=== PATIENT | female | born 1985 | race Caucasian/White ===

== ENCOUNTER 2020-03-17 10:35 | Emergency (ER) | payer OTHER, SELFPAY ==
[2020-03-17 12:21] VITALS: BP 120/76; PULSE 95; RESP 20; TEMP 37.3; O2SAT 99; BMI 36.9
--- NOTE | 2020-03-17 12:49 | ED_ITS ---
HPI - URI/Sore Throat General Chief Complaint: Upper Respiratory Symptoms Stated Complaint: ear pain, throat pain Time Seen by Provider: 03/17/20 12:48 Source: patient Mode of arrival: ambulatory Limitations: no limitations History of Present Illness HPI Narrative: sore throat, bilateral ear pain, ABRAMS, cough, body aches, subjective fevers Onset (ago): day(s) (yesterday) Consistency: constant Severity: mild Associated symptoms: denies other symptoms Related Data Previous Rx's Medication Instructions Recorded acetaminophen [Tylenol] 650 mg PO Q6H PRN #30 tab 03/17/20 Allergies Allergy/AdvReac Type Severity Reaction Status Date / Time aspirin [Aspirin] Allergy Severe DIFFICULTY Unverified 02/28/20 17:26 BREATHING, tracheal swelling Penicillins Allergy Severe DIFFICULTY Unverified 02/28/20 17:26 BREATHING penicillin V Allergy Unknown tracheal Unverified 02/07/20 00:00 swelling Review of Systems Review of Systems: Yes all other systems are reviewed and are negative Constitutional: Constitutional: Reports body ache(s), Reports chills, Reports fever(s) (subjective ), Reports headache(s), Reports malaise and Denies weakness Eyes: Eyes: Reports no additional eye complaints and Denies change in vision ENT: Reports system reviewed and no additional complaints, except as documented, Reports otalgia, Reports headache(s) and Reports sore throat Cardiovascular: Cardiovascular: Denies chest pain, Denies leg edema and Denies dyspnea Respiratory: Respiratory: Reports cough and Denies dyspnea Gastrointestinal: Gastrointestinal: Denies abdominal pain, Denies diarrhea, Denies nausea and Denies vomiting Musculoskeletal: Musculoskeletal: Reports no additional musculoskeletal complaints, Reports myalgias, Denies arthralgias, Denies joint swelling, Denies numbness and Denies tingling Integumentary/Breasts: Skin/Breast: Reports system reviewed and no additional complaints, except as docu and Denies rash Neurologic: Reports system reviewed and no additional complaints, except as documented, Reports headache(s), Denies numbness, Denies Sensory deficit (Neuro), Denies tingling and Denies weakness [facility] Past Medical History Attestation statement: The following information was validated with the patient. Source: obtained from family and nursing notes reviewed Medical History Asthma Surgical History Hx of shoulder surgery Tubal ligation status Social History Social History Advance Directives: No Advance Directives Information Provided: Yes Physical Exam Vital Signs and I&O and Narrative: Vital Signs and I&O: Vital Signs Temp 99.1 F 03/17/20 12:21 Pulse 95 03/17/20 12:21 Resp 20 03/17/20 12:21 BP 120/76 03/17/20 12:21 Pulse Ox 99 03/17/20 12:21 Intake & Output 03/16/20 03/17/20 03/17/20 18:59 06:59 18:59 Weight 113.398 kg Body Mass Index 36.9 Neuro: Sensory Exam: No Sensory deficit (Neuro) MDM - URI/Sore Throat MDM Narrative Medical decision making narrative: Likely viral syndrome. Well appearing, stable vital signs. COVID testing sent. Reviewed worrisome signs.symptoms with the patient and when to return to ED. Comfortable with discharge home, Discharge Plan Discharge Clinical Impression: Viral infection Patient Disposition: Home, Self-Care Instructions: Viral Syndrome (ED) Additional Instructions: motrin or tylenol for pain or fever as needed increase fluids, rest we will call you in 1-2 days with results Prescriptions: New acetaminophen [Tylenol] 325 mg tablet 650 mg PO Q6H PRN (Reason: fever or pain) Qty: 30 RF: 0 Referrals: Janis Marcelino MD [Primary Care Provider] - 5 days Stand Alone Forms: Work/School Release
== END 2020-03-17 13:41 | disposition home or self-care (01) ==
PROVIDERS: Nurse Practitioner Family; Emergency Provider Internal Medicine; PCP Internal Medicine
DX: B34.9 Viral infection, unspecified (principal); H92.03 Otalgia, bilateral; R51.9 Headache, unspecified; R50.9 Fever, unspecified; Z20.828 Contact with and (suspected) exposure to other viral communicable diseases
CPT/HCPCS: 36415; 87635; 99283

== ENCOUNTER 2020-04-17 06:26 | Outpatient (REF) | payer OTHER, SELFPAY | END 2020-04-17 06:27 | disposition home or self-care (01) | LOC: HO.LAB 06:26 | PROVIDERS: Visit Provider Internal Medicine | DX: Z20.828 Contact with and (suspected) exposure to other viral communicable diseases (principal) | CPT/HCPCS: C9803; U0003 ==

== ENCOUNTER → 2020-04-23 08:50 | Outpatient (BNVA) | payer OTHER, SELFPAY | PROVIDERS: Visit Provider Obstetrics & Gynecology | DX: Z01.818 Encounter for other preprocedural examination (principal); N84.0 Polyp of corpus uteri; N92.1 Excessive and frequent menstruation with irregular cycle | CPT/HCPCS: 99212 ==

== ENCOUNTER 2020-04-25 07:36 | Day surgery (SDC) | payer OTHER, SELFPAY ==
[2020-03-21 11:01] VITALS: BMI 36.9
--- NOTE | 2020-03-26 08:40 | HO.ANESPROP2 ---
HPI - Anesthesia Eval Consult details Narrative: 34yo F for Novasure ablation, D&C [facility] Past Medical History Medical History Asthma Hx of allergic rhinitis Hx of bipolar disorder Surgical History Surgical History History of bilateral tubal ligation History of open reduction and internal fixation (ORIF) procedure History of tonsillectomy and adenoidectomy Hx of shoulder surgery Tubal ligation status Social History Social History Smoking Status: Never smoker Meds Allergies Allergy/AdvReac Type Severity Reaction Status Date / Time aspirin [Aspirin] Allergy Severe DIFFICULTY Unverified 03/21/20 10:58 BREATHING, tracheal swelling Penicillins Allergy Severe DIFFICULTY Unverified 03/21/20 10:58 BREATHING Home Medications Medication Instructions Recorded Confirmed Type albuterol sulfate 1 vial INHALATION Q6H PRN 03/21/20 03/21/20 History albuterol sulfate [ProAir HFA] 1 inh INHALATION QID PRN 03/21/20 03/21/20 History citalopram 1 tab PO QAM 03/21/20 03/21/20 History doxepin 2 cap PO BEDTIME 03/21/20 03/21/20 History lithium carbonate 1 cap PO BID 03/21/20 03/21/20 History Exam Exam Date and Time: March 26, 2020 0840 Height,Weight and Vital Signs: Height 5 ft 9 in Weight 113.398 kg Pertinent Lab Results Pertinent Lab Results: Laboratory Tests 01/16/20 11:30 WBC 8.6 Hgb 11.8 L Hct 36.4 L Plt Count 415 H Assessment and Plan Assessment Anesthesia Assessment: Chart Reviewed
[2020-04-18 20:09] VITALS: BMI 36.8
--- NOTE | 2020-04-23 14:41 | HO.ANESPROP2 ---
Documented by User: Ynes Schultz 04/23/20 14:42 HPI - Anesthesia Eval Consult details Narrative: 34yo F for D&C Diagnostic Hysteroscopy, Novasure ablation PMF[facility] Past Medical History Medical History Asthma Hx of allergic rhinitis Hx of bipolar disorder Surgical History Surgical History History of bilateral tubal ligation History of open reduction and internal fixation (ORIF) procedure History of tonsillectomy and adenoidectomy Hx of shoulder surgery Tubal ligation status Social History Social History Alcohol intake: never Smoking Status: Never smoker Use of substances other than those prescribed or required for medical reasons: No Substance Use Type: Marijuana Advance Directives: No Advance Directives Information Provided: No Advance Directives on File: No Sexual orientation: Straight/Heterosexual Gender identity: female Meds Allergies Allergy/AdvReac Type Severity Reaction Status Date / Time aspirin [Aspirin] Allergy Severe DIFFICULTY Verified 04/23/20 09:17 BREATHING, tracheal swelling Penicillins Allergy Severe DIFFICULTY Verified 04/23/20 09:17 BREATHING Home Medications Medication Instructions Recorded Confirmed Type albuterol sulfate 1 vial INHALATION Q6H PRN 03/21/20 04/23/20 History albuterol sulfate [ProAir HFA] 1 inh INHALATION QID PRN 03/21/20 04/23/20 History citalopram 1 tab PO QAM 03/21/20 04/23/20 History doxepin 2 cap PO BEDTIME 03/21/20 04/23/20 History lithium carbonate 1 cap PO BID 03/21/20 04/23/20 History Exam Exam Date and Time: April 23, 2020 1441 Height,Weight and Vital Signs: Height 5 ft 9 in Weight 113 kg Pertinent Lab Results Pertinent Lab Results: Laboratory Tests 01/16/20 11:30 WBC 8.6 Hgb 11.8 L Hct 36.4 L Plt Count 415 H Assessment and Plan Assessment Anesthesia Assessment: Chart Reviewed Documented by User: Anjali Grewal 04/25/20 08:20 PMFSH Past Medical History Medical History Asthma Hx of allergic rhinitis Hx of bipolar disorder Surgical History Surgical History History of bilateral tubal ligation History of open reduction and internal fixation (ORIF) procedure History of tonsillectomy and adenoidectomy Hx of shoulder surgery Tubal ligation status Social History Social History Alcohol intake: never Smoking Status: Never smoker Use of substances other than those prescribed or required for medical reasons: No Substance Use Type: Marijuana Advance Directives: No Advance Directives Information Provided: No Advance Directives on File: No Sexual orientation: Straight/Heterosexual Gender identity: female Meds Allergies Allergy/AdvReac Type Severity Reaction Status Date / Time aspirin [Aspirin] Allergy Severe DIFFICULTY Verified 04/23/20 09:17 BREATHING, tracheal swelling Penicillins Allergy Severe DIFFICULTY Verified 04/23/20 09:17 BREATHING Home Medications Medication Instructions Recorded Confirmed Type albuterol sulfate 1 vial INHALATION Q6H PRN 03/21/20 04/23/20 History albuterol sulfate [ProAir HFA] 1 inh INHALATION QID PRN 03/21/20 04/23/20 History citalopram 1 tab PO QAM 03/21/20 04/23/20 History doxepin 2 cap PO BEDTIME 03/21/20 04/23/20 History lithium carbonate 1 cap PO BID 03/21/20 04/23/20 History Exam Airway Mallampati Class: II TM Dist: >3cm Neck ROM: Full Loose/Missing/Broken Teeth: No Heart: RRR Lungs: CTA Assessment and Plan Assessment Anesthesia Assessment: Anesthesia Plan Discussed and Chart Reviewed Final Anesthetic Review NPO: Yes ASA Class: II Final Preanesthetic Review: Meds/Allgs Chart Reviewed, Consent Obtained/Reviewed and Anes Risks/Benef Reviewed Patient Risk: Intermediate Procedure Risk: Low Anesthetic Plan Anesthetic Plan: GA Disposition: Standard PACU
[2020-04-25] VITALS (9 sets, daily range): BP systolic 122–143; BP diastolic 46–93; PULSE 62–85; RESP 18–22; TEMP 36.5–36.8; O2SAT 98–100; BMI 37.6
[2020-04-25] MEDS: Lactated Ringers 1,000 ML 100 ML IVCONT (08:02)
--- NOTE | 2020-04-25 08:46 | MHC.SHP ---
Pre-Procedural Eval Section A The patient is an INPATIENT: No Changes since office visit: No Cold of Flu in the past 2 weeks, No New Medical Problems, No Changes in Medication and No Patient answered all questions The History & Physical has been completed within 30 days and I have reviewed it.: Yes Section B Chief Complaint: polyp,frequent menstruation Allergies: Allergies Allergy/AdvReac Type Severity Reaction Status Date / Time aspirin [Aspirin] Allergy Severe DIFFICULTY Verified 04/23/20 09:17 BREATHING, tracheal swelling Penicillins Allergy Severe DIFFICULTY Verified 04/23/20 09:17 BREATHING Plan Diagnosis/Plan: Unchanged Patient has been examined and remains a candidate for the planned procedure
--- NOTE | 2020-04-25 09:21 | PM.OP ---
Brief Operative Note Date of Service: 04/25/20 Pre-op diagnosis: Menometrorrhagia, endometrial Polyp Post-op diagnosis: same Procedure: Hysteroscopy D&C, Polypectomy, Novasure Endometrial ablation Surgeon: Richi Magana MD Anesthesia: MAC Estimated blood loss (mL): 0 Pathology: other (Endometrial Scrapping. Polyp) Condition: stable Disposition: PACU
--- NOTE | 2020-04-25 09:24 | P.OP_ITS ---
Operative Note Operative Note Date of Service: 04/25/20 Narrative: Preop Diagnosis: menometrorrhagia, endometrial polyp Operation: Diagnostic Hysteroscopy, Dilataion & Curettage and polypectomy, NovaSure endometrial ablation Post Op Diagnosis: the same QBL: Minimal Anesthesia: MAC Surgeon: Richi Magana MD Mortgage Collector: None Complication: None Pathology: Endometrial Scrapings, Endometrial polyp Procedure: The patient was put in the dorsal lithotomy position, scrubbed, and draped in the usual manner. A sterile speculum was inserted in the patient's vagina. The anterior lip of the cervix was grasped with a single tooth tenaculum. The cervix was dilated up to 6 mm, then the scope was inserted in the patient's uterus. Inspection revealed endometrial polyp. The Myosure Reach device was used; it was introduced through the operative channel and polypectomy done with no complications. At the end of the procedure, all instruments were taken out of the patient uterine and vaginal cavity, Endometrial scrapings was carried on with no complications. Then the NovaSure device was opened, the endometrial cavity was measured to be 6.5 cm, the NovaSure device was introduced inside the patient 's uterine cavity till resistance was met, next the the width of the uterine cavity was measured to be 4.5 cm. The perforation test was turned on and passed, and the NovaSure device was turned on and spontaneously stopped at 68 seconds. At this point the NovaSure device was taken out of the patient uterine cavity. The single tooth tenaculum was removed and homeostasis was assured using pressure,. The patient tolerated the procedure well and was transferred to the PACU in a stable condition.
[2020-04-25] MEDS: fentaNYL citrate/PF 100 MCG/2 ML VIAL 25 MCG IVPUSH ×4 (09:35→09:50)
--- NOTE | 2020-04-25 09:42 | HO.POSTANES ---
Post Anesthesia Evaluation Post Anesthesia Evaluation Vital Signs: Vital Signs Temp Pulse Resp BP Pulse Ox 04/25/20 09:35 22 H 04/25/20 09:30 98.3 F 68 20 143/89 H 98 04/25/20 07:46 97.7 F 81 20 122/80 99 Anesthesia: General Mental Status: Awake Pain Control: Satisfactory Nausea/Vomiting: Mild Hydration: Adequate Anesthesia-Related Issues: No Anes. Related Issues
[2020-04-25] MEDS: oxyCODONE HCl Immed Release 5 MG TABLET PO (09:43)
[2020-04-25] MEDS: Acetaminophen 325 MG TABLET 650 MG PO (09:44)
== END 2020-04-25 10:45 | disposition home or self-care (01) ==
PROVIDERS: PCP Internal Medicine; Visit Provider Obstetrics & Gynecology
PROC: 0UDB8ZX Extraction of Endometrium, Via Natural or Artificial Opening Endoscopic, Diagnostic (ICD-10-PCS; CPT 58558; principal; 2020-04-25 09:00)
DX: N92.1 Excessive and frequent menstruation with irregular cycle (principal); N84.0 Polyp of corpus uteri; F41.9 Anxiety disorder, unspecified; J45.909 Unspecified asthma, uncomplicated; Z98.51 Tubal ligation status
CPT/HCPCS: 58563; 88305; J1100; J2250; J2405; J3010

== ENCOUNTER 2020-05-07 07:21 | Outpatient (REF) | payer OTHER, SELFPAY | END 2020-05-07 07:22 | disposition home or self-care (01) | LOC: HO.LAB 07:21 | PROVIDERS: Visit Provider Internal Medicine | DX: Z20.828 Contact with and (suspected) exposure to other viral communicable diseases (principal) | CPT/HCPCS: C9803; U0003 ==

== ENCOUNTER → 2020-05-13 10:51 | Outpatient (BNVA) | payer OTHER, SELFPAY | PROVIDERS: Visit Provider Obstetrics & Gynecology | DX: Z76.89 Persons encountering health services in other specified circumstances (principal) ==

== ENCOUNTER 2020-06-12 06:57 | Outpatient (REF) | payer OTHER, SELFPAY | END 2020-06-12 06:58 | disposition home or self-care (01) | LOC: HO.LAB 06:57 | PROVIDERS: PCP Internal Medicine; Visit Provider Internal Medicine | DX: Z20.828 Contact with and (suspected) exposure to other viral communicable diseases (principal) | CPT/HCPCS: C9803; U0003 ==

== ENCOUNTER 2020-06-19 12:37 | Outpatient (REF) | payer OTHER, SELFPAY ==
--- NOTE | 2020-06-19 12:53 | XR_ITS ---
EXAMINATION: XR CALCANEUS, RIGHT CLINICAL INFORMATION: Right foot pain. COMPARISON: None TECHNIQUE: Lateral and axial views of the right calcaneus were obtained. FINDINGS: Minimal enthesopathy is noted at the insertional site of the Achilles tendon to the calcaneus. The soft tissues are normal. No fracture. Alignment is anatomic. Joint spaces are maintained. XR/XR calcaneus RT min 2V IMPRESSION: Minimal enthesopathy at the insertional site of the Achilles tendon to the calcaneus.
[2020-06-19 13:27] LABS: MANUAL DIFF FLAG NO
[2020-06-19 13:40] LABS: Basophils Absolute Auto 0.1 X10*3/uL (0.0-0.2); Basophils Percent Auto 0.5 % (0-2); Eosinophils Absolute Auto 0.4 X10*3/uL (0.0-0.4); Eosinophils Percent Auto 4.3 % (0-4); Hematocrit 36.7 % (37-47); Hemoglobin 11.9 g/dl (12.0-16.0); Imm Gran Abs Auto 0.05 X10*3/uL (0.00-0.03); Imm Gran Pct Auto 0.5 % (0.0-0.4); Lymphocytes Absolute Auto 2.9 X10*3/uL (1.2-4.9); Lymphocytes Percent Auto 30.1 % (20-40); Mean Corpuscular HGB Conc 32.4 g/dl (31.0-35.0); Mean Corpuscular Hemoglobin 22.9 pg (27.0-33.0); Mean Corpuscular Volume 70.6 fL (80-98); Mean Platelet Volume 11.3 fL (9.4-12.3); Monocytes Absolute Auto 0.8 X10*3/uL (0.1-1.2); Monocytes Percent Auto 8.5 % (2-11); Neutrophils Absolute Auto 5.5 X10*3/uL (2.0-8.3); Neutrophils Percent Auto 56.1 % (45-73); Platelet Count 391 X10*3/uL (160-400); Red Cell Distribution Width 18.2 % (11.0-16.0); White Blood Count 9.8 X10*3/uL (4.8-10.8)
== END 2020-06-19 12:38 | disposition home or self-care (01) ==
LOC: HO.LAB 12:37
PROVIDERS: Absent Provider Nurse Practitioner Family; PCP Internal Medicine; Visit Provider Obstetrics & Gynecology
DX: M79.671 Pain in right foot (principal); N93.9 Abnormal uterine and vaginal bleeding, unspecified
CPT/HCPCS: 36415; 73650; 85025; 99212

== ENCOUNTER 2020-07-03 06:32 | Outpatient (REF) | payer OTHER, SELFPAY | END 2020-07-03 06:33 | disposition home or self-care (01) | LOC: HO.LAB 06:32 | PROVIDERS: PCP Internal Medicine; Visit Provider Internal Medicine | DX: Z20.822 Contact with and (suspected) exposure to COVID-19 (principal) | CPT/HCPCS: 36415; C9803; U0003 ==

== ENCOUNTER 2020-11-26 14:22 | Outpatient (REF) | payer OTHER, SELFPAY ==
[2020-11-26 16:22] LABS: Hematocrit 35.9 % (37-47); Hemoglobin 11.8 g/dl (12.0-16.0); Mean Corpuscular HGB Conc 32.9 g/dl (31.0-35.0); Mean Corpuscular Hemoglobin 24.1 pg (27.0-33.0); Mean Corpuscular Volume 73.4 fL (80-98); Mean Platelet Volume 10.6 fL (9.4-12.3); Platelet Count 392 X10*3/uL (160-400); Red Blood Count 4.89 X10*6/uL (4.20-5.50); Red Cell Distribution Width 17.2 % (11.0-16.0); White Blood Count 8.6 X10*3/uL (4.8-10.8)
[2020-11-26 17:11] LABS: HCG Quantitative < 2 mIU/mL; TSH reflex Free T4 1.57 uIU/mL (0.32-4.0)
[2020-11-27 05:36] LABS: CT PCR NOT DETECTED (Not Detect.); NG PCR NOT DETECTED (Not Detect.)
[2020-11-29 03:11] LABS: HPV mRNA E6/E7 rflx Not Detected (Not Detected)
== END 2020-11-26 14:23 | disposition home or self-care (01) ==
LOC: HO.LAB 14:22
PROVIDERS: PCP Internal Medicine; Visit Provider Obstetrics & Gynecology
DX: Z01.411 Encounter for gynecological examination (general) (routine) with abnormal findings (principal); Z11.3 Encounter for screening for infections with a predominantly sexual mode of transmission; Z11.51 Encounter for screening for human papillomavirus (HPV); N92.1 Excessive and frequent menstruation with irregular cycle; N93.9 Abnormal uterine and vaginal bleeding, unspecified
CPT/HCPCS: 36415; 84443; 84702; 85027; 87491; 87591; 87624; 88142

== ENCOUNTER 2020-12-10 14:09 | Outpatient (REF) | payer OTHER, SELFPAY ==
--- NOTE | ~2020-12-10 | US_ITS ---
EXAMINATION: ULTRASOUND PELVIC, COMPLETE CLINICAL INFORMATION: Abnormal uterine and vaginal bleeding COMPARISON: Pelvic ultrasound 01/01/2020 TECHNIQUE: Transabdominal and transvaginal imaging was performed. Transvaginal imaging was performed for further evaluation of the endometrium and adnexa. FINDINGS: The uterus is of normal size and echogenicity measuring 9.4 x 4.5 x 5.6 cm. A regular homogeneous endometrium is identified measuring 0.6 cm. The previously seen endometrial polyp is not visualized on the current study. There are nabothian cysts within the cervix. Both ovaries are of normal size and echogenicity. The right ovary measures 2.3 x 1.7 x 1.7 cm for a volume of 3.5 mL. There is a 0.7 cm follicle within the right ovary. The left ovary measures 4.1 x 3.2 x 3.6 cm for a volume of 24.7 mL. There is a 2.4 x 2.6 x 2.9 cm dominant follicle in the left ovary There is no pelvic free fluid. US/US pelvic and transvaginal IMPRESSION: Previously seen possible endometrial polyp is not visualized on the current exam. Normal dominant follicle of the left ovary. Nabothian cysts within the cervix.
== END 2020-12-10 14:10 | disposition home or self-care (01) ==
LOC: HO.US 14:09
PROVIDERS: Visit Provider Obstetrics & Gynecology
DX: N93.9 Abnormal uterine and vaginal bleeding, unspecified (principal)
CPT/HCPCS: 76830; 76856

== ENCOUNTER 2021-02-02 10:45 | Emergency (ER) | payer OTHER, SELFPAY ==
--- NOTE | ~2021-02-02 | CT_ITS ---
EXAMINATION: CT ABDOMEN AND PELVIS WITHOUT CONTRAST CLINICAL INFORMATION: Right back pain. Question kidney stones COMPARISON: November 07, 2017 TECHNIQUE: Multidetector volumetric imaging was performed from the superior aspect of the liver through the pubic symphysis. Sagittal and coronal reformatted images were obtained on the technologist's workstation. This CT examination was performed using dose optimization techniques as appropriate, variously including the following: *Automated exposure control *Adjustment of mA and/or kV according to patient size (this includes techniques or standardized protocols for targeted exams where dose is matched to indication/reason for exam; i.e. extremities or head) *Use of iterative reconstruction technique DLP: 933 mGy-cm FINDINGS: LUNG BASES: There is a 3 mm subpleural density within the right middle lobe. No pleural or pericardial effusion. LIVER, GALLBLADDER, AND BILIARY TREE: There is diffuse fatty infiltration of the liver again seen. There is hepatomegaly with vertical length of 22 cm. There there are 2 stable regions of increased density within segment 4B of the liver consistent with focal fatty sparing. No suspicious mass identified. No intrahepatic bile duct dilatation is seen. The gallbladder is unremarkable with no evidence of radiopaque gallstones, gallbladder wall thickening, or obvious pericholecystic inflammatory changes. PANCREAS: Unremarkable. SPLEEN: There is mild splenomegaly with vertical span of 13 cm. No splenic lesion identified. ADRENAL GLANDS: Unremarkable. KIDNEYS AND URETERS: The kidneys are normal in size, shape, and attenuation. No hydronephrosis, hydroureter, or calculi seen. No perinephric stranding. BLADDER: Unremarkable. GASTROINTESTINAL TRACT: No dilated loops of large or small bowel. No free air or free fluid. No pericolonic inflammatory change. The appendix is visualized and appears unremarkable. There are some nonspecific regions of hazy density within the mesentery surrounding the nonenlarged lymph nodes. This was present on previous study of November 07, 2017. ABDOMINAL WALL: No significant hernia is appreciated. LYMPH NODES: There are numerous nonpathologically enlarged lymph nodes seen within the mesentery. An about the aortoiliac regions. VASCULAR: Unremarkable. PELVIC VISCERA: Unremarkable. OSSEOUS STRUCTURES: No suspicious destructive bony lesions identified. Degenerative disc disease is seen at the L4-L5 and L5-S1 levels. CT/CT abdomen pelvis wo con IMPRESSION: Diffuse fatty infiltration of the liver with hepatosplenomegaly. No evidence of obstructive uropathy. Numerous nonenlarged lymph nodes with hazy density surrounding them within the mesentery. This is a stable finding.
[2021-02-02 11:25] VITALS: BP 130/85; PULSE 84; RESP 16; TEMP 37; O2SAT 100; BMI 36.9
[2021-02-02 11:54] LABS: Glucose Urine UA NEG (NEG); Leukocyte Esterase Urine NEG (NEG); Nitrite Urine NEG (NEG); Specific Gravity - Urine 1.015 (1.005-1.025); Urine Blood NEG (NEG); Urine Ketones NEG (NEG); Urine Protein NEG (NEG-TRACE)
[2021-02-02 11:57] LABS: Appearance Urine CLEAR; Color Urine COLORLESS
[2021-02-02 12:03] LABS: Bacteria Urine TRACE /LPF; RBC Urine 0 /HPF (0); Squamous Epithelial Cell Urine 1+ /LPF; WBC Urine 0 /HPF (0-4)
[2021-02-02 12:33] LABS: UPreg QC Valid YES; Urine Pregnancy NEGATIVE (NEGATIVE)
[2021-02-02] MEDS: oxyCODONE HCl Immed Release 5 MG TABLET PO (13:26)
--- NOTE | 2021-02-02 13:45 | ED.BACK ---
HPI - Back Pain/Injury General Chief Complaint: Back Pain/Injury Stated Complaint: LOW BACK PAIN Time Seen by Provider: 02/02/21 11:57 Source: patient Mode of arrival: ambulatory Limitations: no limitations History of Present Illness HPI Narrative: 35-year-old female presenting to the ED with complaints of atraumatic right to mid/lower back pain for the past few days worse today. Denies any injuries. Denies any fevers, chills, nausea/vomiting, abdominal pain, dysuria, hematuria, abnormal vaginal discharge, diarrhea constipation or any other symptoms complaints or concerns at this time. MD elicited complaint: back pain Onset (ago): day(s) (For the past few days worse today) Timing: constant and progressively worsening Severity: moderate Similar Symptoms Previously: No Quality: aching Location: lumbar spine, right flank and right lower back Radiation: none Exacerbating factors: none Relieving factors: none Context: unknown Associated symptoms: denies other symptoms Work related injury: No Related Data Home Medications Medication Instructions Recorded Confirmed albuterol sulfate 1 vial INHALATION Q6H PRN 03/21/20 11/26/20 doxepin 150 mg capsule 2 cap PO BEDTIME 03/21/20 11/26/20 lithium carbonate 300 mg capsule 1 cap PO BID 03/21/20 11/26/20 Previous Rx's Medication Instructions Recorded acetaminophen 325 mg tablet 650 mg PO Q6H PRN #30 tab 03/17/20 (Tylenol) cyclobenzaprine 10 mg tablet 10 mg PO BEDTIME 30 Days #30 tab 05/01/20 ibuprofen 800 mg tablet 800 mg PO BID PRN 10 Days #20 tab 05/01/20 prednisone 10 mg tablet 10 mg PO DAILY 9 Days #18 tab 05/01/20 albuterol sulfate 90 mcg/actuation 2 puff PO Q8H PRN 30 Days #8.5 g 05/27/20 aerosol inhaler cyclobenzaprine 10 mg tablet 10 mg PO BEDTIME #30 tab 05/29/20 cyclobenzaprine 10 mg tablet 10 mg PO Q8H #10 tab 02/02/21 ibuprofen 800 mg tablet 800 mg PO Q8H PRN #14 tab 02/02/21 oxycodone-acetaminophen 5 mg-325 1 tab PO Q6H PRN #10 tab 02/02/21 mg tablet (Percocet) Allergies Allergy/AdvReac Type Severity Reaction Status Date / Time aspirin [Aspirin] Allergy Severe DIFFICULTY Verified 02/02/21 11:29 BREATHING, tracheal swelling Penicillins Allergy Severe DIFFICULTY Verified 02/02/21 11:29 BREATHING Review of Systems Review of Systems: Constitutional : No trauma, No Weight loss, No Fever, No Chills, ENT/Mouth : No Hearing loss, No Ear Pain, No Nasal Congestion, No Sinus Pain, No Hoarseness, No sore throat, No Rhinorrhea, No Swallowing Difficulty Cardiovascular : No Chest Pain, No SOB Respiratory : No Cough, No Dyspnea Gastrointestinal : No Nausea, No Vomiting, No Diarrhea, No abdominal Pain, No Hematochezia, No Melena Genitourinary : No Dysuria, No Urinary Frequency, No Hematuria, No Urinary or Bowel Incontinence/retention Musculoskeletal : + Back pain, No neck pain, No joint stiffness, No joint swelling Skin : No Skin Lesions, No rash or signs of infection Neuro : No Weakness, No radiation, No Numbness, No Paresthesias, No headache, no loss of bowel or bladder incontinence, no saddle anesthesia, Focal weakness, No radiation Denies history of IV drug usage. Yes all other systems are reviewed and are negative [facility] Past Medical History Attestation statement: The following information was validated with the patient. Medical History Anxiety Asthma Hx of allergic rhinitis Hx of bipolar disorder Pain of right heel Surgical History History of bilateral tubal ligation History of endometrial ablation History of open reduction and internal fixation (ORIF) procedure History of tonsillectomy and adenoidectomy Hx of shoulder surgery Tubal ligation status Social History Social History Alcohol intake: never Substance Use Type: Marijuana Advance Directives: Yes Advance Directives Information Provided: Yes Advance Directives on File: No Patient : No Sexual orientation: Straight/Heterosexual Gender identity: Female Physical Exam Vital Signs: Vital Signs: Last Vital Signs Temp 98.6 F 02/02/21 11:25 Pulse 84 02/02/21 11:25 Resp 16 02/02/21 11:25 BP 130/85 02/02/21 11:25 Pulse Ox 100 02/02/21 11:25 Body Mass Index 36.9 vital signs have been reviewed as normal and appeared to be correct. Blood pressure normal. Heart rate normal. Respiration rate normal. Temperature normal. Oxygen saturation normal. Appearance: Alert. Oriented X3. No acute distress. Head: Normal external exam. Normocephalic. Atraumatic. Eyes: PERRLA. EOMI. Conjunctiva and sclera normal. Eyelids normal. ENT: Pharynx normal. Uvula midline. Moist mucous membranes. Neck: Normal inspection. Neck supple. FROM. No adenopathy. Thyroid Normal. No meningeal signs. No neck mass noted. CVS: Normal heart rate and rhythm. Heart sound normal. No murmurs noted. Pulses normal throughout. Respiratory: No respiratory distress. Painless inspiration. Breath sounds normal. No wheezes/rales/rhonchi noted. Chest nontender. No accessory muscle usage noted or decreased air movement noted. Abdomen: Soft and nontender. Bowel sounds normal in all 4 quadrants. No distention noted. No organomegaly noted. No visible injury noted. Back: Positive Right CVA tenderness. No left CVAT noted. Full range of motion noted. No obvious deformities, or edema. Mild para-spinal muscular tenderness from lumbar region to coccyx. Full ROM in back and lower extremities. 5/5 strength hip extension/flexion, abduction, adduction. Mild Lumbar pain with hip flexion against resistance. Straight leg raise test negative on right; Straight leg raise test negative on left; Reflexes normal ankle and knee bilaterally; EHL motor strength normal bilaterally. No rashes/lesion/induration/fluctuance or signs infection noted. Skin: Skin warm and dry. Normal skin color. Normal skin turgor. No rashes/lesions/lacerations noted. Extremities: No lower extremity edema. Extremities exhibit normal range of motion. Extremities nontender. Neuro: Oriented X 3. No motor deficit. No sensory deficit. Reflexes normal. Patient has a normal steady gait. Course Course Course Narrative: Pt c likely muscular pain, but could be herniated disc. Neuro exam shows no deficits. Not c/w AAA/epidural abscess/dissection.No high risk Hx (Incont, fever, immunosupp, recent surgery/LP, coag, signif trauma, wt loss, puls mass, hx/o Ca, TB, or IVDU) to warrant MRI. Although patient having tenderness to the right to mid/lower back therefore will obtain a UA to evaluate for possible UTI and CT scan abdomen pelvis without IV contrast to evaluate for possible kidney stone if negative will DC home with symptomatic treatment. Not c/w spinal fx. Not cauda equina syndrome. Patient understands agrees with this plan. MDM - Back Pain/Injury Medical Records Attestation: I reviewed the patient's medical records. Lab Data Attestation: I reviewed the patient's lab results. Labs: Lab Results 02/02/21 02/02/21 Range/Units 11:41 11:41 Urine Color COLORLESS Urine Appearance CLEAR Urine pH 6.0 (5.0-8.0) Ur Specific [place] 1.015 (1.005-1.025) Urine Protein NEG (NEG-TRACE) MG/DL Urine Glucose (UA) NEG (NEG) MG/DL Urine Ketones NEG (NEG) MG/DL Urine Blood NEG (NEG) Urine Nitrite NEG (NEG) Ur Leukocyte Esterase NEG (NEG) Urine RBC 0 (0) /HPF Urine WBC 0 (0-4) /HPF Ur Squamous Epith Cells 1+ /LPF Urine Bacteria TRACE /LPF Urine Test NEGATIVE (NEGATIVE) Imaging Data CT scan abdomen pelvis without IV contrast: Attestation: I personally reviewed and interpreted this imaging study as follows: Radiologist's impression: FINDINGS: LUNG BASES: There is a 3 mm subpleural density within the right middle lobe. No pleural or pericardial effusion.? LIVER, GALLBLADDER, AND BILIARY TREE: There is diffuse fatty infiltration of the liver again seen. There is hepatomegaly with vertical length of 22 cm. There there are 2 stable regions of increased density within segment 4B of the liver consistent with focal fatty sparing. No suspicious mass identified. No intrahepatic bile duct dilatation is seen. ?The gallbladder is unremarkable with no evidence of radiopaque gallstones, gallbladder wall thickening, or obvious pericholecystic inflammatory changes.? PANCREAS: Unremarkable.? SPLEEN: There is mild splenomegaly with vertical span of 13 cm. No splenic lesion identified.? ADRENAL GLANDS: Unremarkable.? KIDNEYS AND URETERS: The kidneys are normal in size, shape, and attenuation. No hydronephrosis, hydroureter, or calculi seen. No perinephric stranding. ? BLADDER: Unremarkable.? GASTROINTESTINAL TRACT: No dilated loops of large or small bowel. No free air or free fluid. No pericolonic inflammatory change. The appendix is visualized and appears unremarkable. There are some nonspecific regions of hazy density within the mesentery surrounding the nonenlarged lymph nodes. This was present on previous study of November 07, 2017. ABDOMINAL WALL: No significant hernia is appreciated.? LYMPH NODES: There are numerous nonpathologically enlarged lymph nodes seen within the mesentery. An about the aortoiliac regions. VASCULAR: Unremarkable. PELVIC VISCERA: Unremarkable.? OSSEOUS STRUCTURES: No suspicious destructive bony lesions identified. Degenerative disc disease is seen at the L4-L5 and L5-S1 levels.? CT/CT abdomen pelvis wo con IMPRESSION: Diffuse fatty infiltration of the liver with hepatosplenomegaly. ? No evidence of obstructive uropathy. ? Numerous nonenlarged lymph nodes with hazy density surrounding them within the mesentery. This is a stable finding.? Discharge Plan Discharge Clinical Impression: Strain of lumbar region Patient Disposition: Home, Self-Care Instructions: Low Back Strain (ED) Prescriptions: New cyclobenzaprine 10 mg tablet 10 mg PO Q8H Qty: 10 RF: 0 ibuprofen 800 mg tablet 800 mg PO Q8H PRN (Reason: pain) Qty: 14 RF: 0 oxycodone-acetaminophen [Percocet] 5-325 mg tablet 1 tab PO Q6H PRN (Reason: pain) Qty: 10 RF: 0 No Action albuterol sulfate 90 mcg/actuation HFA aerosol inhaler 2 puff PO Q8H PRN (Reason: for wheezing) 30 Days Qty: 8.5 RF: 0 cyclobenzaprine 10 mg tablet 10 mg PO BEDTIME Qty: 30 RF: 2 acetaminophen [Tylenol] 325 mg tablet 650 mg PO Q6H PRN (Reason: fever or pain) Qty: 30 RF: 0 albuterol sulfate 2.5 mg /3 mL (0.083 %) solution for nebulization 1 vial inhalation Q6H PRN (Reason: respiratory symptoms) RF: 0 lithium carbonate 300 mg capsule 1 cap PO BID RF: 0 doxepin 150 mg capsule 2 cap PO BEDTIME RF: 0 cyclobenzaprine 10 mg tablet 10 mg PO BEDTIME 30 Days Qty: 30 RF: 0 ibuprofen 800 mg tablet 800 mg PO BID PRN (Reason: pain) 10 Days Qty: 20 RF: 0 prednisone 10 mg tablet 10 mg PO DAILY 9 Days Qty: 18 RF: 0 Referrals: Mcfarland Sixto,Kalli, MD [Primary Care Provider] - 2 days Stand Alone Forms: Work/School Release Print Language: Slovak
== END 2021-02-02 14:16 | disposition home or self-care (01) ==
PROVIDERS: Physician Assistant Medical; Emergency Provider Emergency Medicine; PCP Internal Medicine
DX: S39.012A Strain of muscle, fascia and tendon of lower back, initial encounter (principal); R10.9 Unspecified abdominal pain; F12.90 Cannabis use, unspecified, uncomplicated; X58.XXXA Exposure to other specified factors, initial encounter; Y93.9 Activity, unspecified; Y92.9 Unspecified place or not applicable; Y99.9 Unspecified external cause status; Z79.899 Other long term (current) drug therapy
CPT/HCPCS: 36415; 74176; 81001; 81025; 99284

== ENCOUNTER 2021-02-09 08:38 | Outpatient (REF) | payer OTHER, SELFPAY | END 2021-02-09 08:39 | disposition home or self-care (01) | LOC: HO.LAB 08:38 | PROVIDERS: PCP Internal Medicine; Visit Provider Obstetrics & Gynecology | DX: N93.9 Abnormal uterine and vaginal bleeding, unspecified (principal) | CPT/HCPCS: 58100; 88305 ==

== ENCOUNTER → 2021-02-23 11:52 | Outpatient (BNVA) | payer OTHER, SELFPAY | PROVIDERS: PCP Internal Medicine; Visit Provider Obstetrics & Gynecology ==

== ENCOUNTER 2021-07-01 11:47 | Outpatient (REF) | payer OTHER, SELFPAY ==
[2021-07-01 12:31] LABS: Binax Internal Control QC Valid; Binax Now Covid-19 Ag Negative (Negative)
== END 2021-07-01 11:48 | disposition home or self-care (01) ==
LOC: HO.HMGCLDS 11:47
PROVIDERS: Visit Provider Physician Assistant
DX: Z13.89 Encounter for screening for other disorder (principal)

== ENCOUNTER 2021-10-05 07:43 | Emergency (ER) | payer OTHER, SELFPAY ==
--- NOTE | ~2021-10-05 | CT_ITS ---
EXAMINATION: CT ABDOMEN AND PELVIS WITH CONTRAST CLINICAL INFORMATION: Right flank pain radiating to right lower quadrant. COMPARISON: CT abdomen pelvis 02/02/2021 TECHNIQUE: Multidetector volumetric images were obtained from the superior aspect of the liver through the pubic symphysis following administration 85 mL of Omnipaque 350 intravenous contrast. Sagittal and coronal reformatted images were obtained on the technologist's workstation. This CT examination was performed using dose optimization techniques as appropriate, variously including the following: *Automated exposure control *Adjustment of mA and/or kV according to patient size (this includes techniques or standardized protocols for targeted exams where dose is matched to indication/reason for exam; i.e. extremities or head) *Use of iterative reconstruction technique DLP: 1035 mGy-cm FINDINGS: Visualized lung bases are well aerated. Stable 3 mm pulmonary nodule of the right middle lobe. The liver is normal in size but demonstrates diffusely decreased attenuation suggesting hepatic steatosis. The gallbladder is normal in appearance. The pancreas, spleen and adrenal glands are unremarkable. Symmetrically enhancing kidneys. No hydronephrosis. Normal caliber loops of small and large bowel. Normal appendix. Similar mesenteric haziness centrally within the abdomen with several associated prominent lymph nodes. Normal caliber abdominal aorta. The bladder is normal in appearance. Unremarkable CT appearance of the uterus. No gross free pelvic fluid. No inguinal lymphadenopathy. No acute osseous abnormality. CT/CT abdomen pelvis w con IMPRESSION: -Hepatic steatosis. -Similar suspected mesenteric panniculitis. Fleischner guidelines were followed.
[2021-10-05 08:16] VITALS: BP 123/94; PULSE 102; RESP 18; TEMP 36.9; O2SAT 97; BMI 36.9
[2021-10-05] MEDS: Acetaminophen 325 MG TABLET 650 MG PO (08:23)
[2021-10-05] MEDS: Cyclobenzaprine HCl 5 MG TABLET PO (08:23)
[2021-10-05 08:28] LABS: MANUAL DIFF FLAG NO
[2021-10-05 08:30] LABS: Basophils Percent Auto 0.4 % (0-2); Eosinophils Absolute Auto 0.5 X10*3/uL (0.0-0.4); Eosinophils Percent Auto 6.4 % (0-4); Hematocrit 38.7 % (37.0-47.0); Hemoglobin 12.7 g/dl (12.0-16.0); Imm Gran Abs Auto 0.02 X10*3/uL (0.00-0.03); Imm Gran Pct Auto 0.3 % (0.0-0.4); Lymphocytes Absolute Auto 1.8 X10*3/uL (1.2-4.9); Lymphocytes Percent Auto 23.7 % (20-40); Mean Corpuscular HGB Conc 32.8 g/dl (31.0-35.0); Mean Corpuscular Hemoglobin 25.2 pg (27.0-33.0); Mean Corpuscular Volume 76.9 fL (80.0-98.0); Monocytes Absolute Auto 0.4 X10*3/uL (0.1-1.2); Neutrophils Absolute Auto 4.7 x10*3/uL (2.0-8.3); Neutrophils Percent Auto 63.2 % (45-73); Platelet Count 344 X10*3/uL (160-400); Red Blood Count 5.03 X10*6/uL (4.20-5.50); Red Cell Distribution Width 14.5 % (11.0-16.0); White Blood Count 7.4 X10*3/uL (4.8-10.8)
[2021-10-05 08:33] LABS: Appearance Urine CLEAR; Color Urine YELLOW; Glucose Urine UA NEG (NEG); Leukocyte Esterase Urine NEG (NEG); Nitrite Urine NEG (NEG); PH 5.5 (5.0-8.0); Specific Gravity - Urine 1.015 (1.005-1.025); UACC Culture Trigger NO; Urine Blood TRACE (NEG); Urine Ketones NEG (NEG); Urine Protein NEG (NEG-TRACE)
--- NOTE | 2021-10-05 08:47 | ED_ITS ---
HPI - General Adult General Chief complaint: Abdominal Pain Stated complaint: back and hip pain down into R leg Time Seen by Provider: 10/05/21 08:03 Source: patient Mode of arrival: ambulatory History of Present Illness HPI narrative: 36-year-old female with a past medical history of anxiety, asthma, chronic diarrhea, hemorrhoids, presenting to the ED complaining of intermittent right sided flank pain radiating to RLQ x4 days. Also reports some radiation down right leg with associated paresthesias. Denies known injury/trauma or fall. Denies fever, chills, nausea, vomiting, dysuria/hematuria Onset (ago): day(s) Related Data Previous Rx's Medication Instructions Recorded albuterol sulfate 2.5 mg (3 mL) INHALATION Q6H PRN 07/01/21 30 Days #75 ml albuterol sulfate 90 mcg/actuation 2 puff PO Q8H PRN 30 Days #8.5 g 07/24/21 aerosol inhaler alclometasone 0.05 % topical cream 1 appl TOPICAL BID PRN 30 Days #45 08/13/21 g fluticasone propionate 44 1 puff INHALATION BID 30 Days 08/13/21 mcg/actuation HFA aerosol inhaler #10.6 g (Flovent HFA) acetaminophen 500 mg tablet 500 mg PO Q6H PRN #20 tab 10/05/21 (Tylenol Extra Strength) cyclobenzaprine 5 mg tablet 5 mg PO Q8H PRN 5 Days #14 tab 10/05/21 lidocaine 5 % topical patch 1 patch TOPICAL DAILY PRN #30 ea 10/05/21 (Lidoderm) MDD remove after 12 hours tramadol 50 mg tablet 50 mg PO Q8H PRN #9 tab 10/05/21 Allergies Allergy/AdvReac Type Severity Reaction Status Date / Time aspirin [Aspirin] Allergy Severe DIFFICULTY Verified 08/13/21 10:09 BREATHING, tracheal swelling Penicillins Allergy Severe DIFFICULTY Verified 08/13/21 10:09 BREATHING Review of Systems Review of Systems: Constitutional: No Fever, No Chills, No Fatigue, No Malaise ENT/Mouth: No Ear Pain, No Nasal Congestion, No Hoarseness, No sore throat, No Rhinorrhea, No Swallowing Difficulty Eyes: No Eye Pain, No Swelling, No Redness, No Discharge Cardiovascular: No Chest Pain, No SOB, No Edema, No Palpitations Respiratory: No Cough, No Sputum, No Dyspnea Gastrointestinal: No Nausea, No Vomiting, No Diarrhea, No Constipation, + Abdominal pain Genitourinary: No Dysuria, No Urinary Frequency, No Hematuria, No Urinary Incontinence, No Urgency, + Flank Pain Musculoskeletal: + joint pain, No Myalgias, No Joint Swelling Skin: No Skin Lesions, No rash Neuro: No Weakness, No Numbness, No Paresthesias, No Headache Yes all other systems are reviewed and are negative Neurologic: Denies Sensory deficit (Neuro) [facility] Past Medical History Attestation statement: The following information was validated with the patient. Medical History Anxiety Asthma Chronic diarrhea Class 2 obesity with body mass index (BMI) of 39.0 to 39.9 in adult Hemorrhoids Hx of allergic rhinitis Hx of bipolar disorder Moderate asthma Pain of right heel Surgical History History of bilateral tubal ligation History of endometrial ablation History of open reduction and internal fixation (ORIF) procedure History of tonsillectomy and adenoidectomy Hx of shoulder surgery Tubal ligation status Family History Family History Mother Hypertension Father No problems noted. Social History Social History Housing: Apartment Alcohol intake: never Patient Tobacco Use Status: Never used Tobacco e-Cigarette/Vaping Use: Never Used Second Hand Smoke Exposure: No Use of substances other than those prescribed or required for medical reasons: No Substance Use Type: Marijuana Advance Directives: No Advance Directives Information Provided: Yes service: No Current occupational status: employed Current occupational exposures/hazards: No Sexual orientation: Straight/Heterosexual Gender identity: Female Physical Exam ED Vital Signs: Vital Signs - 24 hr 10/05/21 08:16 10/05/21 10:02 Temperature 98.5 F 98.5 F Pulse Rate 102 H 84 Respiratory Rate 18 16 Blood Pressure 123/94 H 136/81 Pulse Oximetry 97 100 BMI result Body Mass Index 36.9 Const General: cooperative, healthy appearing, no acute distress, alert, awake and Physically active Orientation/consciousness: patient oriented x3 Limitations: no limitations HENMT Head: Yes normal to inspection and Yes atraumatic Ears: hearing grossly normal bilaterally General nose exam: Normal external nose present Face and sinus: Yes normal facial exam Eyes General: appearance normal, both eyes and all related structures EOM: EOMs intact bilaterally Neck Neck: Yes normal visual inspection and Yes no meningeal signs Resp Effort & Inspection: normal respiratory effort and no respiratory distress Cardio Rate: regular rate Heart sounds: S1 normal heart sound present and S2 normal heart sound present Peripheral pulses: dorsalis pedis present GI Inspection: Yes normal to inspection Palpation (GI): Soft to palpation, Tenderness to palpation present (GI) in the RLQ; Negative for with no rebound tenderness, no guarding and not rigid General: Yes CVA tenderness on the right Back/Spine/Pelvis Other: No midline thoracic/lumbar spinous tenderness/step-off or deformity. + right- sided lumbar paraspinal tenderness to palpation and right lumbar MSK tenderness to palpation Back: CVA tenderness Skin Rashes: no rashes Wounds: no wounds Neuro Other: No saddle anesthesia. Strength intact throughout General: patient oriented x3, gait normal, tone normal, no meningeal signs and no focal motor deficits Gait exam (Neuro): Normal gait present Motor exam (neuro): 5/5 motor strength present throughout Sensory Exam: No Sensory deficit (Neuro) Extrem General: Yes normal to inspection Course Course Course Narrative: -1000--no leukocytosis. H&H stable. AST/ALT elevated. UA with trace blood/not infected CT abdomen pelvis w con IMPRESSION: -Hepatic steatosis. -Similar suspected mesenteric panniculitis. ? ? > results discussed with patient including worrisome signs and symptoms and strict return precautions and needed close follow-up with PCP. She verbalized understanding and feels safe for discharge home Medical Decision Making MDM Narrative Medical decision making narrative: 36-year-old female with a past medical history of anxiety, asthma, chronic diarrhea, hemorrhoids, presenting to the ED complaining of intermittent right sided flank pain radiating to RLQ x4 days. On exam mildly tachycardic, NAD, no midline spinous tenderness throughout, no red flag symptoms. + right-sided lumbar MSK pain reproducible on exam as well as right CVAT and right lower quadrant abdominal tenderness, no rebound or guarding. Concern for renal stone vs pyelo vs appendicitis vs MSK pain/strain. Lower concern for diverticulitis or cauda equina/cord compression Plan: Labs, UA, CT, IVF, pain management, re-evaluate. Medical Records Medical records reviewed: Yes I reviewed the patient's medical records. Lab Data Lab results reviewed: Yes I reviewed the patient's lab results. Result diagrams: 10/05/21 08:19 10/05/21 08:19 Labs: Lab Results 10/05/21 10/05/21 10/05/21 Range/Units 08:19 08:19 08:19 WBC 7.4 (4.8-10.8) X10*3/uL RBC 5.03 (4.20-5.50) X10*6/uL Hgb 12.7 (12.0-16.0) g/dl Hct 38.7 (37.0-47.0) % MCV 76.9 L (80.0-98.0) fL MCH 25.2 L (27.0-33.0) pg MCHC 32.8 (31.0-35.0) g/dl RDW 14.5 (11.0-16.0) % Plt Count 344 (160-400) X10*3/uL MPV 10.0 (9.4-12.3) fL Immature Gran % (Auto) 0.3 (0.0-0.4) % Neut % (Auto) 63.2 (45-73) % Lymph % (Auto) 23.7 (20-40) % [place] % (Auto) 6.0 (2-11) % Eos % (Auto) 6.4 H (0-4) % Baso % (Auto) 0.4 (0-2) % Lymph # (Auto) 1.8 (1.2-4.9) X10*3/uL [place] # (Auto) 0.4 (0.1-1.2) X10*3/uL Eos # (Auto) 0.5 H (0.0-0.4) X10*3/uL Baso # (Auto) 0.0 (0.0-0.2) X10*3/uL Abs Immat Gran (auto) 0.02 (0.00-0.03) X10*3/uL Absolute Neuts (auto) 4.7 (2.0-8.3) x10*3/uL Absolute Nucleated RBC 0.000 (0.0-0.012) X10*3/uL Nucleated RBC % (auto) 0.0 (0.0-0.2) /100WBC Sodium 137 (135-145) mmol/L Potassium 4.2 (3.3-5.1) mmol/L Chloride 105 (96-108) mmol/L Carbon Dioxide 25 (22-29) mmol/L Anion Gap 11 L (12-20) BUN 7 L (9-16) mg/dL Creatinine 0.81 (0.5-1.4) mg/dL Estim Creat Clear Calc 128.9 Estimated GFR > 60 Random Glucose 121 H (60-115) mg/dL Calcium 9.4 (8.4-10.2) mg/dL Total Bilirubin 0.4 (0.0-1.0) mg/dL Direct Bilirubin 0.2 (0.0-0.5) mg/dL AST 92 H (5-31) U/L ALT 109 H (0-31) U/L Alkaline Phosphatase 54 (39-117) U/L Total Protein 7.3 (6.5-8.0) g/dL Albumin 4.1 (3.5-5.0) g/dL Lipase 15 (8-78) U/L Urine Color YELLOW Urine Appearance CLEAR Urine pH 5.5 (5.0-8.0) Ur Specific [place] 1.015 (1.005-1.025) Urine Protein NEG (NEG-TRACE) MG/DL Urine Glucose (UA) NEG (NEG) MG/DL Urine Ketones NEG (NEG) MG/DL Urine Blood TRACE (NEG) Urine Nitrite NEG (NEG) Ur Leukocyte Esterase NEG (NEG) Urine RBC 0 (0) /HPF Urine WBC 0 (0-4) /HPF Ur Squamous Epith Cells 1+ /LPF Urine Bacteria NONE /LPF Discharge Plan Discharge Clinical Impression: Back pain, Panniculitis, Elevated LFTs Patient Disposition: Home, Self-Care Instructions: Back Pain (ED) Additional Instructions: Your blood work does show elevation in her liver enzymes as well as fatty liver under CT scan. Avoid fatty foods, alcohol, [place]. This should be followed by her primary care doctor. Your CT scan also shows nonspecific inflammation of your subcutaneous fat. Otherwise everything is reassuring. Rest. Stay hydrated. Your pain is likely musculoskeletal Flexeril is a muscle relaxer, take at night as it makes you drowsy, do not drive, drink alcohol, or operate machinery while taking it Naproxen as an anti-inflammatory / pain medication, take with food Lidoderm patches are numbing patches, apply to painful area In addition take Tylenol at home Tramadol as an opiate pain medication, take only when pain is severe for the next 3 days If symptoms persist or worsen, pain becomes unbearable, you developed urinary retention or incontinence, or weakness return to the ED Escobar an?lisis de charlene muestra elevaci?n en luis enzimas hep?clyde, as? shaniqua h?gado graso en la tomograf?a computarizada. Evite los alimentos grasos, el alcohol, Negar. [place] debe ser seguido por escobar m?dico de atenci?n primaria. Escobar tomograf?a computarizada tambi?n muestra anjelica inflamaci?n no espec?fica de escobar grasa subcut?olga. Por lo dem?s, todo es tranquilizador. [place]. Mantente hidratado. Es probable que escobar dolor sea musculoesquel?glen Flexeril es un relajante muscular, t?vanessa por la noche ya que te adormece, no conduzcas, bebas alcohol ni operes maquinaria mientras lo maria luisa. Naproxeno shaniqua medicamento antiinflamatorio/analg?sico, t?catalan con alimentos Los parches de Lidoderm son parches anest?sicos, se aplican en el ?thong dolorida Adem?s francesca Tylenol en casa Tramadol shaniqua analg?sico opi?ballistics expert, t?catalan solo cuando el dolor sea intenso vira los pr?ximos 3 d?as Si los s?ntomas persisten o empeoran, el dolor se vuelve insoportable, desarroll? retenci?n urinaria o incontinencia, o debilidad, regrese al servicio de urgencias. Prescriptions: New tramadol 50 mg tablet 50 mg PO Q8H PRN (Reason: pain, severe) Qty: 9 0RF acetaminophen [Tylenol Extra Strength] 500 mg tablet 500 mg PO Q6H PRN (Reason: pain or fever) Qty: 20 0RF lidocaine [Lidoderm] 5 % adhesive patch,medicated 1 patch topical DAILY MDD remove after 12 hours PRN (Reason: pain) Qty: 30 0RF Rx Instructions: leave on most painful area for up to 12 hrs cyclobenzaprine 5 mg tablet 5 mg PO Q8H PRN (Reason: pain (scale score 7-10)) 5 Days Qty: 14 0RF No Action albuterol sulfate 2.5 mg /3 mL (0.083 %) solution for nebulization 2.5 mg inhalation Q6H PRN (Reason: respiratory symptoms) 30 Days Qty: 75 1RF albuterol sulfate 90 mcg/actuation HFA aerosol inhaler 2 puff PO Q8H PRN (Reason: for wheezing) 30 Days Qty: 8.5 0RF alclometasone 0.05 % cream 1 appl topical BID PRN (Reason: itching) 30 Days Qty: 45 1RF Flovent HFA 44 mcg/actuation HFA aerosol inhaler 1 puff inhalation BID 30 Days Qty: 10.6 2RF Rx Instructions: administer with spacer Referrals: Janis Marcelino MD [Primary Care Provider] - 3 days Print Language: Congolese
[2021-10-05 08:52] LABS: Alanine Aminotransferase 109 U/L (0-31); Albumin Level 4.1 g/dL (3.5-5.0); Alkaline Phosphatase 54 U/L (39-117); Anion Gap 11 (12-20); Aspartate Amino Transferase 92 U/L (5-31); Bilirubin Direct 0.2 mg/dL (0.0-0.5); Bilirubin Total 0.4 mg/dL (0.0-1.0); Blood Urea Nitrogen 7 mg/dL (9-16); Calcium 9.4 mg/dL (8.4-10.2); Carbon Dioxide 25 mmol/L (22-29); Chloride 105 mmol/L (96-108); Creatinine Clr Calc Pharmacy 128.9; Estimated Glomerular Filt Rate > 60; Glucose Random 121 mg/dL (60-115); Lipase 15 U/L (8-78); Potassium 4.2 mmol/L (3.3-5.1); Sodium 137 mmol/L (135-145); Total Protein 7.3 g/dL (6.5-8.0)
[2021-10-05] MEDS: 0.9 % Sodium Chloride 1,000 ML 999 ML IV (09:19)
[2021-10-05 09:28] LABS: RBC Urine 0 /HPF (0); Squamous Epithelial Cell Urine 1+ /LPF; WBC Urine 0 /HPF (0-4)
[2021-10-05] MEDS: iohexoL 350 MG/ML 100 ML INFUS..BTL IV (09:49)
[2021-10-05 10:02] VITALS: BP 136/81; PULSE 84; RESP 16; TEMP 36.9; O2SAT 100
[2021-10-05] MEDS: traMADoL HCL 50 MG TABLET PO (10:53)
== END 2021-10-05 10:56 | disposition home or self-care (01) ==
PROVIDERS: Physician Assistant; Emergency Provider Emergency Medicine; PCP Internal Medicine
DX: M79.3 Panniculitis, unspecified (principal); M54.50 Low back pain, unspecified; R10.9 Unspecified abdominal pain; M79.604 Pain in right leg; R79.89 Other specified abnormal findings of blood chemistry; Z79.899 Other long term (current) drug therapy
CPT/HCPCS: 36415; 74177; 80048; 80076; 81001; 83690; 85025; 96360; 99284; Q9967

== ENCOUNTER 2021-10-08 08:34 | Emergency (ER) | payer OTHER, SELFPAY ==
--- NOTE | ~2021-10-08 | XR_ITS ---
EXAMINATION: XR CHEST CLINICAL INFORMATION: Right sided chest pain COMPARISON: Chest and RIBS 02/28/2013 TECHNIQUE: Frontal view of the chest was obtained. FINDINGS: No significant abnormality is noted involving the heart, lungs, mediastinum, bony thorax or soft tissues. XR/XR chest 1V IMPRESSION: Unremarkable examination.
[2021-10-08 09:06] VITALS: BP 151/100; PULSE 102; RESP 20; TEMP 36.6; O2SAT 98; BMI 37.2
[2021-10-08 09:40] LABS: MANUAL DIFF FLAG NO
[2021-10-08 09:44] LABS: Appearance Urine CLEAR; Color Urine YELLOW; Glucose Urine UA NEG (NEG); Leukocyte Esterase Urine NEG (NEG); Nitrite Urine NEG (NEG); Specific Gravity - Urine 1.015 (1.005-1.025); Urine Blood NEG (NEG); Urine Ketones NEG (NEG); Urine Protein NEG (NEG-TRACE)
[2021-10-08 09:45] LABS: UPreg QC Valid YES; Urine Pregnancy NEGATIVE (NEGATIVE)
[2021-10-08 09:45] LABS: Basophils Absolute Auto 0.1 X10*3/uL (0.0-0.2); Basophils Percent Auto 0.7 % (0-2); Eosinophils Absolute Auto 0.4 X10*3/uL (0.0-0.4); Eosinophils Percent Auto 4.6 % (0-4); Hematocrit 43.3 % (37.0-47.0); Hemoglobin 14.4 g/dl (12.0-16.0); Imm Gran Abs Auto 0.02 X10*3/uL (0.00-0.03); Imm Gran Pct Auto 0.2 % (0.0-0.4); Lymphocytes Absolute Auto 2.2 X10*3/uL (1.2-4.9); Lymphocytes Percent Auto 25.7 % (20-40); Mean Corpuscular HGB Conc 33.3 g/dl (31.0-35.0); Mean Corpuscular Hemoglobin 25.6 pg (27.0-33.0); Mean Corpuscular Volume 76.9 fL (80.0-98.0); Mean Platelet Volume 10.2 fL (9.4-12.3); Monocytes Absolute Auto 0.6 X10*3/uL (0.1-1.2); Monocytes Percent Auto 6.6 % (2-11); Neutrophils Absolute Auto 5.4 x10*3/uL (2.0-8.3); Neutrophils Percent Auto 62.2 % (45-73); Platelet Count 384 X10*3/uL (160-400); Red Blood Count 5.63 X10*6/uL (4.20-5.50); Red Cell Distribution Width 14.4 % (11.0-16.0); White Blood Count 8.7 X10*3/uL (4.8-10.8)
[2021-10-08 10:09] LABS: Alanine Aminotransferase 107 U/L (0-31); Albumin Level 4.5 g/dL (3.5-5.0); Alkaline Phosphatase 58 U/L (39-117); Anion Gap 11 (12-20); Aspartate Amino Transferase 73 U/L (5-31); Bilirubin Total 0.4 mg/dL (0.0-1.0); Blood Urea Nitrogen 10 mg/dL (9-16); Calcium 10.4 mg/dL (8.4-10.2); Carbon Dioxide 28 mmol/L (22-29); Chloride 102 mmol/L (96-108); Creatinine Clr Calc Pharmacy 123.3; Estimated Glomerular Filt Rate > 60; Glucose Random 96 mg/dL (60-115); Potassium 4.6 mmol/L (3.3-5.1); Sodium 136 mmol/L (135-145)
[2021-10-08 13:38] VITALS: BP 139/91; PULSE 112; RESP 18; TEMP 36.9; O2SAT 97
--- NOTE | 2021-10-08 13:42 | ED_ITS ---
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 Mode of arrival: ambulatory Limitations: no limitations History of Present Illness HPI narrative: seen 10/05 fatty liver no other acute findings on CT scan - LFTs today lower than on prior visit mild mesenteric panniculitis states pain hurts with movement but denies injury denies vaginal discharge or STI concerns MD elicited complaint: abdominal pain and flank pain Pertinent past history: other ( liver inflammation ) Onset (ago): day(s) (7) Pain Consistency: constant Location: R flank Severity: moderate Quality: stabbing Radiation: none Migration to: no migration Exacerbating factors: movement Relieving factors: nothing Context: history of similar episodes Associated symptoms: denies other symptoms Related Data Previous Rx's Medication Instructions Recorded albuterol sulfate 2.5 mg (3 mL) INHALATION Q6H PRN 07/01/21 30 Days #75 ml albuterol sulfate 90 mcg/actuation 2 puff PO Q8H PRN 30 Days #8.5 g 07/24/21 aerosol inhaler alclometasone 0.05 % topical cream 1 appl TOPICAL BID PRN 30 Days #45 08/13/21 g fluticasone propionate 44 1 puff INHALATION BID 30 Days 08/13/21 mcg/actuation HFA aerosol inhaler #10.6 g (Flovent HFA) acetaminophen 500 mg tablet 500 mg PO Q6H PRN #20 tab 10/05/21 (Tylenol Extra Strength) cyclobenzaprine 5 mg tablet 5 mg PO Q8H PRN 5 Days #14 tab 10/05/21 lidocaine 5 % topical patch 1 patch TOPICAL DAILY PRN #30 ea 10/05/21 (Lidoderm) MDD remove after 12 hours tramadol 50 mg tablet 50 mg PO Q8H PRN #9 tab 10/05/21 hydrocodone 5 mg-acetaminophen 325 1 tab PO Q6H PRN #10 tab 10/08/21 mg tablet Allergies Allergy/AdvReac Type Severity Reaction Status Date / Time aspirin [Aspirin] Allergy Severe DIFFICULTY Verified 08/13/21 10:09 BREATHING, tracheal swelling Penicillins Allergy Severe DIFFICULTY Verified 08/13/21 10:09 BREATHING Review of Systems Review of Systems Constitutional : No Weight loss, No Fever, No Chills ENT/Mouth : No sore throat, No Rhinorrhea Eyes: No Swelling, No Redness Cardiovascular : No Chest Pain, No SOB, NoEdema Respiratory : No Cough, No Sputum, No Wheezing Gastrointestinal : no Nausea, no Vomiting, no Diarrhea, positive abdominal Pain, No Hematochezia, No Melena Genitourinary : No Dysuria, No Urinary Frequency, No Hematuria, No Urgency Musculoskeletal : No joint pain, No Myalgias, No Joint Swelling, pos back pain Skin : No Skin Lesions, No rash Neuro : No Weakness, No Numbness, No Dizziness, No Headache Psych : No Anxiety/Panic, No Depression Heme/Lymph: No Bruising, No Lymphadenopathy Endocrine : No Polyuria, No Polydipsia All other systems reviewed and are negative. [facility] Past Medical History Attestation statement: The following information was validated with the patient. Medical History Anxiety Asthma Chronic diarrhea Class 2 obesity with body mass index (BMI) of 39.0 to 39.9 in adult Hemorrhoids Hx of allergic rhinitis Hx of bipolar disorder Moderate asthma Pain of right heel Surgical History History of bilateral tubal ligation History of endometrial ablation History of open reduction and internal fixation (ORIF) procedure History of tonsillectomy and adenoidectomy Hx of shoulder surgery Tubal ligation status Family History Family History Mother Hypertension Father No problems noted. Social History Social History Housing: Apartment Alcohol intake: never Patient Tobacco Use Status: Never used Tobacco e-Cigarette/Vaping Use: Never Used Second Hand Smoke Exposure: No Use of substances other than those prescribed or required for medical reasons: No Substance Use Type: Marijuana Advance Directives: No Advance Directives Information Provided: No Patient : No service: No Current occupational status: employed Current occupational exposures/hazards: No Sexual orientation: Straight/Heterosexual Gender identity: Female Physical Exam ED Vital Signs: Vital Signs - 24 hr 10/08/21 09:06 10/08/21 13:38 Temperature 97.9 F 98.4 F Pulse Rate 102 H 112 H Respiratory Rate 20 18 Blood Pressure 151/100 H 139/91 H Pulse Oximetry 98 97 BMI result Body Mass Index 37.2 Appearance: Alert. Oriented X3. No acute distress. Eyes: Pupils equal, round and reactive to light. ENT: Pharynx normal. Neck: Normal inspection. Neck supple. CVS: Normal heart rate and rhythm. Pulses normal. Respiratory: No respiratory distress. Breath sounds normal. Abdomen: Soft and mild RUQ ttp mild R flank pain Back: ttp along lumbar soft tissues no midline ttp Skin: Skin warm and dry. Normal skin color. Normal skin turgor. Extremities: No lower extremity edema. No calf ttp Neuro: Oriented X 3. No motor deficit. No sensory deficit. Course Course Course Narrative: negative ddimer patient feels better stable for DC MDM - Abdominal Pain MDM Narrative Medical decision making narrative: 36 yo female with fatty liver and obesity comes in with R flank and back pain she notes that she did not injure herself, CT scan underwhelming chronic findings, liver enzymes improving, denies STI concern that would suggest [place]. She is obese and it is R sided will obtain CXR for possible pneumonia vs PE - PO pain medications. Lab Data Result diagrams: 10/08/21 09:33 10/08/21 09:33 Labs: Lab Results 10/08/21 10/08/21 10/08/21 Range/Units 09:32 09:33 09:33 WBC 8.7 (4.8-10.8) X10*3/uL RBC 5.63 H (4.20-5.50) X10*6/uL Hgb 14.4 (12.0-16.0) g/dl Hct 43.3 (37.0-47.0) % MCV 76.9 L (80.0-98.0) fL MCH 25.6 L (27.0-33.0) pg MCHC 33.3 (31.0-35.0) g/dl RDW 14.4 (11.0-16.0) % Plt Count 384 (160-400) X10*3/uL MPV 10.2 (9.4-12.3) fL Immature Gran % (Auto) 0.2 (0.0-0.4) % Neut % (Auto) 62.2 (45-73) % Lymph % (Auto) 25.7 (20-40) % [place] % (Auto) 6.6 (2-11) % Eos % (Auto) 4.6 H (0-4) % Baso % (Auto) 0.7 (0-2) % Lymph # (Auto) 2.2 (1.2-4.9) X10*3/uL [place] # (Auto) 0.6 (0.1-1.2) X10*3/uL Eos # (Auto) 0.4 (0.0-0.4) X10*3/uL Baso # (Auto) 0.1 (0.0-0.2) X10*3/uL Abs Immat Gran (auto) 0.02 (0.00-0.03) X10*3/uL Absolute Neuts (auto) 5.4 (2.0-8.3) x10*3/uL Absolute Nucleated RBC 0.000 (0.0-0.012) X10*3/uL Nucleated RBC % (auto) 0.0 (0.0-0.2) /100WBC D-Dimer High Sensitivty NG/ML Sodium 136 (135-145) mmol/L Potassium 4.6 (3.3-5.1) mmol/L Chloride 102 (96-108) mmol/L Carbon Dioxide 28 (22-29) mmol/L Anion Gap 11 L (12-20) BUN 10 (9-16) mg/dL Creatinine 0.85 (0.5-1.4) mg/dL Estim Creat Clear Calc 123.3 Estimated GFR > 60 Random Glucose 96 (60-115) mg/dL Calcium 10.4 H D (8.4-10.2) mg/dL Total Bilirubin 0.4 (0.0-1.0) mg/dL AST 73 H (5-31) U/L ALT 107 H (0-31) U/L Alkaline Phosphatase 58 (39-117) U/L Total Protein 8.0 (6.5-8.0) g/dL Albumin 4.5 (3.5-5.0) g/dL Urine Color Urine Appearance Urine pH (5.0-8.0) Ur Specific [place] (1.005-1.025) Urine Protein (NEG-TRACE) MG/DL Urine Glucose (UA) (NEG) MG/DL Urine Ketones (NEG) MG/DL Urine Blood (NEG) Urine Nitrite (NEG) Ur Leukocyte Esterase (NEG) Urine Test NEGATIVE (NEGATIVE) 10/08/21 10/08/21 Range/Units 09:33 14:45 WBC (4.8-10.8) X10*3/uL RBC (4.20-5.50) X10*6/uL Hgb (12.0-16.0) g/dl Hct (37.0-47.0) % MCV (80.0-98.0) fL MCH (27.0-33.0) pg MCHC (31.0-35.0) g/dl RDW (11.0-16.0) % Plt Count (160-400) X10*3/uL MPV (9.4-12.3) fL Immature Gran % (Auto) (0.0-0.4) % Neut % (Auto) (45-73) % Lymph % (Auto) (20-40) % [place] % (Auto) (2-11) % Eos % (Auto) (0-4) % Baso % (Auto) (0-2) % Lymph # (Auto) (1.2-4.9) X10*3/uL [place] # (Auto) (0.1-1.2) X10*3/uL Eos # (Auto) (0.0-0.4) X10*3/uL Baso # (Auto) (0.0-0.2) X10*3/uL Abs Immat Gran (auto) (0.00-0.03) X10*3/uL Absolute Neuts (auto) (2.0-8.3) x10*3/uL Absolute Nucleated RBC (0.0-0.012) X10*3/uL Nucleated RBC % (auto) (0.0-0.2) /100WBC D-Dimer High Sensitivty < 150 NG/ML Sodium (135-145) mmol/L Potassium (3.3-5.1) mmol/L Chloride (96-108) mmol/L Carbon Dioxide (22-29) mmol/L Anion Gap (12-20) BUN (9-16) mg/dL Creatinine (0.5-1.4) mg/dL Estim Creat Clear Calc Estimated GFR Random Glucose (60-115) mg/dL Calcium (8.4-10.2) mg/dL Total Bilirubin (0.0-1.0) mg/dL AST (5-31) U/L ALT (0-31) U/L Alkaline Phosphatase (39-117) U/L Total Protein (6.5-8.0) g/dL Albumin (3.5-5.0) g/dL Urine Color YELLOW Urine Appearance CLEAR Urine pH 6.0 (5.0-8.0) Ur Specific [place] 1.015 (1.005-1.025) Urine Protein NEG (NEG-TRACE) MG/DL Urine Glucose (UA) NEG (NEG) MG/DL Urine Ketones NEG (NEG) MG/DL Urine Blood NEG (NEG) Urine Nitrite NEG (NEG) Ur Leukocyte Esterase NEG (NEG) Urine Test (NEGATIVE) Discharge Plan Discharge Clinical Impression: Fatty liver, Rt flank pain Patient Disposition: Home, Self-Care Instructions: Non-Alcoholic Fatty Liver Disease (ED), Flank Pain (ED) Additional Instructions: return to ED for any worsening symptoms or concerns your liver enzymes are improved, chest xray is normal Prescriptions: New hydrocodone-acetaminophen 5-325 mg tablet 1 tab PO Q6H PRN (Reason: pain) Qty: 10 0RF No Action albuterol sulfate 2.5 mg /3 mL (0.083 %) solution for nebulization 2.5 mg inhalation Q6H PRN (Reason: respiratory symptoms) 30 Days Qty: 75 1RF albuterol sulfate 90 mcg/actuation HFA aerosol inhaler 2 puff PO Q8H PRN (Reason: for wheezing) 30 Days Qty: 8.5 0RF tramadol 50 mg tablet 50 mg PO Q8H PRN (Reason: pain, severe) Qty: 9 0RF acetaminophen [Tylenol Extra Strength] 500 mg tablet 500 mg PO Q6H PRN (Reason: pain or fever) Qty: 20 0RF lidocaine [Lidoderm] 5 % adhesive patch,medicated 1 patch topical DAILY MDD remove after 12 hours PRN (Reason: pain) Qty: 30 0RF Rx Instructions: leave on most painful area for up to 12 hrs cyclobenzaprine 5 mg tablet 5 mg PO Q8H PRN (Reason: pain (scale score 7-10)) 5 Days Qty: 14 0RF alclometasone 0.05 % cream 1 appl topical BID PRN (Reason: itching) 30 Days Qty: 45 1RF Flovent HFA 44 mcg/actuation HFA aerosol inhaler 1 puff inhalation BID 30 Days Qty: 10.6 2RF Rx Instructions: administer with spacer Referrals: Janis Marcelino MD [Primary Care Provider] - 5 days (if not better) Print Language: Singaporean
[2021-10-08] MEDS: oxyCODONE HCl Immed Release 5 MG TABLET 10 MG PO (14:03)
[2021-10-08] MEDS: Ondansetron ODT 4 MG TAB.RAPDIS TRANSLINGU (14:04)
--- NOTE | 2021-10-08 14:08 | PC.NURSE ---
pt a&ox3, vss, c/o 03/22 right-sided abd pain, medicated per provider order. sinus tach on monitor. no new orders at this time.
[2021-10-08 15:15] LABS: D Dimer High Sensitivity < 150 NG/ML
== END 2021-10-08 15:50 | disposition home or self-care (01) ==
PROVIDERS: Physician Assistant Medical; Emergency Provider Emergency Medicine; PCP Internal Medicine
DX: R10.9 Unspecified abdominal pain (principal); K76.0 Fatty (change of) liver, not elsewhere classified; J45.909 Unspecified asthma, uncomplicated
CPT/HCPCS: 36415; 71045; 80053; 81003; 81025; 85025; 85379; 99283; 99284

== ENCOUNTER 2022-01-11 10:34 | Outpatient (REF) | payer OTHER, SELFPAY ==
--- NOTE | ~2022-01-11 | XR_ITS ---
EXAMINATION: XR KNEE, RIGHT CLINICAL INFORMATION: Pain. COMPARISON: None TECHNIQUE: AP and lateral views of the right knee. FINDINGS: Bones and soft tissues are normal. No fracture or dislocation is seen. There is a small joint effusion. Alignment is anatomic. Joint spaces are well maintained. There are small enthesophytes arising from the upper pole and lower pole of the patella at the insertion sites of the quadriceps and patellar tendons. No abnormal soft tissue calcification. XR/XR knee RT 2V IMPRESSION: 1. No right knee fracture, dislocation or usual degenerative change is seen. 2. There is a small right knee joint effusion.
--- NOTE | ~2022-01-11 | XR_ITS ---
EXAMINATION: XR HUMERUS, RIGHT XR ELBOW, RIGHT CLINICAL INFORMATION: Pain. COMPARISON: Prior radiographs, most recently 03/17/2015. TECHNIQUE: AP and lateral views of the right humerus. AP, lateral, and oblique views of the right elbow. FINDINGS: There is a healed distal humeral shaft fracture with bony remodeling. Orthopedic plates are again seen applied to the distal humerus. There is chronic plate loosening again seen adjacent to the lateral epicondyle of the distal right humerus. No acute fracture, dislocation or joint effusion is seen. The glenohumeral joint is intact. There is no foreign body. XR/XR elbow RT 2V IMPRESSION: A healed distal right humeral shaft fracture is noted. There is chronic fixator plate loosening adjacent to the lateral epicondyle of the distal right humerus.
--- NOTE | ~2022-01-11 | XR_ITS ---
EXAMINATION: XR HUMERUS, RIGHT XR ELBOW, RIGHT CLINICAL INFORMATION: Pain. COMPARISON: Prior radiographs, most recently 03/17/2015. TECHNIQUE: AP and lateral views of the right humerus. AP, lateral, and oblique views of the right elbow. FINDINGS: There is a healed distal humeral shaft fracture with bony remodeling. Orthopedic plates are again seen applied to the distal humerus. There is chronic plate loosening again seen adjacent to the lateral epicondyle of the distal right humerus. No acute fracture, dislocation or joint effusion is seen. The glenohumeral joint is intact. There is no foreign body. XR/XR humerus RT IMPRESSION: A healed distal right humeral shaft fracture is noted. There is chronic fixator plate loosening adjacent to the lateral epicondyle of the distal right humerus.
--- NOTE | ~2022-01-11 | XR_ITS ---
EXAMINATION: XR HAND/WRIST, RIGHT CLINICAL INFORMATION: Pain. COMPARISON: None TECHNIQUE: PA, lateral, and oblique views of the right hand and wrist. FINDINGS: The bones and soft tissues are normal. No fracture. Alignment is anatomic. There is a mild ulnar minus variance. Joint spaces are maintained. No erosions or soft tissue calcifications. XR/XR hand wrist RT IMPRESSION: Normal radiographs of the hand and wrist.
[2022-01-11 12:18] LABS: Alanine Aminotransferase 69 U/L (0-31); Albumin Level 4.2 g/dL (3.5-5.0); Alkaline Phosphatase 58 U/L (39-117); Anion Gap 13 (12-20); Aspartate Amino Transferase 51 U/L (5-31); Bilirubin Total 0.3 mg/dL (0.0-1.0); Blood Urea Nitrogen 9 mg/dL (9-16); Calcium 9.1 mg/dL (8.4-10.2); Carbon Dioxide 22 mmol/L (22-29); Chloride 106 mmol/L (96-108); Cholesterol 178 mg/dL; Estimated Glomerular Filt Rate > 60; Glucose Fasting 93 mg/dL (60-99); HDL Cholesterol 46 mg/dL; LDL Cholesterol Calculated 114 mg/dl; Potassium 4.2 mmol/L (3.3-5.1); Sodium 137 mmol/L (135-145); Total Protein 7.3 g/dL (6.5-8.0); Triglycerides 93 mg/dL
[2022-01-11 12:38] LABS: Thyroid Stimulating Hormone 1.45 uIU/mL (0.32-4.0)
[2022-01-11 12:42] LABS: HBS Num1 9.85 mIU/mL (0-7.99); HBc Num1 0.07 S/CO (0.00-0.79); HBsAGNum1 0.18 S/CO (0.00-0.99); Hepatitis B Core Antibody Nonreactive (Nonreactive); Hepatitis B Surface Antigen Negative (Negative); ~HepC Num1 0.14 S/CO (0.00-0.79); ~Hepatitis C Antibody Nonreactive (Nonreactive)
[2022-01-11 13:29] LABS: HBS Num2 8.52 mIU/mL (0-7.99); HBS Num3 8.75 mIU/mL (0-7.99); ~Hepatitis B Surface Antibody GRAYZONE (Nonreactive)
[2022-01-13 08:00] LABS: Hepatitis A Antibody IgM 0.49 Index (0-0.79); ~Hepatitis A Antibody IgM Nonreactive (Nonreactive)
== END 2022-01-11 10:35 | disposition home or self-care (01) ==
LOC: HO.LAB 10:34
PROVIDERS: Nurse Practitioner Family; PCP Internal Medicine; Visit Provider Internal Medicine
DX: Z00.00 Encounter for general adult medical examination without abnormal findings (principal); Z13.9 Encounter for screening, unspecified; E66.9 Obesity, unspecified; Z68.39 Body mass index [BMI] 39.0-39.9, adult; M25.521 Pain in right elbow; M79.601 Pain in right arm; M25.561 Pain in right knee; M25.531 Pain in right wrist
CPT/HCPCS: 36415; 73060; 73070; 73110; 73130; 73560; 80053; 80061; 84443; 86704; 86706; 86709; 86803; 87340

== ENCOUNTER → 2022-05-05 14:26 | Outpatient (BNVA) | payer OTHER, SELFPAY | PROVIDERS: PCP Internal Medicine; Visit Provider Internal Medicine | DX: R74.8 Abnormal levels of other serum enzymes (principal); R71.8 Other abnormality of red blood cells; K52.9 Noninfective gastroenteritis and colitis, unspecified; E66.01 Morbid (severe) obesity due to excess calories; Z68.39 Body mass index [BMI] 39.0-39.9, adult | CPT/HCPCS: 99202 ==

== ENCOUNTER 2022-05-22 15:24 | Emergency (ER) | payer OTHER, SELFPAY ==
--- NOTE | ~2022-05-22 | XR_ITS ---
EXAMINATION: XR CHEST CLINICAL INFORMATION: Shortness of breath COMPARISON: Chest xray on 10/08/2021 TECHNIQUE: Frontal view of the chest was obtained. FINDINGS: No significant abnormality is noted involving the heart, lungs, mediastinum, bony thorax or soft tissues. XR/XR chest 1V IMPRESSION: Unremarkable examination.
--- NOTE | 2022-05-22 15:30 | ED.GENADULT ---
HPI - General Adult General Chief complaint: General Medical <HOLLY Ba - Last Filed: 05/22/22 15:32> Stated complaint: asthma,fever,sob <HOLLY Ba - Last Filed: 05/22/22 15:32> Time Seen by Provider: 05/22/22 17:09 <HOLLY Ba - Last Filed: 05/22/22 15:32> Source: patient <HOLLY De La Garza - Last Filed: 05/22/22 17:22> Mode of arrival: ambulatory <HOLLY De La Garza Last Filed: 05/22/22 17:22> Limitations: no limitations <HOLLY De La Garza Last Filed: 05/22/22 17:22> History of Present Illness HPI narrative: 36-year-old female with a history of obesity, bipolar disorder, anxiety, moderate asthma who presents to the ER for evaluation of fever and body aches that started last night. She states she has been struggling with stuffy nose, sinus pressure, intermittent cough and being sick since before . She has not had a fever until last night. She states she had a fever 105. She has been coughing, which has been keeping her up at night. She is not bringing up any phlegm. She has been using her albuterol inhaler and ran out. She denies any difficulty breathing or respiratory distress. No known sick contacts. <HOLLY De La Garza - Last Filed: 05/22/22 17:22> MD complaint: Cough, fever, body aches <HOLLY De La Garza - Last Filed: 05/22/22 17:22> Onset (ago): day(s) <HOLLY De La Garza - Last Filed: 05/22/22 17:22> Location: chest <OHLLY De La Garza Last Filed: 05/22/22 17:22> Radiation: non-radiation <HOLLY De La Garza Last Filed: 05/22/22 17:22> Severity: moderate <HOLLY De La Garza Last Filed: 05/22/22 17:22> Severity scale (1-10): 7 <HOLLY De La aGrza Last Filed: 05/22/22 17:22> Quality: aching <HOLLY De La Garza - Last Filed: 05/22/22 17:22> Pain Consistency: constant <HOLLY De La Garza - Last Filed: 05/22/22 17:22> Relieving factors: none <HOLLY De La Garza - Last Filed: 05/22/22 17:22> Exacerbating factors: none <HOLLY De La Garza - Last Filed: 05/22/22 17:22> Associated symptoms: cough, fever/chills, headaches, loss of appetite, malaise, shortness of breath and weakness <HOLLY De La Garza - Last Filed: 05/22/22 17:22> Treatments prior to arrival: none <HOLLY De La Garza - Last Filed: 05/22/22 17:22> Related Data Home medications: Home Medications Medication Instructions Recorded Confirmed citalopram 10 mg tablet 10 mg PO QAM 10/14/21 04/21/22 doxepin 150 mg capsule 300 mg PO BEDTIME 10/14/21 04/21/22 lithium carbonate 300 mg capsule 300 mg PO BID 10/14/21 04/21/22 Previous Rx's Medication Instructions Recorded albuterol sulfate 2.5 mg/3 mL 2.5 mg (3 mL) inhalation Q6H PRN 07/01/21 (0.083 %) solution for nebulization respiratory symptoms 30 days #75 mL cyclobenzaprine 5 mg tablet 5 mg PO Q8H PRN pain (scale score 10/05/21 7-10) 5 days #14 tabs lidocaine 5 % topical patch 1 patch topical DAILY PRN pain #30 10/05/21 (Lidoderm) ea albuterol sulfate 90 mcg/actuation 2 puff PO Q8H PRN for wheezing 30 10/14/21 aerosol inhaler days #8.5 grams benzonatate 100 mg capsule 100 mg PO TID PRN cough 7 days #21 03/08/22 caps arezcuqoez-jebwazuszarje-aesxajvv 1 tab PO Q6H PRN pain 30 days #20 04/05/22 50 mg-325 mg-40 mg tablet tabs albuterol sulfate 90 mcg/actuation 1 inh inhalation QID PRN shortness 05/22/22 aerosol inhaler of breath or wheezing #6.7 grams azithromycin 250 mg tablet See Rx Instructions PO .COMPLEX #6 05/22/22 (Zithromax Z-Enzo) tabs hydrocodone-homatropine 5 mg-1.5 5 ml PO Q4-6H PRN cough #60 mL 05/22/22 mg/5 mL (5 mL) oral syrup (Hycodan) prednisone 20 mg tablet 40 mg PO DAILY #10 tabs 05/22/22 <HOLLY Ba - Last Filed: 05/22/22 15:32> Allergies/adverse reactions: Allergies Allergy/AdvReac Type Severity Reaction Status Date / Time aspirin [Aspirin] Allergy Severe DIFFICULTY Verified 05/05/22 14:32 BREATHING, tracheal swelling Penicillins Allergy Severe DIFFICULTY Verified 05/05/22 14:32 BREATHING <HOLLY Ba - Last Filed: 05/22/22 15:32> Review of Systems Review of Systems: Constitutional: + Fever, + Chills ENT/Mouth: No sore throat, No Rhinorrhea, No Swallowing Difficulty, +Nasal congestion Eyes: No Eye Pain, No Swelling, No Redness Cardiovascular: No Chest Pain, + SOB, No Orthopnea, No Edema Respiratory: + Cough, No Sputum, No Wheezing, No dyspnea Gastrointestinal: No Nausea, No Vomiting, No Diarrhea, No abdominal Pain Genitourinary: No Dysuria, No Urinary Frequency, No Hematuria Musculoskeletal: + joint pain, + Myalgias Skin: No Skin Lesions, No rash Neuro: + Weakness, No Numbness, No Dizziness, +Headache Heme/Lymph: No Bruising, No Lymphadenopathy <HOLLY De La Garza - Last Filed: 05/22/22 17:22> [facility] Past Medical History Medical History: Medical History Anxiety Asthma Chronic diarrhea Class 2 obesity with body mass index (BMI) of 39.0 to 39.9 in adult Hemorrhoids Hx of allergic rhinitis Hx of bipolar disorder Moderate asthma Pain of right heel <HOLLY Ba Last Filed: 05/22/22 15:32> Surgical History: Surgical History History of bilateral tubal ligation History of endometrial ablation History of open reduction and internal fixation (ORIF) procedure History of tonsillectomy and adenoidectomy Hx of shoulder surgery Tubal ligation status <HOLLY Ba - Last Filed: 05/22/22 15:32> Family History Family History: Family History Mother Hypertension Father No problems noted. <HOLLY Ba - Last Filed: 05/22/22 15:32> Social History Social History: Social History Housing: Apartment Alcohol intake: never Patient Tobacco Use Status: Never used Tobacco e-Cigarette/Vaping Use: Never Used Second Hand Smoke Exposure: No Substance Use Type: Marijuana Advance Directives: No Advance Directives Information Provided: Yes service: No Current occupational status: employed Current occupational exposures/hazards: No Sexual orientation: Straight/Heterosexual Gender identity: Female Cognitive needs: No Hearing needs: No Vision needs: Yes <HOLLY Ba Last Filed: 05/22/22 15:32> Physical Exam ED Vital Signs: Vital Signs - 24 hr 05/22/22 15:31 Temperature 98.4 F Pulse Rate 110 H Respiratory Rate 18 Blood Pressure 132/90 H Pulse Oximetry 97 Oxygen Delivery Method Room Air BMI result Body Mass Index 36.9 <HOLLY Ba - Last Filed: 05/22/22 15:32> Vital Signs - 24 hr 05/22/22 15:31 Temperature 98.4 F Pulse Rate 110 H Respiratory Rate 18 Blood Pressure 132/90 H Pulse Oximetry 97 Oxygen Delivery Method Room Air BMI result Body Mass Index 36.9 <HOLLY De La Garza - Last Filed: 05/22/22 17:22> Appearance: Alert. Oriented X3. Appears like she does not feel well. Eyes: Pupils equal, round and reactive to light. ENT: Pharynx normal. Tonsils appear normal without exudate or swelling, uvula midline. Neck: Normal inspection. Neck supple. No lymphadenopathy. CVS: Tachycardic, heart rate low 100s, Pulses normal. Respiratory: No respiratory distress. Breath sounds diminished at the bilateral bases without wheezes, rhonchi or rales. Abdomen: Obese, Soft and nontender. +BS x4 Skin: Skin warm and dry. Normal skin color. Normal skin turgor. No rashes. Extremities: No lower extremity edema. Neuro: Oriented X 3. Grossly normal, nonfocal <HOLLY De La Garza - Last Filed: 05/22/22 17:22> Course Course Course Narrative: RME 36-year-old female history of bipolar, morbid obesity, asthma presenting to the emergency department with shortness of breath fevers, body aches and pains x2 weeks progressively worsening over the past few days. Vaccinated against COVID in the flu. Denies sick contacts. Reports her temperature last night was 105 degrees for to go home COVID test history with this negative. Denies chest pain, lower extremity swelling. No history of DVT or PE. Physical examination benign. Vital signs stable. Patient appears comfortable, no acute distress. Speaking in full sentences. Plan flu/COVID/RSV will obtain chest x-ray. <HOLLY Ba Last Filed: 05/22/22 15:32> Reevaluation(s) Reevaluation #1: Chest x-ray is clear. She is speaking in complete sentences with clear lungs on examination today. She is awaiting viral PCR swab. She would like to go home and be called with the results. Will discharge with treatment for bronchitis, will give a Z-Enzo given her history of asthma. Will prescribe prednisone and antitussive as well. Will call with results. Symptomatic management discussed. Comfortably DC home <HOLLY De La Garza - Last Filed: 05/22/22 17:22> Discharge Plan Discharge Clinical Impression: Bronchitis <HOLLY Ba Last Filed: 05/22/22 15:32> Patient Disposition: Home, Self-Care <HOLLY Ba Last Filed: 05/22/22 15:32> Instructions: Acute Bronchitis (ED) <HOLLY Ba Last Filed: 05/22/22 15:32> Additional Instructions: Your chest x-ray was normal, no evidence of pneumonia. Your viral swab is pending. We will call you with the results. Take the prescribed medications as directed. Do not drive after taking the cough syrup, it has a narcotic in and can make you drowsy. Recommend rest and staying hydrated. Make sure you are drinking plenty of water. Take [id number]-inhatsd cold and flu medications as needed for your symptoms. Take Tylenol and Motrin as needed for fevers and body aches. Follow-up with your doctor. If you develop new or worsening symptoms call 911 or come back to the ER for further evaluation. <HOLLY Ba - Last Filed: 05/22/22 15:32> Prescriptions: New azithromycin [Zithromax Z-Enzo] 250 mg tablet See Rx Instructions .ROUTE .COMPLEX Qty: 6 0RF Rx Instructions: take 500 mg today (day 1), then 250 mg for 4 days (days 2-5) prednisone 20 mg tablet 40 mg PO DAILY Qty: 10 0RF albuterol sulfate 90 mcg/actuation HFA aerosol inhaler 1 inh inhalation QID PRN (Reason: shortness of breath or wheezing) Qty: 6.7 0RF hydrocodone-homatropine [Hycodan] 5-1.5 mg/5 mL (5 mL) syrup 5 ml PO Q4-6H PRN (Reason: cough) Qty: 60 0RF Rx Instructions: Partial Fill upon patient request. No Action albuterol sulfate 2.5 mg /3 mL (0.083 %) solution for nebulization 2.5 mg inhalation Q6H PRN (Reason: respiratory symptoms) 30 Days Qty: 75 1RF benzonatate 100 mg capsule 100 mg PO TID PRN (Reason: cough) 7 Days Qty: 21 0RF ympvqsprbt-jaohcyapywkey-snqg 50-325-40 mg tablet 1 tab PO Q6H PRN (Reason: pain) 30 Days Qty: 20 0RF lidocaine [Lidoderm] 5 % adhesive patch,medicated 1 patch topical DAILY MDD remove after 12 hours PRN (Reason: pain) Qty: 30 0RF Rx Instructions: leave on most painful area for up to 12 hrs cyclobenzaprine 5 mg tablet 5 mg PO Q8H PRN (Reason: pain (scale score 7-10)) 5 Days Qty: 14 0RF doxepin 150 mg capsule 300 mg PO BEDTIME lithium carbonate 300 mg capsule 300 mg PO BID citalopram 10 mg tablet 10 mg PO QAM albuterol sulfate 90 mcg/actuation HFA aerosol inhaler 2 puff PO Q8H PRN (Reason: for wheezing) 30 Days Qty: 8.5 0RF <HOLLY Ba - Last Filed: 05/22/22 15:32>
[2022-05-22 15:31] VITALS: BP 132/90; PULSE 110; RESP 18; TEMP 36.9; O2SAT 97; BMI 36.9
[2022-05-22 17:49] LABS: Influenza A PCR POSITIVE (Negative); Influenza B PCR NEGATIVE (Negative); Resp Syncy Virus RNA Qual PCR NEGATIVE (Negative); SARS COV2 PCR INHOUSE NEGATIVE (Negative)
== END 2022-05-22 17:24 | disposition home or self-care (01) ==
PROVIDERS: Physician Assistant; Emergency Provider Emergency Medicine Emergency Medical Services; PCP Internal Medicine
DX: J10.1 Influenza due to other identified influenza virus with other respiratory manifestations (principal); Z20.822 Contact with and (suspected) exposure to COVID-19
CPT/HCPCS: 0241U; 71045; 99282; 99283

== ENCOUNTER 2022-05-25 08:04 | Outpatient (REF) | payer OTHER, SELFPAY ==
[2022-05-25 08:29] LABS: MANUAL DIFF FLAG NO
[2022-05-25 08:57] LABS: Basophils Percent Auto 0.3 % (0-2); Eosinophils Absolute Auto 0.1 X10*3/uL (0.0-0.4); Eosinophils Percent Auto 1.2 % (0-4); Hematocrit 37.6 % (37.0-47.0); Hemoglobin 12.7 g/dl (12.0-16.0); Imm Gran Abs Auto 0.04 X10*3/uL (0.00-0.03); Imm Gran Pct Auto 0.4 % (0.0-0.4); Lymphocytes Absolute Auto 4.2 X10*3/uL (1.2-4.9); Lymphocytes Percent Auto 40.9 % (20-40); Mean Corpuscular HGB Conc 33.8 g/dl (31.0-35.0); Mean Corpuscular Hemoglobin 25.4 pg (27.0-33.0); Mean Corpuscular Volume 75.2 fL (80.0-98.0); Mean Platelet Volume 10.3 fL (9.4-12.3); Monocytes Absolute Auto 0.5 X10*3/uL (0.1-1.2); Monocytes Percent Auto 4.7 % (2-11); Neutrophils Absolute Auto 5.4 x10*3/uL (2.0-8.3); Neutrophils Percent Auto 52.5 % (45-73); Platelet Count 373 X10*3/uL (160-400); Red Cell Distribution Width 14.5 % (11.0-16.0); White Blood Count 10.3 X10*3/uL (4.8-10.8)
[2022-05-25 09:00] LABS: INTERNATIONAL NORM RATIO 1.1 (0.9-1.1); Prothrombin Time 12.1 SEC (10.0-13.1)
[2022-05-25 09:46] LABS: HBS Num1 16.33 mIU/mL (0-7.99); HBsAGNum1 0.29 S/CO (0.00-0.99); Hepatitis B Core Antibody Nonreactive (Nonreactive); Hepatitis B Surface Antigen Negative (Negative); ~Hepatitis B Surface Antibody REACTIVE (Nonreactive)
[2022-05-25 09:47] LABS: Alanine Aminotransferase 41 U/L (0-31); Albumin Level 4.1 g/dL (3.5-5.0); Alkaline Phosphatase 57 U/L (39-117); Aspartate Amino Transferase 27 U/L (5-31); Bilirubin Direct < 0.2 mg/dL (0.0-0.5); Bilirubin Total 0.3 mg/dL (0.0-1.0); C Reactive Protein 0.88 mg/dL (< or = 0.50); Iron 58 mcg/dL (30-160); Percent Iron Saturation 20 % (15-50); Thyroid Stimulating Hormone 2.24 uIU/mL (0.32-4.0); Total Iron Binding Capacity 286 mcg/dL (228-428); Unsaturated Iron Binding 228 ug/dL
[2022-05-25 09:48] LABS: Ferritin 80 ng/mL (10-122); Vitamin D 25-OH Total 14.4 ng/mL (>30)
[2022-05-25 10:00] LABS: Folate 3.6 ng/mL (> or = 4.0); Vitamin B12 269 pg/mL (200-900)
[2022-05-25 10:02] LABS: Sickle Cell Scr POSITIVE (NEGATIVE)
[2022-05-26 07:49] LABS: Hepatitis A Antibody IgG REACTIVE (Nonreactive); ~Hepatitis A Antibody IgG 3.05 S/CO (0.00-0.99)
[2022-05-27 14:32] LABS: Alpha 1 Anti-trypsin 152 mg/dL (83-199); Ceruloplasmin 27 mg/dL (18-53)
[2022-05-28 12:49] LABS: Anti Nuclear Antibody Screen NEGATIVE (NEGATIVE)
[2022-05-29 18:58] LABS: Hematocrit 37.4 % (35.0-45.0); Hemoglobin 12.3 g/dL (11.7-15.5); MCH 24.9 pg (27.0-33.0); MCV 75.7 fL (80.0-100.0); RBC 4.94 Million/uL (3.80-5.10); RDW 14.4 % (11.0-15.0)
[2022-05-29 18:58] LABS: Hematocrit 38.1 % (35.0-45.0); Hemoglobin 12.4 g/dL (11.7-15.5); MCH 24.8 pg (27.0-33.0); RBC 5.01 Million/uL (3.80-5.10); RDW 14.4 % (11.0-15.0)
[2022-05-31 16:38] LABS: Immunoglobulin A 287 mg/dL (47-310); Immunoglobulin G 1394 mg/dL (600-1640); Liver Kidney Microsomal Ab <=20.0 U (<=20.0); Smooth Muscle Antibody <20 U (<20); Transglutaminase IgA <1.0 U/mL
== END 2022-05-25 08:05 | disposition home or self-care (01) ==
LOC: HO.LAB 08:04
PROVIDERS: PCP Internal Medicine; Visit Provider Internal Medicine
DX: E66.01 Morbid (severe) obesity due to excess calories (principal); R74.01 Elevation of levels of liver transaminase levels; R74.8 Abnormal levels of other serum enzymes; R19.7 Diarrhea, unspecified; R71.8 Other abnormality of red blood cells
CPT/HCPCS: 36415; 80076; 82103; 82306; 82390; 82607; 82728; 82746; 82784; 83020; 83540; 84443; 85014; 85018; 85025; 85041; 85610; 85660; 86015; 86038; 86039; 86140; 86364; 86376; 86704; 86706; 86708; 87340

== ENCOUNTER 2022-05-27 12:15 | Outpatient (REF) | payer OTHER, SELFPAY | END 2022-05-27 12:16 | disposition home or self-care (01) | LOC: HO.HOSX 12:15 | PROVIDERS: Visit Provider Physician Assistant | DX: Z13.89 Encounter for screening for other disorder (principal) ==

== ENCOUNTER 2023-04-14 08:39 | Outpatient (REF) | payer OTHER, SELFPAY ==
--- NOTE | ~2023-04-14 | XR_ITS ---
EXAMINATION: XR HUMERUS, RIGHT CLINICAL INFORMATION: Status post hardware placement COMPARISON: 01/11/2022 and 03/17/2015 TECHNIQUE: AP and lateral views of the right humerus. FINDINGS: Patient is status post hardware placement incompletely healed of comminuted fracture of distal humeral shaft there is well positioned hardware and bony remodeling with close to anatomical location osseous fragments. No evidence of new fractures. Soft tissues unremarkable. XR/XR humerus RT IMPRESSION: Healed fracture of the distal right humeral shaft with well positioned fragments and stable position of hardware
== END 2023-04-14 08:40 | disposition home or self-care (01) ==
LOC: HO.HOSX 08:39
PROVIDERS: Visit Provider Orthopaedic Surgery
DX: M79.601 Pain in right arm (principal); Z98.890 Other specified postprocedural states; Z87.81 Personal history of (healed) traumatic fracture
CPT/HCPCS: 73060; 99202

== ENCOUNTER 2023-04-14 09:05 | Outpatient (AMB) | payer OTHER, SELFPAY ==
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
== END 2023-04-14 09:38 | disposition home or self-care (01) ==
PROVIDERS: PCP Nurse Practitioner Family; Visit Provider Orthopaedic Surgery
DX: M79.601 Pain in right arm (principal); Z87.81 Personal history of (healed) traumatic fracture
CPT/HCPCS: 99203

== ENCOUNTER 2023-08-22 06:21 | Emergency (ER) | payer OTHER, SELFPAY ==
--- NOTE | ~2023-08-22 | XR_ITS ---
EXAMINATION: XR CHEST CLINICAL INFORMATION: Shortness of breath. COMPARISON: 05/22/2022 TECHNIQUE: 2 views of the chest were obtained. FINDINGS: The lungs are well expanded. No focal consolidation. No pleural effusion. Cardiac silhouette is unchanged. XR/XR chest 2V IMPRESSION: No acute abnormality.
[2023-08-22 06:22] VITALS: BP 123/93; PULSE 81; RESP 18; TEMP 36.5; O2SAT 95; BMI 39.1
[2023-08-22 07:08] LABS: Influenza A PCR NEGATIVE (Negative); Influenza B PCR NEGATIVE (Negative); Resp Syncy Virus RNA Qual PCR NEGATIVE (Negative); SARS COV2 PCR INHOUSE NEGATIVE (Negative)
--- NOTE | 2023-08-22 07:47 | ED_ITS ---
HPI - URI/Sore Throat General Chief Complaint: Upper Respiratory Symptoms Stated Complaint: flu like Time Seen by Provider: 08/22/23 07:32 Source: patient, family and RN notes reviewed Mode of arrival: ambulatory Limitations: no limitations History of Present Illness HPI Narrative: This is a 37-year-old female, with a history of asthma, presenting to the emergency department complaints of shortness of breath, fevers, chills, bilateral ear pain, sore throat, headache, sinus congestion x 3 days. She denies any cough, chest pain, abdominal pain, nausea vomiting. She does endorse diarrhea. She reports maxtemp 103 temporally. She reports that she has been using her home albuterol inhaler, and has been taking tylenol which has provided her with some relief. No sick contacts. Denies any other complaints or concerns at this time. MD elicited complaint: fever and sore throat Consistency: constant Description of mucous: clear Able to tolerate fluids by mouth: Yes Exacerbating factors: nothing Relieving factors: NSAID Associated symptoms: myalgias, headache, sore throat and shortness of breath Treatments prior to arrival: none Related Data Home Medications Medication Instructions Recorded Confirmed citalopram 10 mg tablet 10 mg PO QAM 10/14/21 10/01/22 doxepin 150 mg capsule 300 mg PO BEDTIME 10/14/21 10/01/22 lithium carbonate 300 mg capsule 300 mg PO BID 10/14/21 10/01/22 Previous Rx's Medication Instructions Recorded cyclobenzaprine 5 mg tablet 5 mg PO Q8H PRN pain (scale score 10/05/21 7-10) 5 days #14 tabs lidocaine 5 % topical patch 1 patch topical DAILY PRN pain #30 10/05/21 (Lidoderm) ea albuterol sulfate 90 mcg/actuation 2 puff PO Q8H PRN for wheezing 30 10/14/21 aerosol inhaler days #8.5 grams albuterol sulfate 90 mcg/actuation 1 inh inhalation QID PRN shortness 05/22/22 aerosol inhaler of breath or wheezing #6.7 grams hydrocodone-homatropine 5 mg-1.5 5 ml PO Q4-6H PRN cough #60 mL 05/22/22 mg/5 mL (5 mL) oral syrup (Hycodan) albuterol sulfate 2.5 mg/3 mL 2.5 mg (3 mL) inhalation Q6H PRN 10/01/22 (0.083 %) solution for nebulization respiratory symptoms 30 days #75 mL azelastine 0.05 % eye drops 1 drp ophthalmic (eye) BID PRN 10/01/22 allergic symptoms #6 mL miscellaneous medical supply 1 ea miscellaneous DAILY #1 ea 10/01/22 [id number]-zwlkgdpdfeipq-uatesqdb 1 tab PO Q6H PRN pain 30 days #20 05/31/23 50 mg-325 mg-40 mg tablet tabs promethazine 25 mg tablet 25 mg PO BID PRN nausea and 08/20/23 vomiting 5 days #10 tabs acetaminophen 650 mg 650 mg PO Q8H PRN pain #30 tabs 08/22/23 tablet,extended release (Tylenol 8 Hour) azithromycin 250 mg tablet See Rx Instructions PO .COMPLEX #6 08/22/23 tabs Allergies Allergy/AdvReac Type Severity Reaction Status Date / Time aspirin [Aspirin] Allergy Severe DIFFICULTY Verified 08/22/23 06:25 BREATHING, tracheal swelling Penicillins Allergy Severe DIFFICULTY Verified 08/22/23 06:25 BREATHING Review of Systems Review of Systems: Yes all other systems are reviewed and are negative Constitutional: Constitutional: Reports as per [facility] Past Medical History Attestation statement: The following information was validated with the patient. Medical History Chronic diarrhea Hemorrhoids Class 2 obesity with body mass index (BMI) of 39.0 to 39.9 in adult Moderate asthma Anxiety Pain of right heel Hx of allergic rhinitis Hx of bipolar disorder Asthma Surgical History History of endometrial ablation History of open reduction and internal fixation (ORIF) procedure History of bilateral tubal ligation History of tonsillectomy and adenoidectomy Hx of shoulder surgery Tubal ligation status Family History Family History Mother Hypertension Father No problems noted. Social History Social History Housing: Apartment Alcohol intake: never Patient Tobacco Use Status: Never used Tobacco Smoked in Last 30 Days: No e-Cigarette/Vaping Use: Never Used Second Hand Smoke Exposure: No Use of substances other than those prescribed or required for medical reasons: No Substance Use Type: Marijuana Advance Directives: No Advance Directives Information Provided: Yes Patient : No service: No Current occupational status: employed Current occupational exposures/hazards: No Sexual orientation: Straight/Heterosexual Gender identity: Female Cognitive needs: No Hearing needs: No Vision needs: Yes Physical Exam Vital Signs: Vital Signs: Last Vital Signs Temp 97.8 F 08/22/23 09:20 Pulse 68 08/22/23 09:20 Resp 18 08/22/23 09:20 BP 112/85 08/22/23 09:20 Pulse Ox 99 08/22/23 09:20 O2 Del Method Room Air 08/22/23 09:20 BMI result Body Mass Index 39.1 Const: General: cooperative, comfortable and no acute distress Orientation/consciousness: patient oriented x3 Limitations: no limitations HEENT: Other: BL TMs are dull and erythematous, nonbulging. Oral pharynx is mildly erythematous, no tonsillar hypertrophy or exudates. tolerating oral secretions well without difficulty. Head: Yes normal to inspection, Yes normocephalic and Yes atraumatic Ea rs: hearing grossly normal bilaterally and TM's normal bilaterally General nose exam: Normal external nose present Face and sinus: Yes normal facial exam and Yes sinuses nontender Mouth: Normal oral and palatal mucosa present, oropharynx normal and moist mucous membranes Throat: Yes posterior oropharynx normal, Yes tonsils normal and Yes uvula midline Eyes: General: appearance normal, both eyes and all related structures Eyelids: Yes eyelids normal Conjunctivae: conjunctivae normal Sclerae: sclerae normal Pupils: Equal, round and reactive pupils present EOM: EOMs intact bilaterally Neck: Neck: Yes normal visual inspection, Yes full ROM and Yes no lymphadenopathy Lymphatic: no lymphadenopathy noted Chest: Chest palpation & inspection: normal inspection of the chest Resp: Other: Diminished lung sounds in BL lung odwney. No wheezes, rhonchi auscultated. Effort & Inspection: normal respiratory effort and able to speak in complete sentences Cardio: Rate: regular rate Rhythm: regular rhythm Heart sounds: S1 normal heart sound present and S2 normal heart sound present GI: Other: Abdomen is soft, nontender, nondistended. Inspection: Yes normal to inspection Skin: General skin exam: no rashes or lesions noted Trauma: no lacerations or abrasions Wounds: no wounds Neuro: General: patient oriented x3 and moves all extremities Cranial nerves: Yes Equal, round and reactive pupils present Extrem: General: Yes normal to inspection Right upper extremity: normal to inspection Left upper extremity: normal to inspection Right lower extremity: normal to inspection Left lower extremity: normal to inspection Course Reevaluation(s) Reevaluation #1: Patient feeling better after receiving Tylenol and updraft. Lungs better air movement, no wheezes, rales, or rhonchi. Given TMs are erythematous, and pt has been febrile to 103-104F, will treat as BL OM. Advised to take full course of ABX. Advised to alternate between ibuprofen and tylenol. Encouraged stay well hydrated and get plenty of rest. Given return precautions. Patient stable for discharge. Time: 09:25 Medications Administered Discontinued Medications Generic Name Dose Route Start Last Admin Trade Name Freq PRN Reason Stop Dose Admin Acetaminophen 975 mg 08/22/23 07:44 08/22/23 08:17 Acetaminophen 325 Mg Tablet PO 08/22/23 07:45 975 mg ONCE ONE Administration Albuterol/Ipratropium 3 ml 08/22/23 08:55 08/22/23 08:59 Albuterol/Iprat 2.5/0.5mg 3 Ml Ampul.Neb INHALE 08/22/23 08:56 3 ml ONCE ONE Administration Medical Decision Making Medical Decision Making [facility] Narrative: 37-year-old female, with a history of asthma, presenting to the emergency department complaints of shortness of breath, fevers, chills, bilateral ear pain, sore throat, headache, sinus congestion x 3 days. On arrival, vital signs within normal limits. Lungs are diminished throughout all lung downey, especially in the lower lung downey. Patient is speaking in full sentences. She is nontoxic appearing. She is afebrile. BL TMs are erythematous, sinuses nontender. Plan: viral swabs, chest x-ray, Tylenol, ED bronch protocol Differential Diagnosis Differential Diagnoses: The differential diagnosis associated with the presentation includes URI, sinusitis, influenza, bronchitis, pneumonia, OM/OE Lab Data [facility] Lab Attestation statement: I reviewed the patient's lab results. Negativ flu, RSV, COVID, Strep Labs: Lab Results 03/11/24 03/11/24 Range/Units 06:26 07:50 Influenza Type A (PCR) NEGATIVE (Negative) Influenza Type B (PCR) NEGATIVE (Negative) RSV RNA Qual (PCR) NEGATIVE (Negative) SARS-CoV-2 RNA (RT-PCR) NEGATIVE (Negative) S. pyogenes GrpA LILIBETH Negative (Negative) Radiology Impression Discussion of test interpretation with radiology: I have reviewed the radiologist's reading. Radiologist Impression: EXAMINATION: XR CHEST CLINICAL INFORMATION: Shortness of breath. COMPARISON: 05/22/2022 TECHNIQUE: 2 views of the chest were obtained. FINDINGS: The lungs are well expanded. No focal consolidation. No pleural effusion. Cardiac silhouette is unchanged. XR/XR chest 2V IMPRESSION: No acute abnormality. Dictated By: Gina Martino MD Discharge Plan Discharge Clinical Impression: Otitis media, Acute viral syndrome Patient Disposition: Home, Self-Care Instructions: Ear Infection (ED), Viral Syndrome (ED) Additional Instructions: Your symptoms are likely viral, however your ears do appear to be infected. You tested negative for covid, flu, RSV and strep throat. Please take prescribed antibiotics as directed. Drink plenty of fluids and get plenty of rest. Alternate between ibuprofen and tylenol as directed as needed for symptoms. If any new or worsening symptoms occur, including but not limited to chest pain, shortness of breath, dizziness, blurred vision, abdominal pain, nausea, vomiting or diarrhea, please return for re-evaluation. Prescriptions: New azithromycin 250 mg tablet See Rx Instructions PO .COMPLEX Qty: 6 0RF Rx Instructions: For 250 mg dose pack: take 500 mg today (day 1), then 250 mg for 4 days (days 2-5) acetaminophen [Tylenol 8 Hour] 650 mg tablet extended release 650 mg PO Q8H PRN (Reason: pain) Qty: 30 0RF No Action wxxtzaehvj-xwsqjyiyzbucm-dhpn 50-325-40 mg tablet 1 tab PO Q6H PRN (Reason: pain) 30 Days Qty: 20 0RF promethazine 25 mg tablet 25 mg PO BID PRN (Reason: nausea and vomiting) 5 Days Qty: 10 0RF lidocaine [Lidoderm] 5 % adhesive patch,medicated 1 patch topical DAILY MDD remove after 12 hours PRN (Reason: pain) Qty: 30 0RF Rx Instructions: leave on most painful area for up to 12 hrs cyclobenzaprine 5 mg tablet 5 mg PO Q8H PRN (Reason: pain (scale score 7-10)) 5 Days Qty: 14 0RF albuterol sulfate 90 mcg/actuation HFA aerosol inhaler 1 inh inhalation QID PRN (Reason: shortness of breath or wheezing) Qty: 6.7 0RF hydrocodone-homatropine [Hycodan] 5-1.5 mg/5 mL (5 mL) syrup 5 ml PO Q4-6H PRN (Reason: cough) Qty: 60 0RF Rx Instructions: Partial Fill upon patient request. doxepin 150 mg capsule 300 mg PO BEDTIME lithium carbonate 300 mg capsule 300 mg PO BID citalopram 10 mg tablet 10 mg PO QAM albuterol sulfate 90 mcg/actuation HFA aerosol inhaler 2 puff PO Q8H PRN (Reason: for wheezing) 30 Days Qty: 8.5 0RF azelastine 0.05 % drops 1 drp ophthalmic (eye) BID PRN (Reason: allergic symptoms) Qty: 6 0RF miscellaneous medical supply Misc 1 ea miscellaneous DAILY Qty: 1 0RF Rx Instructions: face mask for nebulizer machine albuterol sulfate 2.5 mg /3 mL (0.083 %) solution for nebulization 2.5 mg inhalation Q6H PRN (Reason: respiratory symptoms) 30 Days Qty: 75 1RF Stand Alone Forms: Work/School Release Interventions: ED Discharge Assessment Last Done: 08/22/23 09:57 Discharge Date/Time: 08/22/23 09:57
[2023-08-22 08:06] LABS: IDNOW Serial# 08D9AD1C; Strep A Nucleic Acid Negative (Negative)
[2023-08-22] MEDS: Acetaminophen 325 MG TABLET 975 MG PO (08:17)
[2023-08-22] MEDS: Albuterol/Iprat 2.5/0.5MG 3 ML AMPUL.NEB INHALE (08:59)
[2023-08-22 09:00] VITALS: PULSE 60; RESP 16; O2SAT 99
[2023-08-22 09:20] VITALS: BP 112/85; PULSE 68; RESP 18; TEMP 36.6; O2SAT 99
== END 2023-08-22 09:57 | disposition home or self-care (01) ==
PROVIDERS: Physician Assistant Medical; Emergency Provider Emergency Medicine; PCP Internal Medicine
DX: B34.9 Viral infection, unspecified (principal); H66.93 Otitis media, unspecified, bilateral; Z11.52 Encounter for screening for COVID-19; Z20.828 Contact with and (suspected) exposure to other viral communicable diseases
CPT/HCPCS: 0241U; 71046; 87651; 94640; 99284; 99285

== ENCOUNTER 2023-11-10 11:54 | Outpatient (AMB) | payer OTHER, SELFPAY ==
--- NOTE | 2023-11-10 12:17 | MHC.OFFVIS ---
Vital Signs 11/10/23 12:17 Height 5 ft 9 in Handedness Right Intake Visit Reasons: OV - ORIF RT Humerus. DOS O11/29/2014 Intake Note: Milagros is a 37 year old right hand dominant female who presents today for a follow up of her right medial forearm pain. Hx of Right Humerus ORIF 11/29/2014. Patient reports that she is not having any pain, however she has some discomfort when she is lifting something. She was given a work note restricting her to no lifting over 25lbs. Allergies aspirin [Aspirin] Allergy (Severe, Verified 08/22/23 06:25) DIFFICULTY BREATHING, tracheal swelling Penicillins Allergy (Severe, Verified 08/22/23 06:25) DIFFICULTY BREATHING HPI HPI OV - ORIF RT Humerus. DOS O11/29/2014: Details: Doing well with respect to humerus but has ulnar sided hand numbness at night and periodically throughout the day. [facility]LY [facility] Medical History Chronic diarrhea Hemorrhoids Class 2 obesity with body mass index (BMI) of 39.0 to 39.9 in adult Moderate asthma Anxiety Pain of right heel Hx of allergic rhinitis Hx of bipolar disorder Asthma Surgical History History of endometrial ablation History of open reduction and internal fixation (ORIF) procedure History of bilateral tubal ligation History of tonsillectomy and adenoidectomy Hx of shoulder surgery Tubal ligation status Family History Mother Hypertension Father No problems noted. Social History Housing: Apartment Alcohol intake: never Patient Tobacco Use Status: Never used Tobacco e-Cigarette/Vaping Use: Never Used Second Hand Smoke Exposure: No Substance Use Type: Marijuana service: No Current occupational status: employed Current occupational exposures/hazards: No Sexual orientation: Straight/Heterosexual Gender identity: Female Cognitive needs: No Hearing needs: No Vision needs: Yes Female Reproductive History Menstrual Age of Menarche: 10 Physical Exam Extrem Other: negative Tinel's at hte cubital tunnel no torres nwith bony palpation right distal humerus Assessment & Plan Assessment & Plan (1) History of open reduction and internal fixation (ORIF) procedure: Comment: 2014 - Right humeral FX Repair w/ Plates & Screws Code(s): Z98.890 - Other specified postprocedural states Category: Surgical Plan: Doing well. No intervention warranted (2) Numbness of right hand: Code(s): R20.0 - Anesthesia of skin Category: Medical Plan: EMG/NCV ordered Orders: Orders NE electromyogram (EMG) Today R20.0 - Anesthesia of skin NE nerve conduction velocity Today R20.0 - Anesthesia of skin Coding Level of Care Code Est Pt Level 3 (66578) Diagnoses History of open reduction and internal fixation (ORIF) procedure Z98.890 Numbness of right hand R20.0
== END 2023-11-10 12:43 | disposition home or self-care (01) ==
PROVIDERS: PCP Nurse Practitioner Family; Visit Provider Orthopaedic Surgery
DX: R20.0 Anesthesia of skin (principal); M79.631 Pain in right forearm
CPT/HCPCS: 99213

== ENCOUNTER → 2023-11-10 11:54 | Outpatient (BNVA) | payer OTHER, SELFPAY | PROVIDERS: PCP Nurse Practitioner Family; Visit Provider Orthopaedic Surgery | DX: R20.0 Anesthesia of skin (principal); Z98.890 Other specified postprocedural states | CPT/HCPCS: 99212 ==

== ENCOUNTER 2023-11-15 05:44 | Emergency (ER) | payer OTHER, SELFPAY ==
--- NOTE | ~2023-11-15 | US_ITS ---
EXAMINATION: US VENOUS ULTRASOUND WITH DOPPLER LOWER EXTREMITY, RIGHT CLINICAL INFORMATION: Pain swelling right calf posteriorly COMPARISON: None available. TECHNIQUE: Ultrasound of the deep veins is performed from the hip to the calf with compression sonography and color and pulse Doppler assessment. Spectral analysis with color-flow imaging is performed. FINDINGS: There is normal venous compression and respiratory variation and augmented flow. The visualized common femoral vein, superficial femoral vein, profunda femoral vein, popliteal vein, and the trifurcation region shows no evidence of deep venous thrombosis. Contralateral common femoral vein is patent. There is no significant popliteal fossa cyst. Lobulated lymph node noted in the right groin measuring 2.4 x 1.3 cm. If the patient's symptoms persist, followup ultrasound in 5 days 7 days might be of value to exclude proximal propagation from a non-visualized calf vein. US/US venous duplex LE RT IMPRESSION: 1. No DVT demonstrated in the right lower extremity. 2. Lobulated lymph node noted in the right groin measuring 2.4 x 1.3 cm.
[2023-11-15 05:54] VITALS: BP 131/94; PULSE 92; RESP 16; TEMP 36.6; O2SAT 97; BMI 39.2
--- NOTE | 2023-11-15 07:57 | ED.EXTPRO ---
HPI - Extremity Problem General Chief complaint: Extremity Problem Stated complaint: leg pain Time Seen by Provider: 11/15/23 07:26 Source: patient and old records reviewed Mode of arrival: ambulatory Limitations: no limitations History of Present Illness ED Provider: RICK HARVEY Narrative: 38 yo female with PMH of arthralgias, bipolar disorder, prior R knee effusion without degenerative changes seen in joint on xray in past, anxiety, asthma here with c/o R knee pain and calf pain for the past few days. Denies trauma, fevers, redness, no IVDA reported. She notes she has had this before. No prior hx of VTE. R leg is more swollen compared to left MD Complaint: extremity pain and extremity swelling Onset (ago): day(s) (few) Pain Consistency: constant Location: right and lower extremity Quality: aching Radiation: distal Relieving factors: immobilization Exacerbating factors: walking and palpation Associated symptoms: denies other symptoms Related Data Home Medications ?Medication ?Instructions ?Recorded ?Confirmed citalopram 10 mg tablet 10 mg PO QAM 10/14/21 10/01/22 doxepin 150 mg capsule 300 mg PO BEDTIME 10/14/21 10/01/22 lithium carbonate 300 mg capsule 300 mg PO BID 10/14/21 10/01/22 Previous Rx's ?Medication ?Instructions ?Recorded cyclobenzaprine 5 mg tablet 5 mg PO Q8H PRN pain (scale score 10/05/21 7-10) 5 days #14 tabs lidocaine 5 % topical patch 1 patch topical DAILY PRN pain #30 10/05/21 (Lidoderm) ea hydrocodone-homatropine 5 mg-1.5 5 ml PO Q4-6H PRN cough #60 mL 05/22/22 mg/5 mL (5 mL) oral syrup (Hycodan) albuterol sulfate 2.5 mg/3 mL 2.5 mg (3 mL) inhalation Q6H PRN 10/01/22 (0.083 %) solution for nebulization respiratory symptoms 30 days #75 mL azelastine 0.05 % eye drops 1 drp ophthalmic (eye) BID PRN 10/01/22 allergic symptoms #6 mL miscellaneous medical supply 1 ea miscellaneous DAILY #1 ea 10/01/22 ldsidodgle-aymcispwagmyf-dpzdogpz 1 tab PO Q6H PRN pain 30 days #20 05/31/23 50 mg-325 mg-40 mg tablet tabs promethazine 25 mg tablet 25 mg PO BID PRN nausea and 08/20/23 vomiting 5 days #10 tabs acetaminophen 650 mg 650 mg PO Q8H PRN pain #30 tabs 08/22/23 tablet,extended release (Tylenol 8 Hour) azithromycin 250 mg tablet See Rx Instructions PO .COMPLEX #6 08/22/23 tabs albuterol sulfate 90 mcg/actuation 1 inh inhalation QID PRN shortness 08/27/23 aerosol inhaler of breath or wheezing #6.7 grams albuterol sulfate 90 mcg/actuation 2 puff PO Q8H PRN for wheezing 30 10/28/23 aerosol inhaler days #8.5 grams Allergies Allergy/AdvReac Type Severity Reaction Status Date / Time aspirin [Aspirin] Allergy Severe DIFFICULTY Verified 11/15/23 05:56 BREATHING, tracheal swelling Penicillins Allergy Severe DIFFICULTY Verified 11/15/23 05:56 BREATHING Review of Systems Review of Systems: Constitutional : No Fever, No Chills ENT/Mouth : No Ear Pain, No Hoarseness, No sore throat Eyes: No Eye Pain, No Swelling, No Redness, No Foreign Body Cardiovascular : No Chest Pain, No SOB Respiratory : No Cough, No Dyspnea Gastrointestinal : No Nausea, No Vomiting, No Diarrhea, No abdominal Pain Genitourinary : No Dysuria, No Hematuria Musculoskeletal : positive joint pain, No Myalgias, No Joint Swelling Skin : No Skin lacerations, No rash Neuro : No Weakness, No Numbness, No Loss of Consciousness, No Dizziness, No Headache All other systems reviewed and are negative [facility] Past Medical History Attestation statement: The following information was validated with the patient. Source: old records reviewed Medical History Chronic diarrhea Hemorrhoids Class 2 obesity with body mass index (BMI) of 39.0 to 39.9 in adult Moderate asthma Anxiety Pain of right heel Hx of allergic rhinitis Hx of bipolar disorder Asthma Surgical History History of endometrial ablation History of open reduction and internal fixation (ORIF) procedure History of bilateral tubal ligation History of tonsillectomy and adenoidectomy Hx of shoulder surgery Tubal ligation status Family History Family History Mother Hypertension Father No problems noted. Social History Social History Housing: Apartment Alcohol intake: never Patient Tobacco Use Status: Never used Tobacco e-Cigarette/Vaping Use: Never Used Second Hand Smoke Exposure: No Substance Use Type: Marijuana Advance Directives: No Advance Directives Information Provided: Yes Do you have a plan to hurt others: No Plan service: No Current occupational status: employed Current occupational exposures/hazards: No Sexual orientation: Straight/Heterosexual Gender identity: Female Cognitive needs: No Hearing needs: No Vision needs: Yes Physical Exam Vital Signs: Vital Signs: Last Vital Signs Temp 97.8 F 11/15/23 05:54 Pulse 92 11/15/23 05:54 Resp 16 11/15/23 05:54 BP 131/94 H 11/15/23 05:54 Pulse Ox 97 11/15/23 05:54 O2 Del Method Room Air 11/15/23 05:54 BMI result Body Mass Index 39.2 Appearance: Alert. Oriented X3. No acute distress. Eyes: Pupils equal, round and reactive to light. ENT: Pharynx normal. Neck: Normal inspection. Neck supple. CVS: Normal heart rate and rhythm. Pulses normal. Respiratory: No respiratory distress. Breath sounds normal. Abdomen: Soft and nontender. Skin: Skin warm and dry. Normal skin color. Normal skin turgor. Extremities: R knee no warmth, no redness, small joint effusion noted but also has mild calf ttp distal NV intact, R leg does appear mildly bigger than left no signs of infection compartments are soft and compressible Neuro: Oriented X 3. No motor deficit. No sensory deficit. Medical Decision Making Medical Decision Making MDM Narrative: 38 yo female with PMH of arthralgias, bipolar disorder, prior R knee effusion without degenerative changes seen in joint on xray in past, anxiety, asthma here with c/o R knee pain atraumatic and calf pain no trauma so fracture unlikely and effusion is not septic no fevers, redness, warmth and she can bend the knee. I did order ESR and lyme test. I am ordering US to rule out DVT and bakers cyst given the swelling distal to the knee. She is NV intact Differential Diagnosis Differential Diagnoses: The differential diagnosis associated with the presentation includes effusion, arthralgia Lab Data MDM Lab Attestation statement: I reviewed the patient's lab results. Labs: Lab Results 11/15/23 Range/Units 08:38 ESR 9 (0-20) MM/HR Independent Interpretation I performed an independent interpretation of an: Ultrasound (no DVT) Radiology Impression Discussion of test interpretation with radiology: I have reviewed the radiologist's reading. External Record Review External record reviewed: Office record Prescription Management I considered prescription management with: Other Discharge Plan Discharge Clinical Impression: Leg swelling Patient Disposition: Home, Self-Care Instructions: Swollen Knee Joint (ED) Additional Instructions: no blood clot, inflammatory markers are negative pending lyme test you have a large lymph node in that groin please repeat US with your doctor in 2 weeks to make sure lymph node is going down return for worsening pain, swelling, redness, fevers or any other complaints Prescriptions: No Action ygmjvgodjh-evqnslgmbcdpd-myfu 50-325-40 mg tablet 1 tab PO Q6H PRN (Reason: pain) 30 Days Qty: 20 0RF promethazine 25 mg tablet 25 mg PO BID PRN (Reason: nausea and vomiting) 5 Days Qty: 10 0RF albuterol sulfate 90 mcg/actuation HFA aerosol inhaler 1 inh inhalation QID PRN (Reason: shortness of breath or wheezing) Qty: 6.7 0RF albuterol sulfate 90 mcg/actuation HFA aerosol inhaler 2 puff PO Q8H PRN (Reason: for wheezing) 30 Days Qty: 8.5 0RF lidocaine [Lidoderm] 5 % adhesive patch,medicated 1 patch topical DAILY MDD remove after 12 hours PRN (Reason: pain) Qty: 30 0RF Rx Instructions: leave on most painful area for up to 12 hrs cyclobenzaprine 5 mg tablet 5 mg PO Q8H PRN (Reason: pain (scale score 7-10)) 5 Days Qty: 14 0RF hydrocodone-homatropine [Hycodan] 5-1.5 mg/5 mL (5 mL) syrup 5 ml PO Q4-6H PRN (Reason: cough) Qty: 60 0RF Rx Instructions: Partial Fill upon patient request. azithromycin 250 mg tablet See Rx Instructions PO .COMPLEX Qty: 6 0RF Rx Instructions: For 250 mg dose pack: take 500 mg today (day 1), then 250 mg for 4 days (days 2-5) acetaminophen [Tylenol 8 Hour] 650 mg tablet extended release 650 mg PO Q8H PRN (Reason: pain) Qty: 30 0RF doxepin 150 mg capsule 300 mg PO BEDTIME lithium carbonate 300 mg capsule 300 mg PO BID citalopram 10 mg tablet 10 mg PO QAM azelastine 0.05 % drops 1 drp ophthalmic (eye) BID PRN (Reason: allergic symptoms) Qty: 6 0RF miscellaneous medical supply Misc 1 ea miscellaneous DAILY Qty: 1 0RF Rx Instructions: face mask for nebulizer machine albuterol sulfate 2.5 mg /3 mL (0.083 %) solution for nebulization 2.5 mg inhalation Q6H PRN (Reason: respiratory symptoms) 30 Days Qty: 75 1RF Referrals: Janis Marcelino MD [Primary Care Provider] - 2 weeks Stand Alone Forms: Work/School Release Print Language: Ukrainian
[2023-11-15 09:25] LABS: Erythrocyte Sedimentation Rate 9 MM/HR (0-20)
[2023-11-15 10:23] VITALS: BP 122/78; PULSE 66; RESP 18; TEMP 36.3; O2SAT 98
[2023-11-16 21:22] LABS: Lyme Abs Screen <0.90 index
--- OUTSIDE RECORDS SUMMARY | 2023-11-18 09:43 | XMS_ITS | Continuity of Care Document ---
Author Organization [facility] Address [address], [address] [place] [address]- Care Team Providers Care Administrative Officer Name Role Phone Richi Magana MD Primary Care Physician [phone] [id number] Date(s): 04/23/22 - 07/10/22 [facility] [address] [place] [address]- Attending Physician: Bryce Cuenca MD Referring Physician: Richi Magana MD Allergies, Adverse Reactions, Alerts Substance Reaction Severity Status aspirin Active penicillins Active Medications diclofenac sodium 75 mg oral delayed release tablet 1 tablet = 75 mg, By Mouth, 2 times a day, 0 Refills, Maintenance, 07/09/15 9:34:22 Start Date: 07/09/15 Status: Ordered ibuprofen 200 mg oral tablet 4 tablet = 800 mg, By Mouth, Every 6 hours, 0 Refills, Maintenance, 07/09/15 9:35:00 Start Date: 07/09/15 Status: Ordered ibuprofen 800 mg oral tablet 1 tablet = 800 mg, By Mouth, 3 times a day, # 15 tablet, 0 Refills, Maintenance, Tablet Start Date: 11/19/11 Stop Date: 11/24/11 Status: Ordered Patient Care team information Care Team Personnel Name: Richi Magana MD Position: Reference Physician Member Role: PCP Address: Address: [address] [place] [address] [place] [address]- Care Team Related Persons Name: SARA LYNCH Address: home [address] [place] [address]
--- OUTSIDE RECORDS SUMMARY | 2023-11-18 09:43 | XMS_ITS | Continuity of Care Document ---
Author Organization [facility] Address [address], [address] [place] [address]- Care Team Providers Care Business Practices Supervisor Name Role Phone Richi Magana MD Primary Care Physician [id number] Date(s): 04/23/22 - 07/10/22 [facility] [address] [place] [address]- Attending Physician: Bryce Cuenca MD Referring Physician: [...] Reference Physician Member Role: PCP Address: Address: [address] [place] [address] [place] [address]- Care Team Related Persons Name: SARA LYNCH Address: home [address] [place] [address]
--- OUTSIDE RECORDS SUMMARY | 2023-11-18 09:43 | XMS_ITS | Continuity of Care Document ---
Author Organization [facility] Address [address], [address] [place] [address]- Care Team Providers Care Energy Sales Broker Name Role Phone Richi Magana MD Primary Care Physician [facility] [id number] Date(s): 06/10/22 - 07/10/22 [facility] [address] [place], [place] [address] Attending Physician: Bell Grace Admitting Physician: Bell Grace Referring Physician: Bell Grace Allergies, Adverse Reactions, Alerts Substance Reaction Severity [...] Reference Physician Member Role: PCP Address: Address: [address] [place] [address] [place] [address]- Care Team Related Persons Name: SARA LYNCH Address: home [address] [place] [address]
--- OUTSIDE RECORDS SUMMARY | 2023-11-18 09:43 | XMS_ITS | Continuity of Care Document ---
Author Organization [facility] Address [address], [address] [place] [address]- Care Team Providers Care Product Management Internship Name Role Phone [place] BARAJAS, Richi Monge Primary Care Physician [phone] Encounter [facility] Date(s): 04/26/22 - 05/26/22 [facility] [address], [address] [place] [address]- Allergies, Adverse Reactions, Alerts Substance Reaction Severity [...] Reference Physician Member Role: PCP Address: Address: [address] [place] [address] [place] [address]- Care Team Related Persons Name: LYNCHSARA Address: home [address] [place] [address]
== END 2023-11-15 10:24 | disposition home or self-care (01) ==
PROVIDERS: Emergency Provider Emergency Medicine; PCP Internal Medicine
DX: M79.89 Other specified soft tissue disorders (principal)
CPT/HCPCS: 36415; 85652; 86617; 86618; 93971; 99282; 99284

== ENCOUNTER 2023-11-30 12:44 | Outpatient (AMB) | payer OTHER, SELFPAY ==
[2023-11-30 12:46] VITALS: BP 113/77; PULSE 104; BMI 38.8
--- NOTE | 2023-11-30 12:46 | A.OFFVIS_ITS ---
Vital Signs 11/30/23 12:46 Height 5 ft 9 in Weight 263 lb BMI 38.8 BP 113/77 Blood Pressure Location Lt brachial Position Sitting Pulse 104 H Intake Visit Reasons: Lobulated lymph node right groin Intake Note: This patient presents for an assessment for lobulated lymph nodes right groin. Patient c/o; reports has a rash on the lower right side of back, reports pain behind right knee which she descibes it feels like its tearing , reports some swelling right leg. Hatchery Attendant Required: No Information Interpreted: non-clinical & clinical Accompanied by: Other Relationship Allergies aspirin [Aspirin] Allergy (Severe, Verified 11/30/23 12:59) DIFFICULTY BREATHING, tracheal swelling Penicillins Allergy (Severe, Verified 11/30/23 12:59) DIFFICULTY BREATHING Medication List - Last Reconciled 11/30/23 by Paul Stapleton MD acetaminophen ER (Tylenol 8 Hour) 650 mg PO Q8H PRN albuterol sulfate 2.5 mg (3 mL) inhalation Q6H PRN 30 days albuterol sulfate 90 mcg/actuation 2 puffs PO Q8H PRN 30 days albuterol sulfate 90 mcg/actuation 1 inh inhalation QID PRN azelastine 0.05% 1 drp ophthalmic (eye) BID PRN azithromycin For 250 mg dose pack: take 500 mg today (day 1), then 250 mg for 4 days (days 2-5) nysinlozhq-gqmqqebmxqekf-srxb 50-325-40 mg 1 tab PO Q6H PRN 30 days citalopram 10 mg PO QAM cyclobenzaprine 5 mg PO Q8H PRN 5 days doxepin 300 mg PO BEDTIME hydrocodone-homatropine 5-1.5 mg/5 mL (5 mL) (Hycodan) 5 mL PO Q4-6H PRN lidocaine 5% (Lidoderm) 1 patch topical DAILY PRN MDD remove after 12 hours lithium carbonate 300 mg PO BID miscellaneous medical supply 1 ea miscellaneous DAILY promethazine 25 mg PO BID PRN 5 days HPI HPI Lobulated lymph node right groin: Details: [age] year old female referred for an enlarged right groin lymph node. She apparently went to the ER last 11/15/2023 because of right calf pain. She had an ultrasound of the leg to rule out DVT. There was no DVT seen but she was noted to have an incidental finding of enlarged lymph nodes in the right groin. She was therefore referred to me She describes this chronic pain on the area of the calf and the right knee for several weeks now. She also says that her lower back on the right side also has some pain and she often times has to walk with a limp because of this She denies any changes of the skin she denies any obvious swelling of the right leg. [facility] Medical History (Updated 11/30/23 @ 13:18 by Paul Stapleton MD) Lymphadenopathy, inguinal Chronic diarrhea Hemorrhoids Class 2 obesity with body mass index (BMI) of 39.0 to 39.9 in adult Moderate asthma Anxiety Pain of right heel Hx of allergic rhinitis Hx of bipolar disorder Asthma Surgical History History of endometrial ablation History of open reduction and internal fixation (ORIF) procedure History of bilateral tubal ligation History of tonsillectomy and adenoidectomy Hx of shoulder surgery Tubal ligation status Family History Mother Hypertension Father No problems noted. Social History Housing: Apartment Alcohol intake: never Patient Tobacco Use Status: Never used Tobacco e-Cigarette/Vaping Use: Never Used Second Hand Smoke Exposure: No Substance Use Type: Marijuana service: No Current occupational status: employed Current occupational exposures/hazards: No Sexual orientation: Straight/Heterosexual Gender identity: Female Cognitive needs: No Hearing needs: No Vision needs: Yes Female Reproductive History Menstrual Age of Menarche: 10 Review of Systems Const Denies chills and Denies fever(s) Card Denies chest pain, Reports dyspnea and Reports dyspnea on exertion Resp Details: Has asthma Denies cough, Reports dyspnea and Reports dyspnea on exertion GI Denies hematochezia and Denies change in bowel habits Denies hematuria Musc Reports back pain, Reports arthralgias (Right knee pain) and Denies limited range of motion Neuro Denies focal weakness and Denies convulsions Psych Denies depression and Denies mood swings Physical Exam Vital Signs: Last Vital Signs Pulse 104 H 11/30/23 12:46 BP 113/77 11/30/23 12:46 BMI result Body Mass Index 38.8 Const General: comfortable and no acute distress Orientation/consciousness: patient oriented x3 Neck Neck: Yes no lymphadenopathy Resp Auscultation: clear to auscultation bilaterally Cardio Rhythm: regular rhythm GI Palpation (GI): Soft to palpation, nontender and no guarding Neuro General: patient oriented x3 Assessment & Plan Assessment & Plan (1) Lymphadenopathy, inguinal: Code(s): R59.0 - Localized enlarged lymph nodes Category: Medical Plan: She had an ultrasound to rule out a DVT in the ER 2 weeks ago and there was inci dental finding of large right groin lymph node, lobulated, measuring 2.4 x 1.3. She denies any palpable right groin lymph node. I am unable to palpate for this right groin lymph node. This is most likely to be reactive. However, because of the size, I would recommend repeating the ultrasound in about 2-3 months. I explained this plan to her. She understands and seems to be comfortable with this plan. Her daughter was with her during the visit. I will therefore see her in the office in about 2-3 months. We can decide then whether we should send her for an ultrasound-guided biopsy. Coding Level of Care Code New Pt Level 3 (55972) Diagnoses Lymphadenopathy, inguinal R59.0
== END 2023-11-30 13:19 | disposition home or self-care (01) ==
PROVIDERS: PCP Internal Medicine; Referring Provider Internal Medicine; Visit Provider Surgery
DX: R59.0 Localized enlarged lymph nodes (principal)
CPT/HCPCS: 99203

== ENCOUNTER 2023-11-30 13:29 | Outpatient (REF) | payer OTHER, SELFPAY ==
--- NOTE | 2023-11-30 13:33 | EMG_ITS ---
Chief complaint: Right arm pain, numbness on 3rd to 5th digits. History of ORIF humerus 11/29/2014. Reason for referral: Evaluate for entrapment neuropathy Referred by: Dr. Trinh Procedure done: Right upper extremity NCS/EMG Precautions and/or limitations: None The limb temperature was monitored continuously and remained between 32-36 degrees C during the performance of the NCS. Nerve Conduction Studies Anti Sensory Summary Table ?Stim Site NR Onset (ms) Norm Onset (ms) Peak (ms) Norm Peak (ms) O-P Amp (?V) Norm O-P Amp Site1 Site2 Delta-0 (ms) Dist (cm) Nish (m/s) Norm Nish (m/s) Right Median Anti Sensory (2nd Digit) Wrist ? 3.1 3.8 <3.6 30.6 >10 Wrist 2nd Digit 3.1 14.0 45 Right Radial Anti Sensory (Thumb) Forearm ? 1.4 2.1 <3.1 26.5 Forearm Thumb 1.4 0.0 Right Ulnar Anti Sensory (5th Digit) Wrist ? 2.1 2.7 <3.7 14.6 >15.0 Wrist 5th Digit 2.1 14.0 67 Motor Summary Table ?Stim Site NR Onset (ms) Norm Onset (ms) O-P Amp (mV) Norm O-P Amp iAmp (mV) Amp (1st) (%) Site1 Site2 Delta-0 (ms) Dist (cm) Nish (m/s) Norm Nish (m/s) Right Median Motor (Abd Poll Brev) Wrist ? 4.0 <3.9 8.6 >4.5 10.3 100.0 Elbow Wrist 4.0 21.0 53 >45 Elbow ? 8.0 11.1 13.1 129.1 Right Ulnar Motor (Abd Dig Minimi) Wrist ? 2.3 <3.0 10.0 >5 12.1 100.0 B Elbow Wrist 3.5 22.0 63 >45 B Elbow ? 5.8 9.0 11.1 90.0 A Elbow B Elbow 1.2 10.0 83 >45 A Elbow ? 7.0 8.8 10.8 88.0 EMG ?Side Muscle Nerve Root Ins Act Fibs Psw Amp Dur Poly Recrt Int Pat Comment Right 1stDorInt Ulnar C8-T1 Nml Nml Nml Nml Nml 0 Nml Complete Right FlexCarRad Median C6-7 Nml Nml Nml Nml Nml 0 Nml Complete Right Biceps Musculocut C5-6 Nml Nml Nml Nml Nml 0 Nml Complete Right Triceps Radial C6-7-8 Nml Nml Nml Nml Nml 0 Nml Complete Right Deltoid Axillary C5-6 Nml Nml Nml Nml Nml 0 Nml Complete Paraspinal EMG ?Side Muscle Nerve Root Ins Act Fibs Psw Comment Right Cervical Upper Rami Nml Nml Nml Right Cervical Mid Rami Nml Nml Nml Right Cervical Lower Rami Nml Nml Nml FINDINGS: Right median motor nerve showed prolonged distal latency, normal amplitude and normal conduction velocity. Right median sensory nerve showed prolonged peak latency. All other nerves tested were within normal. Concentric needle EMG was performed in selected muscles of the right upper extremit and cervical paraspinals. Study did not reveal signs of electric abnormalities as shown in the table above. IMPRESSION: 1. This is an abnormal study. 2. There is electrodiagnostic evidence for right moderate-severe median neuropathy at the wrist, consistent with carpal tunnel syndrome. 3. There is no electrodiagnostic evidence for ulnar neuropathy, brachial plexopathy, or cervical radiculopathy. Thank you for your kind referral. Dorothy Mclaughlin MD, MIRIAM Board Certified, [place] Board of Physical Medicine and Rehabilitation (ABPMR) Board Certified, [place] Board of Electrodiagnostic Medicine (ABEM) [facility] [id number] [facility]
== END 2023-11-30 13:30 | disposition home or self-care (01) ==
LOC: HO.NEURO 13:29
PROVIDERS: PCP Internal Medicine; Visit Provider Orthopaedic Surgery
DX: R20.0 Anesthesia of skin (principal); R59.0 Localized enlarged lymph nodes
CPT/HCPCS: 95886; 95909; 99202

== ENCOUNTER → 2023-11-30 13:33 | Outpatient (BNV) | payer OTHER, SELFPAY | PROVIDERS: PCP Internal Medicine; Visit Provider Physical Medicine & Rehabilitation | DX: G56.01 Carpal tunnel syndrome, right upper limb (principal) | CPT/HCPCS: 95886; 95909 ==

== ENCOUNTER 2023-12-12 09:24 | Outpatient (AMB) | payer OTHER, SELFPAY ==
--- NOTE | 2023-12-12 09:18 | MHC.OFFVIS ---
Intake Visit Reasons: OV, R CTS, discuss surg EMG done Intake Note: Milagros is a 38 year old Nauruan speaking, right hand dominant female who presents today for a follow up of her right hand CTS. EMG done. IMPRESSION: 1. This is an abnormal study. 2. There is electrodiagnostic evidence for right moderate-severe median neuropathy at the wrist, consistent with carpal tunnel syndrome. 3. There is no electrodiagnostic evidence for ulnar neuropathy, brachial plexopathy, or cervical radiculopathy. Allergies aspirin [Aspirin] Allergy (Severe, Verified 12/12/23 09:48) DIFFICULTY BREATHING, tracheal swelling Penicillins Allergy (Severe, Verified 12/12/23 09:48) DIFFICULTY BREATHING HPI HPI OV, R CTS, discuss surg EMG done: Details: Patient is a 38-year-old right-hand dominant female who presents to the office today for evaluation of numbness and tingling in the right hand. Patient previously had EMG done on 11/30/23, which revealed moderate to severe carpal tunnel syndrome on the right side. The patient reports that her numbness and tingling is intermittent, but daily. Patient also reports that some tingling is in the thumb, index finger, and middle finger, with no small finger involvement. She also reports pain at night that regularly prevents her from sleeping or wakes her from sleep. Patient would like discuss surgical treatment for this condition, as she has had surgery previously done on the left side with good results. Patient currently works in a [employer] for [employer]. [facility] Medical History Lymphadenopathy, inguinal Chronic diarrhea Hemorrhoids Class 2 obesity with body mass index (BMI) of 39.0 to 39.9 in adult Moderate asthma Anxiety Pain of right heel Hx of allergic rhinitis Hx of bipolar disorder Asthma Surgical History History of endometrial ablation History of open reduction and internal fixation (ORIF) procedure History of bilateral tubal ligation History of tonsillectomy and adenoidectomy Hx of shoulder surgery Tubal ligation status Family History Mother Hypertension Father No problems noted. Social History Housing: Apartment Alcohol intake: never Patient Tobacco Use Status: Never used Tobacco e-Cigarette/Vaping Use: Never Used Second Hand Smoke Exposure: No Substance Use Type: Marijuana service: No Current occupational status: employed Current occupational exposures/hazards: No Sexual orientation: Straight/Heterosexual Gender identity: Female Cognitive needs: No Hearing needs: No Vision needs: Yes Female Reproductive History Menstrual Age of Menarche: 10 Review of Systems Const All systems reviewed & are unremarkable except as noted in HPI and below Physical Exam Const Other: Patient is alert, oriented, cooperative, and in no acute distress HEENT Head: Yes normocephalic and Yes atraumatic Resp Effort & Inspection: normal respiratory effort and able to speak in complete sentences Cardio Jugular venous distension: no JVD Neuro General: gait normal Cognition (Neuro): normal cognition Extrem Other: Neuro: Decreased sensation in the median nerve distribution of the right hand. Normal sensation to all other digits in the right hand today. Normal sensation in the tips of all digits of the left hand today. No thenar or intrinsic wasting. Good APB muscle firing and good finger cross. Vascular: Capillary refill brisk. ROM: Patient can make a fist and extend all their digits. Skin: No lacerations or abrasions noted. Well-healed surgical scars from previous carpal tunnel release and 1st dorsal compartment release on the left. General: No ecchymosis. No erythema or evidence of infection. Positive Tinel's test at the wrist on the right. Psych Appearance: grossly normal Mental Status: mental status grossly normal Results Reviewed Results Reviewed: IMPRESSION: 1. This is an abnormal study. 2. There is electrodiagnostic evidence for right moderate-severe median neuropathy at the wrist, consistent with carpal tunnel syndrome. 3. There is no electrodiagnostic evidence for ulnar neuropathy, brachial plexopathy, or cervical radiculopathy. Assessment & Plan Assessment & Plan (1) Carpal tunnel syndrome, right: Code(s): G56.01 - Carpal tunnel syndrome, right upper limb Category: Medical Plan 1. Carpal tunnel syndrome, right Symptoms intermittent, but daily, worse at night Patient also reports pain that regularly wakes her from sleep EMG reveals moderate to severe carpal tunnel on the right At this time, surgical intervention is indicated in this patient I educated the patient about the condition. I discussed both operative and nonoperative treatment options. The patient would like to proceed with surgery. The risks and benefits of operative treatment were discussed with the patient and the patient wishes to proceed with surgery. These risks include, but are not limited to, risk of damage to blood vessels, nerves, tendons, infection, recurrence, incomplete relief of preoperative symptoms, persistent pain, possible need for further surgery, and the risks associated with regional blocks and/or anesthesia. Plan is to take the patient to the operating room at some point in the next few weeks for the following procedures: 1. Carpal tunnel release, right All of the preoperative paperwork including the consent was discussed today. All of the patient's questions were answered in the clinic today. The patient understands that they will be in contact with our director surgical to discuss scheduling their procedure. 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 Patient is informed that she will need to be out of work for at least 2 weeks, and then depending on her recovery at her 2 week postop we may be able to explore returned to work in a light duty capacity, but without light duty she will likely be out of work for 4 weeks. Patient denies diabetes, blood thinners, asthma, heart issues, lung issues, kidney issues. Coding Level of Care Code New Pt Level 4 (17025) Diagnoses Carpal tunnel syndrome, right G56.01
== END 2023-12-12 12:18 | disposition home or self-care (01) ==
PROVIDERS: PCP Internal Medicine
DX: G56.01 Carpal tunnel syndrome, right upper limb (principal)
CPT/HCPCS: 99204

== ENCOUNTER → 2023-12-12 09:24 | Outpatient (BNVA) | payer OTHER, SELFPAY | PROVIDERS: PCP Internal Medicine | DX: G56.01 Carpal tunnel syndrome, right upper limb (principal) | CPT/HCPCS: 99202 ==

== ENCOUNTER 2024-02-01 16:30 | Outpatient (AMB) | payer OTHER, SELFPAY ==
--- NOTE | 2024-02-01 16:32 | A.OFFPC_ITS ---
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 Accompanied by: Daughter Allergies aspirin [Aspirin] Allergy (Severe, Verified 02/01/24 16:44) DIFFICULTY BREATHING, tracheal swelling Penicillins Allergy (Severe, Verified 02/01/24 16:44) DIFFICULTY BREATHING Medication List - Last Reconciled 02/01/24 by Janis Henson MD albuterol sulfate 2.5 mg (3 mL) inhalation Q6H PRN 30 days albuterol sulfate 90 mcg/actuation 2 puffs PO Q8H PRN 30 days azelastine 0.05% 1 drp ophthalmic (eye) BID PRN ekrikmdgwq-czncpcoqwneje-equi 50-325-40 mg 1 tab PO Q6H PRN 30 days citalopram 10 mg PO QAM doxepin 300 mg PO BEDTIME lidocaine 5% (Lidoderm) 1 patch topical DAILY PRN MDD remove after 12 hours lithium carbonate 300 mg PO BID miscellaneous medical supply 1 ea miscellaneous DAILY promethazine 25 mg PO BID PRN 5 days zolpidem 10 mg PO BEDTIME PRN Tobacco use date assessed: 02/01/24 Dental Screening Dental Screen Date: 02/01/24 Did you have a dental visit in the last 12 months?: No Did you have a dental problem in the last 6 months where you did not have access to dental care?: No Was dental information given to patient?: Patient has dentist HPI HPI Comments History of Present Illness Details This is 38-year-old female with bipolar disorder that comes for her physical exam accompanied by daughter which is the rn radiation oncology. Bipolar disorder is follow by Psychiatry. Last Pap smear was 2020 and was normal. Complains of muscle pain and would like nor flex to be sent to the pharmacy. [facility] Medical History (Updated 02/01/24 @ 17:04 by Janis Henson MD) Morbid obesity due to excess calories Lymphadenopathy, inguinal Chronic diarrhea Hemorrhoids Class 2 obesity with body mass index (BMI) of 39.0 to 39.9 in adult Moderate asthma Anxiety Pain of right heel Hx of allergic rhinitis Hx of bipolar disorder Asthma Surgical History History of endometrial ablation History of open reduction and internal fixation (ORIF) procedure History of bilateral tubal ligation History of tonsillectomy and adenoidectomy Hx of shoulder surgery Tubal ligation status Family History Mother Hypertension Father No problems noted. Social History Housing: Apartment Alcohol intake: never Patient Tobacco Use Status: Never used Tobacco e-Cigarette/Vaping Use: Never Used Second Hand Smoke Exposure: No Substance Use Type: Marijuana service: No Current occupational status: unemployed Sexual orientation: Straight/Heterosexual Gender identity: Female Cognitive needs: No Hearing needs: No Vision needs: Yes Female Reproductive History Menstrual Age of Menarche: 10 Questionnaire PHQ-9 Over the last 2 weeks, how often have you been bothered by any of the following problems? 1. Little interest or pleasure in doing things: more than half the days 2. Feeling down, depressed, or hopeless: several days 3. Trouble falling or staying asleep, or sleeping too much: several days 4. Feeling tired or having little energy: nearly every day 5. Poor appetite or overeating: several days 6. Feeling bad about yourself - or that you are a failure or have let yourself or your family down: not at all 7. Trouble concentrating on things, such as reading the newspaper or watching television: several days 8. Moving or speaking so slowly that other people could have noticed. Or the opposite - being so fidgety or restless that you have been moving around a lot more than usual: nearly every day 9. Thoughts that you would be better off or of hurting yourself in some way: several days Total score: 13 Depression Screening Interpretation: Positive Depression Screening Follow-up: Existing condition, In treatment, Community Mental Health Worker F/U and Follow- up Visit Requested Depression Screening Done: Yes 30435 - PHQ-9 Billing: Yes Source: Developed by Drs. Davy Ardon, Sulma Fletcher, Nestor Shane and colleagues, with an educational john from [employer]. Thrive Questionnaire Date Thrive assessed: 02/01/24 I am a: Patient What is your living situation today?: I have a steady place to live Within the past 12 months, did the food you bought not last and you didn't have the money to get more?: Never true Within the past 12 months, did you worry whether your food would run out before you got money to buy more?: Never true Do you have trouble paying for medicines?: No Do you have trouble getting transportation to medical appointments?: No Do you have trouble paying your heating and electricity bill?: No Do you have trouble taking care of your child, family member or friend?: No Do you have trouble with day-to-day activities such as bathing, preparing meals, shopping, managing finances, etc.?: No Are you currently unemployed and looking for a job?: No Are you interested in more education?: No Please select the resources that you would like help with: None Currently or been in a relationship where the following occur: No concerns reported THRIVE Score: 0 AUDIT C Alcohol Use Questionnaire (AUDIT-C) 1. How often do you have a drink containing alcohol?: Never Total Score: 0 Score Reviewed/Action Taken: No AJ-7 AMB Questionnaire AJ-7 Date AJ - 7 assessed: 02/01/24 Feeling nervous, anxious, or on edge: 3 = Nearly every day Not being able to stop or control worryin = Not at all Worrying too much about different things: 1 = Several days Trouble relaxin = Several days Being so restless that it is hard to sit still: 3 = Nearly every day Becoming easily annoyed or irritable: 3 = Nearly every day Feeling afraid as if something awful might happen: 0 = Not at all Total AJ-7 score (0-4 normal; 5-9 mild; 10-14 moderate; 15-21 severe): 11 Source: Developed by Drs. Davy Ardon, Sulma Fletcher, Nestor Shane and colleagues, with an educational john from [employer]. AJ-7 Assessment Billing AJ-7 Assessment Tool: AJ-7 Assessment 73773 Review of Systems Const All systems reviewed & are unremarkable except as noted in HPI and below Card Denies chest pain at rest, Denies chest pain with activity, Denies edema, Denies irregular heart rhythm, Denies claudication, Denies dyspnea, Denies dyspnea on exertion, Denies orthopnea, Denies paroxysmal nocturnal dyspnea and Denies slow heart rate Resp Denies cough, Denies dyspnea and Denies dyspnea on exertion Physical exam (Primary Care) Vital Signs: Last Vital Signs BP 122/80 02/01/24 16:35 BMI result Body Mass Index 39.7 Tobacco/Smoking Status: Tobacco use Status Tobacco use date assessed 02/01/24 02/01/24 16:41 Patient Tobacco Use Status Never used Tobacco 02/01/24 16:33 e-Cigarette/Vaping Use Never Used 02/01/24 16:33 PHQ-9: PHQ-9 Score PHQ-9: Total score 13 02/01/24 16:52 Depression Screening Interpretation: Positive Depression Screening Follow-up: Existing condition, In treatment, Community Mental Health Worker F/U and Follow- up Visit Requested Thrive Assessment: Date of Thrive Assessment Date Thrive assessed 02/01/24 02/01/24 16:41 Currently or been in a relationship where the following occur: No concerns reported Const Orientation/consciousness: patient oriented x3 HENMT Head: Yes normal to inspection, Yes normocephalic and Yes atraumatic Ears: external ears normal Eyes General: appearance normal, both eyes and all related structures Eyelids: Yes eyelids normal Conjunctivae: conjunctivae normal Neck Neck: Yes normal visual inspection and Yes supple Resp Effort & Inspection: normal respiratory effort Auscultation: clear to auscultation bilaterally Cardio Jugular venous distension: no JVD Rate: regular rate Rhythm: regular rhythm Heart sounds: S1 normal heart sound present and S2 normal heart sound present GI Inspection: Yes normal to inspection Palpation (GI): Soft to palpation and nontender Auscultation: normal bowel sounds Skin General skin exam: no rashes or lesions noted Neuro General: patient oriented x3 and no focal motor deficits Extrem General: Yes full ROM Psych Appearance: grossly normal Assessment and Plan Assessment & Plan (1) Physical exam: Code(s): Z00.00 - Encounter for general adult medical examination without abnormal findings Plan: Repeat in a year. (2) Bipolar disorder: Code(s): F31.9 - Bipolar disorder, unspecified Plan: Continue lithium. Follow-up with psychiatry. (3) Myalgia: Code(s): M79.10 - Myalgia, unspecified site Plan: Start or phenylephrine as needed. Orders: Orders Comprehensive [place]. Panel Fast Today Z00.00 - Encounter for general adult medical examination without abnormal findings Thyroid Stimulating Hormone Today E66.01 - Morbid (severe) obesity due to excess calories Complete Blood Count Auto Diff Today E66.01 - Morbid (severe) obesity due to excess calories Sickle Cell Scr Today D57.1 - Sickle-cell disease without crisis Lipid Panel Today Z00.00 - Encounter for general adult medical examination without abnormal findings Medications: New orphenadrine citrate ER 100 mg PO BID 5 days PRN 10 tabs 0RF muscle pain Coding Level of Care Code Est Pt Level 3 (45918) Est Pt Prev Care 18-39y(19616) Diagnoses Physical exam Z00.00 Bipolar disorder F31.9 Myalgia M79.10 Additional Codes AJ-7 Assessment Billing - AJ-7 Assessment Tool: AJ-7 Assessment 88189 ([id number]) Time Spent (min) 31
[2024-02-01 16:35] VITALS: BP 122/80; BMI 39.7
== END 2024-02-01 16:56 | disposition home or self-care (01) ==
PROVIDERS: PCP Internal Medicine; Visit Provider Internal Medicine
DX: Z00.00 Encounter for general adult medical examination without abnormal findings (principal); F31.9 Bipolar disorder, unspecified; M79.10 Myalgia, unspecified site
CPT/HCPCS: 99213; 99395

== ENCOUNTER 2024-02-06 09:54 | Outpatient (REF) | payer OTHER, SELFPAY ==
[2024-02-06 10:05] LABS: MANUAL DIFF FLAG NO
[2024-02-06 10:55] LABS: Basophils Absolute Auto 0.1 X10*3/uL (0.0-0.2); Basophils Percent Auto 0.7 % (0-2); Eosinophils Absolute Auto 0.3 X10*3/uL (0.0-0.4); Eosinophils Percent Auto 4.5 % (0-4); Hematocrit 37.5 % (37.0-47.0); Hemoglobin 12.7 g/dl (12.0-16.0); Imm Gran Abs Auto 0.03 X10*3/uL (0.00-0.03); Imm Gran Pct Auto 0.4 % (0.0-0.4); Lymphocytes Absolute Auto 1.9 X10*3/uL (1.2-4.9); Lymphocytes Percent Auto 24.8 % (20-40); Mean Corpuscular HGB Conc 33.9 g/dl (31.0-35.0); Mean Corpuscular Hemoglobin 26.8 pg (27.0-33.0); Mean Corpuscular Volume 79.1 fL (80.0-98.0); Mean Platelet Volume 10.6 fL (9.4-12.3); Monocytes Absolute Auto 0.5 X10*3/uL (0.1-1.2); Monocytes Percent Auto 6.7 % (2-11); Neutrophils Absolute Auto 4.7 x10*3/uL (2.0-8.3); Neutrophils Percent Auto 62.9 % (45-73); Platelet Count 347 X10*3/uL (160-400); Red Blood Count 4.74 X10*6/uL (4.20-5.50); Red Cell Distribution Width 14.2 % (11.0-16.0); White Blood Count 7.5 X10*3/uL (4.8-10.8)
[2024-02-06 11:41] LABS: Sickle Cell Scr POSITIVE (NEGATIVE)
[2024-02-06 11:49] LABS: Thyroid Stimulating Hormone 1.85 uIU/mL (0.32-4.0)
[2024-02-06 11:53] LABS: Anion Gap 11 (12-20)
[2024-02-06 11:57] LABS: Alanine Aminotransferase 30 U/L (0-31); Albumin Level 3.9 g/dL (3.5-5.0); Alkaline Phosphatase 57 U/L (39-117); Aspartate Amino Transferase 26 U/L (5-31); Bilirubin Total 0.2 mg/dL (0.0-1.0); Blood Urea Nitrogen 11 mg/dL (9-16); Calcium 9.3 mg/dL (8.4-10.2); Carbon Dioxide 25 mmol/L (22-29); Chloride 107 mmol/L (96-108); Cholesterol 194 mg/dL (<200); Estimated Glomerular Filt Rate > 60; Glucose Fasting 96 mg/dL (60-99); HDL Cholesterol 51 mg/dL (>40); LDL Cholesterol Calculated 124 mg/dL (<100); Potassium 4.4 mmol/L (3.3-5.1); Sodium 139 mmol/L (135-145); Total Protein 7.1 g/dL (6.5-8.0); Triglycerides 99 mg/dL (<150)
[2024-02-08 15:13] LABS: Hematocrit 38.8 % (35.0-45.0); Hemoglobin 12.6 g/dL (11.7-15.5); MCH 26.8 pg (27.0-33.0); MCV 82.4 fL (80.0-100.0); RBC 4.71 Million/uL (3.80-5.10); RDW 13.8 % (11.0-15.0)
== END 2024-02-06 09:55 | disposition home or self-care (01) ==
LOC: HO.LAB 09:54
PROVIDERS: PCP Internal Medicine; Visit Provider Internal Medicine
DX: Z00.00 Encounter for general adult medical examination without abnormal findings (principal); E66.01 Morbid (severe) obesity due to excess calories; D57.1 Sickle-cell disease without crisis
CPT/HCPCS: 36415; 80053; 80061; 83020; 84443; 85014; 85018; 85025; 85041; 85660

== ENCOUNTER 2024-02-15 08:46 | Outpatient (AMB) | payer OTHER, SELFPAY ==
[2024-02-15 08:46] VITALS: BMI 39.7
--- NOTE | 2024-02-15 08:46 | MHC.OFFVIS ---
Vital Signs 02/15/24 08:46 Height 5 ft 9 in Weight 269 lb BMI 39.7 Intake Visit Reasons: s/p Lobulated lymph node right groin Intake Note: This patient presents for Lobulated lymph node right groin follow-up assessment. Pt c/o; reports no complaints at this time. 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 Services: 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 Cleaner Inspector Offered & Declined Accompanied by: Other Relationship Allergies aspirin [Aspirin] Allergy (Severe, Verified 02/15/24 08:53) DIFFICULTY BREATHING, tracheal swelling Penicillins Allergy (Severe, Verified 02/15/24 08:53) DIFFICULTY BREATHING Medication List - Last Reconciled 02/15/24 by Paul Stapleton MD albuterol sulfate 2.5 mg (3 mL) inhalation Q6H PRN 30 days albuterol sulfate 90 mcg/actuation 2 puffs PO Q8H PRN 30 days azelastine 0.05% 1 drp ophthalmic (eye) BID PRN vuymirbqyg-kamwduwagfvmy-kokv 50-325-40 mg 1 tab PO Q6H PRN 30 days citalopram 10 mg PO QAM doxepin 300 mg PO BEDTIME lidocaine 5% (Lidoderm) 1 patch topical DAILY PRN MDD remove after 12 hours lithium carbonate 300 mg PO BID miscellaneous medical supply 1 ea miscellaneous DAILY orphenadrine citrate ER 100 mg PO BID PRN 5 days promethazine 25 mg PO BID PRN 5 days zolpidem 10 mg PO BEDTIME PRN HPI HPI s/p Lobulated lymph node right groin: Details: 38 year female for a follow-up for enlarged right groin lymph node. She currently denies significant complaints. She does not feel any mass on the right groin She says she says she feels well overall. She denies any fever, chills or night sweats. She does state that she has this chronic right knee pain especially with ambulation. [facility] Medical History Morbid obesity due to excess calories Lymphadenopathy, inguinal Chronic diarrhea Hemorrhoids Class 2 obesity with body mass index (BMI) of 39.0 to 39.9 in adult Moderate asthma Anxiety Pain of right heel Hx of allergic rhinitis Hx of bipolar disorder Asthma Surgical History History of endometrial ablation History of open reduction and internal fixation (ORIF) procedure History of bilateral tubal ligation History of tonsillectomy and adenoidectomy Hx of shoulder surgery Tubal ligation status Family History Mother Hypertension Father No problems noted. Social History Housing: Apartment Alcohol intake: never Patient Tobacco Use Status: Never used Tobacco e-Cigarette/Vaping Use: Never Used Second Hand Smoke Exposure: No Substance Use Type: Marijuana service: No Current occupational status: unemployed Sexual orientation: Straight/Heterosexual Gender identity: Female Cognitive needs: No Hearing needs: No Vision needs: Yes Female Reproductive History Menstrual Age of Menarche: 10 Review of Systems Const Denies chills and Denies fever(s) Card Denies chest pain, Denies dyspnea and Denies dyspnea on exertion Resp Denies cough, Denies dyspnea and Denies dyspnea on exertion GI Denies hematochezia and Denies change in bowel habits Denies hematuria Musc Denies back pain, Reports arthralgias and Denies limited range of motion Neuro Denies focal weakness and Denies convulsions Psych Denies depression and Denies mood swings Physical Exam Vital Signs: BMI result Body Mass Index 39.7 Const General: comfortable and no acute distress Orientation/consciousness: patient oriented x3 Neck Neck: Yes no lymphadenopathy Resp Auscultation: clear to auscultation bilaterally Cardio Rhythm: regular rhythm GI Other: No palpable lymphadenopathy on the groin on both sides Palpation (GI): Soft to palpation, nontender and no guarding Neuro General: patient oriented x3 Assessment & Plan Assessment & Plan (1) Lymphadenopathy, inguinal: Code(s): R59.0 - Localized enlarged lymph nodes Category: Medical Plan: Current physical exam does not reveal any obvious palpable lymph node on the right groin I am going to order for a follow-up ultrasound therefore. I will call her about the findings. She understands the plan well. She is comfortable with this. I also mentioned to her that she may benefit from an Orthopedic consult in view of her chronic right knee pain. Orders: Orders US extremity nonvascular Today R59.0 - Localized enlarged lymph nodes Coding Level of Care Code Est Pt Level 3 (73116) Diagnoses Lymphadenopathy, inguinal R59.0
== END 2024-02-15 09:17 | disposition home or self-care (01) ==
PROVIDERS: PCP Internal Medicine; Visit Provider Surgery
DX: R59.0 Localized enlarged lymph nodes (principal)
CPT/HCPCS: 99213

== ENCOUNTER → 2024-02-15 08:46 | Outpatient (BNVA) | payer OTHER, SELFPAY | PROVIDERS: PCP Internal Medicine; Visit Provider Surgery | DX: R59.0 Localized enlarged lymph nodes (principal) | CPT/HCPCS: 99212 ==

== ENCOUNTER 2024-02-20 09:43 | Day surgery (SDC) | payer OTHER, SELFPAY ==
[2024-02-20 11:06] VITALS: BMI 40.2
--- NOTE | 2024-02-20 11:37 | MHC.SHP ---
Pre-Procedural Eval Section A - 24 Hr Update-Section A only Date of Service: 02/20/24 The patient is an INPATIENT: No Changes since office visit: No Cold of Flu in the past 2 weeks, No New Medical Problems, No Changes in Medication and No Patient answered all questions The patient has been examined within 24 hours of the surgical procedure. The History & Physical has been completed within 30 days and I have reviewed it.: Yes Section B - Complete if H&P > 30 days Chief Complaint: Carpal tunnel syndrome, right upper limb Allergies: Allergies Allergy/AdvReac Type Severity Reaction Status Date / Time aspirin [Aspirin] Allergy Severe DIFFICULTY Verified 02/15/24 08:53 BREATHING, tracheal swelling Penicillins Allergy Severe DIFFICULTY Verified 02/15/24 08:53 BREATHING Plan Diagnosis/Plan: Unchanged I have reviewed the history and physical and performed a pertinent physical examination on my patient. No changes have occurred unless specified. Time Spent With Patient Time: Total time managing care of this patient today ____ minutes.
--- NOTE | 2024-02-20 11:38 | P.OP_ITS ---
Operative Note Operative Note Date of Service: 02/20/24 Narrative: Preop diagnosis: 1. Right Carpal tunnel syndrome Postop diagnosis: same Procedure: 1. Right Carpal tunnel release Surgeon: Dori Caro MD Manager Relocation: None Anesthesia: local block using 1% lidocaine with epinephrine Findings: Thickened transverse carpal ligament, particularly in the palm. EBL: Less than 5 mL Specimens: None Complications: None Disposition: Brought to recovery room in stable condition Plan: Follow-up for 10-14 days for wound check and suture removal Indications: The patient is 38 years old, with right carpal tunnel syndrome that has been unresponsive to nonoperative management. The risks and benefits of operative treatment including but not limited to risk of damage to blood vessels, nerves, tendons, infection, persistent pain, persistent symptoms, or possible need for additional surgery were discussed with the patient and the patient wishes to proceed with surgery. Procedure: Once consent was obtained a local block was performed using a combination of 1% lidocaine with epinephrine. The patient was then brought back to the operating suite and placed on the operative table in supine position. The right upper extremity was prepped and draped in a standard surgical fashion. Once assured that we had a good block, a 2.0 cm longitudinal incision was made centered over the carpal tunnel. The incision was made through the skin to the subcutaneous tissues using a #15 blade. Dissection was made down to the level of the transverse carpal ligament with care being taken to protect the palmar cutaneous nerve. Once the transverse carpal ligament was clearly visualized, a longitudinal incision was made in the transverse carpal ligament 1st using a #15 blade, then using tenotomy scissors under direct visualization. Care was taken to look for and protect the motor branch of the median nerve when seen in this area. A small amount of 1% lidocaine was added when she started to feel some discomfort in the deeper part of her palm. Once she was comfortable again we finished our carpal tunnel release. Once satisfied with our carpal tunnel release the wound was copiously irrigated with normal saline and hemostasis was obtained with a brief period of local pressure. The skin edges were reapproximated with some 5.0 nylon suture material and a sterile dressing was applied. The patient appears to have tolerated the procedure well and with no complications. All digits were well vascularized at the conclusion of the case.
[2024-02-20 13:32] VITALS: BP 141/81; PULSE 71; RESP 18; O2SAT 100
== END 2024-02-20 13:30 | disposition home or self-care (01) ==
PROVIDERS: PCP Internal Medicine; Visit Provider Orthopaedic Surgery
PROC: (CPT 64721; principal; 2024-02-20 11:20)
DX: G56.01 Carpal tunnel syndrome, right upper limb (principal); R20.0 Anesthesia of skin; R20.2 Paresthesia of skin; R59.1 Generalized enlarged lymph nodes; J45.909 Unspecified asthma, uncomplicated; F41.9 Anxiety disorder, unspecified; E66.8 Other obesity; Z68.39 Body mass index [BMI] 39.0-39.9, adult; Z88.0 Allergy status to penicillin; Z88.6 Allergy status to analgesic agent; Z98.890 Other specified postprocedural states
CPT/HCPCS: 64721; J0171

== ENCOUNTER → 2024-02-20 09:43 | Outpatient (BNV) | payer OTHER, SELFPAY | PROVIDERS: PCP Internal Medicine; Visit Provider Orthopaedic Surgery | DX: G56.01 Carpal tunnel syndrome, right upper limb (principal) | CPT/HCPCS: 64721 ==

== ENCOUNTER 2024-03-05 13:30 | Outpatient (AMB) | payer OTHER, SELFPAY ==
--- NOTE | 2024-03-05 14:38 | A.OFFVIS_ITS ---
Vital Signs 03/05/24 14:42 Height 5 ft 9 in Weight 272 lb BMI 40.2 Handedness Right Intake Visit Reasons: PO RT CTR 02/20/24 AR Intake Note: Milagros is a 38 year old right hand dominant female who presents today with her daughter post operatively s/p Right Carpal Tunnel Release DOS: 02/20/2024 w/ Dr Caro. Patient reports she still is having numbness and tingling that comes and goes in her 1st and 2nd digits of the right hand. Patient reports pain around her incision area. She is having pain w/ ROM in her right wrist. Sutures removed and steri strips applied. Allergies aspirin [Aspirin] Allergy (Severe, Verified 03/05/24 14:40) DIFFICULTY BREATHING, tracheal swelling Penicillins Allergy (Severe, Verified 03/05/24 14:40) DIFFICULTY BREATHING HPI HPI PO RT CTR 02/20/24 AR: Details: Patient is a 38-year-old female who presents for postoperative evaluation status post right carpal tunnel release, DOS 02/20/[address] Caro. Today, the patient reports that she is feeling well, and then her symptoms have significantly improved since DOS, but states that she does still experience some intermittent numbness and tingling in the thumb and index finger of the right hand, although this is far less common than it was prior to surgery. The patient reports no concerns with the incision site. No erythema, edema, or drainage. Patient reports no other acute complaints or concerns at this time. [facility] Medical History Morbid obesity due to excess calories Lymphadenopathy, inguinal Chronic diarrhea Hemorrhoids Class 2 obesity with body mass index (BMI) of 39.0 to 39.9 in adult Moderate asthma Anxiety Pain of right heel Hx of allergic rhinitis Hx of bipolar disorder Asthma Surgical History (Updated 03/05/24 @ 14:41 by GIBRAN Archibald) History of carpal tunnel release History of endometrial ablation History of open reduction and internal fixation (ORIF) procedure History of bilateral tubal ligation History of tonsillectomy and adenoidectomy Hx of shoulder surgery Tubal ligation status Family History Mother Hypertension Father No problems noted. Social History Housing: Apartment Alcohol intake: never Patient Tobacco Use Status: Never used Tobacco e-Cigarette/Vaping Use: Never Used Second Hand Smoke Exposure: No Substance Use Type: Marijuana service: No Current occupational status: unemployed Sexual orientation: Straight/Heterosexual Gender identity: Female Cognitive needs: No Hearing needs: No Vision needs: Yes Female Reproductive History Menstrual Age of Menarche: 10 Physical Exam Vital Signs: BMI result Body Mass Index 40.2 Const Other: Patient is alert, oriented, cooperative, and in no acute distress HEENT Head: Yes normocephalic and Yes atraumatic Resp Effort & Inspection: normal respiratory effort and able to speak in complete sentences Cardio Jugular venous distension: no JVD Neuro General: gait normal Cognition (Neuro): normal cognition Extrem Other: Neuro: Patient reports normal sensation to the tips of all digits of the right hand at this time No thenar or intrinsic wasting. Good APB muscle firing and good finger cross. Vascular: Capillary refill brisk. ROM: Patient can make a fist and extend all their digits. Skin: Well-approximated incision site noted on the volar aspect of the right wrist No evidence of infection noted Sutures removed, Steri-Strips in place General: No ecchymosis. No erythema or evidence of infection. Psych Appearance: grossly normal Mental Status: mental status grossly normal Assessment & Plan Assessment & Plan (1) Carpal tunnel syndrome, right: Code(s): G56.01 - Carpal tunnel syndrome, right upper limb Category: Medical Plan 1. Right carpal tunnel syndrome status post carpal tunnel release DOS 02/20/2024 Patient appears to be recovering well postoperatively Patient is educated about the typical recovery course At this time, patient is informed that she will not require occupational therapy, as the range of motion of her right hand and wrist is adequate Patient is also advised that she will not require any acute follow-up with us Patient is amenable to this plan Patient will follow-up as needed with any acute concerns Coding Level of Care Code Global (42885) Diagnoses Carpal tunnel syndrome, right G56.01
[2024-03-05 14:42] VITALS: BMI 40.2
== END 2024-03-05 14:56 | disposition home or self-care (01) ==
PROVIDERS: PCP Internal Medicine
DX: G56.01 Carpal tunnel syndrome, right upper limb (principal)
CPT/HCPCS: 99024

== ENCOUNTER → 2024-03-05 13:30 | Outpatient (BNVA) | payer OTHER, SELFPAY | PROVIDERS: PCP Internal Medicine | DX: Z48.02 Encounter for removal of sutures (principal); Z86.69 Personal history of other diseases of the nervous system and sense organs; Z98.890 Other specified postprocedural states | CPT/HCPCS: 99212 ==

== ENCOUNTER 2024-06-06 22:12 | Emergency (ER) | payer OTHER, SELFPAY ==
--- NOTE | ~2024-06-06 | XR_ITS ---
EXAMINATION: XR CHEST CLINICAL INFORMATION: sob COMPARISON: August 22, 2023. TECHNIQUE: Frontal view of the chest was obtained. FINDINGS: The cardiomediastinal silhouette is stable. There is no focal lung consolidation or pleural effusions. The bony structures and the soft tissues are unremarkable. XR/XR chest 1V IMPRESSION: No acute cardiopulmonary process. Electronically signed by: Trevor Dumont MD 06/07/2024 12:00 AM [facility]
[2024-06-06 22:14] VITALS: BP 138/93; PULSE 83; RESP 16; TEMP 36.4; O2SAT 98; BMI 39.3
[2024-06-06 22:45] LABS: IDNOW Serial# 6674DD1D; Strep A Nucleic Acid Negative (Negative)
[2024-06-06 23:10] LABS: Influenza A PCR NEGATIVE (Negative); Influenza B PCR NEGATIVE (Negative); Resp Syncy Virus RNA Qual PCR NEGATIVE (Negative); SARS COV2 PCR INHOUSE NEGATIVE (Negative)
--- NOTE | 2024-06-06 23:20 | ED_ITS ---
HPI - URI/Sore Throat General Chief Complaint: Upper Respiratory Symptoms Stated Complaint: Chest Congestion Time Seen by Provider: 06/06/24 22:47 Source: patient Mode of arrival: ambulatory Limitations: no limitations History of Present Illness ED Provider: DR. Narvaez HPI Narrative: 38-year-old female came in for evaluation of upper respiratory symptoms for 3-4 days, no recent travel, no no exposure to other sick contacts, no fever, chills, patient has been coughing with white sputum phlegm, with difficulty breathing and wheezing patient is asthmatic try bronchodilator at home with no relief of her symptoms. No history of smoking. Related Data Home Medications ?Medication ?Instructions ?Recorded ?Confirmed citalopram 10 mg tablet 10 mg PO QAM 10/14/21 02/15/24 doxepin 150 mg capsule 300 mg PO BEDTIME 10/14/21 02/15/24 lithium carbonate 300 mg capsule 300 mg PO BID 10/14/21 02/15/24 zolpidem 10 mg tablet 10 mg PO BEDTIME PRN 02/01/24 02/15/24 Previous Rx's ?Medication ?Instructions ?Recorded lidocaine 5 % topical patch 1 patch topical DAILY PRN pain #30 10/05/21 (Lidoderm) ea albuterol sulfate 2.5 mg/3 mL 2.5 mg (3 mL) inhalation Q6H PRN 10/01/22 (0.083 %) solution for nebulization respiratory symptoms 30 days #75 mL azelastine 0.05 % eye drops 1 drp ophthalmic (eye) BID PRN 10/01/22 allergic symptoms #6 mL miscellaneous medical supply 1 ea miscellaneous DAILY #1 ea 10/01/22 qwdjzsctkx-vbmqwdlwmpgav-slealzra 1 tab PO Q6H PRN pain 30 days #20 05/31/23 50 mg-325 mg-40 mg tablet tabs promethazine 25 mg tablet 25 mg PO BID PRN nausea and 08/20/23 vomiting 5 days #10 tabs albuterol sulfate 90 mcg/actuation 2 puff PO Q8H PRN for wheezing 30 12/26/23 aerosol inhaler days #8.5 grams orphenadrine citrate 100 mg 100 mg PO BID PRN muscle pain 5 02/01/24 tablet,extended release days #10 tabs albuterol sulfate 90 mcg/actuation 2 inh inhalation Q4-6H PRN 06/06/24 breath activated powder inhaler shortness of breath or wheezing #1 ea azithromycin 250 mg tablet See Rx Instructions PO .COMPLEX #6 06/06/24 (Zithromax Z-Enzo) tabs prednisone 20 mg tablet 20 mg PO BID #10 tabs 06/06/24 Allergies Allergy/AdvReac Type Severity Reaction Status Date / Time aspirin [Aspirin] Allergy Severe DIFFICULTY Verified 06/06/24 22:16 BREATHING, tracheal swelling Penicillins Allergy Severe DIFFICULTY Verified 06/06/24 22:16 BREATHING Review of Systems Review of Systems: All other systems are reviewed and are negative Constitutional: Reports as per HPI and Reports no additional constitutional complaints Eyes: Reports as per HPI and Reports no additional eye complaints Reports system reviewed and no additional complaints, except as documented Cardiovascular: Reports as per HPI and Reports no additional cardiovascular complaints Respiratory: Reports as per HPI and Reports no additional respiratory complaints Gastrointestinal: Reports as per HPI and Reports no additional gastrointestinal complaints Genitourinary: Reports no additional female genitourinary complaints Musculoskeletal: Reports no additional musculoskeletal complaints Skin/Breast: Reports system reviewed and no additional complaints, except as docu Psychiatric: Reports no additional psychiatric complaints Endocrine: Reports no additional endocrine complaints Hematologic/Lymphatic: Reports no additional hematologic/lymphatic complaints Allergic/Immunologic: Reports no additional allergic/immunologic complaints Reports system reviewed and no additional complaints, except as documented and Reports Abnormal speech present [facility] Past Medical History Medical History Morbid obesity due to excess calories Lymphadenopathy, inguinal Chronic diarrhea Hemorrhoids Class 2 obesity with body mass index (BMI) of 39.0 to 39.9 in adult Moderate asthma Anxiety Pain of right heel Hx of allergic rhinitis Hx of bipolar disorder Asthma Surgical History History of carpal tunnel release History of endometrial ablation History of open reduction and internal fixation (ORIF) procedure History of bilateral tubal ligation History of tonsillectomy and adenoidectomy Hx of shoulder surgery Tubal ligation status Family History Family History Mother Hypertension Father No problems noted. Social History Social History Housing: Apartment Alcohol intake: never Patient Tobacco Use Status: Never used Tobacco e-Cigarette/Vaping Use: Never Used Second Hand Smoke Exposure: No Substance Use Type: Marijuana service: No Current occupational status: unemployed Sexual orientation: Straight/Heterosexual Gender identity: Female Cognitive needs: No Hearing needs: No Vision needs: Yes Physical Exam Vital Signs: Vital Signs: Last Vital Signs Temp 97.6 F 06/06/24 22:14 Pulse 83 06/06/24 22:14 Resp 16 06/06/24 22:14 BP 138/93 H 06/06/24 22:14 Pulse Ox 98 06/06/24 22:14 O2 Del Method Room Air 06/06/24 22:14 BMI result Body Mass Index 39.3 Vital signs have been reviewed and appear to be correct. Blood pressure elevated. Heart rate normal. Respiratory rate normal. Temperature normal. Oxygen saturation normal. Appearance: Alert. Oriented X3. No acute distress. Head: Normal external exam. Normocephalic. Atraumatic. No Herbert signs noted. No raccoon eyes noted Eyes: PERRLA. EOMI. Conjunctiva and sclera normal. Eyelids normal. ENT: TM's Normal. Pharynx normal. Uvula midline. Moist mucous membranes. No trismus noted. No drooling noted. No muffled voice noted. Neck: Normal inspection. Neck supple. FROM. No adenopathy. Thyroid Normal. No meningeal signs. No neck mass noted. CVS: Normal heart rate and rhythm. Heart sound normal. No murmurs noted. Pulses normal throughout. Respiratory: No respiratory distress. Painless inspiration. Breath sounds normal. Diffuse expiratory wheezing with prolonged expiration and decreased air entry bilaterally. No accessory muscle usage noted or decreased air movement noted. Abdomen: Soft and nontender. Bowel sounds normal in all 4 quadrants. No distention noted. No organomegaly noted. No visible injury noted. Back: No CVA tenderness. Full range of motion noted. Skin: Skin warm and dry. Normal skin color. Normal skin turgor. No rashes/lesions/lacerations noted. Extremities: No lower extremity edema. Extremities exhibit normal range of motion. Extremities nontender. Neuro: Oriented X 3. Cranial nerve exam: II-XII are grossly intact No motor deficit. No sensory deficit. Reflexes normal. Course Reevaluation(s) Reevaluation #1: Acute bronchitis. Start the patient on bronchodilator, steroids, a course of Z-Enzo. Time: 01:00 Medical Decision Making Differential Diagnosis Differential Diagnoses: The differential diagnosis associated with the presentation includes (Pneumonia, pneumothorax, pleural effusion, viral pneumonia, upper respiratory infection, bronchitis, strep pharyngitis.) Admission/Observation Consideration of admission/observation: Escalation of care including admission/observation considered Lab Data MDM Lab Attestation statement: I reviewed the patient's lab results. Labs: Lab Results 06/06/24 Range/Units 22:28 Influenza Type A (PCR) NEGATIVE (Negative) Influenza Type B (PCR) NEGATIVE (Negative) RSV RNA Qual (PCR) NEGATIVE (Negative) SARS-CoV-2 RNA (RT-PCR) NEGATIVE (Negative) S. pyogenes GrpA LILIBETH Negative (Negative) Independent Interpretation I performed an independent interpretation of an: Plain X-Ray (Chest: No acute intrathoracic pathology.) Radiology Impression Discussion of test interpretation with radiology: I have reviewed the radiologist's reading. Discharge Plan Discharge Clinical Impression: Bronchopneumonia Patient Disposition: Home, Self-Care Instructions: Acute Bronchitis (ED) Prescriptions: New albuterol sulfate 90 mcg/actuation aerosol powdr breath activated 2 inh inhalation Q4-6H PRN (Reason: shortness of breath or wheezing) Qty: 1 0RF prednisone 20 mg tablet 20 mg PO BID Qty: 10 0RF azithromycin [Zithromax Z-Enzo] 250 mg tablet See Rx Instructions .ROUTE .COMPLEX Qty: 6 0RF Rx Instructions: For 250 mg dose pack: take 500 mg today (day 1), then 250 mg for 4 days (days 2-5) No Action npoddzsilb-opluvzvchuucb-eiwc 50-325-40 mg tablet 1 tab PO Q6H PRN (Reason: pain) 30 Days Qty: 20 0RF promethazine 25 mg tablet 25 mg PO BID PRN (Reason: nausea and vomiting) 5 Days Qty: 10 0RF albuterol sulfate 90 mcg/actuation HFA aerosol inhaler 2 puff PO Q8H PRN (Reason: for wheezing) 30 Days Qty: 8.5 0RF lidocaine [Lidoderm] 5 % adhesive patch,medicated 1 patch topical DAILY MDD remove after 12 hours PRN (Reason: pain) Qty: 30 0RF Rx Instructions: leave on most painful area for up to 12 hrs doxepin 150 mg capsule 300 mg PO BEDTIME lithium carbonate 300 mg capsule 300 mg PO BID citalopram 10 mg tablet 10 mg PO QAM azelastine 0.05 % drops 1 drp ophthalmic (eye) BID PRN (Reason: allergic symptoms) Qty: 6 0RF miscellaneous medical supply Misc 1 ea miscellaneous DAILY Qty: 1 0RF Rx Instructions: face mask for nebulizer machine albuterol sulfate 2.5 mg /3 mL (0.083 %) solution for nebulization 2.5 mg inhalation Q6H PRN (Reason: respiratory symptoms) 30 Days Qty: 75 1RF zolpidem 10 mg tablet 10 mg PO BEDTIME PRN orphenadrine citrate 100 mg tablet extended release 100 mg PO BID PRN (Reason: muscle pain) 5 Days Qty: 10 0RF Referrals: Janis Marcelino MD [Primary Care Provider] - Print Language: Syriac
[2024-06-06] MEDS: predniSONE 20 MG TABLET 60 MG PO (23:30)
[2024-06-06 23:38] VITALS: PULSE 85; RESP 18; O2SAT 96
[2024-06-06] MEDS: Albuterol Sulfate (0.083%) 2.5 MG/3 ML VIAL.NEB INHALE (23:39)
[2024-06-07] VITALS: BP 127/96; PULSE 97; RESP 18; TEMP 36.8; O2SAT 94
[2024-06-07 00:43] VITALS: BP 127/96; PULSE 97; RESP 18; TEMP 36.8; O2SAT 94
== END 2024-06-07 00:44 | disposition home or self-care (01) ==
PROVIDERS: Emergency Provider Emergency Medicine; PCP Internal Medicine
DX: J18.0 Bronchopneumonia, unspecified organism (principal); R09.89 Other specified symptoms and signs involving the circulatory and respiratory systems; Z03.818 Encounter for observation for suspected exposure to other biological agents ruled out; Z79.899 Other long term (current) drug therapy
CPT/HCPCS: 0241U; 71045; 87651; 94640; 99284; 99285

== ENCOUNTER 2024-08-23 13:50 | Outpatient (AMB) | payer OTHER, SELFPAY ==
--- NOTE | 2024-08-23 13:55 | A.OFFPC_ITS ---
Vital Signs 08/23/24 13:59 Height 5 ft 9 in Weight 283 lb BMI 41.8 BP 126/80 Blood Pressure Location Lt brachial Position Sitting Intake Visit Reasons: Med review Carbon Rod Inserter Required: No Accompanied by: Daughter Allergies aspirin [Aspirin] Allergy (Severe, Verified 08/23/24 14:14) DIFFICULTY BREATHING, tracheal swelling Penicillins Allergy (Severe, Verified 08/23/24 14:14) DIFFICULTY BREATHING Medication List - Last Reconciled 08/23/24 by Janis Henson MD albuterol sulfate 2.5 mg (3 mL) inhalation Q6H PRN 30 days albuterol sulfate 90 mcg/actuation 2 puffs PO Q8H PRN 30 days azelastine 0.05% 1 drp ophthalmic (eye) BID PRN nzkxacwbpq-avxntmdtfaude-pqjy 50-325-40 mg 1 tab PO Q6H PRN 30 days citalopram 10 mg PO QAM doxepin 300 mg PO BEDTIME lithium carbonate 300 mg PO BID miscellaneous medical supply 1 ea miscellaneous DAILY orphenadrine citrate ER 100 mg PO BID PRN 5 days zolpidem 10 mg PO BEDTIME PRN Tobacco use date assessed: 08/23/24 Dental Screening Dental Screen Date: 08/23/24 Did you have a dental visit in the last 12 months?: No Did you have a dental problem in the last 6 months where you did not have access to dental care?: No Was dental information given to patient?: Patient has dentist HPI HPI Comments History of Present Illness Details The patient is a 38-year-old female presenting with joint pain and swelling. Her joint pain has been a long-standing issue, affecting all joints, alongside persistent fatigue and body aches. She specifically notes the swelling of her right knee, which has been previously evaluated with no identifiable cause. Despite the lack of a definitive diagnosis, the knee continues to swell on occasion. Her overall condition showcases a lack of response to current treatments, which predominantly target her mental health conditions. The patient's current medication regimen includes inhalers and medications for depression, anxiety, and bipolar disorder. She has allergies to aspirin and penicillin, which may complicate treatment options. The patient has experienced a 20-pound weight gain ultimately linked to anxiety behaviors such as eating grass, reportedly due to severe anxiety episodes at home. She is morbidly obese and was advised to do diet and exercise. She also has sickle cell anemia that will be monitor. Transaminitis are follow by Gastroenterology. [facility] Medical History (Updated 08/23/24 @ 14:27 by Janis Henson MD) Morbid obesity due to excess calories Lymphadenopathy, inguinal Chronic diarrhea Hemorrhoids Class 2 obesity with body mass index (BMI) of 39.0 to 39.9 in adult Moderate asthma Anxiety Pain of right heel Hx of allergic rhinitis Hx of bipolar disorder Asthma Surgical History History of carpal tunnel release History of endometrial ablation History of open reduction and internal fixation (ORIF) procedure History of bilateral tubal ligation History of tonsillectomy and adenoidectomy Hx of shoulder surgery Tubal ligation status Family History Mother Hypertension Father No problems noted. Social History Housing: Apartment Alcohol intake: never Patient Tobacco Use Status: Never used Tobacco e-Cigarette/Vaping Use: Never Used Second Hand Smoke Exposure: No Substance Use Type: Marijuana service: No Current occupational status: unemployed Sexual orientation: Straight/Heterosexual Gender identity: Female Cognitive needs: No Hearing needs: No Vision needs: Yes Female Reproductive History Menstrual Age of Menarche: 10 Questionnaire PHQ-9 Over the last 2 weeks, how often have you been bothered by any of the following problems? 1. Little interest or pleasure in doing things: several days 2. Feeling down, depressed, or hopeless: several days 3. Trouble falling or staying asleep, or sleeping too much: several days 4. Feeling tired or having little energy: several days 5. Poor appetite or overeating: several days 6. Feeling bad about yourself - or that you are a failure or have let yourself or your family down: several days 7. Trouble concentrating on things, such as reading the newspaper or watching television: not at all 8. Moving or speaking so slowly that other people could have noticed. Or the opposite - being so fidgety or restless that you have been moving around a lot more than usual: several days 9. Thoughts that you would be better off or of hurting yourself in some way: not at all Total score: 7 Depression Screening Interpretation: Positive Depression Screening Follow-up: Existing condition, In treatment, Community Mental Health Worker F/U and Follow- up Visit Requested Depression Screening Done: Yes 76001 - PHQ-9 Billing: Yes Source: Developed by Drs. Davy Ardon, Sulma Fletcher, Nestor Shane and colleagues, with an educational john from [employer]. Thrive Questionnaire Date Thrive assessed: 08/23/24 I am a: Patient What is your living situation today?: I have a steady place to live Within the past 12 months, did the food you bought not last and you didn't have the money to get more?: Never true Within the past 12 months, did you worry whether your food would run out before you got money to buy more?: Never true Do you have trouble paying for medicines?: No Do you have trouble getting transportation to medical appointments?: No Do you have trouble paying your heating and electricity bill?: No Do you have trouble taking care of your child, family member or friend?: No Do you have trouble with day-to-day activities such as bathing, preparing meals, shopping, managing finances, etc.?: No Are you currently unemployed and looking for a job?: No Are you interested in more education?: No Please select the resources that you would like help with: None Currently or been in a relationship where the following occur: No concerns reported THRIVE Score: 0 AUDIT C Alcohol Use Questionnaire (AUDIT-C) 1. How often do you have a drink containing alcohol?: Never Total Score: 0 Score Reviewed/Action Taken: No AJ-7 AMB Questionnaire AJ-7 Date AJ - 7 assessed: 08/23/24 Feeling nervous, anxious, or on edge: 1 = Several days Not being able to stop or control worryin = Not at all Worrying too much about different things: 1 = Several days Trouble relaxin = Not at all Being so restless that it is hard to sit still: 0 = Not at all Becoming easily annoyed or irritable: 1 = Several days Feeling afraid as if something awful might happen: 0 = Not at all Total AJ-7 score (0-4 normal; 5-9 mild; 10-14 moderate; 15-21 severe): 3 Source: Developed by Drs. Davy Ardon, Sulma Fletcher, Nestor Shane and colleagues, with an educational john from [employer]. AJ-7 Assessment Billing AJ-7 Assessment Tool: AJ-7 Assessment 36766 Review of Systems Const All systems reviewed & are unremarkable except as noted in HPI and below Card Denies chest pain at rest, Denies chest pain with activity, Denies edema, Denies irregular heart rhythm, Denies claudication, Denies dyspnea, Denies dyspnea on exertion, Denies orthopnea, Denies paroxysmal nocturnal dyspnea and Denies slow heart rate Resp Denies cough, Denies dyspnea and Denies dyspnea on exertion GI Denies abdominal pain, Denies change in bowel habits, Denies excessive flatus, Denies nausea and Denies vomiting Musc Reports arthralgias Neuro Denies behavioral changes and Denies lack of coordination Psych Denies behavioral changes Endo Denies cold intolerance Physical exam (Primary Care) Vital Signs: Last Vital Signs BP 126/80 08/23/24 13:59 BMI result Body Mass Index 41.8 BMI Assessment/Plan discussion: High BMI High, discussed plan: lifestyle, weight reduction, dietary and physical activity Tobacco/Smoking Status: Tobacco use Status Tobacco use date assessed 08/23/24 08/23/24 14:04 Patient Tobacco Use Status Never used Tobacco 08/23/24 13:57 e-Cigarette/Vaping Use Never Used 08/23/24 13:57 PHQ-9: PHQ-9 Score PHQ-9: Total score 7 08/23/24 14:04 Depression Screening Interpretation: Positive Depression Screening Follow-up: Existing condition, In treatment, Community Mental Health Worker F/U and Follow- up Visit Requested Thrive Assessment: Date of Thrive Assessment Date Thrive assessed 08/23/24 08/23/24 13:57 Currently or been in a relationship where the following occur: No concerns reported Resp Effort & Inspection: normal respiratory effort Auscultation: clear to auscultation bilaterally Cardio Jugular venous distension: no JVD Rate: regular rate Rhythm: regular rhythm Heart sounds: S1 normal heart sound present and S2 normal heart sound present Extrem General: Yes full ROM Coding Level of Care Code Est Pt Level 4 (13785) Complex EM visit Add On G2211 Diagnoses Polyarthralgia M25.50 Morbid obesity due to excess calories E66.01 Bipolar disorder F31.9 Sickle cell anemia D57.1 Transaminitis R74.01 Additional Codes PHQ-9 - 86988 - PHQ-9 Billing: Yes ([id number]) AJ-7 Assessment Billing - AJ-7 Assessment Tool: AJ-7 Assessment 67024 ([id number]) Time Spent (min) 21 Assessment & Plan Assessment & Plan (1) Polyarthralgia: Code(s): M25.50 - Pain in unspecified joint Category: Medical (2) Morbid obesity due to excess calories: Code(s): E66.01 - Morbid (severe) obesity due to excess calories Category: Medical (3) Bipolar disorder: Code(s): F31.9 - Bipolar disorder, unspecified Category: Medical (4) Sickle cell anemia: Code(s): D57.1 - Sickle-cell disease without crisis Category: Medical (5) Transaminitis: Code(s): R74.01 - Elevation of levels of liver transaminase levels Category: Medical Plan The patient will undergo laboratory testing and a referral to a assisted living housekeeper to evaluate for possible rheumatic conditions causing her joint pain and swelling. Management of her psychiatric conditions with medications such as lithium, citalopram, and doxepin will continue. Weight management strategies have been advised alongside caution in medication use due to the potential for headache exacerbation. Medication coverage issues will be addressed by prescribing lesser quantities if necessary. Patient was informed and verbally consented to the use of an ambient scribe for clinic note documentation during this visit. In discussion with the patient, we highlighted the need for a rheumatology evaluation to seek further understanding of her joint pains. I explained potential management approaches for her weight gain and anxiety-related habits, such as reducing high-calorie and caffeinated intake. We reviewed the side effects of current medications and emphasized careful use to avoid exacerbating headaches. The patient acknowledged the weight gain concerns and her anxiety- driven behaviors. The need for thorough laboratory work and rheumatologic assessment was emphasized, with upcoming referrals in place. I provided guidance on medication adherence and possible alterations should her insurance coverage continue to pose issues. Orders: Orders Rheumatoid Factor Today M25.50 - Pain in unspecified joint Erythrocyte Sedimentation Rate Today M25.50 - Pain in unspecified joint C Reactive Protein Today M25.50 - Pain in unspecified joint Thyroid Stimulating Hormone Today M25.50 - Pain in unspecified joint Complete Blood Count Auto Diff Today D57.1 - Sickle-cell disease without crisis, D64.9 - Anemia, unspecified IRON PROFILE Today D57.1 - Sickle-cell disease without crisis, D64.9 - Anemia, unspecified Sickle Cell Scr Today D57.1 - Sickle-cell disease without crisis Comprehensive [place]. Panel Fast Today M25.50 - Pain in unspecified joint Cyclic Citrullinated Peptide Today M25.50 - Pain in unspecified joint Referrals Rheumatology Referral M25.50 - Pain in unspecified joint Medications: Refilled kdtchzutcv-lrusfxbfhmuhz-klrl 50-325-40 mg 1 tab PO Q6H 30 days PRN 20 tabs 0RF pain Patient Instructions: - Continue current medications as prescribed. - Reduce intake of caffeinated soft drinks and seek a balanced diet to manage weight gain. - Monitor symptoms of joint swelling and report any exacerbations. - Follow up with referred specialists as instructed for further evaluation. - Use inhaler and psychiatric medications as prescribed and report back if new prescriptions are unattainable due to coverage. - Adhere to laboratory testing orders for ongoing health monitoring.
[2024-08-23 13:59] VITALS: BP 126/80; BMI 41.8
--- OUTSIDE RECORDS SUMMARY | 2024-08-23 17:32 | XMS_ITS | Encounter Summary ---
Author Organization [employer] Address [address] [place] [address] Care Team Providers Care Pick Pulling Machine Tender Name Role Phone Sania Watt MD Primary Care Provide r Reason for Visit * Reason Onset Date Comments New Patient Appt 11/10/2022 Encounter Details Date Type Department Care Team ([facility] st Contact Info) Description 11/10/2022 Telephone [facility] [address], [place] [phone] Sania Watt MD [address] [place] [address] New Patient Appt Social History Tobacco Use Types Packs/Day Years Used Date Smoking Tobacco: Never Assessed Comments Unknown Sex and Gender Information Value Date Recorded Sex Assigned at Female 04/12/2022 10:19 AM EDT Legal Sex Female 10:19 AM EDT Gender Identity Not on file Sexual Orientation Not on file documented as of this encounter Miscellaneous Notes * Telephone Encounter - Tae Coon - 11/10/2022 2:38 PM EDT New Patients Par Tae Rios called to schedule New patient appt, pt did not answer left voicemail to give a call at [phone]. documented in this encounter Plan of Treatment Not on file documented as of this encounter Visit Diagnoses Not on filedocumented in this encounter Care Teams Pick Pulling Machine Tender Relationship Specialty Start Date End Date Sania Watt MD [address] [place] [address] PCP - General Family Medicine 02/22/18 06/30/23 documented as of this encounter
--- OUTSIDE RECORDS SUMMARY | 2024-08-23 17:32 | XMS_ITS | Clinical Summary ---
Author Organization [employer] Address [address] [place] [address] 7 [place] [address] Care Team Providers Care Transport Analyst Name Role Phone Unavailable Primary Care Provider Unavailabl e Social History Tobacco Use Types Packs/Day Years Used Date Smoking Tobacco: Never Assessed Comments Unknown Sex and Gender Information Value Date Recorded Sex Assigned at Female 04/12/2022 10:19 AM EDT Legal Sex Female 10:19 AM EDT Gender Identity Not on file Sexual Orientation Not on file Plan of Treatment Health Maintenance Due Date Last Done Comments Depression Screening 1985 Alcohol/Substance Use Screening 1997 Tobacco Screening 1997 Family Planning (PISQ) 2000 Pap Smear 2006 Hepatitis B Vaccines (2 of 3 - 19+ 3-dose series) 11/22/2008 10/25/2008, 10/09/2008 DTaP/Tdap/Td Vaccines (1 - Tdap) 06/23/2012 06/22/2012, 06/13/2007 Cervical Cancer Screening 03/22/2022 HPV/Cotest 03/22/2022 03/22/2017 COVID-19 Vaccine (3 - 2023-2 5 season) 2024 12/25/2020, 11/20/2020 Influenza Vaccine (#1) 2024 5, 04/19/2014, 04/13/2011 Zoster Vaccines (1 of 2) 09/02/2035 RSV Patients and Patients Aged 60 years or older (1 - 1-dose 75+ series) 2060 Hepatitis A Vaccines Aged Out 10/09/2008 No long er eligible based on patient's age to complete this topic Pneumococcal Vaccine: Pediatrics (0 to 5 Years) and At-Risk Patients (6 to 49) Years) Aged Out 10/21/2014 No longer eligible b ased on patient's age to complete this topic HIB Vaccines Aged Out No longer eligi ble based on patient's age to complete this topic HPV Vaccines Aged Out No longer eligi ble based on patient's age to complete this topic IPV Vaccines Aged Out No longer eligi ble based on patient's age to complete this topic Meningococcal Vaccine Aged Out No krystle jannette eligible based on patient's age to complete this topic RSV under 20 months Aged Out No longe r eligible based on patient's age to complete this topic Rotavirus Vaccines Aged Out No longer eligible based on patient's age to complete this topic Procedures Procedure Name Priority Date/Time Associated Diagnosis Comments ANGY HISTORICAL HPV MRNA E6/E7 Routine 03/22/2017 3:29 PM EDT from Last 3 Months or Most Recently Relevant to Health Maintenance Results * HPV mRNA E6/E7 (03/22/2017 3:29 PM EDT) HPV mRNA E6/E7 Not Detected NOT DETECTED [facility] Comment: This test was performed using the APTIMA(R) HPV Assay ([employer] This assay detects E6/E7 viral messenger RNA (mRNA) from 14 high-risk HPV types (16,18,31,33,35,39,45,51, 52,56,58,59,66,68). For additional information please refer to: http://education.[employer].Narrato/faq/EAW102a0 (This link is being provided for informational/ educational purposes only.) Test Performed by Ray Meraz, [facility], [address] [place] [address] Billy Robertson M.D., Ph.D., Director of Laboratories , [facility] [id number] Please note: ??Effective 02/23/2016, HPV testing will be performed using [employer]'s APTIMA test which targets mRNA. Detecting mRNA instead of DNA, as in older methods, offers significant improvements in specificity. 03/22/2017 3:29 PM EDT us Historical Provider HISTORICAL/NON ORDERABLE LABS Final Result [facility] [address] from Last 3 Months or Most Recently Relevant to Health Maintenance
== END 2024-08-23 14:21 | disposition home or self-care (01) ==
LOC: HO.HMCH 13:51
PROVIDERS: PCP Internal Medicine; Visit Provider Internal Medicine
DX: D57.1 Sickle-cell disease without crisis (principal); E66.01 Morbid (severe) obesity due to excess calories; Z68.41 Body mass index [BMI] 40.0-44.9, adult; F31.9 Bipolar disorder, unspecified; M25.50 Pain in unspecified joint; R74.01 Elevation of levels of liver transaminase levels

== ENCOUNTER → 2024-08-23 13:50 | Outpatient (BNVA) | payer OTHER, SELFPAY | PROVIDERS: PCP Internal Medicine; Visit Provider Internal Medicine | DX: M25.50 Pain in unspecified joint (principal); E66.01 Morbid (severe) obesity due to excess calories; F31.9 Bipolar disorder, unspecified; D75.1 Secondary polycythemia; R74.01 Elevation of levels of liver transaminase levels | CPT/HCPCS: 96127; 99212 ==

== ENCOUNTER 2024-08-24 08:13 | Outpatient (REF) | payer OTHER, SELFPAY ==
--- OUTSIDE RECORDS SUMMARY | 2024-08-24 08:21 | XMS_ITS | Encounter Summary ---
Author Organization [employer] Address [address] [facility] 7 [place] [address] Care Team Providers Care Railway Equipment Operator Name Role Phone Sania Watt MD Primary Care Provide r Reason for Visit * Reason Onset Date Comments New Patient Appt 11/10/2022 Encounter Details Date Type Department Care Team ([facility] st Contact Info) Description 11/10/2022 Telephone [facility] [address] [place], [place] [id number] Sania Watt MD [address] [place] [address] New Patient Appt Social History Tobacco Use [...] left voicemail to give a call at [phone]. documented in this encounter Plan of Treatment Not on file documented as of this encounter Visit Diagnoses Not on filedocumented in this encounter Care Teams Railway Equipment Operator Relationship Specialty Start Date End Date Sania Watt MD [address] [place] [address] PCP - General Family Medicine 02/22/18 06/30/23 documented as of this encounter
--- OUTSIDE RECORDS SUMMARY | 2024-08-24 08:22 | XMS_ITS | Clinical Summary ---
Author Organization [employer] Address [address] [place] [address] 7 [place] [address] Care Team Providers Care Doughnut Glazier Name Role Phone Unavailable Primary Care Provider [...] was performed using the APTIMA(R) HPV Assay ([employer] This assay detects E6/E7 viral messenger RNA (mRNA) from 14 high-risk HPV types (16,18,31,33,35,39,45,51, 52,56,58,59,66,68). For additional information please refer to: http://education.XIHA.Tutorspree/faq/CXY890i8 (This link is being provided for informational/ educational purposes only.) Test Performed by Ray Meraz, [facility], [address] [place] [address] Billy Robertson M.D., Ph.D., Director of Laboratories , [facility] [id number] Please note: ??Effective 02/23/2016, HPV testing will be performed using [employer]'s APTIMA test which targets mRNA. Detecting mRNA instead of DNA, as in older methods, offers significant improvements in specificity. 03/22/2017 3:29 PM EDT us Historical Provider HISTORICAL/NON ORDERABLE LABS Final Result [facility] [address] from Last 3 Months or Most Recently Relevant to Health Maintenance
[2024-08-24 08:34] LABS: MANUAL DIFF FLAG NO
[2024-08-24 09:11] LABS: Basophils Absolute Auto 0.1 X10*3/uL (0.0-0.2); Basophils Percent Auto 0.5 % (0-2); Eosinophils Absolute Auto 0.4 X10*3/uL (0.0-0.4); Eosinophils Percent Auto 4.1 % (0-4); Hematocrit 36.6 % (37.0-47.0); Hemoglobin 12.7 g/dl (12.0-16.0); Imm Gran Abs Auto 0.05 X10*3/uL (0.00-0.03); Imm Gran Pct Auto 0.5 % (0.0-0.4); Lymphocytes Absolute Auto 2.3 X10*3/uL (1.2-4.9); Lymphocytes Percent Auto 24.1 % (20-40); Mean Corpuscular HGB Conc 34.7 g/dl (31.0-35.0); Mean Corpuscular Hemoglobin 26.8 pg (27.0-33.0); Mean Corpuscular Volume 77.4 fL (80.0-98.0); Mean Platelet Volume 10.4 fL (9.4-12.3); Monocytes Absolute Auto 0.6 X10*3/uL (0.1-1.2); Monocytes Percent Auto 6.7 % (2-11); Neutrophils Percent Auto 64.1 % (45-73); Platelet Count 316 X10*3/uL (160-400); Red Blood Count 4.73 X10*6/uL (4.20-5.50); White Blood Count 9.4 X10*3/uL (4.8-10.8)
[2024-08-24 09:57] LABS: Sickle Cell Scr POSITIVE (NEGATIVE)
[2024-08-24 09:59] LABS: Erythrocyte Sedimentation Rate 7 MM/HR (0-20)
[2024-08-24 10:05] LABS: Rheumatoid Factor < 13.0 IU/mL (<15.0)
[2024-08-24 10:33] LABS: Alanine Aminotransferase 40 U/L (0-31); Albumin Level 3.8 g/dL (3.5-5.0); Alkaline Phosphatase 52 U/L (39-117); Anion Gap 10 (12-20); Aspartate Amino Transferase 28 U/L (5-31); Bilirubin Total 0.2 mg/dL (0.0-1.0); Blood Urea Nitrogen 9 mg/dL (9-16); C Reactive Protein 0.62 mg/dL (< or = 0.50); Calcium 8.8 mg/dL (8.4-10.2); Carbon Dioxide 25 mmol/L (22-29); Chloride 108 mmol/L (96-108); Estimated Glomerular Filt Rate > 60; Glucose Fasting 98 mg/dL (60-99); Iron 52 mcg/dL (30-160); Percent Iron Saturation 19 % (15-50); Sodium 139 mmol/L (135-145); Thyroid Stimulating Hormone 2.59 uIU/mL (0.32-4.0); Total Iron Binding Capacity 280 mcg/dL (228-428); Unsaturated Iron Binding 228 ug/dL
[2024-08-27 15:14] LABS: Hematocrit 39.7 % (35.0-45.0); Hemoglobin 12.8 g/dL (11.7-15.5); MCH 26.7 pg (27.0-33.0); MCV 82.9 fL (80.0-100.0); RBC 4.79 Million/uL (3.80-5.10)
[2024-08-28 14:28] LABS: Cyclic Citrullinated Peptide <16 UNITS
== END 2024-08-24 08:14 | disposition home or self-care (01) ==
LOC: HO.LAB 08:13
PROVIDERS: PCP Internal Medicine; Visit Provider Internal Medicine
DX: M25.50 Pain in unspecified joint (principal); D64.9 Anemia, unspecified; D57.1 Sickle-cell disease without crisis
CPT/HCPCS: 36415; 80053; 83020; 83540; 84443; 85014; 85018; 85025; 85041; 85652; 85660; 86140; 86200; 86431

== ENCOUNTER 2024-08-25 16:49 | Emergency (ER) | payer OTHER, SELFPAY ==
--- NOTE | ~2024-08-25 | CT_ITS ---
CLINICAL HISTORY: epigastric pain CT abdomen and pelvis with contrast Comparison: CT/SR - CT ABDOMEN PELVIS W CON - 10/05/21 09:41 EDT Findings: No consolidation or effusion. Diffuse low-density of the liver consistent with hepatic steatosis. The kidneys, spleen, adrenals and pancreas are normal. No bowel obstruction, pneumoperitoneum, or pneumatosis. 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 Pelvic contents unremarkable. Normal appendix. The bones are intact. IMPRESSION: 1. Hepatic steatosis. 2. 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 This document has been electronically signed by: Heron Hayes MD on 08/25/2024 23:26:07
--- NOTE | ~2024-08-25 | US_ITS ---
CLINICAL HISTORY: calf pain Venous duplex ultrasound right lower extremity Comparison: US/SR - US VENOUS DUPLEX LE RT - 11/15/23 09:11 EDT Findings: The visualized deep veins are fully compressible with normal Doppler color flow and spectral tracings. No popliteal cyst. IMPRESSION: 1. Negative for right lower extremity deep vein thrombosis. This document has been electronically signed by: Heron Hayes MD on 08/25/2024 21:43:06
--- NOTE | ~2024-08-25 | XR_ITS ---
CLINICAL HISTORY: cough 2 view chest x-ray Comparison: CR/SR - XR CHEST 1V - 06/06/24 23:17 EST Findings: Bronchial wall thickening, which can be seen with asthma, reactive airways process or viral illness. There is a small irregular airspace opacity in the right lower lobe. No pleural effusion or pneumothorax. Normal size heart. No acute fracture. IMPRESSION: 1. Central bronchial wall thickening. 2. Small infiltrate in the right lower lobe. This document has been electronically signed by: Gail Dorsey DO on 08/25/2024 18:23:47
[2024-08-25 17:01] VITALS: BP 115/74; PULSE 90; RESP 18; O2SAT 97; BMI 41.5
--- NOTE | 2024-08-25 17:02 | ED_ITS ---
HPI - General Adult General Chief complaint: General Medical Stated complaint: Body aches, fever, vomiting Time Seen by Provider: 08/25/24 17:24 Source: patient and RN notes reviewed Mode of arrival: ambulatory Limitations: no limitations History of Present Illness ED Provider: Mojgan Isaac PA-C HPI narrative: This is a 38-year-old female, with a history of asthma, who presents emergency department with complaints of body aches, nausea, BL lower extremity swelling, right upper quadrant pain for the last 2 days. Patient endorses subjective fevers and chills. She denies any chest pain or shortness of breath. She reports that earlier today she developed abdominal pain, nausea, vomiting and diarrhea. She has been taking Tylenol for her symptoms, last dose was early this morning. No sick contacts. She states that she traveled to [place] 2 months ago. No other travels since. no recent hospitalizations, surgeries, of hx of blood clots. No bloody or black stool. No hemoptysis. No other complaints or concerns at this time. MD complaint: Body aches, abdominal pain, fevers Onset (ago): day(s) Radiation: non-radiation Relieving factors: none Exacerbating factors: none Associated symptoms: denies other symptoms Treatments prior to arrival: none Related Data Home Medications ?Medication ?Instructions ?Recorded ?Confirmed citalopram 10 mg tablet 10 mg PO QAM 10/14/21 08/23/24 doxepin 150 mg capsule 300 mg PO BEDTIME 10/14/21 08/23/24 lithium carbonate 300 mg capsule 300 mg PO BID 10/14/21 08/23/24 zolpidem 10 mg tablet 10 mg PO BEDTIME PRN 02/01/24 08/23/24 Previous Rx's ?Medication ?Instructions ?Recorded azelastine 0.05 % eye drops 1 drp ophthalmic (eye) BID PRN 10/01/22 allergic symptoms #6 mL miscellaneous medical supply 1 ea miscellaneous DAILY #1 ea 10/01/22 orphenadrine citrate 100 mg 100 mg PO BID PRN muscle pain 5 02/01/24 tablet,extended release days #10 tabs albuterol sulfate 2.5 mg/3 mL 2.5 mg (3 mL) inhalation Q6H PRN 08/16/24 (0.083 %) solution for nebulization respiratory symptoms 30 days #75 mL albuterol sulfate 90 mcg/actuation 2 puff PO Q8H PRN for wheezing 30 08/16/24 aerosol inhaler days #8.5 grams glhwmjpmce-ewxckxaapgegx-eewacefs 1 tab PO Q6H PRN pain 30 days #20 08/23/24 50 mg-325 mg-40 mg tablet tabs Allergies Allergy/AdvReac Type Severity Reaction Status Date / Time aspirin [Aspirin] Allergy Severe DIFFICULTY Verified 08/25/24 17:03 BREATHING, tracheal swelling Penicillins Allergy Severe DIFFICULTY Verified 08/25/24 17:03 BREATHING Review of Systems 2 Review of Systems: Yes all other systems are reviewed and are negative Constitutional: Constitutional: Reports as per [facility] Past Medical History Medical History (Updated 08/26/24 @ 00:08 by Herbert Avila MD) Morbid obesity due to excess calories Lymphadenopathy, inguinal Chronic diarrhea Hemorrhoids Class 2 obesity with body mass index (BMI) of 39.0 to 39.9 in adult Moderate asthma Anxiety Pain of right heel Hx of allergic rhinitis Hx of bipolar disorder Asthma Surgical History History of carpal tunnel release History of endometrial ablation History of open reduction and internal fixation (ORIF) procedure History of bilateral tubal ligation History of tonsillectomy and adenoidectomy Hx of shoulder surgery Tubal ligation status Family History Family History Mother Hypertension Father No problems noted. Social History Social History Housing: Apartment Alcohol intake: never Patient Tobacco Use Status: Never used Tobacco Smoked in Last 30 Days: No e-Cigarette/Vaping Use: Never Used Second Hand Smoke Exposure: No Use of substances other than those prescribed or required for medical reasons: No Substance Use Type: Marijuana Advance Directives: No Advance Directives Information Provided: Yes Patient : No service: No Current occupational status: unemployed Sexual orientation: Straight/Heterosexual Gender identity: Female Cognitive needs: No Hearing needs: No Vision needs: Yes Physical Exam ED Vital Signs: Vital Signs - 24 hr 08/25/24 17:01 08/25/24 19:10 08/25/24 19:28 Temperature 97.6 F Pulse Rate 90 74 84 Respiratory Rate 18 17 18 Blood Pressure 115/74 149/78 H Pulse Oximetry 97 98 Oxygen Delivery Method Room Air Room Air 08/25/24 20:27 08/25/24 22:13 Temperature 97.9 F 98 F Pulse Rate 86 84 Respiratory Rate 20 20 Blood Pressure 141/92 H 140/76 H Pulse Oximetry 98 98 Oxygen Delivery Method Room Air Room Air BMI result Body Mass Index 41.5 Const General: cooperative, comfortable and no acute distress Orientation/consciousness: patient oriented x3 Limitations: no limitations HENMT Head: Yes normal to inspection, Yes normocephalic and Yes atraumatic Ears: hearing grossly normal bilaterally General nose exam: Normal external nose present Face and sinus: Yes normal facial exam Mouth: Normal oral and palatal mucosa present, oropharynx normal and moist mucous membranes Throat: Yes posterior oropharynx normal Eyes General: appearance normal, both eyes and all related structures Eyelids: Yes eyelids normal Conjunctivae: conjunctivae normal Sclerae: sclerae normal Pupils: Equal, round and reactive pupils present EOM: EOMs intact bilaterally Neck Neck: Yes normal visual inspection, Yes full ROM and Yes no lymphadenopathy Lymphatic: no lymphadenopathy noted Chest Chest palpation & inspection: normal inspection of the chest Resp Other: Diminished throughout, no wheezes, rales, or rhonchi. Effort & Inspection: normal respiratory effort and able to speak in complete sentences Cardio Rate: regular rate Rhythm: regular rhythm Heart sounds: S1 normal heart sound present and S2 normal heart sound present GI Other: Mild tenderness palpation in the epigastrium and right upper quadrant, also having diffuse abdominal tenderness throughout. No specific point tenderness. Skin General skin exam: no rashes or lesions noted Trauma: no lacerations or abrasions Wounds: no wounds Neuro General: patient oriented x3 and moves all extremities Cranial nerves: Yes Equal, round and reactive pupils present Extrem Other: right calf, mild tenderness palpation no overlying skin changes or warmth. No pitting edema noted bilaterally. General: Yes normal to inspection Right upper extremity: normal to inspection Left upper extremity: normal to inspection Right lower extremity: normal to inspection Left lower extremity: normal to inspection Course Course Course Narrative: RME performed by Joi Rizzo PA-C. Patient is a 38 year old assigned female at presenting to the emergency department with body aches, feeling generally unwell, and lower leg / feet swelling. Detailed physical exam and review of systems are deferred to the loan broker. EKG, labs, imaging, and swabs ordered. Patient placed back in the waiting room pending room availability and results. 0000--I obtain sign-out from my colleague Mojgan. Labs and imaging reviewed. Labs reassuring. Venous duplex ultrasound negative for DVT. CT abdomen pelvis w IV con IMPRESSION: 1. Hepatic steatosis. 2. 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 Central bronchial wall thickening. 2. Small infiltrate in the right lower lobe. > patient received IV Levaquin in the ED due to allergies Results discussed with patient including worrisome signs and symptoms and strict return precautions, and when to return to the emergency department. They verbalized understanding and feel safe for discharge at this time. Medications Administered Discontinued Medications Generic Name Dose Route Start Last Admin Trade Name Freq PRN Reason Stop Dose Admin Albuterol/Ipratropium 3 ml 08/25/24 19:26 08/25/24 19:28 Albuterol/Iprat 2.5/0.5mg 3 Ml Ampul.Neb INHALE 08/25/24 19:27 3 ml ONCE ONE Administration Acetaminophen 1,000 mg in 100 mls @ 400 mls/hr 08/25/24 18:58 08/25/24 19:36 Ofirmev IV 08/25/24 19:12 Infused ONCE ONE Infusion Levofloxacin 750 mg in 150 mls @ 100 mls/hr 08/25/24 19:24 08/25/24 21:20 Levaquin IV 08/25/24 20:53 Infused ONCE ONE Infusion Iohexol 100 ml 08/25/24 22:06 08/25/24 22:07 Iohexol 350 Mg/Ml 100 Ml Infus..Btl IV 08/25/24 22:07 100 ml ONCE ONE Administration Morphine Sulfate 2 mg 08/25/24 23:00 08/25/24 23:14 Morphine Sulfate 2 Mg/Ml Cartridge IVPUSH 08/25/24 23:01 2 mg ONCE ONE Administration Protocol Ondansetron HCl 4 mg 08/25/24 18:58 08/25/24 19:21 Ondansetron Hcl 4 Mg/2 Ml Vial IVPUSH 08/25/24 18:59 4 mg ONCE ONE Administration Medical Decision Making Medical Decision Making MDM Narrative: This is a 38-year-old female who presents emergency department for evaluation of body aches, subjective fevers and chills, lower extremity swelling. She reports no cough. On arrival, vital signs within normal limits. She is speaking in full sentences under no acute distress. Abdomen is soft however with tenderness palpation in the epigastrium and right upper quadrant. No rebound or guarding. She does have diffuse abdominal tenderness throughout. No specific point tenderness. Labs were obtained prior to my assessment, she has no leukocytosis, stable H&H, chemistry with no significant electrolyte derangement. No evidence of EMORY. I did add on a lipase as well as a hCG quant. Urine does not appear to be infected. Viral swabs are negative. X-ray was obtained revealing small infiltrate in the right lower lobe. EKG normal sinus rhythm at a ventricular rate of 82 beats per minute, no ST elevation or depression. I added on lipase, beta quant, as well as ultrasound of the right lower extremity due to mild calf tenderness. No peripheral edema appreciated. No pitting edema noted. I also ordered a CT abdomen and pelvis to rule out any abdominal pathology. Lung sounds are diminished therefore ED bronch protocol was ordered as well. Also medicated with IV Tylenol, IV Zofran, and IV fluids. Sign-out given to my colleague, Alycia Granados PA-C pending overall workup, and reassessment. Differential Diagnosis Differential Diagnoses: The differential diagnosis associated with the presentation includes Pneumonia, URI, gastritis, gastroenteritis, electrolyte derangement, flu, COVID, RSV, PE less likely patient PERC negative. Lab Data [facility] Lab Attestation statement: I reviewed the patient's lab results. see [facility] 08/25/24 17:20 08/25/24 17:20 Labs: Lab Results 08/25/24 Range/Units 17:20 WBC 9.6 (4.8-10.8) X10*3/uL RBC 4.57 (4.20-5.50) X10*6/uL Hgb 12.1 (12.0-16.0) g/dl Hct 34.9 L (37.0-47.0) % MCV 76.4 L (80.0-98.0) fL MCH 26.5 L (27.0-33.0) pg MCHC 34.7 (31.0-35.0) g/dl RDW 14.3 (11.0-16.0) % Plt Count 291 (160-400) X10*3/uL MPV 10.1 (9.4-12.3) fL Immature Gran % (Auto) 0.3 (0.0-0.4) % Neut % (Auto) 66.8 (45-73) % Lymph % (Auto) 21.8 (20-40) % [place] % (Auto) 6.8 (2-11) % Eos % (Auto) 3.9 (0-4) % Baso % (Auto) 0.4 (0-2) % Lymph # (Auto) 2.1 (1.2-4.9) X10*3/uL [place] # (Auto) 0.7 (0.1-1.2) X10*3/uL Eos # (Auto) 0.4 (0.0-0.4) X10*3/uL Baso # (Auto) 0.0 (0.0-0.2) X10*3/uL Abs Immat Gran (auto) 0.03 (0.00-0.03) X10*3/uL Absolute Neuts (auto) 6.4 (2.0-8.3) x10*3/uL Absolute Nucleated RBC 0.000 (0.0-0.012) X10*3/uL Nucleated RBC % (auto) 0.0 (0.0-0.2) /100WBC Sodium 139 (135-145) mmol/L Potassium 3.7 (3.3-5.1) mmol/L Chloride 108 (96-108) mmol/L Carbon Dioxide 23 (22-29) mmol/L Anion Gap 12 (12-20) BUN 10 (9-16) mg/dL Creatinine 0.78 (0.5-1.4) mg/dL Estim Creat Clear Calc 139.9 Estimated GFR > 60 Random Glucose 86 (60-115) mg/dL Calcium 8.5 (8.4-10.2) mg/dL Magnesium 1.8 (1.6-2.6) mg/dL Total Bilirubin 0.4 (0.0-1.0) mg/dL AST 30 (5-31) U/L ALT 40 H (0-31) U/L Alkaline Phosphatase 51 (39-117) U/L Troponin I High Sens < 2.7 (<3.5-17.0) ng/L B-Natriuretic Peptide 24 (<100) pg/mL Total Protein 7.1 (6.5-8.0) g/dL Albumin 3.9 (3.5-5.0) g/dL Lipase 26 (8-78) U/L TSH 2.05 (0.32-4.0) uIU/mL Beta HCG, Quant < 2 mIU/mL Urine Color Yellow Urine Appearance Clear Urine pH 5.5 (5.0-9.0) Ur Specific [place] 1.015 (1.005-1.025) Urine Protein Negative (Neg-Trace) mg/dL Urine Glucose (UA) Negative (Negative) mg/dL Urine Ketones Negative (Negative) mg/dL Urine Blood Negative (Negative) Urine Nitrite Negative (Negative) Ur Leukocyte Esterase Negative (Negative) Influenza Type A (PCR) NEGATIVE (Negative) Influenza Type B (PCR) NEGATIVE (Negative) RSV RNA Qual (PCR) NEGATIVE (Negative) SARS-CoV-2 RNA (RT-PCR) NEGATIVE (Negative) Independent Interpretation I performed an independent interpretation of an: EKG Interpretation: EKG normal sinus rhythm at a ventricular rate of 82 beats per minute, CA interval 148. no ST elevation or depression. QT QTC 362/422 Radiology Impression Discussion of test interpretation with radiology: I have reviewed the radiologist's reading. Radiologist Impression: CLINICAL HISTORY: cough 2 view chest x-ray Comparison: CR/SR - XR CHEST 1V - 06/06/24 23:17 EST Findings: Bronchial wall thickening, which can be seen with asthma, reactive airways process or viral illness. There is a small irregular airspace opacity in the right lower lobe. No pleural effusion or pneumothorax. Normal size heart. No acute fracture. IMPRESSION: 1. Central bronchial wall thickening. 2. Small infiltrate in the right lower lobe. This document has been electronically signed by: Gail Dorsey DO on 08/25/2024 18:23:47 Dictated By: Gail Dorsey MD Attestation Attending Attestation: I was personally present and available for consultation in the ED. I have reviewed everything on the chart that is available and agree with the documentation provided by the [facility] including discussion about the assessment, treatment plan and discussion. Based on medical record the care appears appropriate. Herbert Avila MD [facility] Emergency Medicine Discharge Plan Discharge Clinical Impression: Abdominal pain Prescriptions: No Action albuterol sulfate 2.5 mg /3 mL (0.083 %) solution for nebulization 2.5 mg inhalation Q6H PRN (Reason: respiratory symptoms) 30 Days Qty: 75 1RF albuterol sulfate 90 mcg/actuation HFA aerosol inhaler 2 puff PO Q8H PRN (Reason: for wheezing) 30 Days Qty: 8.5 0RF doxepin 150 mg capsule 300 mg PO BEDTIME lithium carbonate 300 mg capsule 300 mg PO BID citalopram 10 mg tablet 10 mg PO QAM azelastine 0.05 % drops 1 drp ophthalmic (eye) BID PRN (Reason: allergic symptoms) Qty: 6 0RF miscellaneous medical supply Misc 1 ea miscellaneous DAILY Qty: 1 0RF Rx Instructions: face mask for nebulizer machine zolpidem 10 mg tablet 10 mg PO BEDTIME PRN orphenadrine citrate 100 mg tablet extended release 100 mg PO BID PRN (Reason: muscle pain) 5 Days Qty: 10 0RF cxfzjsbpnv-qnbajdomonsxk-ffhq 50-325-40 mg tablet 1 tab PO Q6H PRN (Reason: pain) 30 Days Qty: 20 0RF Print Language: Welsh
--- NOTE | 2024-08-25 17:02 | ECG_ITS ---
Test Reason : weakness, swelling Blood Pressure : */* mmHG Vent. Rate : 82 BPM Atrial Rate : 82 BPM P-R Int : 148 ms QRS Dur : 84 ms QT Int : 362 ms P-R-T Axes : 52 11 18 degrees QTcB Int : 422 ms Normal sinus rhythm Minimal voltage criteria for LVH, may be normal variant ( R in aVL ) Borderline ECG When compared with ECG of 23-Oct-2010 00:06, No significant changes seen Referred By: Joi Rizzo Electronically Signed By: FAITH HERNANDEZ
[2024-08-25 17:27] LABS: MANUAL DIFF FLAG NO
--- NOTE | 2024-08-25 17:31 | PC.NURSE ---
Pt comes to ED today for complaints of n/v/d, abd pain, and body aches x2 days. Pt reports unable to eat due to n/v A&Ox3, VSS, afebrile, SSO Skin is warm and dry Breaths and speech are unlabored. Blood work and nasal swab pending.
[2024-08-25 17:33] LABS: Appearance Urine Clear; Basophils Percent Auto 0.4 % (0-2); Color Urine Yellow; Eosinophils Absolute Auto 0.4 X10*3/uL (0.0-0.4); Eosinophils Percent Auto 3.9 % (0-4); Glucose Urine UA Negative (Negative); Hematocrit 34.9 % (37.0-47.0); Hemoglobin 12.1 g/dl (12.0-16.0); Imm Gran Abs Auto 0.03 X10*3/uL (0.00-0.03); Imm Gran Pct Auto 0.3 % (0.0-0.4); Leukocyte Esterase Urine Negative (Negative); Lymphocytes Absolute Auto 2.1 X10*3/uL (1.2-4.9); Lymphocytes Percent Auto 21.8 % (20-40); Mean Corpuscular HGB Conc 34.7 g/dl (31.0-35.0); Mean Corpuscular Hemoglobin 26.5 pg (27.0-33.0); Mean Corpuscular Volume 76.4 fL (80.0-98.0); Mean Platelet Volume 10.1 fL (9.4-12.3); Monocytes Absolute Auto 0.7 X10*3/uL (0.1-1.2); Monocytes Percent Auto 6.8 % (2-11); Neutrophils Absolute Auto 6.4 x10*3/uL (2.0-8.3); Neutrophils Percent Auto 66.8 % (45-73); Nitrite Urine Negative (Negative); PH 5.5 (5.0-9.0); Platelet Count 291 X10*3/uL (160-400); Red Blood Count 4.57 X10*6/uL (4.20-5.50); Red Cell Distribution Width 14.3 % (11.0-16.0); Specific Gravity - Urine 1.015 (1.005-1.025); Urine Blood Negative (Negative); Urine Ketones Negative (Negative); Urine Protein Negative (Neg-Trace); White Blood Count 9.6 X10*3/uL (4.8-10.8)
[2024-08-25 17:47] LABS: Alanine Aminotransferase 40 U/L (0-31); Albumin Level 3.9 g/dL (3.5-5.0); Alkaline Phosphatase 51 U/L (39-117); Anion Gap 12 (12-20); Aspartate Amino Transferase 30 U/L (5-31); Bilirubin Total 0.4 mg/dL (0.0-1.0); Blood Urea Nitrogen 10 mg/dL (9-16); Calcium 8.5 mg/dL (8.4-10.2); Carbon Dioxide 23 mmol/L (22-29); Chloride 108 mmol/L (96-108); Creatinine Clr Calc Pharmacy 139.9; Estimated Glomerular Filt Rate > 60; Glucose Random 86 mg/dL (60-115); Magnesium 1.8 mg/dL (1.6-2.6); Potassium 3.7 mmol/L (3.3-5.1); Sodium 139 mmol/L (135-145); Total Protein 7.1 g/dL (6.5-8.0)
[2024-08-25 17:53] LABS: B Type Natriuretic Peptide 24 pg/mL (<100)
[2024-08-25 17:54] LABS: Troponin-I High Sensitivity < 2.7 ng/L (<3.5-17.0)
[2024-08-25 18:14] LABS: Influenza A PCR NEGATIVE (Negative); Influenza B PCR NEGATIVE (Negative); Resp Syncy Virus RNA Qual PCR NEGATIVE (Negative); SARS COV2 PCR INHOUSE NEGATIVE (Negative)
[2024-08-25 18:28] LABS: TSH reflex Free T4 2.05 uIU/mL (0.32-4.0)
[2024-08-25 19:10] VITALS: BP 149/78; PULSE 74; RESP 17; TEMP 36.4; O2SAT 98
[2024-08-25] MEDS: ondansetron HCL 4 MG/2 ML VIAL IVPUSH (19:21)
[2024-08-25] MEDS: Acetaminophen 1,000 MG/100 ML PIGGYBACK 400 MG IV (19:21)
[2024-08-25 19:23] LABS: Lipase 26 U/L (8-78)
[2024-08-25 19:26] LABS: HCG Quantitative < 2 mIU/mL
--- NOTE | 2024-08-25 19:27 | PC.NURSE ---
this rn assumed care of pt, pt a&ox4, respirations even and unlabored. 20G placed in left ac, pt medicated per aug, vss. rt at bedside completing breathing treatment.
[2024-08-25 19:28] VITALS: PULSE 84; RESP 18; O2SAT 94
[2024-08-25] MEDS: Albuterol/Iprat 2.5/0.5MG 3 ML AMPUL.NEB INHALE (19:28)
[2024-08-25] MEDS: levoFLOXacin/D5W 750 MG/150 ML PIGGYBACK 100 MG IV (19:52)
[2024-08-25 20:27] VITALS: BP 141/92; PULSE 86; RESP 20; TEMP 36.6; O2SAT 98
[2024-08-25] MEDS: iohexoL 350 MG/ML 100 ML INFUS..BTL IV (22:07)
[2024-08-25 22:13] VITALS: BP 140/76; PULSE 84; RESP 20; TEMP 36.6; O2SAT 98
[2024-08-25] MEDS: Morphine Sulfate 2 MG/ML CARTRIDGE IVPUSH (23:14)
[2024-08-26 00:29] VITALS: BP 129/89; PULSE 78; RESP 19; TEMP 36.6; O2SAT 99
[2024-08-26 00:30] VITALS: BP 129/89; PULSE 78; RESP 19; TEMP 36.6; O2SAT 99
== END 2024-08-26 00:30 | disposition home or self-care (01) ==
PROVIDERS: Physician Assistant Medical; Emergency Provider Emergency Medicine; PCP Internal Medicine
DX: R10.13 Epigastric pain (principal); M79.661 Pain in right lower leg; Z03.818 Encounter for observation for suspected exposure to other biological agents ruled out; J45.909 Unspecified asthma, uncomplicated; E66.9 Obesity, unspecified; Z68.41 Body mass index [BMI] 40.0-44.9, adult; Z79.899 Other long term (current) drug therapy
CPT/HCPCS: 0241U; 71046; 74177; 80053; 81003; 83690; 83735; 83880; 84443; 84484; 84702; 85025; 87040; 93005; 93971; 94640; 96365; 96366; 96375; 99285; J0131; J1956; J2270; J2405; Q9967

== ENCOUNTER → 2024-08-25 17:02 | Outpatient (BNV) | payer OTHER, SELFPAY | PROVIDERS: Emergency Provider Emergency Medicine; PCP Internal Medicine; Visit Provider Internal Medicine | DX: M79.89 Other specified soft tissue disorders (principal); R53.1 Weakness | CPT/HCPCS: 93010 ==

== ENCOUNTER → 2024-08-25 17:04 | Outpatient (BNV) | payer OTHER, SELFPAY | PROVIDERS: Emergency Provider Emergency Medicine; PCP Internal Medicine; Visit Provider Radiology Diagnostic Radiology | DX: K76.0 Fatty (change of) liver, not elsewhere classified (principal) | CPT/HCPCS: 71046; 74177; 93971 ==

== ENCOUNTER 2024-08-31 12:26 | Outpatient (AMB) | payer OTHER, SELFPAY ==
[2024-08-31 12:54] VITALS: BP 118/80; PULSE 92; TEMP 36.2; O2SAT 95; BMI 40.6
--- NOTE | 2024-08-31 12:54 | A.OFFPC_ITS ---
Vital Signs 08/31/24 12:54 Height 5 ft 9 in Weight 275 lb 4 oz BMI 40.6 BP 118/80 Blood Pressure Location Lt brachial Position Sitting Pulse 92 Pulse Source Pulse Oximeter Temp 97.1 F Temp Source Temporal Artery Scan Pulse Oximetry (%) 95 Oxygen Delivery Method Room Air Intake [place] [facility] [place] liver, fatigue and sob Wildlife Veterinarian Required: No Wildlife Veterinarian Name: Ping Martinez PA-C Information Interpreted: non-clinical & clinical Accompanied by: Daughter Allergies aspirin [Aspirin] Allergy (Severe, Verified 08/31/24 13:55) DIFFICULTY BREATHING, tracheal swelling Penicillins Allergy (Severe, Verified 08/31/24 13:55) DIFFICULTY BREATHING Medication List - Last Reconciled 08/31/24 by Ping Martinez PA-C albuterol sulfate 2.5 mg (3 mL) inhalation Q6H PRN 30 days albuterol sulfate 90 mcg/actuation 2 puffs PO Q8H PRN 30 days azelastine 0.05% 1 drp ophthalmic (eye) BID PRN wfsiejujql-elxtqmfwcohqc-exed 50-325-40 mg 1 tab PO Q6H PRN 30 days citalopram 10 mg PO QAM doxepin 300 mg PO BEDTIME levofloxacin 750 mg PO DAILY lithium carbonate 300 mg PO BID miscellaneous medical supply 1 ea miscellaneous DAILY orphenadrine citrate ER 100 mg PO BID PRN 5 days zolpidem 10 mg PO BEDTIME PRN Tobacco use date assessed: 08/23/24 Dental Screening Dental Screen Date: 08/23/24 [facility] Medical History (Updated 08/31/24 @ 14:00 by Ping Martinez PA-C) Fatigue History of bacterial pneumonia Morbid obesity due to excess calories Lymphadenopathy, inguinal Chronic diarrhea Hemorrhoids Class 2 obesity with body mass index (BMI) of 39.0 to 39.9 in adult Moderate asthma Anxiety Pain of right heel Hx of allergic rhinitis Hx of bipolar disorder Asthma Surgical History History of carpal tunnel release History of endometrial ablation History of open reduction and internal fixation (ORIF) procedure History of bilateral tubal ligation History of tonsillectomy and adenoidectomy Hx of shoulder surgery Tubal ligation status Family History Mother Hypertension Father No problems noted. Social History Housing: Apartment Alcohol intake: never Patient Tobacco Use Status: Never used Tobacco e-Cigarette/Vaping Use: Never Used Second Hand Smoke Exposure: No Substance Use Type: Marijuana service: No Current occupational status: unemployed Sexual orientation: Straight/Heterosexual Gender identity: Female Cognitive needs: No Hearing needs: No Vision needs: Yes Female Reproductive History Menstrual Age of Menarche: 10 Questionnaire Thrive Questionnaire Date Thrive assessed: 08/23/24 AJ-7 AMB Questionnaire AJ-7 Date AJ - 7 assessed: 08/23/24 Source: Developed by Drs. Davy Ardon, Sulma Fletcher, Nestor Shane and colleagues, with an educational john from [employer]. Physical exam (Primary Care) Vital Signs: Last Vital Signs Temp 97.1 F 08/31/24 12:54 Pulse 92 08/31/24 12:54 BP 118/80 08/31/24 12:54 Pulse Ox 95 08/31/24 12:54 Oxygen Delivery Method Room Air 08/31/24 12:54 Care Plan Goal for BP management: <130/80 at goal BMI result Body Mass Index 40.6 BMI Assessment/Plan discussion: High BMI High, discussed plan: lifestyle, weight reduction, dietary, physical activity and alcohol moderation Tobacco/Smoking Status: Tobacco use Status Tobacco use date assessed 08/23/24 08/31/24 12:56 Patient Tobacco Use Status Never used Tobacco 08/31/24 12:56 e-Cigarette/Vaping Use Never Used 08/31/24 12:56 Thrive Assessment: Date of Thrive Assessment Date Thrive assessed 08/23/24 08/31/24 12:56 Coding Level of Care Code Est Pt Level 4 (01670) Complex EM visit Add On G2211 Diagnoses History of bacterial pneumonia Z87.01 Fatigue R53.83 Fatty liver K76.0 Assessment & Plan Assessment & Plan (1) History of bacterial pneumonia: Code(s): Z87.01 - Personal history of pneumonia (recurrent) Category: Medical Plan: Completion of a course of Levofloxacin for five days addressed the pneumonia. A follow-up chest radiograph will be conducted to confirm resolution and evaluate for any ongoing issues. (2) Fatigue: Code(s): R53.83 - Other fatigue Category: Medical Plan: Ongoing fatigue post-treatment indicates the need for additional assessments. Checking magnesium and thyroid levels will determine if these contribute to symptoms. Management plans will adjust based on these results. (3) Fatty liver: Code(s): K76.0 - Fatty (change of) liver, not elsewhere classified Category: Medical Plan: We will monitor liver function tests and discuss follow-up evaluations in light of existing hepatic steatosis. Further lifestyle modifications may be considered at subsequent visits. Plan Plan Patient was informed and verbally consented to the use of an ambient scribe for clinic note documentation during this visit. 1. Bacterial Pneumonia Completion of a course of Levofloxacin for five days addressed the pneumonia. A follow-up chest radiograph will be conducted to confirm resolution and evaluate for any ongoing issues. 2. Hepatic Steatosis We will monitor liver function tests and discuss follow-up evaluations in light of existing hepatic steatosis. Further lifestyle modifications may be considered at subsequent visits. 3. Fatigue Ongoing fatigue post-treatment indicates the need for additional assessments. Checking magnesium and thyroid levels will determine if these contribute to symptoms. Management plans will adjust based on these results. 4. Shortness Of Breath Continued shortness of breath will lead to further testing and potentially monitor oxygenation levels. Discussion Notes I discussed with the patient the persistence of fatigue and shortness of breath post-bacterial pneumonia treatment, and the potential implications of hepatic steatosis as observed on CT scan of abd/pelvis. The management plan included conducting a follow-up chest x-ray to evaluate the resolution status of pneumonia and checking various blood parameters including magnesium levels to assess fatigue-related concerns. I offered anticipatory guidance for monitoring symptoms at home, and to seek care if worsening respiratory symptoms or significant changes occur. We reviewed options and decided on no immediate changes to medication, as treatment has included proper antibiotic use. We also communicated clearly the importance of lifestyle modifications, with future plans to target hepatic health. Follow-up appointments were planned accordingly, though specifics were not discussed during today?s visit. Orders: Orders Complete Blood Count Auto Diff Today Z00.00 - Encounter for general adult m edical examination without abnormal findings Liver Panel Today Z00.00 - Encounter for general adult medical examination without abnormal findings B Type Natriuretic Peptide Today R60.0 - Localized edema C Reactive Protein Today Z00.00 - Encounter for general adult medical examination without abnormal findings Vitamin B12 and Folate Today Z00. - Encounter for general adult medical examination without abnormal findings Vitamin A Today . - Encounter for general adult medical examination without abnormal findings Comprehensive Met. Panel Today . - Encounter for general adult medical examination without abnormal findings Magnesium Today . - Encounter for general adult medical examination without abnormal findings Erythrocyte Sedimentation Rate Today . - Encounter for general adult medical examination without abnormal findings Vitamin B1 Today . - Encounter for general adult medical examination without abnormal findings Zinc Today . - Encounter for general adult medical examination without abnormal findings Parathyroid Hormone Intact Today . - Encounter for general adult medical examination without abnormal findings Phosphorus Today . - Encounter for general adult medical examination without abnormal findings XR chest 2V Today Z87.01 - Personal history of pneumonia (recurrent) Patient Instructions: Patient Instructions - Continue monitoring symptoms of fatigue and seek medical attention if respiratory distress increases or new symptoms appear. - Follow up with recommended blood work and chest x-ray as advised. - Maintain hydration, especially post-diarrhea, to manage possible electrolyte imbalances. - Monitor energy levels and engage in light activity as tolerated, avoiding exhaustion. - Return to clinic for further evaluation if symptoms persist or worsen. Scribe Plan - Not visible on output: History of Present Illness The patient is a 38-year-old female presenting with fatigue and dyspnea post- diagnosis of bacterial pneumonia. She was initially treated with levofloxacin for five days, during which she reported mild improvement in her pulmonary symptoms. Despite the resolution of her cough, she continues to experience significant fatigue and shortness of breath. The fatigue is compounded by abdominal discomfort on one side and intermittent diarrhea. Diagnostic imaging previously revealed hepatic steatosis, raising concerns about potential implications on her energy levels. Laboratory results have been noted as normal during recent evaluations, with no findings pointing to acute abnormalities. There is a noted improvement in terms of the absence of cough and chest pain, yet the fatigue and respiratory limitations surely suggest ongoing systemic involvement. Social History - The patient did not attend work on Tuesday, Tuesday, and Tuesday following her hospital visit. - No additional social determinants of health were directly discussed in the conversation. Review of Systems - Constitutional: Reports fatigue and lack of energy - Respiratory: Reports shortness of breath - Gastrointestinal: Reports localized abdominal pain and diarrhea Physical Exam Appearance: Alert. Oriented X3. No acute distress. Head: Normal external exam. Normocephalic. Atraumatic. Eyes: Pupils are equal, round, and reactive to light. Extraocular movements intact. Conjunctiva and sclera normal. Eyelids normal. Ears: External auditory canal normal. Tympanic membranes normal. Throat: Pharynx normal. Uvula midline. Moist mucous membranes. Neck: Normal inspection. Neck supple. Full range of motion. No adenopathy. Thyroid Normal. No meningeal signs. No neck mass noted. Cardiovascular: Normal heart rate and rhythm. Heart sound normal. No murmurs noted. Pulses normal throughout. Respiratory: No respiratory distress. Painless inspiration. Breath sounds normal. No wheezes/rales/rhonchi noted. Chest nontender. No accessory muscle usage noted or decreased air movement noted. Abdomen: Soft and nontender. Bowel sounds normal in all 4 quadrants. No distention noted. No organomegaly noted. No visible injury noted. Reports pain on the side of the abdomen. Back: No costovertebral angle tenderness. Full range of motion noted. Skin: Skin warm and dry. Normal skin color. Normal skin turgor. No rashes/lesions/lacerations noted. Extremities: No lower extremity edema. No calf tenderness noted. Extremities exhibit normal range of motion. Extremities nontender. Neuro: Oriented X 3. No motor deficit. No sensory deficit. Reflexes normal. Results - Imaging: Abdominal tomography indicating presence of hepatic steatosis - Lab Work: Recent labs have returned with normal findings
--- OUTSIDE RECORDS SUMMARY | 2024-08-31 14:54 | XMS_ITS | Clinical Summary ---
Author Organization [employer] Address [address] [place] [address] [address] [place] [address] Care Team Providers Care Parachute Marker Name Role Phone Unavailable Primary Care Provider [...] HPV mRNA E6/E7 Not Detected NOT DETECTED [facility] Comment: This test was performed using the APTIMA(R) HPV Assay ([employer] This assay detects E6/E7 viral messenger RNA (mRNA) from 14 high-risk HPV types (16,18,31,33,35,39,45,51, 52,56,58,59,66,68). For additional information please refer to: http://education.[employer].Twined/faq/CDP192x1 (This link is being provided for informational/ educational purposes only.) Test Performed by Ray Meraz, [facility], [address] [place] [address] Billy Robertson M.D., Ph.D., Director of Laboratories , [facility] [id number] Please note: ??Effective 02/23/2016, HPV testing will be performed using [employer]'s APTIMA test which targets mRNA. Detecting mRNA instead of DNA, as in older methods, offers significant improvements in specificity. 03/22/2017 3:29 PM EDT us Historical Provider HISTORICAL/NON ORDERABLE LABS Final Result [facility] [address] from Last 3 Months or Most Recently Relevant to Health Maintenance
--- OUTSIDE RECORDS SUMMARY | 2024-08-31 14:54 | XMS_ITS | Encounter Summary ---
Author Organization [employer] Address [address] [facility] [address] [place] [address] Care Team Providers Care Teacher Early Childhood Development Name Role Phone Sania Watt MD Primary Care Provide r Reason for Visit * Reason Onset Date Comments New Patient Appt 11/10/2022 Encounter Details Date Type Department Care Team ([facility] st Contact Info) Description 11/10/2022 Telephone [facility] [address] [place], [place] [phone] Sania Watt MD [address] [place] [address] New Patient Appt Social History Tobacco Use [...] left voicemail to give a call at [phone]. documented in this encounter Plan of Treatment Not on file documented as of this encounter Visit Diagnoses Not on filedocumented in this encounter Care Teams Teacher Early Childhood Development Relationship Specialty Start Date End Date Sania Watt MD [address] [place] [address] PCP - General Family Medicine 02/22/18 06/30/23 documented as of this encounter
== END 2024-08-31 13:33 | disposition home or self-care (01) ==
LOC: HO.HMCH 12:26
PROVIDERS: PCP Internal Medicine; Visit Provider Physician Assistant Medical
DX: Z87.01 Personal history of pneumonia (recurrent) (principal); R53.83 Other fatigue; K76.0 Fatty (change of) liver, not elsewhere classified

== ENCOUNTER → 2024-08-31 12:26 | Outpatient (BNVA) | payer OTHER, SELFPAY | PROVIDERS: PCP Internal Medicine; Visit Provider Physician Assistant Medical | DX: R53.83 Other fatigue (principal); K76.0 Fatty (change of) liver, not elsewhere classified; Z87.01 Personal history of pneumonia (recurrent) | CPT/HCPCS: 99212 ==

== ENCOUNTER 2024-09-04 07:28 | Outpatient (REF) | payer OTHER, SELFPAY ==
--- NOTE | ~2024-09-04 | XR_ITS ---
EXAMINATION: XR CHEST CLINICAL INFORMATION: Z87.01 - Personal history of pneumonia (recurrent) COMPARISON: 08/25/2024, 06/06/2024, 08/22/2023. TECHNIQUE: 2 views of the chest were obtained. FINDINGS: The cardiac, hilar, and mediastinal contours are normal. Low lung volumes with mild bronchovascular crowding in the perihilar regions. Similar appearance to 08/25/2024. Lungs otherwise appear clear. There is no pneumothorax or pleural effusion. There is no focal osseous or soft tissue abnormality. XR/XR chest 2V IMPRESSION: 1. Low lung volumes with mild bronchovascular crowding. Within these confines, no definite active disease. Electronically signed by: Mg Glass MD 09/04/2024 08:29 AM EDT
[2024-09-04 07:45] LABS: MANUAL DIFF FLAG NO
[2024-09-04 08:13] LABS: Basophils Percent Auto 0.4 % (0-2); Eosinophils Absolute Auto 0.5 X10*3/uL (0.0-0.4); Eosinophils Percent Auto 4.8 % (0-4); Hematocrit 36.1 % (37.0-47.0); Hemoglobin 12.6 g/dl (12.0-16.0); Imm Gran Abs Auto 0.05 X10*3/uL (0.00-0.03); Imm Gran Pct Auto 0.5 % (0.0-0.4); Lymphocytes Absolute Auto 2.4 X10*3/uL (1.2-4.9); Lymphocytes Percent Auto 24.8 % (20-40); Mean Corpuscular HGB Conc 34.9 g/dl (31.0-35.0); Mean Corpuscular Hemoglobin 26.9 pg (27.0-33.0); Mean Corpuscular Volume 77.1 fL (80.0-98.0); Mean Platelet Volume 10.5 fL (9.4-12.3); Monocytes Absolute Auto 0.7 X10*3/uL (0.1-1.2); Neutrophils Absolute Auto 6.1 x10*3/uL (2.0-8.3); Neutrophils Percent Auto 62.5 % (45-73); Platelet Count 309 X10*3/uL (160-400); Red Blood Count 4.68 X10*6/uL (4.20-5.50); Red Cell Distribution Width 14.3 % (11.0-16.0); White Blood Count 9.7 X10*3/uL (4.8-10.8)
[2024-09-04 08:50] LABS: Erythrocyte Sedimentation Rate 7 MM/HR (0-20)
[2024-09-04 08:54] LABS: B Type Natriuretic Peptide 20 pg/mL (<100); Parathyroid Hormone Intact 66.6 pg/mL (8.7-77.1)
[2024-09-04 08:55] LABS: Alanine Aminotransferase 32 U/L (0-31); Albumin Level 3.8 g/dL (3.5-5.0); Alkaline Phosphatase 53 U/L (39-117); Anion Gap 8 (12-20); Aspartate Amino Transferase 25 U/L (5-31); Bilirubin Direct 0.1 mg/dL (0.0-0.5); Bilirubin Total 0.3 mg/dL (0.0-1.0); Blood Urea Nitrogen 13 mg/dL (9-16); C Reactive Protein 0.46 mg/dL (< or = 0.50); Calcium 8.8 mg/dL (8.4-10.2); Carbon Dioxide 23 mmol/L (22-29); Chloride 112 mmol/L (96-108); Estimated Glomerular Filt Rate > 60; Glucose Random 98 mg/dL (60-115); Magnesium 1.9 mg/dL (1.6-2.6); Phosphorus 2.8 mg/dL (2.7-4.5); Potassium 3.8 mmol/L (3.3-5.1); Sodium 139 mmol/L (135-145); Total Protein 6.8 g/dL (6.5-8.0)
[2024-09-04 09:25] LABS: Folate 10.2 ng/mL (> or = 4.0); Vitamin B12 395 pg/mL (200-900)
[2024-09-07 12:59] LABS: Vitamin A 47 mcg/dL (38-98)
[2024-09-07 21:42] LABS: Zinc 63 mcg/dL (60-130)
[2024-09-11 14:48] LABS: Vitamin B1 <6 nmol/L (8-30)
== END 2024-09-04 07:29 | disposition home or self-care (01) ==
LOC: HO.XRAY 07:28
PROVIDERS: PCP Internal Medicine; Visit Provider Physician Assistant Medical
DX: Z00.00 Encounter for general adult medical examination without abnormal findings (principal); R60.0 Localized edema; Z87.01 Personal history of pneumonia (recurrent)
CPT/HCPCS: 36415; 71046; 80053; 82248; 82607; 82746; 83735; 83880; 83970; 84100; 84425; 84590; 84630; 85025; 85652; 86140

== ENCOUNTER → 2024-09-04 07:44 | Outpatient (BNV) | payer OTHER, SELFPAY | PROVIDERS: PCP Internal Medicine; Visit Provider Radiology Diagnostic Radiology | DX: R91.8 Other nonspecific abnormal finding of lung field (principal) | CPT/HCPCS: 71046 ==

== ENCOUNTER 2024-09-19 20:40 | Emergency (ER) | payer OTHER, SELFPAY ==
[2024-09-19 20:44] VITALS: BP 127/84; PULSE 92; RESP 18; TEMP 36.6; O2SAT 97; BMI 42.1
--- NOTE | 2024-09-19 20:48 | ED_ITS ---
HPI - General Adult General Chief complaint: Abdominal Pain Stated complaint: abd/back pain Time Seen by Provider: 09/19/24 21:14 Source: patient Mode of arrival: ambulatory Limitations: no limitations History of Present Illness ED Provider: parminder graf np HPI narrative: Patient is a 39-year-old female who presents emergency department for evaluation. Her initial triage states that she is experiencing left flank pain and abdominal pain. On further evaluation it seems that since yesterday she has been experiencing bilateral lower back pain just above the pelvis/hips and feels that the right is worse than the left. She states that she has experienced similar pain to this in the past for many years. She has previously trialed physical therapy, muscle relaxants, oxycodone, all of which she typically will take for about 3 days and then she is able to tolerate her symptoms. She has followed with her primary care doctor many times for this. She states that she has not previously seen a back specialist. By her account this pain is no different than what she has experienced previously. She states that yesterday she had a single episode of diarrhea described as a softer than normal stool, not liquidy. At that time she felt slightly nauseous as well but this has resolved. She is tolerating oral intake without vomiting. There is no change to her pain with oral intake, passing a bowel movement. Denies fevers, chills, chest pain, vomiting, hematemesis, diarrhea, constipation, hematochezia, melena, dysuria, urinary frequency, urinary urgency, urinary hesitancy, hematuria. Denies bladder bowel dysfunction, saddle paresthesias, radiation of pain to the lower extremities, numbness or tingling to the lower extremities. denies pelvic pain or abnormal vaginal discharge Related Data Home Medications ?Medication ?Instructions ?Recorded ?Confirmed citalopram 10 mg tablet 10 mg PO QAM 10/14/21 09/20/24 doxepin 150 mg capsule 300 mg PO BEDTIME 10/14/21 09/20/24 lithium carbonate 300 mg capsule 300 mg PO BID 10/14/21 09/20/24 zolpidem 10 mg tablet 10 mg PO BEDTIME PRN 02/01/24 09/20/24 Previous Rx's ?Medication ?Instructions ?Recorded azelastine 0.05 % eye drops 1 drp ophthalmic (eye) BID PRN 10/01/22 allergic symptoms #6 mL miscellaneous medical supply 1 ea miscellaneous DAILY #1 ea 10/01/22 orphenadrine citrate 100 mg 100 mg PO BID PRN muscle pain 5 02/01/24 tablet,extended release days #10 tabs albuterol sulfate 2.5 mg/3 mL 2.5 mg (3 mL) inhalation Q6H PRN 08/16/24 (0.083 %) solution for nebulization respiratory symptoms 30 days #75 mL albuterol sulfate 90 mcg/actuation 2 puff PO Q8H PRN for wheezing 30 08/16/24 aerosol inhaler days #8.5 grams zyweheyyks-xaljhzbhurzgv-napqflwh 1 tab PO Q6H PRN pain 30 days #20 08/23/24 50 mg-325 mg-40 mg tablet tabs tirzepatide (weight loss) 2.5 2.5 mg (0.5 mL) subcut QWEEK #2 mL 09/20/24 mg/0.5 mL subcutaneous pen injector (Zepbound) Allergies Allergy/AdvReac Type Severity Reaction Status Date / Time aspirin [Aspirin] Allergy Severe DIFFICULTY Verified 09/20/24 10:10 BREATHING, tracheal swelling Penicillins Allergy Severe DIFFICULTY Verified 09/20/24 10:10 BREATHING Review of Systems 2 Review of Systems: Yes all other systems are reviewed and are negative PMFSH Past Medical History Attestation statement: The following information was validated with the patient. Source: old records reviewed Medical History Prediabetes BMI 40.0-44.9, adult Hyperlipidemia Sclerosing mesenteritis Fatigue History of bacterial pneumonia Morbid obesity due to excess calories Lymphadenopathy, inguinal Chronic diarrhea Hemorrhoids Class 2 obesity with body mass index (BMI) of 39.0 to 39.9 in adult Moderate asthma Anxiety Pain of right heel Hx of allergic rhinitis Hx of bipolar disorder Asthma Surgical History History of carpal tunnel release History of endometrial ablation History of open reduction and internal fixation (ORIF) procedure History of bilateral tubal ligation History of tonsillectomy and adenoidectomy Hx of shoulder surgery Tubal ligation status Family History Family History Mother Hypertension Father No problems noted. Social History Social History Housing: Apartment Alcohol intake: never Patient Tobacco Use Status: Never used Tobacco e-Cigarette/Vaping Use: Never Used Second Hand Smoke Exposure: No Substance Use Type: Marijuana service: No Current occupational status: unemployed Sexual orientation: Straight/Heterosexual Gender identity: Female Cognitive needs: No Hearing needs: No Vision needs: Yes Physical Exam ED Vital Signs: Vital Signs - 24 hr 09/19/24 20:44 09/20/24 00:03 Temperature 97.9 F 97.7 F Pulse Rate 92 83 Respiratory Rate 18 18 Blood Pressure 127/84 134/99 H Pulse Oximetry 97 98 Oxygen Delivery Method Room Air Room Air BMI result Body Mass Index 42.1 Appearance: Alert.?Oriented to person, place and time. No acute distress.?Normal affect.?? Neck: Normal inspection.? Neck supple.?? CVS: Heart sounds normal. Normal heart rate and rhythm.? Pulses normal.?? Respiratory: No respiratory distress.? Lung sounds clear to auscultation bilaterally?? Abdomen: Soft and non-tender. No rebound tenderness at McBurney's point. Negative psoas sign. Negative Rovsing sign. Negative Gonzalez sign. No CVAT. Normoactive bowel sounds. No pulsatile mass.?? Back: Diffuse pain upon palpation of the bilateral lumbar paraspinal muscles. No midline lumbar spine tenderness, step-offs, deformities. No erythema or warmth. No rashes or lesions. Straight leg test is positive bilaterally Skin: Skin warm and dry.? Normal skin color.? Extremities: No lower extremity edema.? Neuro: Moves all extremities spontaneously. Sensation intact bilaterally. Ambulates with normal steady gait. Course Course Course Narrative: RME, this is a rapid medical exam performed by Mani Kumar please refer to primary provider for complete H&P- 39-year-old female presents for evaluation of left flank pain that radiates around to her left-sided abdomen. Denies any urinary symptoms. Plan for labs and urinalysis. Will defer any potential advanced imaging to primary ER provider Medications Administered Discontinued Medications Generic Name Dose Route Start Last Admin Trade Name Freq PRN Reason Stop Dose Admin Cyclobenzaprine HCl 10 mg 09/19/24 23:55 09/20/24 00:15 Cyclobenzaprine Hcl 10 Mg Tablet PO 09/19/24 23:56 10 mg ONCE ONE Administration Medical Decision Making Medical Decision Making [facility] Narrative: Patient is a 39-year-old female past medical history of obesity, asthma, or disorder, anxiety who presents emergency department for evaluation of acute on chronic lower back pain as per HPI. In the past has been affected from muscle relaxant as well as opioid analgesics short term. She has an appointment tomorrow with her primary care doctor. In the past she has never been seen by a spinal specialist, but plans to speak with her primary care doctor about this tomorrow given she has had ongoing symptoms for many years despite physical therapy. Her abdominal examination is benign she has no signs of systemic toxicity afebrile without tachycardia no hypotension. Examination is not consistent with acute abdomen at this time, no peritoneal signs tenderness upon my palpation or rebound tenderness, or guarding. She has no associated chest pain shortness of breath or URI symptoms, and pain is rather lower in her back than in the flank as originally stated. There is no associated CVA tenderness, no associated symptoms. Urinalysis is without evidence of infection or microscopic hematuria, does not favor pyelonephritis, renal colic, hydronephrosis. No acute abnormalities 2 LFTs or lipase and given benign abdominal examination I have a lower suspicion this is secondary to acute hepatobiliary etiology. HCG is negative unlikely ectopic . Denies concern for sexually transmitted infections, no endorsed pelvic pain, unlikely PID, lower suspicion clinically for TOA/torsion. Examination not consistent with cauda equina that would warrant emergent MRI imaging, no focal neurological deficits. Will try a muscle relaxant; cyclobenzaprine at this time for analgesia. She is ambulatory with a steady gait. Anticipate discharge home and outpatient follow-up with primary care doctor with strict return precautions. Anticipating [facility] system downtime this evening, remainder of documentation/notes to be in paper record Differential Diagnosis Differential Diagnoses: The differential diagnosis associated with the presentation includes (See narrative above) Admission/Observation Consideration of admission/observation: Escalation of care including admission/observation considered (See narrative above ) Lab Data [facility] Lab Attestation statement: I reviewed the patient's lab results. No leukocytosis significant anemia or thrombocytopenia. No electrolyte derangement. No EMORY. 09/19/24 21:12 09/19/24 21:12 Labs: Lab Results 09/19/24 Range/Units 21:12 WBC 10.3 (4.8-10.8) X10*3/uL RBC 4.52 (4.20-5.50) X10*6/uL Hgb 12.1 (12.0-16.0) g/dl Hct 34.6 L (37.0-47.0) % MCV 76.5 L (80.0-98.0) fL MCH 26.8 L (27.0-33.0) pg MCHC 35.0 (31.0-35.0) g/dl RDW 14.1 (11.0-16.0) % Plt Count 311 (160-400) X10*3/uL MPV 10.2 (9.4-12.3) fL Immature Gran % (Auto) 0.3 (0.0-0.4) % Neut % (Auto) 55.4 (45-73) % Lymph % (Auto) 32.5 (20-40) % Zavala % (Auto) 7.2 (2-11) % Eos % (Auto) 4.0 (0-4) % Baso % (Auto) 0.6 (0-2) % Lymph # (Auto) 3.3 (1.2-4.9) X10*3/uL Zavala # (Auto) 0.7 (0.1-1.2) X10*3/uL Eos # (Auto) 0.4 (0.0-0.4) X10*3/uL Baso # (Auto) 0.1 (0.0-0.2) X10*3/uL Abs Immat Gran (auto) 0.03 (0.00-0.03) X10*3/uL Absolute Neuts (auto) 5.7 (2.0-8.3) x10*3/uL Absolute Nucleated RBC 0.000 (0.0-0.012) X10*3/uL Nucleated RBC % (auto) 0.0 (0.0-0.2) /100WBC Sodium 137 (135-145) mmol/L Potassium 3.9 (3.3-5.1) mmol/L Chloride 109 H (96-108) mmol/L Carbon Dioxide 24 (22-29) mmol/L Anion Gap 8 L (12-20) BUN 13 (9-16) mg/dL Creatinine 0.81 (0.5-1.4) mg/dL Estim Creat Clear Calc 134.6 Estimated GFR > 60 Random Glucose 101 (60-115) mg/dL Calcium 9.2 (8.4-10.2) mg/dL Total Bilirubin 0.2 (0.0-1.0) mg/dL AST 26 (5-31) U/L ALT 34 H (0-31) U/L Alkaline Phosphatase 56 (39-117) U/L Total Protein 6.9 (6.5-8.0) g/dL Albumin 4.0 (3.5-5.0) g/dL Lipase 19 (8-78) U/L Beta HCG, Quant < 2 mIU/mL Urine Color Yellow Urine Appearance Clear Urine pH 6.0 (5.0-9.0) Ur Specific Jemison 1.010 (1.005-1.025) Urine Protein Negative (Neg-Trace) mg/dL Urine Glucose (UA) Negative (Negative) mg/dL Urine Ketones Negative (Negative) mg/dL Urine Blood Negative (Negative) Urine Nitrite Negative (Negative) Ur Leukocyte Esterase Negative (Negative) Urine RBC 0-2 (0-2) /HPF Urine WBC 0-5 (0-5) /HPF Ur Squamous Epith Cells 0-2 (0-2) /HPF Urine Bacteria None Seen (None Seen) Hyaline Casts 0-2 (0-2) /LPF Independent Historian Clinical information obtained from an independent historian. History obtained from or confirmed by: Parent External Record Review External record reviewed: Outpatient record Chronic Conditions Patient?s care impacted by: Other (See narrative above) Discharge Plan Discharge Clinical Impression: Lumbago Patient Disposition: Home, Self-Care Prescriptions: No Action albuterol sulfate 2.5 mg /3 mL (0.083 %) solution for nebulization 2.5 mg inhalation Q6H PRN (Reason: respiratory symptoms) 30 Days Qty: 75 1RF albuterol sulfate 90 mcg/actuation HFA aerosol inhaler 2 puff PO Q8H PRN (Reason: for wheezing) 30 Days Qty: 8.5 0RF doxepin 150 mg capsule 300 mg PO BEDTIME lithium carbonate 300 mg capsule 300 mg PO BID citalopram 10 mg tablet 10 mg PO QAM azelastine 0.05 % drops 1 drp ophthalmic (eye) BID PRN (Reason: allergic symptoms) Qty: 6 0RF miscellaneous medical supply Misc 1 ea miscellaneous DAILY Qty: 1 0RF Rx Instructions: face mask for nebulizer machine zolpidem 10 mg tablet 10 mg PO BEDTIME PRN orphenadrine citrate 100 mg tablet extended release 100 mg PO BID PRN (Reason: muscle pain) 5 Days Qty: 10 0RF Zepbound 2.5 mg/0.5 mL pen injector 2.5 mg subcut QWEEK Qty: 2 0RF Rx Instructions: for 4 weeks kbpabdahvi-qcatttrzqnruu-bmbx 50-325-40 mg tablet 1 tab PO Q6H PRN (Reason: pain) 30 Days Qty: 20 0RF Discharge Date/Time: 09/20/24 03:44 Print Language: French
--- OUTSIDE RECORDS SUMMARY | 2024-09-19 21:16 | XMS_ITS | Encounter Summary ---
Author Organization [employer] Address [address] [facility] [address] [place] [address] Care Team Providers Care Financial Institution Vice President Name Role Phone Sania Watt MD Primary Care Provide r Reason for Visit * Reason Onset Date Comments New Patient Appt 11/10/2022 Encounter Details Date Type Department Care Team ([facility] st Contact Info) Description 11/10/2022 Telephone [facility] [address] [place], [place] [phone] Sania Watt MD [address] [place] [address] New Patient Appt Social History Tobacco Use [...] left voicemail to give a call at [phone]. documented in this encounter Plan of Treatment Not on file documented as of this encounter Visit Diagnoses Not on filedocumented in this encounter Care Teams Financial Institution Vice President Relationship Specialty Start Date End Date Sania Watt MD [address] [place] [address] PCP - General Family Medicine 02/22/18 06/30/23 documented as of this encounter
--- OUTSIDE RECORDS SUMMARY | 2024-09-19 21:16 | XMS_ITS | Clinical Summary ---
Author Organization [employer] Address [address] [place] [address] 7 [place] [address] Care Team Providers Care Canal Boat Operator Name Role Phone Unavailable Primary Care Provider [...] HPV mRNA E6/E7 Not Detected NOT DETECTED [facility] Comment: This test was performed using the APTIMA(R) HPV Assay ([employer] This assay detects E6/E7 viral messenger RNA (mRNA) from 14 high-risk HPV types (16,18,31,33,35,39,45,51, 52,56,58,59,66,68). For additional information please refer to: http://education.[employer].AMEC/faq/UFL325n1 (This link is being provided for informational/ educational purposes only.) Test Performed by Ray Meraz, [employer] [facility], [address] [place] [address] Billy Robertson M.D., Ph.D., Director of Laboratories , [facility] [id number] Please note: ??Effective 02/23/2016, HPV testing will be performed using [employer]'s APTIMA test which targets mRNA. Detecting mRNA instead of DNA, as in older methods, offers significant improvements in specificity. 03/22/2017 3:29 PM EDT us Historical Provider HISTORICAL/NON ORDERABLE LABS Final Result [facility] [address] from Last 3 Months or Most Recently Relevant to Health Maintenance
[2024-09-19 21:19] LABS: Basophils Absolute Auto 0.1 X10*3/uL (0.0-0.2); Basophils Percent Auto 0.6 % (0-2); Eosinophils Absolute Auto 0.4 X10*3/uL (0.0-0.4); Hematocrit 34.6 % (37.0-47.0); Hemoglobin 12.1 g/dl (12.0-16.0); Imm Gran Abs Auto 0.03 X10*3/uL (0.00-0.03); Imm Gran Pct Auto 0.3 % (0.0-0.4); Lymphocytes Absolute Auto 3.3 X10*3/uL (1.2-4.9); Lymphocytes Percent Auto 32.5 % (20-40); MANUAL DIFF FLAG NO; Mean Corpuscular Hemoglobin 26.8 pg (27.0-33.0); Mean Corpuscular Volume 76.5 fL (80.0-98.0); Mean Platelet Volume 10.2 fL (9.4-12.3); Monocytes Absolute Auto 0.7 X10*3/uL (0.1-1.2); Monocytes Percent Auto 7.2 % (2-11); Neutrophils Absolute Auto 5.7 x10*3/uL (2.0-8.3); Neutrophils Percent Auto 55.4 % (45-73); Platelet Count 311 X10*3/uL (160-400); Red Blood Count 4.52 X10*6/uL (4.20-5.50); Red Cell Distribution Width 14.1 % (11.0-16.0); White Blood Count 10.3 X10*3/uL (4.8-10.8)
[2024-09-19 21:20] LABS: Appearance Urine Clear; Color Urine Yellow; Glucose Urine UA Negative (Negative); Leukocyte Esterase Urine Negative (Negative); Nitrite Urine Negative (Negative); Urine Blood Negative (Negative); Urine Ketones Negative (Negative); Urine Protein Negative (Neg-Trace)
[2024-09-19 21:25] LABS: Bacteria Urine None Seen (None Seen); Hyaline Casts Urine 0-2 /LPF (0-2); RBC Urine 0-2 /HPF (0-2); Squamous Epithelial Cell Urine 0-2 /HPF (0-2); WBC Urine 0-5 /HPF (0-5)
[2024-09-19 21:39] LABS: Alanine Aminotransferase 34 U/L (0-31); Alkaline Phosphatase 56 U/L (39-117); Anion Gap 8 (12-20); Aspartate Amino Transferase 26 U/L (5-31); Bilirubin Total 0.2 mg/dL (0.0-1.0); Blood Urea Nitrogen 13 mg/dL (9-16); Calcium 9.2 mg/dL (8.4-10.2); Carbon Dioxide 24 mmol/L (22-29); Chloride 109 mmol/L (96-108); Creatinine Clr Calc Pharmacy 134.6; Estimated Glomerular Filt Rate > 60; Glucose Random 101 mg/dL (60-115); Lipase 19 U/L (8-78); Potassium 3.9 mmol/L (3.3-5.1); Sodium 137 mmol/L (135-145); Total Protein 6.9 g/dL (6.5-8.0)
[2024-09-19 21:41] LABS: HCG Quantitative < 2 mIU/mL
[2024-09-20 00:03] VITALS: BP 134/99; PULSE 83; RESP 18; TEMP 36.5; O2SAT 98
[2024-09-20] MEDS: Cyclobenzaprine HCl 10 MG TABLET PO (00:15)
== END 2024-09-20 03:44 | disposition home or self-care (01) ==
PROVIDERS: Physician Assistant; Emergency Provider Emergency Medicine; PCP Internal Medicine
DX: R10.2 Pelvic and perineal pain (principal); M54.50 Low back pain, unspecified; Z79.899 Other long term (current) drug therapy
CPT/HCPCS: 36415; 80053; 81001; 83690; 84702; 85025; 99283; 99285

== ENCOUNTER 2024-09-20 08:25 | Outpatient (AMB) | payer OTHER, SELFPAY ==
--- OUTSIDE RECORDS SUMMARY | 2024-09-20 08:36 | XMS_ITS | Encounter Summary ---
Author Organization [employer] Address [address] [facility] [address] [place] [address] Care Team Providers Care Pig Machine Operator Name Role Phone Sania Watt MD Primary Care Provide r Reason for Visit * Reason Onset Date Comments New Patient Appt 11/10/2022 Encounter Details Date Type Department Care Team ([facility] st Contact Info) Description 11/10/2022 Telephone [facility] [address] [place], [place] [phone] Sania Watt MD [address] [place] [address] New Patient Appt Social History Tobacco Use [...] left voicemail to give a call at [phone]. documented in this encounter Plan of Treatment Not on file documented as of this encounter Visit Diagnoses Not on filedocumented in this encounter Care Teams Pig Machine Operator Relationship Specialty Start Date End Date Sania Watt MD [address] [place] [address] PCP - General Family Medicine 02/22/18 06/30/23 documented as of this encounter
--- OUTSIDE RECORDS SUMMARY | 2024-09-20 08:36 | XMS_ITS | Clinical Summary ---
Author Organization [employer] Address [address] [place] [address] [address] [place] [address] Care Team Providers Care Event Decorator And Designer Name Role Phone Unavailable Primary Care Provider [...] HPV mRNA E6/E7 Not Detected NOT DETECTED [facility] Comment: This test was performed using the APTIMA(R) HPV Assay ([employer] This assay detects E6/E7 viral messenger RNA (mRNA) from 14 high-risk HPV types (16,18,31,33,35,39,45,51, 52,56,58,59,66,68). For additional information please refer to: http://education.[employer]/faq/NSB274p7 (This link is being provided for informational/ educational purposes only.) Test Performed by Ray Meraz, [employer] [facility], [address] [place] [address] Billy Robertson M.D., Ph.D., Director of Laboratories , [facility] [id number] Please note: ??Effective 02/23/2016, HPV testing will be performed using [employer]'s APTIMA test which targets mRNA. Detecting mRNA instead of DNA, as in older methods, offers significant improvements in specificity. 03/22/2017 3:29 PM EDT us Historical Provider HISTORICAL/NON ORDERABLE LABS Final Result [facility] [address] from Last 3 Months or Most Recently Relevant to Health Maintenance
[2024-09-20 09:04] VITALS: BP 120/86; PULSE 83; O2SAT 97; BMI 40.9
--- NOTE | 2024-09-20 09:04 | A.OFFPC_ITS ---
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 Accompanied by: Daughter Allergies aspirin [Aspirin] Allergy (Severe, Verified 09/20/24 10:10) DIFFICULTY BREATHING, tracheal swelling Penicillins Allergy (Severe, Verified 09/20/24 10:10) DIFFICULTY BREATHING Medication List - Last Reconciled 09/20/24 by Ping Martinez PA-C albuterol sulfate 2.5 mg (3 mL) inhalation Q6H PRN 30 days albuterol sulfate 90 mcg/actuation 2 puffs PO Q8H PRN 30 days azelastine 0.05% 1 drp ophthalmic (eye) BID PRN ehrhawfxip-ktepazaoehvvd-dtfc 50-325-40 mg 1 tab PO Q6H PRN 30 days citalopram 10 mg PO QAM doxepin 300 mg PO BEDTIME lithium carbonate 300 mg PO BID miscellaneous medical supply 1 ea miscellaneous DAILY orphenadrine citrate ER 100 mg PO BID PRN 5 days tirzepatide (weight loss) (Zepbound) 2.5 mg (0.5 mL) subcut QWEEK zolpidem 10 mg PO BEDTIME PRN Tobacco use date assessed: 08/23/24 Dental Screening Dental Screen Date: 09/20/24 Did you have a dental visit in the last 12 months?: No Did you have a dental problem in the last 6 months where you did not have access to dental care?: No Was dental information given to patient?: Patient has dentist HPI follow up HPI Details History of Present Illness The patient is a 39-year-old female presenting with right abd pain believes it might be related to her fatty liver. She was recently treated for bacterial pneumonia. Reports she is feeling much better after treating herself with the antibiotics she is no longer feeling fatigue or short of breath. She never had a cough when she had the pneumonia. She is concerned today due to she continues to have right-sided abdominal pain believes it might be related to her fatty L after she had a CT scan in August of this year at the emergency department at [facility] which revealed Hepatic steatosis and Stable mesenteric fat stranding favoring sclerosing mesenteritis. Patient reports concerns for diabetes reports symptoms of excessive thirst and nocturia. She would like to be tested for diabetes at this time. Patient reports that her primary care provider Dr. Rita Newman had recommended either bariatric surgery or being on weight loss injections. Therefore we will attempt weight loss injections as patient is not interested in bariatric surgery. Dr. Breaux recommended Zepbound. Sent at this time for pre diabetes, obesity, hyperlipidemia. Social History - Nutrition-related concerns discussing options for weight management. - Interest in injectable therapies for w eight management. [facility] Medical History Prediabetes BMI 40.0-44.9, adult Hyperlipidemia Sclerosing mesenteritis Fatigue History of bacterial pneumonia Morbid obesity due to excess calories Lymphadenopathy, inguinal Chronic diarrhea Hemorrhoids Class 2 obesity with body mass index (BMI) of 39.0 to 39.9 in adult Moderate asthma Anxiety Pain of right heel Hx of allergic rhinitis Hx of bipolar disorder Asthma Surgical History History of carpal tunnel release History of endometrial ablation History of open reduction and internal fixation (ORIF) procedure History of bilateral tubal ligation History of tonsillectomy and adenoidectomy Hx of shoulder surgery Tubal ligation status Family History Mother Hypertension Father No problems noted. Social History Housing: Apartment Alcohol intake: never Patient Tobacco Use Status: Never used Tobacco e-Cigarette/Vaping Use: Never Used Second Hand Smoke Exposure: No Substance Use Type: Marijuana service: No Current occupational status: unemployed Sexual orientation: Straight/Heterosexual Gender identity: Female Cognitive needs: No Hearing needs: No Vision needs: Yes Female Reproductive History Menstrual Age of Menarche: 10 Questionnaire Thrive Questionnaire Date Thrive assessed: 08/23/24 AJ-7 AMB Questionnaire AJ-7 Date AJ - 7 assessed: 08/23/24 Source: Developed by Drs. Davy Ardon, Sulma Fletcher, Nestor Shane and colleagues, with an educational john from [email or web address]. Physical exam (Primary Care) Vital Signs: Last Vital Signs Pulse 83 09/20/24 09:04 BP 120/86 09/20/24 09:04 Pulse Ox 97 09/20/24 09:04 Oxygen Delivery Method Room Air 09/20/24 09:04 Care Plan Goal for BP management: <130/80 at Goal BMI result Body Mass Index 40.9 BMI Assessment/Plan discussion: High BMI High, discussed plan: lifestyle, weight reduction, dietary, physical activity and alcohol moderation Tobacco/Smoking Status: Tobacco use Status Tobacco use date assessed 08/23/24 09/20/24 09:11 Patient Tobacco Use Status Never used Tobacco 09/20/24 09:11 e-Cigarette/Vaping Use Never Used 09/20/24 09:11 Thrive Assessment: Date of Thrive Assessment Date Thrive assessed 08/23/24 09/20/24 09:11 Const Other: Physical Exam Appearance: Alert. Oriented X3. No acute distress. Head: Normal external exam. Normocephalic. Atraumatic. Eyes: Pupils are equal, round, and reactive to light. Extraocular movements intact. Conjunctiva and sclera normal. Eyelids normal. Throat: Pharynx normal. Uvula midline. Moist mucous membranes. Neck: Normal inspection. Neck supple. Full range of motion. Cardiovascular: Normal heart rate and rhythm. Respiratory: No respiratory distress. Painless inspiration. Abdomen: Soft and nontender. Bowel sounds normal in all 4 quadrants. No distention noted. No organomegaly noted. No visible injury noted. Patient reports pain in the liver area and has a history of fatty liver and scar tissue in the intestines. Back:Full range of motion noted. Skin: Skin warm and dry. Extremities: Extremities exhibit normal range of motion. Neuro: Oriented X 3. Results AMB Hemoglobin A1c AMB Hemoglobin A1c 5.7 % Last Edit by GIBRAN Estrada on 09/20/24 09:39 Results Reviewed Results Reviewed: Laboratory Last Values Hgb A1c (Clinic) 5.7 % (4.0-6.0) 09/20/24 09:39 Coding Level of Care Code Est Pt Level 3 (98313) Complex EM visit Add On G2211 Diagnoses Abdominal pain R10.9 Sclerosing mesenteritis K65.4 Elevated liver enzymes R74.8 Transaminitis R74.01 Fatty liver K76.0 Hyperlipidemia E78.5 BMI 40.0-44.9, adult Z68.41 Prediabetes R73.03 Assessment & Plan Assessment & Plan (1) Abdominal pain: Code(s): R10.9 - Unspecified abdominal pain Category: Medical Plan: Patient reports right-sided abdominal pain. Patient has CT scan of abdomen pelvis August 2024 which revealed Hepatic steatosis. 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 Which may be causing her pain. Will refer to GI. Condition is chronic and stable will continue to monitor. (2) Sclerosing mesenteritis: Code(s): K65.4 - Sclerosing mesenteritis Category: Medical Plan: Condition is chronic and stable will continue to monitor and refer to GI for further evaluation management. (3) Elevated liver enzymes: Code(s): R74.8 - Abnormal levels of other serum enzymes Category: Medical Plan: Condition is chronic and stable will continue to monitor and refer to GI for further evaluation management. (4) Transaminitis: Code(s): R74.01 - Elevation of levels of liver transaminase levels Category: Medical Plan: Condition is chronic and stable will continue to monitor and refer to GI for further evaluation management. (5) Fatty liver: Code(s): K76.0 - Fatty (change of) liver, not elsewhere classified Category: Medical Plan: Condition is chronic and stable will continue to monitor and refer to GI for further evaluation management. (6) Hyperlipidemia: Code(s): E78.5 - Hyperlipidemia, unspecified Category: Medical Plan: LDL level goal less than 100. Patient to improve her diet and exercise regimen and follow-up with primary care provider for recheck lipid panel in 3-6 months. If continues to be elevated patient should be started on a statin. Condition is chronic and stable continue to monitor. (7) BMI 40.0-44.9, adult: Code(s): Z68.41 - Body mass index [BMI] 40.0-44.9, adult Category: Medical Plan: Patient to improve her diet and exercise regimen. Also discussed this case with Dr. Rita Breaux who recommended zepbound as patient is declining bariatric surgery at this time a referral. Condition is chronic and stable will continue to monitor. (8) Prediabetes: Code(s): R73.03 - Prediabetes Category: Medical Plan: Patient to improve her diet and exercise regimen. Also discussed this case with Dr. Rita Breaux who recommended zepbound as patient is declining bariatric surgery at this time a referral. Condition is chronic and stable will continue to monitor. Plan Plan Patient was informed and verbally consented to the use of an ambient scribe for clinic note documentation during this visit. 1. Prediabetes The discussion focused on dietary management, particularly reducing sugar intake, to manage prediabetes. The potential need for insulin therapy if diabetes develops was noted. Follow-up in one month is recommended if new medications are started. Insurance-related issues with medication approval should be promptly addressed. 2. Hepatomegaly Continued monitoring and potential dental scheduling coordinator referral for symptomatic management. 3. Frequent Thirst And Urination Potential Diabetes Symptoms A1C testing warranted for diabetes evaluation. 4. Bacterial Pneumonia Continued observational follow-up post-successful antibiotic therapy. 5. Fatty Liver Management includes lifestyle modifications and monitoring liver function. 6. Pain In Liver Area Further assessment required; symptomatic management ongoing. Discussion Notes During the visit, I discussed with the patient the diagnosis of prediabetes and the importance of dietary management, emphasizing sugar reduction to prevent the progression to diabetes. We reviewed the necessity of insulin injections in case of the development of diabetes and encouraged monitoring through regular follow-ups. The patient was advised to schedule a one-month follow-up if a new medication for prediabetes/weight loss Zepcound is initiated. Additionally, the patient was instructed on the importance of contacting her insurance provider if any issues arise regarding medication approval. Orders: Orders AMB Hemoglobin A1c Today Z13.9 - Encounter for screening, unspecified H pylori Ag Stool Today R10.9 - Unspecified abdominal pain Referrals Gastroenterology Referral K65.4 - Sclerosing mesenteritis, K76.0 - Fatty (change of) liver, not elsewhere classified, R74.01 - Elevation of levels of liver transaminase levels, R74.8 - Abnormal levels of other serum enzymes Medications: New tirzepatide (weight loss) (Zepbound) for 4 weeks 2.5 mg (0.5 mL) subcut QWEEK 2 mL 0RF E78.5 - Hyperlipidemia, unspecified, R73.03 - Prediabetes, Z68.41 - Body mass index [BMI] 40.0-44.9, adult Patient Instructions: Patient Instructions - Reduce sugar intake as part of dietary management to control prediabetes. - If starting new medication of Zepbound, schedule a follow-up in one month. - Contact the insurance company for any medication approval issues if Zepbound is not approved. - Monitor blood sugar levels regularly and seek care if levels become elevated.
== END 2024-09-20 09:43 | disposition home or self-care (01) ==
LOC: HO.HMCH 08:26
PROVIDERS: PCP Internal Medicine; Visit Provider Physician Assistant Medical
DX: Z13.9 Encounter for screening, unspecified (principal)

== ENCOUNTER → 2024-09-20 08:25 | Outpatient (BNVA) | payer OTHER, SELFPAY | PROVIDERS: PCP Internal Medicine; Visit Provider Physician Assistant Medical | DX: R10.9 Unspecified abdominal pain (principal); K65.4 Sclerosing mesenteritis; R74.8 Abnormal levels of other serum enzymes; R74.01 Elevation of levels of liver transaminase levels; K76.0 Fatty (change of) liver, not elsewhere classified; E78.5 Hyperlipidemia, unspecified; R73.03 Prediabetes | CPT/HCPCS: 83036; 99212 ==

== ENCOUNTER 2024-10-25 10:56 | Outpatient (AMB) | payer OTHER, SELFPAY ==
--- NOTE | 2024-10-25 11:07 | A.OFFPC_ITS ---
Vital Signs 10/25/24 11:08 Height 5 ft 9 in Weight 277 lb 8 oz BMI 41.0 BP 130/70 Blood Pressure Location Lt brachial Position Sitting Pulse 91 Pulse Source Pulse Oximeter Temp 97.1 F Temp Source Temporal Artery Scan Pulse Oximetry (%) 97 Oxygen Delivery Method Room Air Intake Visit Reasons: 1mth f/u Intake Note: Patient is here to follow up on HLD . Senior Quality Engineer Required: Yes Senior Quality Engineer Language: Kuwaiti Information Interpreted: non-clinical & clinical Home Economics Expert: Present Accompanied by: Daughter Allergies aspirin [Aspirin] Allergy (Severe, Verified 10/25/24 11:19) DIFFICULTY BREATHING, tracheal swelling Penicillins Allergy (Severe, Verified 10/25/24 11:19) DIFFICULTY BREATHING Medication List - Last Reconciled 10/25/24 by Ping Martinez PA-C albuterol sulfate 2.5 mg (3 mL) inhalation Q6H PRN 30 days albuterol sulfate 90 mcg/actuation 2 puffs PO Q8H PRN 30 days azelastine 0.05% 1 drp ophthalmic (eye) BID PRN vrpesaakma-nlihjeiihpoqs-dqlm 50-325-40 mg 1 tab PO Q6H PRN 30 days citalopram 10 mg PO QAM doxepin 300 mg PO BEDTIME lithium carbonate 300 mg PO BID miscellaneous medical supply 1 ea miscellaneous DAILY orphenadrine citrate ER 100 mg PO BID PRN 5 days tirzepatide (weight loss) (Zepbound) 2.5 mg (0.5 mL) subcut QWEEK zolpidem 10 mg PO BEDTIME PRN Tobacco use date assessed: 10/25/24 Dental Screening Dental Screen Date: 09/20/24 HPI 1mth f/u HPI Details The patient is a 39-year-old female presenting with concerns regarding fibromyalgia, weight management, and treatment for prediabetes. She has a history of fibromyalgia, and recent consultations highlight a need for a structured treatment plan. Patient was evaluated by arthritic provider and they sent over the no and they believe the patient has fibromyalgia and recommended PCP to treat her fibromyalgia pain. I discussed this with Dr. Janis Breaux and she recommended Celebrex although patient is severely allergic to any NSAIDs. Therefore we went with amitriptyline for fibromyalgia pain. She is diagnosed with prediabetes, and has morbid obesity we attempted to send Zebpound to the patient's pharmacy although patient is well since did not approve it therefore will attempt with metformin 500 mg daily. Patient will take the metformin 500 mg daily for weight loss and prediabetes. The patient is diagnosed with bipolar and currently being followed by psychiatrist currently on lithium, citalopram, zolpidem. She denies any SI or HI or any auditory or visual hallucinations or thoughts of self-injury. Feels like her bipolar/anxiety depression is controlled. Additionally, the patient experiences symptoms suggestive of sleep apnea, such as shortness of breath, warranting diagnostic evaluation via a sleep study. Social History - History of marijuana use in the past, not ongoing. - Weight concerns related to insurance l imitations on coverage for weight loss medications. - Emotional distress and depression asso ciated with weight issues. - Currently, under psychiatric care for bipolar disorder. [facility] Medical History Shortness of breath Snoring Fibromyalgia Prediabetes BMI 40.0-44.9, adult Hyperlipidemia Sclerosing mesenteritis Fatigue History of bacterial pneumonia Morbid obesity due to excess calories Lymphadenopathy, inguinal Chronic diarrhea Hemorrhoids Class 2 obesity with body mass index (BMI) of 39.0 to 39.9 in adult Moderate asthma Anxiety Pain of right heel Hx of allergic rhinitis Hx of bipolar disorder Asthma Surgical History History of carpal tunnel release History of endometrial ablation History of open reduction and internal fixation (ORIF) procedure History of bilateral tubal ligation History of tonsillectomy and adenoidectomy Hx of shoulder surgery Tubal ligation status Family History Mother Hypertension Father No problems noted. Social History Housing: Apartment Alcohol intake: never Patient Tobacco Use Status: Never used Tobacco e-Cigarette/Vaping Use: Never Used Second Hand Smoke Exposure: No Substance Use Type: Marijuana service: No Current occupational status: unemployed Sexual orientation: Straight/Heterosexual Gender identity: Female Cognitive needs: No Hearing needs: No Vision needs: Yes Female Reproductive History Menstrual Age of Menarche: 10 Questionnaire PHQ-9 Over the last 2 weeks, how often have you been bothered by any of the following problems? 1. Little interest or pleasure in doing things: not at all 2. Feeling down, depressed, or hopeless: not at all 3. Trouble falling or staying asleep, or sleeping too much: several days 4. Feeling tired or having little energy: nearly every day 5. Poor appetite or overeating: more than half the days 6. Feeling bad about yourself - or that you are a failure or have let yourself or your family down: not at all 7. Trouble concentrating on things, such as reading the newspaper or watching television: nearly every day 8. Moving or speaking so slowly that other people could have noticed. Or the opposite - being so fidgety or restless that you have been moving around a lot more than usual: nearly every day 9. Thoughts that you would be better off or of hurting yourself in some way: not at all Total score: 12 Depression Screening Interpretation: Positive Depression Screening Follow-up: Existing condition and In treatment Depression Screening Done: Yes 94153 - PHQ-9 Billing: Yes Source: Developed by Drs. Davy Ardon, Sulma Fletcher, Nestor Shane and colleagues, with an educational john from [employer]. Thrive Questionnaire Date Thrive assessed: 08/23/24 I am a: Patient What is your living situation today?: I have a steady place to live Within the past 12 months, did the food you bought not last and you didn't have the money to get more?: Never true Within the past 12 months, did you worry whether your food would run out before you got money to buy more?: Never true Do you have trouble paying for medicines?: No Do you have trouble getting transportation to medical appointments?: No Do you have trouble paying your heating and electricity bill?: No Do you have trouble taking care of your child, family member or friend?: No Do you have trouble with day-to-day activities such as bathing, preparing meals, shopping, managing finances, etc.?: No Are you currently unemployed and looking for a job?: No Are you interested in more education?: No Please select the resources that you would like help with: None Currently or been in a relationship where the following occur: No concerns reported THRIVE Score: 0 AUDIT C Alcohol Use Questionnaire (AUDIT-C) 1. How often do you have a drink containing alcohol?: Never Total Score: 0 Score Reviewed/Action Taken: No AJ-7 AMB Questionnaire AJ-7 Date AJ - 7 assessed: 10/25/24 Feeling nervous, anxious, or on edge: 2 = More than half the days Not being able to stop or control worryin = More than half the days Worrying too much about different things: 2 = More than half the days Trouble relaxin = More than half the days Being so restless that it is hard to sit still: 2 = More than half the days Becoming easily annoyed or irritable: 2 = More than half the days Feeling afraid as if something awful might happen: 0 = Not at all Total AJ-7 score (0-4 normal; 5-9 mild; 10-14 moderate; 15-21 severe): 12 Source: Developed by Drs. Davy Ardon, Sulma Fletcher, Nestor Shnae and colleagues, with an educational john from [employer]. AJ-7 Assessment Billing AJ-7 Assessment Tool: AJ-7 Assessment 24999 Physical exam (Primary Care) Vital Signs: Last Vital Signs Temp 97.1 F 10/25/24 11:08 Pulse 91 10/25/24 11:08 BP 130/70 10/25/24 11:08 Pulse Ox 97 10/25/24 11:08 Oxygen Delivery Method Room Air 10/25/24 11:08 Care Plan Goal for BP management: <130/90 at goal BMI result Body Mass Index 41.0 BMI Assessment/Plan discussion: High BMI High, discussed plan: lifestyle, weight reduction, dietary, physical activity and alcohol moderation Tobacco/Smoking Status: Tobacco use Status Tobacco use date assessed 10/25/24 10/25/24 11:13 Patient Tobacco Use Status Never used Tobacco 10/25/24 11:13 e-Cigarette/Vaping Use Never Used 10/25/24 11:13 PHQ-9: PHQ-9 Score PHQ-9: Total score 12 10/25/24 11:13 Depression Screening Interpretation: Positive Depression Screening Follow-up: Existing condition and In treatment Thrive Assessment: Date of Thrive Assessment Date Thrive assessed 08/23/24 10/25/24 11:13 Currently or been in a relationship where the following occur: No concerns reported Const Other: Appearance: Alert. Oriented X3. No acute distress. Head: Normal external exam. Normocephalic. Atraumatic. Eyes: Pupils are equal, round, and reactive to light. Extraocular movements intact. Conjunctiva and sclera normal. Eyelids normal. Throat: Pharynx normal. Uvula midline. Moist mucous membranes. Neck: Normal inspection. Neck supple. Full range of motion. Cardiovascular: Normal heart rate and rhythm. Heart sound normal. No murmurs noted. Pulses normal throughout. Respiratory: No respiratory distress. Painless inspiration. Breath sounds normal. No wheezes/rales/rhonchi noted. Chest nontender. No accessory muscle usage noted or decreased air movement noted. Abdomen: Soft and nontender. Back: No costovertebral angle tenderness. Full range of motion noted. Skin: Skin warm and dry. Normal skin color. Normal skin turgor. No rashes/lesions/lacerations noted. Extremities: No lower extremity edema. Extremities exhibit normal range of motion. Extremities nontender. Neuro: Oriented X 3. No motor deficit. No sensory deficit. Reflexes normal. Coding Level of Care Code Est Pt Level 4 (91621) Complex EM visit Add On G2211 Diagnoses BMI 40.0-44.9, adult Z68.41 Prediabetes R73.03 Fibromyalgia M79.7 Shortness of breath R06.02 Snoring R06.83 Bipolar disorder F31.9 Additional Codes PHQ-9 - 75247 - PHQ-9 Billing: Yes ([id number]) AJ-7 Assessment Billing - AJ-7 Assessment Tool: AJ-7 Assessment 20645 ([id number]) Assessment & Plan Assessment & Plan (1) BMI 40.0-44.9, adult: Code(s): Z68.41 - Body mass index [BMI] 40.0-44.9, adult Category: Medical Plan: No weight loss injectable medications approved by insurance; will attempt metformin 500 mg p.o. daily, consider diet and exercise interventions. (2) Prediabetes: Code(s): R73.03 - Prediabetes Category: Medical Plan: Patient will be started on metformin 500 mg daily for prediabetes and weight loss. Condition is chronic and stable continue to monitor. (3) Fibromyalgia: Code(s): M79.7 - Fibromyalgia Category: Medical Plan: Discuss potential treatment with amitriptyline 10 mg at night, considering depressive symptomatology, pending coordination with psychiatric management. Condition is chronic and stable will continue to monitor. (4) Shortness of breath: Code(s): R06.02 - Shortness of breath Category: Medical Plan: Due to history of prior cannabis smoking patient may have COPD. Will refer to pulmonology. Condition is stable continue to monitor. (5) Snoring: Code(s): R06.83 - Snoring Category: Medical Plan: Initiate sleep study to evaluate for sleep apnea diagnosis, pending further management strategies. Condition is stable continue to monitor. (6) Bipolar disorder: Code(s): F31.9 - Bipolar disorder, unspecified Category: Medical Plan: Psychiatric management continues with lithium, ongoing monitoring for depressive symptoms. Condition is chronic and stable will continue to monitor. Plan Plan Patient was informed and verbally consented to the use of an ambient scribe for clinic note documentation during this visit. 1. Fibromyalgia Discuss potential treatment with amitriptyline 10 mg at night, considering depressive symptomatology, pending coordination with psychiatric management. 2. Obesity No weight loss injectable medications approved by insurance; will start on metformin 500 mg daily, consider diet and exercise interventions. 3. Prediabetes Continue metformin; consider increased dose once approved. 4. Bipolar Disorder Psychiatric management continues with lithium, ongoing monitoring for depressive symptoms. 5. Possible Sleep Apnea Initiate sleep study to evaluate for sleep apnea diagnosis, pending further management strategies. A thorough discussion occurred with the patient regarding her primary concerns, including fibromyalgia, prediabetes, weight management, and potential sleep apnea. We reviewed the impact her health insurance ([employer]) has on obtaining approved weight loss medications and explored alternative management strategies. The benefits and potential side effects of medications for fibromyalgia, such as amitriptyline and duloxetine, were outlined. Coordination with psychiatric services for her bipolar disorder will include monitoring depressive episodes and medication side effects. The patient is referred for a sleep study to address potential sleep apnea. Follow-up will include assessing the outcome of this study, reviewing weight management options, and further discussing psychiatric care. Orders: Referrals Sleep Medicine Referral R06.83 - Snoring Pulmonology Referral F12.11 - Cannabis abuse, in remission, R06.02 - Shortness of breath Medications: New metformin ER 500 mg PO DAILY 30 tabs 0RF E78.5 - Hyperlipidemia, unspecified, R73.03 - Prediabetes, Z68.41 - Body mass index [BMI] 40.0-44.9, adult amitriptyline 10 mg PO DAILY 90 tabs 1RF M79.7 - Fibromyalgia Discontinued tirzepatide (weight loss) (Zepbound) for 4 weeks Discontinued Reason: Doctor's Order 2.5 mg (0.5 mL) subcut QWEEK 2 mL 0RF E78.5 - Hyperlipidemia, unspecified, R73.03 - Prediabetes, Z68.41 - Body mass index [BMI] 40.0-44.9, adult Patient Instructions: - Take medication as prescribed. - Follow up with your psychiatrist regularly. - Await instructions for a scheduled sleep study. - Focus on lifestyle changes like healthy diet and regular exercise for weight management. - Inform the office if experiencing severe medication side effects. - Await feedback on metformin dose adjustment. - Contact if further assistance or information is needed.
[2024-10-25 11:08] VITALS: BP 130/70; PULSE 91; TEMP 36.2; O2SAT 97; BMI 41.0
--- OUTSIDE RECORDS SUMMARY | 2024-10-25 12:07 | XMS_ITS | Clinical Summary ---
Author Organization [employer] Address [address] [place] [address] [address] [place] [address] Care Team Providers Care Wallboard Worker Name Role Phone Unavailable Primary Care Provider [...] HPV mRNA E6/E7 Not Detected NOT DETECTED [facility] Comment: This test was performed using the APTIMA(R) HPV Assay ([employer] This assay detects E6/E7 viral messenger RNA (mRNA) from 14 high-risk HPV types (16,18,31,33,35,39,45,51, 52,56,58,59,66,68). For additional information please refer to: http://education.[employer].com/faq/AYC362s0 (This link is being provided for informational/ educational purposes only.) Test Performed by [employer] [employer] [facility], [address] [place] [address] Billy Robertson M.D., Ph.D., Director of Laboratories , [facility] [id number] Please note: ??Effective 02/23/2016, HPV testing will be performed using [employer]s APTIMA test which targets mRNA. Detecting mRNA instead of DNA, as in older methods, offers significant improvements in specificity. 03/22/2017 3:29 PM EDT us Historical Provider MD HISTORICAL/NON ORDERABLE LABS Final Result [facility] [address] [place] [address], from Last 3 Months or Most Recently Relevant to Health Maintenance
--- OUTSIDE RECORDS SUMMARY | 2024-10-25 12:07 | XMS_ITS | Encounter Summary ---
Author Organization [facility] Address [address] [place] [address] [address] [address] Care Team Providers Care Story Reader Name Role Phone Sania Watt MD Primary Care Provide r Reason for Visit * Reason Onset Date Comments New Patient Appt 11/10/2022 Encounter Details Date Type Department Care Team ([facility] st Contact Info) Description 11/10/2022 Telephone [facility] [address] [place], [place] [phone] Sania Watt MD [address] [place] [address] New Patient Appt Social History Tobacco Use [...] left voicemail to give a call at [phone]. documented in this encounter Plan of Treatment Not on file documented as of this encounter Visit Diagnoses Not on filedocumented in this encounter Care Teams Story Reader Relationship Specialty Start Date End Date Sania Watt MD [address] [place] [address] PCP - General Family Medicine 02/22/18 06/30/23 documented as of this encounter
== END 2024-10-25 12:53 | disposition home or self-care (01) ==
LOC: HO.HMCH 10:57
PROVIDERS: PCP Internal Medicine; Visit Provider Physician Assistant Medical
DX: R73.03 Prediabetes (principal); Z68.41 Body mass index [BMI] 40.0-44.9, adult; F31.9 Bipolar disorder, unspecified; M79.7 Fibromyalgia; R06.02 Shortness of breath; R06.83 Snoring

== ENCOUNTER → 2024-10-25 10:56 | Outpatient (BNVA) | payer OTHER, SELFPAY | PROVIDERS: PCP Internal Medicine; Visit Provider Physician Assistant Medical | DX: E78.5 Hyperlipidemia, unspecified (principal); M79.7 Fibromyalgia; R73.03 Prediabetes; E66.01 Morbid (severe) obesity due to excess calories; F31.9 Bipolar disorder, unspecified; F41.9 Anxiety disorder, unspecified; R06.02 Shortness of breath; R06.83 Snoring; Z79.84 Long term (current) use of oral hypoglycemic drugs; Z68.41 Body mass index [BMI] 40.0-44.9, adult; Z79.899 Other long term (current) drug therapy | CPT/HCPCS: 96127; 99212 ==

== ENCOUNTER 2024-11-01 20:16 | Emergency (ER) | payer OTHER, SELFPAY ==
--- NOTE | ~2024-11-01 | XR_ITS ---
CLINICAL HISTORY: pain 3 views lumbar spine Comparison: None Findings: Mild levoscoliosis. No acute fractures or dislocation. Multilevel facet arthropathy pronounced at L5-S1. Mild degenerative disc disease at L4-L5 and L5-S1. IMPRESSION: No acute findings. This document has been electronically signed by: Beltran Daugherty MD on 11/01/2024 21:58:03
[2024-11-01 20:31] VITALS: BP 143/90; PULSE 86; RESP 20; TEMP 36.8; O2SAT 96; BMI 42.1
[2024-11-01 20:57] LABS: MANUAL DIFF FLAG NO
[2024-11-01 20:58] LABS: Basophils Percent Auto 0.4 % (0-2); Eosinophils Absolute Auto 0.5 X10*3/uL (0.0-0.4); Eosinophils Percent Auto 5.8 % (0-4); Hematocrit 35.4 % (37.0-47.0); Hemoglobin 12.1 g/dl (12.0-16.0); Imm Gran Abs Auto 0.02 X10*3/uL (0.00-0.03); Imm Gran Pct Auto 0.2 % (0.0-0.4); Lymphocytes Percent Auto 32.7 % (20-40); Mean Corpuscular HGB Conc 34.2 g/dl (31.0-35.0); Mean Corpuscular Hemoglobin 26.4 pg (27.0-33.0); Mean Corpuscular Volume 77.3 fL (80.0-98.0); Mean Platelet Volume 10.1 fL (9.4-12.3); Monocytes Absolute Auto 0.8 X10*3/uL (0.1-1.2); Monocytes Percent Auto 8.2 % (2-11); Neutrophils Absolute Auto 4.8 x10*3/uL (2.0-8.3); Neutrophils Percent Auto 52.7 % (45-73); Platelet Count 301 X10*3/uL (160-400); Red Blood Count 4.58 X10*6/uL (4.20-5.50); Red Cell Distribution Width 14.3 % (11.0-16.0); White Blood Count 9.1 X10*3/uL (4.8-10.8)
[2024-11-01 21:12] LABS: Alanine Aminotransferase 52 U/L (0-31); Alkaline Phosphatase 54 U/L (39-117); Anion Gap 10 (12-20); Aspartate Amino Transferase 42 U/L (5-31); Bilirubin Direct 0.1 mg/dL (0.0-0.5); Bilirubin Total 0.3 mg/dL (0.0-1.0); Blood Urea Nitrogen 9 mg/dL (9-16); Calcium 8.9 mg/dL (8.4-10.2); Carbon Dioxide 24 mmol/L (22-29); Chloride 110 mmol/L (96-108); Creatinine Clr Calc Pharmacy 128.2; Estimated Glomerular Filt Rate > 60; Glucose Random 90 mg/dL (60-115); Potassium 3.9 mmol/L (3.3-5.1); Sodium 140 mmol/L (135-145); Total Protein 6.8 g/dL (6.5-8.0)
[2024-11-01] MEDS: Acetaminophen 325 MG TABLET 975 MG PO (21:39)
[2024-11-01] MEDS: methocarbamoL 750 MG TABLET 1500 MG PO (21:40)
[2024-11-01 21:42] LABS: HCG Quantitative < 2 mIU/mL
[2024-11-01 21:55] LABS: Appearance Urine Clear; Color Urine Yellow; Glucose Urine UA Negative (Negative); Leukocyte Esterase Urine Negative (Negative); Nitrite Urine Negative (Negative); Urine Blood Negative (Negative); Urine Ketones Negative (Negative); Urine Protein Negative (Neg-Trace)
[2024-11-01 22:01] VITALS: BP 123/76; PULSE 75; RESP 16; TEMP 36.4; O2SAT 98
--- NOTE | 2024-11-01 22:31 | ED.GENADULT ---
HPI - General Adult General Chief complaint: Back Pain/Injury Stated complaint: back pain; liver pain Time Seen by Provider: 11/01/24 21:13 Source: patient Limitations: language barrier History of Present Illness ED Provider: Cat Mcdonough PA-C HPI narrative: 39-year-old female with a history of morbid obesity, fatty liver disease, fibromyalgia, hyperlipidemia, polyarthralgia, asthma, bipolar disorder, who presents with atraumatic low back pain. Patient states she developed pain last night, pain over right lumbar region with radiation to the right lower extremity and lower abdomen. Denies new exercise, heavy lifting or trauma that could have precipitated her symptoms. Denies urinary retention or bowel incontinence, no paresthesias of lower extremities, no weakness. Denies dysuria, hematuria or history of kidney stones. Denies nausea vomiting. No fevers. Related Data Home Medications ?Medication ?Instructions ?Recorded ?Confirmed citalopram 10 mg tablet 10 mg PO QAM 10/14/21 10/25/24 doxepin 150 mg capsule 300 mg PO BEDTIME 10/14/21 10/25/24 lithium carbonate 300 mg capsule 300 mg PO BID 10/14/21 10/25/24 zolpidem 10 mg tablet 10 mg PO BEDTIME PRN 02/01/24 10/25/24 Previous Rx's ?Medication ?Instructions ?Recorded azelastine 0.05 % eye drops 1 drp ophthalmic (eye) BID PRN 10/01/22 allergic symptoms #6 mL miscellaneous medical supply 1 ea miscellaneous DAILY #1 ea 10/01/22 orphenadrine citrate 100 mg 100 mg PO BID PRN muscle pain 5 02/01/24 tablet,extended release days #10 tabs albuterol sulfate 2.5 mg/3 mL 2.5 mg (3 mL) inhalation Q6H PRN 08/16/24 (0.083 %) solution for nebulization respiratory symptoms 30 days #75 mL ooupyzwbbc-anyrlojlsgdqn-roxapbgh 1 tab PO Q6H PRN pain 30 days #20 08/23/24 50 mg-325 mg-40 mg tablet tabs albuterol sulfate 90 mcg/actuation 2 puff PO Q8H PRN for wheezing 30 10/17/24 aerosol inhaler days #8.5 grams amitriptyline 10 mg tablet 10 mg PO DAILY #90 tabs 10/25/24 metformin 500 mg tablet,extended 500 mg PO DAILY #90 tabs 10/26/24 release 24 hr methocarbamol 750 mg tablet 1,500 mg (2 x 750 mg) PO Q8H PRN 11/01/24 pain, moderate #20 tabs methylprednisolone 4 mg tablets in 4 mg PO QAM #21 ea 11/01/24 a dose pack (Medrol (Enzo)) Allergies Allergy/AdvReac Type Severity Reaction Status Date / Time aspirin [Aspirin] Allergy Severe DIFFICULTY Verified 11/01/24 20:34 BREATHING, tracheal swelling Penicillins Allergy Severe DIFFICULTY Verified 11/01/24 20:34 BREATHING Review of Systems Review of Systems: Yes all other systems are reviewed and are negative Constitutional: Constitutional: Denies fatigue and Denies fever(s) Cardiovascular: Cardiovascular: Denies chest pain and Denies dyspnea Respiratory: Respiratory: Denies cough and Denies dyspnea Gastrointestinal: Gastrointestinal: Denies abdominal pain, Denies nausea and Denies vomiting Genitourinary: Genitourinary: Denies hematuria, Denies dysuria and Denies flank pain Musculoskeletal: Musculoskeletal: Reports back pain, Denies muscle weakness, Reports radiating pain into limb and Denies tingling Neurologic: Denies tingling Endocrine: Endocrine: Denies fatigue PMF Past Medical History Attestation statement: The following information was validated with the patient. Medical History Shortness of breath Snoring Fibromyalgia Prediabetes BMI 40.0-44.9, adult Hyperlipidemia Sclerosing mesenteritis Fatigue History of bacterial pneumonia Morbid obesity due to excess calories Lymphadenopathy, inguinal Chronic diarrhea Hemorrhoids Class 2 obesity with body mass index (BMI) of 39.0 to 39.9 in adult Moderate asthma Anxiety Pain of right heel Hx of allergic rhinitis Hx of bipolar disorder Asthma Surgical History History of carpal tunnel release History of endometrial ablation History of open reduction and internal fixation (ORIF) procedure History of bilateral tubal ligation History of tonsillectomy and adenoidectomy Hx of shoulder surgery Tubal ligation status Family History Family History Mother Hypertension Father No problems noted. Social History Social History Housing: Apartment Alcohol intake: never Patient Tobacco Use Status: Never used Tobacco e-Cigarette/Vaping Use: Never Used Second Hand Smoke Exposure: No Substance Use Type: Marijuana Advance Directives: No Advance Directives Information Provided: Yes Do you have a plan to hurt others: No Plan service: No Current occupational status: unemployed Sexual orientation: Straight/Heterosexual Gender identity: Female Cognitive needs: No Hearing needs: No Vision needs: Yes Physical Exam ED Vital Signs: Vital Signs - 24 hr 11/01/24 20:31 11/01/24 22:01 Temperature 98.2 F 97.6 F Pulse Rate 86 75 Respiratory Rate 20 16 Blood Pressure 143/90 H 123/76 Pulse Oximetry 96 98 Oxygen Delivery Method Room Air Room Air BMI result Body Mass Index 42.1 Const Other: Alert Orientation/consciousness: patient oriented x3 Resp Effort & Inspection: normal respiratory effort Cardio Other: Normal peripheral perfusion GI Other: Abdomen is soft, nondistended, obese, nontender to deep palpation no guarding General: Yes no CVA tenderness Back/Spine/Pelvis Back: no CVA tenderness Skin Other: Warm dry no rash Neuro General: patient oriented x3, gait normal, no focal motor deficits and CN's II-XI intact bilaterally Extrem Other: Strength 5/5 bilateral lower extremity Psych Other: Cooperative, flat affect Medications Administered Discontinued Medications Generic Name Dose Route Start Last Admin Trade Name Freq PRN Reason Stop Dose Admin Acetaminophen 975 mg 11/01/24 21:28 11/01/24 21:39 Acetaminophen 325 Mg Tablet PO 11/01/24 21:29 975 mg ONCE ONE Administration Methocarbamol 1,500 mg 11/01/24 21:27 11/01/24 21:40 Methocarbamol 750 Mg Tablet PO 11/01/24 21:28 1,500 mg ONCE ONE Administration Medical Decision Making Medical Decision Making MDM Narrative: 39-year-old female with a history of morbid obesity, fatty liver disease, fibromyalgia, hyperlipidemia, polyarthralgia, asthma, bipolar disorder, who presents with atraumatic low back pain. Patient states she developed pain last night, pain over right lumbar region with radiation to the right lower extremity and lower abdomen. Denies new exercise, heavy lifting or trauma that could have precipitated her symptoms. Denies urinary retention or bowel incontinence, no paresthesias of lower extremities, no weakness. Denies dysuria, hematuria or history of kidney stones. Denies nausea vomiting. No fevers. Problem: Psychiatric illness, morbid obesity, chronic pain History: Per patient I have considered the following differential diagnoses: Renal colic, lumbar radiculopathy, cauda equina, compression fracture Plan: Patient is having radicular symptoms without red flag signs symptoms concerning for cord compression. We will obtain an x-ray of her lumbar spine. Patient states her discomfort wraps around to the lower abdomen and then down the right lower extremity, I am considering renal colic. However, she has no CVA tenderness and no related symptoms. She is also very well-appearing. Given her aspirin allergy we will treat with Tylenol and a muscle relaxant. Screening labs we will be obtained. I have independently reviewed the following tests: Labs: No leukocytosis, not anemic, no electrolyte abnormality, not , urine not infected X-ray lumbar spine:Findings: Mild levoscoliosis. No acute fractures or dislocation. Multilevel facet arthropathy pronounced at L5-S1. Mild degenerative disc disease at L4-L5 and L5-S1. IMPRESSION: No acute findings. Lab Data 11/01/24 20:52 11/01/24 20:52 Labs: Lab Results 11/01/24 11/01/24 Range/Units 20:52 21:44 WBC 9.1 (4.8-10.8) X10*3/uL RBC 4.58 (4.20-5.50) X10*6/uL Hgb 12.1 (12.0-16.0) g/dl Hct 35.4 L (37.0-47.0) % MCV 77.3 L (80.0-98.0) fL MCH 26.4 L (27.0-33.0) pg MCHC 34.2 (31.0-35.0) g/dl RDW 14.3 (11.0-16.0) % Plt Count 301 (160-400) X10*3/uL MPV 10.1 (9.4-12.3) fL Immature Gran % (Auto) 0.2 (0.0-0.4) % Neut % (Auto) 52.7 (45-73) % Lymph % (Auto) 32.7 (20-40) % [place] % (Auto) 8.2 (2-11) % Eos % (Auto) 5.8 H (0-4) % Baso % (Auto) 0.4 (0-2) % Lymph # (Auto) 3.0 (1.2-4.9) X10*3/uL [place] # (Auto) 0.8 (0.1-1.2) X10*3/uL Eos # (Auto) 0.5 H (0.0-0.4) X10*3/uL Baso # (Auto) 0.0 (0.0-0.2) X10*3/uL Abs Immat Gran (auto) 0.02 (0.00-0.03) X10*3/uL Absolute Neuts (auto) 4.8 (2.0-8.3) x10*3/uL Absolute Nucleated RBC 0.000 (0.0-0.012) X10*3/uL Nucleated RBC % (auto) 0.0 (0.0-0.2) /100WBC Sodium 140 (135-145) mmol/L Potassium 3.9 (3.3-5.1) mmol/L Chloride 110 H (96-108) mmol/L Carbon Dioxide 24 (22-29) mmol/L Anion Gap 10 L (12-20) BUN 9 (9-16) mg/dL Creatinine 0.85 (0.5-1.4) mg/dL Estim Creat Clear Calc 128.2 Estimated GFR > 60 Random Glucose 90 (60-115) mg/dL Calcium 8.9 (8.4-10.2) mg/dL Total Bilirubin 0.3 (0.0-1.0) mg/dL Direct Bilirubin 0.1 (0.0-0.5) mg/dL AST 42 H (5-31) U/L ALT 52 H (0-31) U/L Alkaline Phosphatase 54 (39-117) U/L Total Protein 6.8 (6.5-8.0) g/dL Albumin 4.0 (3.5-5.0) g/dL Beta HCG, Quant < 2 mIU/mL Urine Color Yellow Urine Appearance Clear Urine pH 6.0 (5.0-9.0) Ur Specific [place] 1.020 (1.005-1.025) Urine Protein Negative (Neg-Trace) mg/dL Urine Glucose (UA) Negative (Negative) mg/dL Urine Ketones Negative (Negative) mg/dL Urine Blood Negative (Negative) Urine Nitrite Negative (Negative) Ur Leukocyte Esterase Negative (Negative) Discharge Plan Discharge Clinical Impression: Osteoarthritis of facet joint at L5-S1 level of lumbosacral spine, Right lumbar radiculopathy Patient Disposition: Home, Self-Care Instructions: Osteoarthritis (ED), Lower Back Exercises (ED) Additional Instructions: The x-ray revealed that you have considerable arthritic changes in your low back. This is the likely cause of your discomfort. See home care instructions. Take the Medrol Dosepak as directed, this is a steroid, to be used as an anti-inflammatory. Use the methocarbamol as needed for further pain, this is a muscle relaxant, do not drive or operate machinery while taking this medication. Exercise and weight loss are instrumental and preventing recurrence of low back pain. All of your screening labs were normal. Follow up with your primary care provider as needed. Prescriptions: New methylprednisolone [Medrol (Enzo)] 4 mg tablets,dose pack 4 mg PO QAM Qty: 21 0RF Rx Instructions: Take per package instructions methocarbamol 750 mg tablet 1,500 mg PO Q8H PRN (Reason: pain, moderate) Qty: 20 0RF No Action albuterol sulfate 2.5 mg /3 mL (0.083 %) solution for nebulization 2.5 mg inhalation Q6H PRN (Reason: respiratory symptoms) 30 Days Qty: 75 1RF albuterol sulfate 90 mcg/actuation HFA aerosol inhaler 2 puff PO Q8H PRN (Reason: for wheezing) 30 Days Qty: 8.5 0RF metformin 500 mg tablet extended release 24 hr 500 mg PO DAILY Qty: 90 0RF doxepin 150 mg capsule 300 mg PO BEDTIME lithium carbonate 300 mg capsule 300 mg PO BID citalopram 10 mg tablet 10 mg PO QAM azelastine 0.05 % drops 1 drp ophthalmic (eye) BID PRN (Reason: allergic symptoms) Qty: 6 0RF miscellaneous medical supply Misc 1 ea miscellaneous DAILY Qty: 1 0RF Rx Instructions: face mask for nebulizer machine zolpidem 10 mg tablet 10 mg PO BEDTIME PRN orphenadrine citrate 100 mg tablet extended release 100 mg PO BID PRN (Reason: muscle pain) 5 Days Qty: 10 0RF qiygsidhyr-jkhogrdyqpmcm-sogh 50-325-40 mg tablet 1 tab PO Q6H PRN (Reason: pain) 30 Days Qty: 20 0RF amitriptyline 10 mg tablet 10 mg PO DAILY Qty: 90 1RF Stand Alone Forms: Work/School Release Print Language: [place]i
[2024-11-01 23:18] VITALS: BP 123/76; PULSE 75; RESP 16; TEMP 36.4; O2SAT 98
== END 2024-11-01 22:55 | disposition home or self-care (01) ==
PROVIDERS: Physician Assistant Medical; Emergency Provider Emergency Medicine; PCP Internal Medicine
DX: M47.27 Other spondylosis with radiculopathy, lumbosacral region (principal); M54.41 Lumbago with sciatica, right side; E11.9 Type 2 diabetes mellitus without complications; E78.5 Hyperlipidemia, unspecified; J45.909 Unspecified asthma, uncomplicated; E66.9 Obesity, unspecified; Z68.41 Body mass index [BMI] 40.0-44.9, adult; F12.90 Cannabis use, unspecified, uncomplicated; Z79.899 Other long term (current) drug therapy; Z79.84 Long term (current) use of oral hypoglycemic drugs
CPT/HCPCS: 36415; 72100; 80053; 81003; 82248; 84702; 85025; 99283

== ENCOUNTER → 2024-11-01 21:14 | Outpatient (BNV) | payer OTHER, SELFPAY | PROVIDERS: Emergency Provider Emergency Medicine; PCP Internal Medicine; Visit Provider Radiology Diagnostic Radiology | DX: M54.50 Low back pain, unspecified (principal) | CPT/HCPCS: 72100 ==

== ENCOUNTER 2024-11-02 13:23 | Emergency (ER) | payer OTHER, SELFPAY ==
--- NOTE | ~2024-11-02 | CT_ITS ---
CLINICAL HISTORY: low back pain, numb pain to LLE, ?disc jacinto CT lumbar spine without contrast Comparison: CR - XR LUMBAR SPINE 2-3V - 11/01/24 21:30 EDT Findings: No acute fracture. Degenerative facet arthropathy. Mild degenerative changes of the lumbar spine with osteophytes. There is narrowing of the L4-L5 and L5 intervertebral disc space. The soft tissue is unremarkable. T12-L1: Unremarkable L1-L2: Posterior disc protrusion with mild spinal stenosis. Patent bilateral neural foramina. L2-L3: Disc bulging. No spinal stenosis or neural foramina stenosis. L3-L4: Disc bulging. No spinal stenosis or neural foramina stenosis. L4-L5: Disc bulging without spinal stenosis. Mild narrowing of the bilateral neural foramina. L5-S1: Disc bulging without spinal stenosis. Bilateral neural foramina stenosis, mild on the right and hsmumzxc-dv-fktvbx on the left IMPRESSION: 1. No acute findings. Degenerative changes of the lumbar spine as above level by level. Xuyyzlym-cu-cnbuea neural foramina stenoses of the left L5-S1. This document has been electronically signed by: Jo Núñez MD on 11/02/2024 17:24:15
[2024-11-02 13:32] VITALS: BP 136/74; PULSE 101; RESP 18; O2SAT 95; BMI 41.1
--- NOTE | 2024-11-02 13:34 | ED.GENADULT ---
HPI - General Adult General Chief complaint: Back Pain/Injury Stated complaint: Severe Back Pain Time Seen by Provider: 11/02/24 14:48 Source: patient, family and sales representative printing supplies (zimbabwean) Mode of arrival: ambulatory Limitations: language barrier (zimbabwean) History of Present Illness ED Provider: JUDITH BARTLETT PA-C HPI narrative: 39-year-old female with pmhx significant for morbid obesity, fatty liver disease, fibromyalgia, hyperlipidemia, polyarthralgia, asthma, and bipolar disorder presents to the ED today for evaluation of lower back pain. Patient was evaluated in our ED yesterday for same. She had xrays of her low back done which did not show any acute abnormality other than osteoarthritis. She was treated with pain medication in eD and discharged home with methocarbamol and steroid pack. She has been taking these without much relief. She reports history of fibromyalgia which she states may be making her symptoms worse. She reports pain is now radiating across her lower back and down her left thigh to her left knee with associated parasthesias. Denies injury/ trauma/ fall. Denies hx IVDU. Denies hx spinal surgery. Denies fever, chills, N/V, saddle anesthesia, bowel/bladder incontinence or retention. Denies dysuria, hematuria. fixer supervisor utilized throughout visit to communicate with patient. Related Data Home Medications ?Medication ?Instructions ?Recorded ?Confirmed citalopram 10 mg tablet 10 mg PO QAM 10/14/21 10/25/24 doxepin 150 mg capsule 300 mg PO BEDTIME 10/14/21 10/25/24 lithium carbonate 300 mg capsule 300 mg PO BID 10/14/21 10/25/24 zolpidem 10 mg tablet 10 mg PO BEDTIME PRN 02/01/24 10/25/24 Previous Rx's ?Medication ?Instructions ?Recorded azelastine 0.05 % eye drops 1 drp ophthalmic (eye) BID PRN 10/01/22 allergic symptoms #6 mL miscellaneous medical supply 1 ea miscellaneous DAILY #1 ea 10/01/22 orphenadrine citrate 100 mg 100 mg PO BID PRN muscle pain 5 02/01/24 tablet,extended release days #10 tabs albuterol sulfate 2.5 mg/3 mL 2.5 mg (3 mL) inhalation Q6H PRN 08/16/24 (0.083 %) solution for nebulization respiratory symptoms 30 days #75 mL vbycgzhoxq-fehkytmtpqhaj-kemirjaz 1 tab PO Q6H PRN pain 30 days #20 08/23/24 50 mg-325 mg-40 mg tablet tabs albuterol sulfate 90 mcg/actuation 2 puff PO Q8H PRN for wheezing 30 10/17/24 aerosol inhaler days #8.5 grams amitriptyline 10 mg tablet 10 mg PO DAILY #90 tabs 10/25/24 metformin 500 mg tablet,extended 500 mg PO DAILY #90 tabs 10/26/24 release 24 hr methocarbamol 750 mg tablet 1,500 mg (2 x 750 mg) PO Q8H PRN 11/01/24 pain, moderate #20 tabs methylprednisolone 4 mg tablets in 4 mg PO QAM #21 ea 11/01/24 a dose pack (Medrol (Enzo)) lidocaine 5 % topical patch 1 patch topical DAILY #15 ea 11/02/24 (Lidoderm) oxycodone 5 mg tablet 5 mg PO Q8H PRN pain (scale score 11/02/24 7-10) #9 tabs prednisone 20 mg tablet See Rx Instructions .Route 11/05/24 .COMPLEX #15 tabs Allergies Allergy/AdvReac Type Severity Reaction Status Date / Time aspirin [Aspirin] Allergy Severe DIFFICULTY Verified 11/05/24 08:46 BREATHING, tracheal swelling Penicillins Allergy Severe DIFFICULTY Verified 11/05/24 08:46 BREATHING Review of Systems Review of Systems: Yes all other systems are reviewed and are negative PMFSH Past Medical History Attestation statement: The following information was validated with the patient. Source: old records reviewed and nursing notes reviewed Medical History Shortness of breath Snoring Fibromyalgia Prediabetes BMI 40.0-44.9, adult Hyperlipidemia Sclerosing mesenteritis Fatigue History of bacterial pneumonia Morbid obesity due to excess calories Lymphadenopathy, inguinal Chronic diarrhea Hemorrhoids Class 2 obesity with body mass index (BMI) of 39.0 to 39.9 in adult Moderate asthma Anxiety Pain of right heel Hx of allergic rhinitis Hx of bipolar disorder Asthma Surgical History History of carpal tunnel release History of endometrial ablation History of open reduction and internal fixation (ORIF) procedure History of bilateral tubal ligation History of tonsillectomy and adenoidectomy Hx of shoulder surgery Tubal ligation status Family History Family History Mother Hypertension Father No problems noted. Social History Social History Housing: Apartment Alcohol intake: never Patient Tobacco Use Status: Never used Tobacco e-Cigarette/Vaping Use: Never Used Second Hand Smoke Exposure: No Substance Use Type: Marijuana Advance Directives: No Advance Directives Information Provided: No Do you have a plan to hurt others: No Plan service: No Current occupational status: unemployed Sexual orientation: Straight/Heterosexual Gender identity: Female Cognitive needs: No Hearing needs: No Vision needs: Yes Physical Exam ED Vital Signs: BMI result Body Mass Index 41.1 vital signs stable General: Well appearing, in no acute distress. Skin: Warm, dry, intact. No rashes or lesions. Head: Normocephalic, atraumatic. EENT: Hearing is intact b/l. Conjunctiva clear. Sclera is anicteric. PERRLA. EOM intact. Moist mucous membranes.? Cardiac: Chest wall symmetric. RRR Lungs: Normal respiratory effort without accessory muscle use. CTA bilaterally Abdomen: Soft, non-tender, non-distended. No rebound tenderness or guarding. Positive BS x4. no cvat. Back: No midline spinous or step off deformity. +tto along b/l lumbar paraspinal muscles. no deformity, flutuance, warmth. Ext: Upper and lower extremities atraumatic, without tenderness, deformity, swelling or erythema. +positive b/l straight leg raise Neuro: AOx3. Normal speech. Strength 5/5 intact throughout. No saddle anesthesia. Sensation intact to light touch. NV intact distally. Ambulating with steady gait. Course Course Course Narrative: RME, this is a rapid medical exam performed by Mani Kumar please refer to primary provider for complete H&P- 39-year-old female presents for evaluation of back pain. She was seen here last night and had an x-ray of the lumbar spine which showed arthritis. She was discharged with Tylenol and methylprednisolone. She reports that her pain is worsen that she has numbness to both knees. She is ambulatory with a steady, even gait Reevaluation(s) Reevaluation #1: Patient treated with morphine, lidocaine patch, and dilaudid with improvement, CT lumbar spine showing disc protrusion, no spinal or nerve root encroachment. No red flags. She is ambulating with steady gait. Advised to continue meloxicam + medrol dose pack. Will send oxycodone for break through pain along with lido patches. Advised to follow up with pain management and or dr swanson (neuro spine). Referrals to both provided. Patient has remained stable throughout ED visit today. Discussed worrisome signs and symptoms and when to return to the ED. All questions answered at this time. Patient is agreeable with disposition and stable for discharge. Medications Administered Discontinued Medications Generic Name Dose Route Start Last Admin Trade Name Freq PRN Reason Stop Dose Admin Hydromorphone HCl 1 mg 11/02/24 17:04 11/02/24 17:51 Hydromorphone Hcl 1 Mg/Ml Syringe IVPUSH 11/02/24 17:05 1 mg ONCE ONE Administration Protocol Lidocaine 1 patch 11/02/24 15:05 11/02/24 15:30 Lidocaine 4 % Patch Adh..Patch TRANSDERMA 11/02/24 15:06 1 patch ONCE ONE Administration Protocol Morphine Sulfate 4 mg 11/02/24 15:05 11/02/24 15:30 Morphine Sulfate 4 Mg/Ml Cartridge IVPUSH 11/02/24 15:06 4 mg ONCE ONE Administration Protocol Ondansetron HCl 4 mg 11/02/24 17:55 11/02/24 18:18 Ondansetron Hcl 4 Mg/2 Ml Vial IVPUSH 11/02/24 17:56 4 mg ONCE ONE Administration Medical Decision Making Medical Decision Making MDM Narrative: 39-year-old female with pmhx significant for morbid obesity, fatty liver disease, fibromyalgia, hyperlipidemia, polyarthralgia, asthma, and bipolar disorder presents to the ED today for evaluation of lower back pain. her vitals are stable, afebrile. she is nontoxic appearing. she has no back pain red flags. sensation is intact throughout without saddle anesthesia. she is ambulating with steady gait. there is positive straight leg raise b/l. she has tenderness over b/l lumbar paraspinal muscles. no midline spinous tenderness or step off. Differential diagnosis includes arthritis, disc herniation, sciatica, msk sprain/strain, muscle spasm. Unlikely cauda equina, gullain barre, cord compression, epidural abscess. Presentation not consistent with UTI, renal colic, nephrolithiasis. Plan for CT scan. XR lumbar spine reviewed - no fracture. Pain control ordered. Differential Diagnosis Differential Diagnoses: The differential diagnosis associated with the presentation includes as above. Admission/Observation not indicated Lab Data MDM Lab Attestation statement: I reviewed the patient's lab results. as above. Labs: Lab Results 11/02/24 Range/Units 15:25 Beta HCG, Quant < 2 mIU/mL Independent Interpretation I performed an independent interpretation of an: Plain X-Ray and CT Scan Interpretation: xr lumbar spine w/o fracture CT lumbar spine w/o fracture Radiology Impression Discussion of test interpretation with radiology: I have reviewed the radiologist's reading. Radiologist Impression: Date of Service: 11/02/24 Procedure(s): CT lumbar spine wo IV con Accession Number(s): [id number] cc: Judith Bartlett; Janis Marcelino MD~ Report Number: [id number]: Total DLP = 947.00 mGy-cm CLINICAL HISTORY: low back pain, numb pain to LLE, ?disc jacinto CT lumbar spine without contrast Comparison: CR - XR LUMBAR SPINE 2-3V - 11/01/24 21:30 EDT Findings: No acute fracture. Degenerative facet arthropathy. Mild degenerative changes of the lumbar spine with osteophytes. There is narrowing of the L4-L5 and L5 intervertebral disc space. The soft tissue is unremarkable. T12-L1: Unremarkable L1-L2: Posterior disc protrusion with mild spinal stenosis. Patent bilateral neural foramina. L2-L3: Disc bulging. No spinal stenosis or neural foramina stenosis. L3-L4: Disc bulging. No spinal stenosis or neural foramina stenosis. L4-L5: Disc bulging without spinal stenosis. Mild narrowing of the bilateral neural foramina. L5-S1: Disc bulging without spinal stenosis. Bilateral neural foramina stenosis, mild on the right and htjmotii-rn-aqsxdz on the left IMPRESSION: 1. No acute findings. Degenerative changes of the lumbar spine as above level by level. Xrhnvsie-hi-isojdb neural foramina stenoses of the left L5-S1. This document has been electronically signed by: Jo Núñez MD on 11/02/2024 17:24:15 Date of Service: 11/01/24 Procedure(s): XR lumbar spine 2-3V Accession Number(s): [id number] cc: Cat Mcdonough; Janis Marcelino MD~ CLINICAL HISTORY: pain 3 views lumbar spine Comparison: None Findings: Mild levoscoliosis. No acute fractures or dislocation. Multilevel facet arthropathy pronounced at L5-S1. Mild degenerative disc disease at L4-L5 and L5-S1. IMPRESSION: No acute findings. This document has been electronically signed by: Beltran Daugherty MD on 11/01/2024 21:58:03 Prescription Management I considered prescription management with: Pain Medication (oxycodone, lido patch) Chronic Conditions Patient?s care impacted by: Other (fibromyalgia) Social Determinants Patient?s care significantly limited by Social Determinants of Health including: Other Social Determinant of Health Critical Care Time Critical Care Time Critical Care Time: Yes Total Critical Care Time: 31 Attestation: Critical care time in the amount of 31 minutes has been provided to the patient in terms of direct patient care, frequent reevaluation on IV morphine, review and interpretation of medical data and results, and management of potentially life-threatening conditions. This is all outside of any medical procedures. Discharge Plan Discharge Clinical Impression: Lumbar disc herniation Patient Disposition: Home, Self-Care Instructions: Lumbar Disc Herniation (ED) Additional Instructions: The CT scan of your low back shows disc herniation. Continue the steroid and muscle relaxer that was sent to your pharmacy yesterday. You may take tylenol/motrin at home. I am sending Oxycodone to your pharmacy for break through pain. Please follow up with pain management and regional telecommunications specialist. I have provided you with referrals to both. Call them to establish care, they will not call you. Return with any new or worsening symptoms. In the case of an emergency call 911. Prescriptions: New oxycodone 5 mg tablet 5 mg PO Q8H PRN (Reason: pain (scale score 7-10)) Qty: 9 0RF Rx Instructions: Partial Fill upon patient request. lidocaine [Lidoderm] 5 % adhesive patch,medicated 1 patch topical DAILY Qty: 15 0RF Rx Instructions: leave on most painful area for up to 12 hrs No Action albuterol sulfate 2.5 mg /3 mL (0.083 %) solution for nebulization 2.5 mg inhalation Q6H PRN (Reason: respiratory symptoms) 30 Days Qty: 75 1RF albuterol sulfate 90 mcg/actuation HFA aerosol inhaler 2 puff PO Q8H PRN (Reason: for wheezing) 30 Days Qty: 8.5 0RF metformin 500 mg tablet extended release 24 hr 500 mg PO DAILY Qty: 90 0RF methylprednisolone [Medrol (Enzo)] 4 mg tablets,dose pack 4 mg PO QAM Qty: 21 0RF Rx Instructions: Take per package instructions methocarbamol 750 mg tablet 1,500 mg PO Q8H PRN (Reason: pain, moderate) Qty: 20 0RF prednisone 20 mg tablet See Rx Instructions .ROUTE .COMPLEX Qty: 15 0RF Rx Instructions: 60 mg (3 tabs) x2 days, then 40 mg (2 tabs) x3 days, then 20 mg (1 tab) x3 days doxepin 150 mg capsule 300 mg PO BEDTIME lithium carbonate 300 mg capsule 300 mg PO BID citalopram 10 mg tablet 10 mg PO QAM azelastine 0.05 % drops 1 drp ophthalmic (eye) BID PRN (Reason: allergic symptoms) Qty: 6 0RF miscellaneous medical supply Misc 1 ea miscellaneous DAILY Qty: 1 0RF Rx Instructions: face mask for nebulizer machine zolpidem 10 mg tablet 10 mg PO BEDTIME PRN orphenadrine citrate 100 mg tablet extended release 100 mg PO BID PRN (Reason: muscle pain) 5 Days Qty: 10 0RF hirtqmlcyr-xqiwotmboywut-drhy 50-325-40 mg tablet 1 tab PO Q6H PRN (Reason: pain) 30 Days Qty: 20 0RF amitriptyline 10 mg tablet 10 mg PO DAILY Qty: 90 1RF Referrals: [facility] [place] Pain Management [Provider Group] Antonio Dodson MD, PhD [Physician] - 3 days (IMPRESSION: 1. No acute findings. Degenerative changes of the lumbar spine as above level by level. Slikudha-ry-rjtgkc neural foramina stenoses of the left L5-S1. ) Janis Marcelino MD [Primary Care Provider] - Stand Alone Forms: Work/School Release Interventions: ED Discharge Assessment Last Done: 11/02/24 18:32 Discharge Date/Time: 11/02/24 18:33 Print Language: Guatemalan
--- OUTSIDE RECORDS SUMMARY | 2024-11-02 14:44 | XMS_ITS | Encounter Summary ---
Author Organization [employer] Address [address] [place] [address] [address], [place] [address] Care Team Providers Care Joint Machine Operator Name Role Phone Sania Watt MD Primary Care Provide r Reason for Visit * Reason Onset Date Comments New Patient Appt 11/10/2022 Encounter Details Date Type Department Care Team ([facility] st Contact Info) Description 11/10/2022 Telephone [facility] [address], [place] [id number] Sania Watt MD [address] [place] [address] New Patient Appt Social History Tobacco Use [...] left voicemail to give a call at [phone]. documented in this encounter Plan of Treatment Not on file documented as of this encounter Visit Diagnoses Not on filedocumented in this encounter Care Teams Joint Machine Operator Relationship Specialty Start Date End Date Sania Watt MD [address] [place] [address] PCP - General Family Medicine 02/22/18 06/30/23 documented as of this encounter
[2024-11-02] MEDS: Morphine Sulfate 4 MG/ML CARTRIDGE IVPUSH (15:30)
[2024-11-02] MEDS: Lidocaine 4 % Patch ADH..PATCH 1 PATCH TRANSDERMA (15:30)
[2024-11-02 15:49] LABS: HCG Quantitative < 2 mIU/mL
[2024-11-02 17:51] VITALS: RESP 20
[2024-11-02] MEDS: HYDROmorphone HCl 1 MG/ML SYRINGE IVPUSH (17:51)
[2024-11-02] MEDS: ondansetron HCL 4 MG/2 ML VIAL IVPUSH (18:18)
[2024-11-02 18:32] VITALS: BP 138/88; PULSE 97; RESP 20; TEMP 36.5; O2SAT 98
== END 2024-11-02 18:33 | disposition home or self-care (01) ==
PROVIDERS: Physician Assistant Medical; Emergency Provider Emergency Medicine; PCP Internal Medicine
DX: M51.26 Other intervertebral disc displacement, lumbar region (principal); R10.2 Pelvic and perineal pain; Z79.899 Other long term (current) drug therapy
CPT/HCPCS: 36415; 72131; 84702; 96374; 96375; 99283; 99284; J1171; J2270; J2405

== ENCOUNTER → 2024-11-02 15:05 | Outpatient (BNV) | payer OTHER, SELFPAY | PROVIDERS: Emergency Provider Emergency Medicine; PCP Internal Medicine; Visit Provider Nuclear Medicine | DX: M47.816 Spondylosis without myelopathy or radiculopathy, lumbar region (principal); M99.63 Osseous and subluxation stenosis of intervertebral foramina of lumbar region | CPT/HCPCS: 72131 ==

== ENCOUNTER 2024-11-05 08:42 | Emergency (ER) | payer OTHER, SELFPAY ==
[2024-11-05 08:44] VITALS: BP 129/86; PULSE 90; RESP 19; TEMP 36.6; O2SAT 96; BMI 42.8
--- NOTE | 2024-11-05 09:18 | ED_ITS ---
HPI - General Adult General Chief complaint: Back Pain/Injury Stated complaint: Back Pain No Injury Time Seen by Provider: 11/05/24 09:10 Source: patient, family, RN notes reviewed, old records reviewed and doctor of nursing practice Mode of arrival: ambulatory Limitations: language barrier History of Present Illness ED Provider: Alejandrina HPI narrative: Patient is a 39-year-old female with a history of morbid obesity, fatty liver disease, fibromyalgia, hyperlipidemia, polyarthralgia, asthma, bipolar disorder presenting to the emergency department with complaint of ongoing lower back pain. Patient requesting family interpret for her, declining hospital doctor of nursing practice for assessment. Seen here twice for same complaint, at initial visit, had lumbar x-ray and diagnosed with osteoarthritis, discharged home on methylprednisone and Tylenol. Patient returned the following day, had lumbar CT which was notable for disc protusion and patient was discharged with oxycodone. Patient reports small amount of relief from oxycodone but states she has been unable to sleep due to her severe pain. States she was advised to follow up with her PCP, however, given the holiday their office is not open today. Reports pain and paresthesia radiating to right anterior thigh to level of the knee. Denies saddle anesthesia or bowel or bladder incontinence. Denies fever. Able to ambulate without difficulty. MD complaint: back pain Onset (ago): day(s) Related Data Home Medications ?Medication ?Instructions ?Recorded ?Confirmed citalopram 10 mg tablet 10 mg PO QAM 10/14/21 10/25/24 doxepin 150 mg capsule 300 mg PO BEDTIME 10/14/21 10/25/24 lithium carbonate 300 mg capsule 300 mg PO BID 10/14/21 10/25/24 zolpidem 10 mg tablet 10 mg PO BEDTIME PRN 02/01/24 10/25/24 Previous Rx's ?Medication ?Instructions ?Recorded azelastine 0.05 % eye drops 1 drp ophthalmic (eye) BID PRN 10/01/22 allergic symptoms #6 mL miscellaneous medical supply 1 ea miscellaneous DAILY #1 ea 10/01/22 orphenadrine citrate 100 mg 100 mg PO BID PRN muscle pain 5 02/01/24 tablet,extended release days #10 tabs albuterol sulfate 2.5 mg/3 mL 2.5 mg (3 mL) inhalation Q6H PRN 08/16/24 (0.083 %) solution for nebulization respiratory symptoms 30 days #75 mL vrknqawvlg-jnccnwtbsyicg-emwhinkz 1 tab PO Q6H PRN pain 30 days #20 08/23/24 50 mg-325 mg-40 mg tablet tabs albuterol sulfate 90 mcg/actuation 2 puff PO Q8H PRN for wheezing 30 10/17/24 aerosol inhaler days #8.5 grams amitriptyline 10 mg tablet 10 mg PO DAILY #90 tabs 10/25/24 metformin 500 mg tablet,extended 500 mg PO DAILY #90 tabs 10/26/24 release 24 hr methocarbamol 750 mg tablet 1,500 mg (2 x 750 mg) PO Q8H PRN 11/01/24 pain, moderate #20 tabs methylprednisolone 4 mg tablets in 4 mg PO QAM #21 ea 11/01/24 a dose pack (Medrol (Enzo)) lidocaine 5 % topical patch 1 patch topical DAILY #15 ea 11/02/24 (Lidoderm) oxycodone 5 mg tablet 5 mg PO Q8H PRN pain (scale score 11/02/24 7-10) #9 tabs prednisone 20 mg tablet See Rx Instructions .Route 11/05/24 .COMPLEX #15 tabs Allergies Allergy/AdvReac Type Severity Reaction Status Date / Time aspirin [Aspirin] Allergy Severe DIFFICULTY Verified 11/05/24 08:46 BREATHING, tracheal swelling Penicillins Allergy Severe DIFFICULTY Verified 11/05/24 08:46 BREATHING Review of Systems Review of Systems: As per HPI Yes all other systems are reviewed and are negative Constitutional: Constitutional: Reports as per HPI PMFSH Past Medical History Medical History Shortness of breath Snoring Fibromyalgia Prediabetes BMI 40.0-44.9, adult Hyperlipidemia Sclerosing mesenteritis Fatigue History of bacterial pneumonia Morbid obesity due to excess calories Lymphadenopathy, inguinal Chronic diarrhea Hemorrhoids Class 2 obesity with body mass index (BMI) of 39.0 to 39.9 in adult Moderate asthma Anxiety Pain of right heel Hx of allergic rhinitis Hx of bipolar disorder Asthma Surgical History History of carpal tunnel release History of endometrial ablation History of open reduction and internal fixation (ORIF) procedure History of bilateral tubal ligation History of tonsillectomy and adenoidectomy Hx of shoulder surgery Tubal ligation status Family History Family History Mother Hypertension Father No problems noted. Social History Social History Housing: Apartment Alcohol intake: never Patient Tobacco Use Status: Never used Tobacco e-Cigarette/Vaping Use: Never Used Second Hand Smoke Exposure: No Substance Use Type: Marijuana Advance Directives: No Advance Directives Information Provided: No Do you have a plan to hurt others: No Plan service: No Current occupational status: unemployed Sexual orientation: Straight/Heterosexual Gender identity: Female Cognitive needs: No Hearing needs: No Vision needs: Yes Physical Exam ED Vital Signs: Vital Signs - 24 hr 11/05/24 08:44 11/05/24 09:48 Temperature 98 F Pulse Rate 90 Respiratory Rate 19 20 Blood Pressure 129/86 Pulse Oximetry 96 Oxygen Delivery Method Room Air BMI result Body Mass Index 42.8 Vital signs have been reviewed and appear to be correct. Blood pressure normal. Heart rate normal. Respiratory rate normal. Temperature normal. Oxygen saturation normal. Const General: cooperative and no acute distress Nutritional Appearance: obese Orientation/consciousness: oriented to person, oriented to place, oriented to time and patient oriented x3 Limitations: no limitations HENMT Head: Yes normocephalic and Yes atraumatic Ears: external ears normal General nose exam: Normal external nose present Face and sinus: Yes face symmetric Mouth: oropharynx normal and moist mucous membranes Throat: Yes uvula midline Eyes Pupils: Equal, round and reactive pupils present Neck Neck: Yes normal visual inspection and Yes supple Resp Effort & Inspection: normal respiratory effort and able to speak in complete sentences Auscultation: clear to auscultation bilaterally Cardio Rate: regular rate Rhythm: regular rhythm Heart sounds: S1 normal heart sound present and S2 normal heart sound present GI Palpation (GI): Soft to palpation and nontender Auscultation: normoactive bowel sounds General: Yes no CVA tenderness Back/Spine/Pelvis Back: no CVA tenderness Thoracic/Lumbar Spine: thoracic and lumbar spine normal to inspection, thoraco- lumbar ROM normal, pain with thoraco-lumbar ROM, No thoracic spinal tenderness, lumbar spinal tenderness at L1, at L2, at L3, at L4 and at L5 and straight leg raise positive right at 30 degrees Skin General skin exam: elasticity normal and turgor normal Neuro General: oriented to person, oriented to place, oriented to time, patient oriented x3, gait normal, tone normal, moves all extremities, Normal light touch and pain sensation, no focal motor deficits, CN's II-XI intact bilaterally and deep tendon reflexes 2+ bilaterally Cranial nerves: Yes Equal, round and reactive pupils present Cognition (Neuro): normal cognition Motor exam (neuro): 5/5 motor strength present throughout, Normal motor muscle tone present throughout and Motor abnormalities not present Extrem General: Yes full ROM, Yes no pedal edema and Yes no calf tenderness Psych Mental Status: mental status grossly normal Affect: normal affect Thought process: Normal thought process present Medications Administered Discontinued Medications Generic Name Dose Route Start Last Admin Trade Name Freq PRN Reason Stop Dose Admin Hydromorphone HCl 1 mg 11/05/24 09:34 11/05/24 09:48 Hydromorphone Hcl 1 Mg/Ml Syringe IM 11/05/24 09:35 1 mg ONCE ONE Administration Protocol Hydromorphone HCl 1 mg 11/05/24 10:54 11/05/24 11:04 Hydromorphone Hcl 1 Mg/Ml Syringe IM 11/05/24 10:55 1 mg ONCE ONE Administration Protocol Prednisone 60 mg 11/05/24 09:35 11/05/24 09:48 Prednisone 20 Mg Tablet PO 11/05/24 09:36 60 mg ONCE ONE Administration Medical Decision Making Medical Decision Making [facility] Narrative: Patient is a 39-year-old female with a history of morbid obesity, fatty liver disease, fibromyalgia, hyperlipidemia, polyarthralgia, asthma, bipolar disorder presenting to the emergency department with complaint of ongoing lower back pain. On exam patient is awake, A+Ox3, VS WNL, afebrile, normal neurological exam without focal deficits, physical exam findings as above. Given reported symptoms and physical exam findings, initial differential includes but is not limited to disc herniation, lumbar radiculopathy, lumbar strain. No red flag findings concerning for malignancy/mass, SEA, cauda equina/cord compression. Discussed with patient that she will likely require physical therapy to improve her symptoms and should also follow up with neurospine specialist. Will attempt to get pain under control with IM dilaudid, and high dose steroids, then plan to dc home on steroid taper, and refer to Dr. Dodson. Patient in agreement with this plan. Patient reports pain has decreased to 7/10 after hydromorphone. Will give one additional dose prior to discharge. Patient reports additional relief from second dose of hydromorphone. Stable for discharge home. Will discharge on prednisone taper, will refer to Dr. Dodson, and advised patient to contact PCP 1st thing in the morning. Return precautions discussed at bedside. Patient verbalized understanding of and agreement with plan. Differential Diagnosis Differential Diagnoses: The differential diagnosis associated with the presentation includes As per [facility] Admission/Observation Consideration of admission/observation: Escalation of care including admission/observation considered Patient would have been admitted to the hospital had their work up had any findings where hospital admission was appropriate and their clinical presentation warranted hospital admission. External Record Review External record reviewed: Inpatient record, Office record, Outpatient record and Prior outpatient radiology Tests considered The following testing was considered but not selected: Considered MRI, however, no red flag findings concerning for cauda equina or SEA. Prescription Management I considered prescription management with: Other Critical Care Time Critical Care Time Critical Care Time: Yes Total Critical Care Time: 33 Attestation: I have personally provided critical care time exclusive of time spent on separately billable procedures. Time includes review of lab data, radiology results, discussion with consultants, and monitoring for potential decompensation. Intervention performed as documented. Discharge Plan Discharge Clinical Impression: Lumbar back pain Patient Disposition: Home, Self-Care Instructions: Lumbar Disc Herniation (ED), Lumbar Radiculopathy (ED) Additional Instructions: You were evaluated in the emergency department for low back pain. You were diagnosed at prior visits with herniation of your lumbar discs. You were treated with pain medication and steroids in the emergency department today. You are being discharged home on a tapering dose of steroids to decrease inflammation. We recommend that you follow-up with your primary care provider as well as the neuro learning technologies specialist, Dr. Dodson, 1st thing tomorrow morning. Take all medications as prescribed. Return to the emergency department if you develop fever, numbness or tingling to your groin, have bowel or bladder incontinence (accidentally go to the bathroom on yourself), difficulty walking, or any other new or concerning symptoms. Prescriptions: New prednisone 20 mg tablet See Rx Instructions .ROUTE .COMPLEX Qty: 15 0RF Rx Instructions: 60 mg (3 tabs) x2 days, then 40 mg (2 tabs) x3 days, then 20 mg (1 tab) x3 days No Action albuterol sulfate 2.5 mg /3 mL (0.083 %) solution for nebulization 2.5 mg inhalation Q6H PRN (Reason: respiratory symptoms) 30 Days Qty: 75 1RF albuterol sulfate 90 mcg/actuation HFA aerosol inhaler 2 puff PO Q8H PRN (Reason: for wheezing) 30 Days Qty: 8.5 0RF metformin 500 mg tablet extended release 24 hr 500 mg PO DAILY Qty: 90 0RF methylprednisolone [Medrol (Enzo)] 4 mg tablets,dose pack 4 mg PO QAM Qty: 21 0RF Rx Instructions: Take per package instructions methocarbamol 750 mg tablet 1,500 mg PO Q8H PRN (Reason: pain, moderate) Qty: 20 0RF oxycodone 5 mg tablet 5 mg PO Q8H PRN (Reason: pain (scale score 7-10)) Qty: 9 0RF Rx Instructions: Partial Fill upon patient request. lidocaine [Lidoderm] 5 % adhesive patch,medicated 1 patch topical DAILY Qty: 15 0RF Rx Instructions: leave on most painful area for up to 12 hrs doxepin 150 mg capsule 300 mg PO BEDTIME lithium carbonate 300 mg capsule 300 mg PO BID citalopram 10 mg tablet 10 mg PO QAM azelastine 0.05 % drops 1 drp ophthalmic (eye) BID PRN (Reason: allergic symptoms) Qty: 6 0RF miscellaneous medical supply Misc 1 ea miscellaneous DAILY Qty: 1 0RF Rx Instructions: face mask for nebulizer machine zolpidem 10 mg tablet 10 mg PO BEDTIME PRN orphenadrine citrate 100 mg tablet extended release 100 mg PO BID PRN (Reason: muscle pain) 5 Days Qty: 10 0RF iivafxznyv-ihystystkkntn-pbha 50-325-40 mg tablet 1 tab PO Q6H PRN (Reason: pain) 30 Days Qty: 20 0RF amitriptyline 10 mg tablet 10 mg PO DAILY Qty: 90 1RF Referrals: Antonio Dodson MD, PhD [Physician] - 3 days (bulging lumbar discs) Print Language: Bangladeshi
[2024-11-05 09:48] VITALS: RESP 20
[2024-11-05] MEDS: HYDROmorphone HCl 1 MG/ML SYRINGE IM ×2 (09:48→11:04)
[2024-11-05] MEDS: predniSONE 20 MG TABLET 60 MG PO (09:48)
[2024-11-05 11:50] VITALS: BP 125/85; PULSE 75; RESP 18; TEMP 36.4; O2SAT 93
[2024-11-05 12:04] VITALS: BP 125/85; PULSE 75; RESP 18; TEMP 36.4; O2SAT 93
== END 2024-11-05 12:04 | disposition home or self-care (01) ==
PROVIDERS: Emergency Provider Emergency Medicine; PCP Internal Medicine
DX: M54.50 Low back pain, unspecified (principal); Z79.899 Other long term (current) drug therapy
CPT/HCPCS: 96372; 99282; 99284; J1171

== ENCOUNTER 2024-11-27 09:18 | Outpatient (AMB) | payer OTHER, SELFPAY ==
[2024-11-27 09:34] VITALS: BP 126/82; BMI 40.5
--- NOTE | 2024-11-27 09:34 | A.OFFPC_ITS ---
Vital Signs 11/27/24 09:34 Height 5 ft 9 in Weight 274 lb BMI 40.5 BP 126/82 Blood Pressure Location Lt brachial Position Sitting Intake Visit Reasons: [facility] [place] 11/05 backpain Technology Consultant Required: No Accompanied by: Daughter Allergies aspirin [Aspirin] Allergy (Severe, Verified 11/27/24 09:52) DIFFICULTY BREATHING, tracheal swelling Penicillins Allergy (Severe, Verified 11/27/24 09:52) DIFFICULTY BREATHING Medication List - Last Reconciled 11/27/24 by Janis Henson MD albuterol sulfate 2.5 mg (3 mL) inhalation Q6H PRN 30 days albuterol sulfate 90 mcg/actuation 2 puffs PO Q8H PRN 30 days amitriptyline 10 mg PO DAILY azelastine 0.05% 1 drp ophthalmic (eye) BID PRN wwejhzseyk-cehexupwxkzdd-rufh 50-325-40 mg 1 tab PO Q6H PRN 30 days citalopram 10 mg PO QAM doxepin 300 mg PO BEDTIME lidocaine 5% (Lidoderm) 1 patch topical DAILY lithium carbonate 300 mg PO BID metformin ER 500 mg PO DAILY methocarbamol 1,500 mg (2 x 750 mg) PO Q8H PRN methylprednisolone (Medrol (Enzo)) 4 mg PO QAM miscellaneous medical supply 1 ea miscellaneous DAILY orphenadrine citrate ER 100 mg PO BID PRN 5 days oxycodone 5 mg PO Q8H PRN prednisone 60 mg (3 tabs) x2 days, then 40 mg (2 tabs) x3 days, then 20 mg (1 tab) x3 days zolpidem 10 mg PO BEDTIME PRN Tobacco use date assessed: 10/25/24 Dental Screening Dental Screen Date: 09/20/24 HPI HPI Comments History of Present Illness Details The patient is a 39-year-old female presenting with a follow-up after hospital discharge. She was diagnosed with arthritis and foraminal stenosis during her recent hospitalization. The patient reports chronic back pain that has been present for several years, with associated numbness in both legs. The patient has a history of bipolar disorder for which she is under psychiatric care and is currently taking lithium. She also takes citalopram and doxepin as part of her psychiatric treatment regimen. Also has insomnia stable with Ambien. She has been advised to engage in dynamic exercise due to her morbid obesity. Tried metformin for a month with no significant weight loss. [facility] Medical History (Updated 11/27/24 @ 10:06 by Janis Henson MD) Shortness of breath Snoring Fibromyalgia Prediabetes BMI 40.0-44.9, adult Hyperlipidemia Sclerosing mesenteritis Fatigue History of bacterial pneumonia Morbid obesity due to excess calories Lymphadenopathy, inguinal Chronic diarrhea Hemorrhoids Class 2 obesity with body mass index (BMI) of 39.0 to 39.9 in adult Moderate asthma Anxiety Pain of right heel Hx of allergic rhinitis Hx of bipolar disorder Asthma Surgical History History of carpal tunnel release History of endometrial ablation History of open reduction and internal fixation (ORIF) procedure History of bilateral tubal ligation History of tonsillectomy and adenoidectomy Hx of shoulder surgery Tubal ligation status Family History Mother Hypertension Father No problems noted. Social History Housing: Apartment Alcohol intake: never Patient Tobacco Use Status: Never used Tobacco e-Cigarette/Vaping Use: Never Used Second Hand Smoke Exposure: No Substance Use Type: Marijuana service: No Current occupational status: unemployed Sexual orientation: Straight/Heterosexual Gender identity: Female Cognitive needs: No Hearing needs: No Vision needs: Yes Female Reproductive History Menstrual Age of Menarche: 10 Questionnaire Thrive Questionnaire Date Thrive assessed: 10/25/24 I am a: Patient What is your living situation today?: I have a steady place to live Within the past 12 months, did the food you bought not last and you didn't have the money to get more?: Never true Within the past 12 months, did you worry whether your food would run out before you got money to buy more?: Never true Do you have trouble paying for medicines?: No Do you have trouble getting transportation to medical appointments?: No Do you have trouble paying your heating and electricity bill?: No Do you have trouble taking care of your child, family member or friend?: No Do you have trouble with day-to-day activities such as bathing, preparing meals, shopping, managing finances, etc.?: No Are you currently unemployed and looking for a job?: No Are you interested in more education?: No Please select the resources that you would like help with: None Currently or been in a relationship where the following occur: No concerns reported THRIVE Score: 0 AJ-7 AMB Questionnaire AJ-7 Date AJ - 7 assessed: 10/25/24 Source: Developed by Drs. Davy Ardon, Sulma Fletcher, Nestor Shane and colleagues, with an educational john from [employer]. Review of Systems Const All systems reviewed & are unremarkable except as noted in HPI and below Reports weakness Eyes Reports no additional complaints, Denies change in vision and Denies other visual disturbances Card Denies chest pain at rest, Denies chest pain with activity, Denies edema, Denies irregular heart rhythm, Denies claudication, Denies dyspnea, Denies dyspnea on exertion, Denies orthopnea, Denies paroxysmal nocturnal dyspnea and Denies slow heart rate Resp Denies cough, Denies dyspnea and Denies dyspnea on exertion GI Denies abdominal pain, Denies change in bowel habits, Denies excessive flatus, Denies nausea and Denies vomiting Musc Reports back pain, Reports numbness and Reports radiating pain into limb Neuro Reports numbness and Reports weakness Physical exam (Primary Care) Vital Signs: Last Vital Signs BP 126/82 11/27/24 09:34 BMI result Body Mass Index 40.5 BMI Assessment/Plan discussion: High BMI High, discussed plan: lifestyle, weight reduction, dietary and physical activity Tobacco/Smoking Status: Tobacco use Status Tobacco use date assessed 10/25/24 11/27/24 09:39 Patient Tobacco Use Status Never used Tobacco 11/27/24 09:39 e-Cigarette/Vaping Use Never Used 11/27/24 09:39 Thrive Assessment: Date of Thrive Assessment Date Thrive assessed 10/25/24 11/27/24 09:39 Currently or been in a relationship where the following occur: No concerns reported Resp Effort & Inspection: normal respiratory effort Auscultation: clear to auscultation bilaterally Cardio Jugular venous distension: no JVD Rate: regular rate Rhythm: regular rhythm Heart sounds: S1 normal heart sound present and S2 normal heart sound present Back/Spine/Pelvis Thoracic/Lumbar Spine: straight leg raise positive bilateral at 40 degrees Extrem General: Yes full ROM Coding Level of Care Code Est Pt Level 4 (64239) Complex EM visit Add On G2211 Diagnoses Morbid obesity due to excess calories E66.01 Bipolar disorder F31.9 Lumbar spondylosis M47.816 Insomnia G47.00 Time Spent (min) 21 Assessment & Plan Assessment & Plan (1) Morbid obesity due to excess calories: Code(s): E66.01 - Morbid (severe) obesity due to excess calories Category: Medical (2) Bipolar disorder: Code(s): F31.9 - Bipolar disorder, unspecified Category: Medical (3) Lumbar spondylosis: Code(s): M47.816 - Spondylosis without myelopathy or radiculopathy, lumbar region Category: Medical (4) Bipolar disorder: Code(s): F31.9 - Bipolar disorder, unspecified Category: Medical (5) Insomnia: Code(s): G47.00 - Insomnia, unspecified Category: Medical Plan The patient will follow up with pain management next week to address the arthritis and foraminal stenosis. She is advised to continue her current psychiatric medications, including lithium, citalopram, and doxepin, under the supervision of her psychiatrist. The patient is encouraged to incorporate dynamic exercise into her routine to address her morbid obesity. Patient was informed and verbally consented to the use of an ambient scribe for clinic note documentation during this visit. Medications: New diclofenac sodium 75 mg PO BID 3 days PRN 6 tabs 0RF pain Discontinued methylprednisolone (Medrol (Enzo)) Take per package instructions Discontinued Reason: Patient Completed Course 4 mg PO QAM 21 ea 0RF oxycodone Partial Fill upon patient request. Discontinued Reason: Patient Completed Course 5 mg PO Q8H PRN 9 tabs 0RF pain (scale score 7-10) metformin ER Discontinued Reason: Patient Completed Course 500 mg PO DAILY 90 tabs 0RF E78.5 - Hyperlipidemia, unspecified, R73.03 - Prediabetes, Z68.41 - Body mass index [BMI] 40.0-44.9, adult
--- OUTSIDE RECORDS SUMMARY | 2024-11-27 09:58 | XMS_ITS | Encounter Summary ---
Author Organization [facility] Address [address] [place] [address] [address] [address] Care Team Providers Care Septic Tank Cleaner Name Role Phone Sania Watt MD Primary Care Provide r Reason for Visit * Reason Onset Date Comments New Patient Appt 11/10/2022 Encounter Details Date Type Department Care Team ([facility] st Contact Info) Description 11/10/[address] [facility] MEDICINE [address], [place] [phone] Sania Watt MD [address] [place] [address] New Patient Appt Social History Tobacco Use [...] left voicemail to give a call at [phone]. documented in this encounter Plan of Treatment Not on file documented as of this encounter Visit Diagnoses Not on filedocumented in this encounter Care Teams Septic Tank Cleaner Relationship Specialty Start Date End Date Sania Watt MD [address] [place] [address] PCP - General Family Medicine 02/22/18 06/30/23 documented as of this encounter
== END 2024-11-27 10:00 | disposition home or self-care (01) ==
LOC: HO.HMCH 09:19
PROVIDERS: PCP Internal Medicine; Visit Provider Internal Medicine
DX: M47.816 Spondylosis without myelopathy or radiculopathy, lumbar region (principal); F31.9 Bipolar disorder, unspecified; E66.01 Morbid (severe) obesity due to excess calories; Z68.41 Body mass index [BMI] 40.0-44.9, adult; G47.00 Insomnia, unspecified

== ENCOUNTER → 2024-11-27 09:18 | Outpatient (BNVA) | payer OTHER, SELFPAY | PROVIDERS: PCP Internal Medicine; Visit Provider Internal Medicine | DX: E66.01 Morbid (severe) obesity due to excess calories (principal); F31.9 Bipolar disorder, unspecified; M47.816 Spondylosis without myelopathy or radiculopathy, lumbar region; G47.00 Insomnia, unspecified; E78.5 Hyperlipidemia, unspecified; R73.03 Prediabetes; Z09 Encounter for follow-up examination after completed treatment for conditions other than malignant neoplasm; Z68.41 Body mass index [BMI] 40.0-44.9, adult; Z79.899 Other long term (current) drug therapy | CPT/HCPCS: 99212 ==

== ENCOUNTER 2024-12-05 10:18 | Outpatient (AMB) | payer OTHER, SELFPAY ==
--- NOTE | 2024-12-05 10:21 | A.OFFVIS_ITS ---
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 The back pain has been persistent for approximately ten years, with no specific inciting injury or event such as a fall or car accident. The pain has progressively worsened over the years, with the most severe episode leading to multiple emergency room visits. The pain is primarily located in the mid-back region, radiating to the right side and occasionally affecting the right leg down to the knee. The patient reports that the pain is exacerbated by prolonged sitting and is somewhat relieved by movement. Previous interventions include the use of muscle relaxants and prednisone, which provided minimal relief. Denies red flag symptoms including new loss of bowel, bladder or saddle anesthesia The patient has a history of obesity, fatty liver disease, fibromyalgia, hyperlipidemia, polyarthralgia, bipolar disorder, prediabetes, and anxiety, which may complicate the management of her chronic pain. - Onset: Approximately ten years ago, with progressive worsening. - Quality: Persistent, severe pain. - Location: Mid-back, radiating to the right side and right leg down to the knee. - Exacerbating factors: Prolonged sitting. - Relieving factors: Movement. - Interference: Affects daily activities and requires emergency room visits during severe episodes. - Affect: Pain impacts daily activities and requires emergency room visits. - Analgesia: Previous use of muscle relaxants and prednisone with minimal relief. - Adverse Effects: None reported from current medications. - Activities of Daily Living: Pain exacerbated by sitting, somewhat relieved by movement. - Aberrant Drug Related Behaviors: None reported. [facility] Medical History Shortness of breath Snoring Fibromyalgia Prediabetes BMI 40.0-44.9, adult Hyperlipidemia Sclerosing mesenteritis Fatigue History of bacterial pneumonia Morbid obesity due to excess calories Lymphadenopathy, inguinal Chronic diarrhea Hemorrhoids Class 2 obesity with body mass index (BMI) of 39.0 to 39.9 in adult Moderate asthma Anxiety Pain of right heel Hx of allergic rhinitis Hx of bipolar disorder Asthma Surgical History History of carpal tunnel release History of endometrial ablation History of open reduction and internal fixation (ORIF) procedure History of bilateral tubal ligation History of tonsillectomy and adenoidectomy Hx of shoulder surgery Tubal ligation status Family History Mother Hypertension Father No problems noted. Social History Housing: Apartment Alcohol intake: never Patient Tobacco Use Status: Never used Tobacco e-Cigarette/Vaping Use: Never Used Second Hand Smoke Exposure: No Substance Use Type: Marijuana service: No Current occupational status: unemployed Sexual orientation: Straight/Heterosexual Gender identity: Female Cognitive needs: No Hearing needs: No Vision needs: Yes Female Reproductive History Menstrual Age of Menarche: 10 Review of Systems Const Details: - Musculoskeletal: Reports chronic back pain, radiating to the right leg. - Neurological: Denies any numbness or tingling. - Psychiatric: Reports anxiety and bipolar disorder. Physical Exam Vital Signs: Last Vital Signs Pulse 80 12/05/24 10:23 Resp 16 12/05/24 10:23 BP 124/85 12/05/24 10:23 Pulse Ox 96 12/05/24 10:23 Oxygen Delivery Method Room Air 12/05/24 10:23 BMI result Body Mass Index 41.0 General: awake, alert, oriented. Answers questions appropriately. Fully engaged in examination. Skin: warm, dry, intact HEENT: Normocephalic. Hearing intact. Cardiac: External chest normal in appearance. Respiratory: No cough, audible wheezing or stridor. Abdomen: without gross distension. MS: No obvious swelling or deformities. Able to transition from sit to stand unassisted. Ambulates with bilaterally normal heel strike and toe off Tenderness over midline lumbar vertebrae and lumbar paraspinal muscles Nontender over bilateral PSIS Valsalva negative Facet loading positive SLR negative bilaterally Neurological: Oriented to person, place, time and situation. Thought process intact. No gait abnormalities appreciated. Psychiatric: Appropriate mood and affect. Good judgment and insight. Results Reviewed Results Reviewed: 11/02/24 CT lumbar spine without contrast Comparison: CR - XR LUMBAR SPINE 2-3V - 11/01/24 21:30 EDT Findings: No acute fracture. Degenerative facet arthropathy. Mild degenerative changes of the lumbar spine with osteophytes. There is narrowing of the L4-L5 and L5 intervertebral disc space. The soft tissue is unremarkable. T12-L1: Unremarkable L1-L2: Posterior disc protrusion with mild spinal stenosis. Patent bilateral neural foramina. L2-L3: Disc bulging. No spinal stenosis or neural foramina stenosis. L3-L4: Disc bulging. No spinal stenosis or neural foramina stenosis. L4-L5: Disc bulging without spinal stenosis. Mild narrowing of the bilateral neural foramina. L5-S1: Disc bulging without spinal stenosis. Bilateral neural foramina stenosis, mild on the right and ittyjehu-[id number] on the left IMPRESSION: 1. No acute findings. Degenerative changes of the lumbar spine as above level by level. [id number] neural foramina stenoses of the left L5-S1. 11/01/2024 x-ray lumbar spine Findings: Mild levoscoliosis. No acute fractures or dislocation. Multilevel facet arthropathy pronounced at L5-S1. Mild degenerative disc disease at L4-L5 and L5-S1. IMPRESSION: No acute findings. Assessment & Plan Assessment & Plan (1) Degenerative disc disease, lumbar: Code(s): M51.369 - Other intervertebral disc degeneration, lumbar region without mention of lumbar back pain or lower extremity pain Category: Medical (2) Lumbar spondylosis: Code(s): M47.816 - Spondylosis without myelopathy or radiculopathy, lumbar region Category: Medical Plan The plan includes initiating physical therapy to address the chronic back pain and improve core strength. A new muscle relaxant will be prescribed to assess its efficacy in managing the pain, with instructions to avoid driving and alcohol due to potential drowsiness. The patient is advised to continue monitoring her symptoms and report any changes or worsening of her condition. I discussed with the patient the importance of starting physical therapy as a first step in managing her chronic back pain, as required by her insurance before considering further interventions like injections. We also talked about trying a different muscle relaxant to see if it provides better relief, with precautions regarding its use, such as avoiding driving and alcohol. Patient was informed and verbally consented to the use of an ambient scribe for clinic note documentation during this visit. Orders: Orders PT Evaluation and Treatment Today M47.816 - Spondylosis without myelopathy or radiculopathy, lumbar region, M51.369 - Other intervertebral disc degeneration, lumbar region without mention of lumbar back pain or lower extremity pain Medications: New tizanidine Do not take with Fioricet. No driving while taking this medication. May cause drowsiness. 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 2 mg PO TID PRN 90 tabs 1RF muscle spasticity Discontinued methocarbamol Discontinued Reason: None 1,500 mg (2 x 750 mg) PO Q8H PRN 20 tabs 0RF pain, moderate orphenadrine citrate ER Discontinued Reason: Patient Completed Course 100 mg PO BID 5 days PRN 10 tabs 0RF muscle pain Patient Instructions: - Start physical therapy as prescribed. - Take the new muscle relaxant as directed, avoiding driving and alcohol. - Monitor symptoms and report any changes or worsening to the healthcare provider. Coding Level of Care Code New Pt Level 4 (53100) Complex EM visit Add On G2211 Diagnoses Degenerative disc disease, lumbar M51.369 Lumbar spondylosis M47.816
[2024-12-05 10:23] VITALS: BP 124/85; PULSE 80; RESP 16; O2SAT 96; BMI 41.0
--- OUTSIDE RECORDS SUMMARY | 2024-12-05 11:59 | XMS_ITS | Encounter Summary ---
Author Organization [facility] Address [address] [place] [address] [address] [address] Care Team Providers Care Program Eligibility Specialist Name Role Phone Sania Watt MD Primary Care Provide r Reason for Visit * Reason Onset Date Comments New Patient Appt 11/10/2022 Encounter Details Date Type Department Care Team ([facility] st Contact Info) Description 11/10/2022 Telephone [facility] MEDICINE [address] [place], [place] [phone] Sania Watt MD [address] [place] [address] New Patient Appt Social History Tobacco Use [...] left voicemail to give a call at [phone]. documented in this encounter Plan of Treatment Not on file documented as of this encounter Visit Diagnoses Not on filedocumented in this encounter Care Teams Program Eligibility Specialist Relationship Specialty Start Date End Date Sania Watt MD [address] [place] [address] PCP - General Family Medicine 02/22/18 06/30/23 documented as of this encounter
== END 2024-12-05 11:06 | disposition home or self-care (01) ==
LOC: HO.PMC 10:18
PROVIDERS: PCP Internal Medicine; Visit Provider Registered Nurse Emergency
DX: M51.369 Other intervertebral disc degeneration, lumbar region without mention of lumbar back pain or lower extremity pain (principal); M47.816 Spondylosis without myelopathy or radiculopathy, lumbar region
CPT/HCPCS: 99204; G2211

== ENCOUNTER → 2024-12-05 10:18 | Outpatient (BNVA) | payer OTHER, SELFPAY | PROVIDERS: PCP Internal Medicine; Visit Provider Registered Nurse Emergency | DX: M47.816 Spondylosis without myelopathy or radiculopathy, lumbar region (principal); M51.369 Other intervertebral disc degeneration, lumbar region without mention of lumbar back pain or lower extremity pain | CPT/HCPCS: 99202 ==

== ENCOUNTER 2024-12-17 13:52 | Outpatient (AMB) | payer OTHER, SELFPAY ==
[2024-12-17 14:02] VITALS: BP 98/70; PULSE 88; O2SAT 98; BMI 41.3
--- NOTE | 2024-12-17 14:02 | MHC.OFFVIS ---
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 patient experiences symptoms suggestive of sleep apnea, such as shortness of breath [place] Measurer Required: Yes Accompanied by: Daughter Allergies aspirin (Aspirin) Allergy (Severe, Verified 12/17/24 14:05) DIFFICULTY BREATHING, tracheal swelling Penicillins Allergy (Severe, Verified 12/17/24 14:05) DIFFICULTY BREATHING HPI Comments Details: 39 year old female with h/o sickle cell anemia referred to us for evaluation of ROSANA, by her PCP Rita Breaux. She has asthma and uses her inhaler twice daily for SOB with wheezing for over a year now. She was diagnosed with SC anemia in August 2024. She snores loudly and gasps for air at night, feels exhausted, she sleeps on her r. side but tosses and turns. She goes to bed at 8pm and has difficulty falling asleep. She falls asleep at midnight and sleeps for 20min and can't stay asleep due to 3-4x bathroom breaks each night. She has morning headaches which radiate bilaterally from her temporal area to the parietal area about 1x a week and takes 2 tylenols, along with her Fiorect when the headaches evolve into full blown migraines with auras. She has photophobia, phonophobia, with dizziness, she denies n/v vertigo and balance difficulties. She has anxiety and mood disorder and takes lithium 300mg po bid, amitritpyline 10mg, and citalopram 10mg po daily. She sees her therapist once a week and pscyhiatrist 1x a month. She has pain daily and takes tizanidine 2mg po BID for fibromyagia. She also has restless leg symptoms at night time and it keeps her up through the night. She gets cramps, and an uncomfortable sensation which improves when she stretches her feet, l>r. Her BP is lower today than normal and she drinks lots of water to stay hydrated. She denies smoking, denies us of MJ, or vaping. [facility] Medical History Shortness of breath Snoring Fibromyalgia Prediabetes BMI 40.0-44.9, adult Hyperlipidemia Sclerosing mesenteritis Fatigue History of bacterial pneumonia Morbid obesity due to excess calories Lymphadenopathy, inguinal Chronic diarrhea Hemorrhoids Class 2 obesity with body mass index (BMI) of 39.0 to 39.9 in adult Moderate asthma Anxiety Pain of right heel Hx of allergic rhinitis Hx of bipolar disorder Asthma Surgical History History of carpal tunnel release History of endometrial ablation History of open reduction and internal fixation (ORIF) procedure History of bilateral tubal ligation History of tonsillectomy and adenoidectomy Hx of shoulder surgery Tubal ligation status Family History Mother Hypertension Father No problems noted. Social History Housing: Apartment Alcohol intake: never Patient Tobacco Use Status: Never used Tobacco e-Cigarette/Vaping Use: Never Used Second Hand Smoke Exposure: No Substance Use Type: Marijuana service: No Current occupational status: unemployed Sexual orientation: Straight/Heterosexual Gender identity: Female Cognitive needs: No Hearing needs: No Vision needs: Yes Female Reproductive History Menstrual Age of Menarche: 10 Physical Exam Vital Signs: Last Vital Signs Pulse 88 12/17/24 14:02 BP 98/70 12/17/24 14:02 Pulse Ox 98 12/17/24 14:02 Oxygen Delivery Method Room Air 12/17/24 14:02 BMI result Body Mass Index 41.3 Const General: cooperative, no acute distress and tired appearing Orientation/consciousness: patient oriented x3 HEENT Face and sinus: Yes face symmetric Teeth and gingiva: other ([place] score 3) Eyes Pupils: Equal, round and reactive pupils present Neck Neck: Yes full ROM Resp Effort & Inspection: able to speak in complete sentences Neuro General: patient oriented x3 and moves all extremities Cranial nerves: Yes Facial sensation intact/muscles of mastication intact, Yes Equal, round and reactive pupils present, Yes Normal accommodation reflex present, Yes Normal facial strength present, Yes Midline tongue present, Yes Ability to bilaterally rotate head present and Yes Ability to bilaterally elevate shoulders present Cognition (Neuro): normal cognition Gait exam (Neuro): Normal gait present Motor exam (neuro): 5/5 motor strength present throughout and Normal motor muscle tone present throughout Deep tendon reflexes (DTR's): Right triceps reflex intensity grade: 2+, Left triceps reflex intensity grade: 2+, Rt Biceps (C5, C6): 2+, Left biceps reflex intensity grade: 2+, Right brachioradialis reflex intensity grade: 2+, Left brachioradialis reflex intensity grade: 2+, Right patellar reflex intensity grade: 2+, Left patellar reflex intensity grade: 2+, Right ankle reflex intensity grade: 2+ and Left ankle reflex intensity grade: 2+ Coordination: lviqkl-er-lazz test normal Psych Appearance: grossly normal Affect: Anxious affect present Attitude: cooperative Thought process: Normal thought process present Thought content: Normal thought content present Results Reviewed Results Reviewed: Findings: No acute fracture. Degenerative facet arthropathy. Mild degenerative changes of the lumbar spine with osteophytes. There is narrowing of the L4-L5 and L5 intervertebral disc space. The soft tissue is unremarkable. T12-L1: Unremarkable L1-L2: Posterior disc protrusion with mild spinal stenosis. Patent bilateral neural foramina. L2-L3: Disc bulging. No spinal stenosis or neural foramina stenosis. L3-L4: Disc bulging. No spinal stenosis or neural foramina stenosis. L4-L5: Disc bulging without spinal stenosis. Mild narrowing of the bilateral neural foramina. L5-S1: Disc bulging without spinal stenosis. Bilateral neural foramina stenosis, mild on the right and [id number] on the left IMPRESSION: 1. No acute findings. Degenerative changes of the lumbar spine as above level by level. Hpplqlmo-fq-vvoohi neural foramina stenoses of the left L5-S1. Assessment & Plan Assessment & Plan (1) Excessive daytime sleepiness: Code(s): G47.19 - Other hypersomnia Category: Medical (2) Fatigue: Code(s): R53.83 - Other fatigue Category: Medical Qualifiers: Fatigue type: chronic, unspecified Qualified Code(s): R53.82 - Chronic fatigue, unspecified Plan PSG to r/o rosana fatigue Labs to r/o nutritional deficiencies Orders: Orders RT PSG in-lab sleep study Today G47.19 - Other hypersomnia Patient Instructions: Sleep Hygiene provided: set a scheduled bedtime and wake time to help regulate the circadian rhythm and balance the release of pituitary hormones. Sleep in a dark room, temperatures below 68 degrees, and no devices n bed. Limit caffeinated products 6 hours prior to bed, and limit fluids 2-4 hours prior to bed. Gentle night yoga, diffusing essential oils, and playing soft music can be relaxing. migraines continue fiorecet and migraine cap as needed. Coding Level of Care Code New Pt Level 4 (38587) Diagnoses Excessive daytime sleepiness G47.19 Chronic fatigue R53.82 Fatigue type: chronic, unspecified Time Spent (min) 25 Comment Evaluation
--- OUTSIDE RECORDS SUMMARY | 2024-12-17 14:18 | XMS_ITS | Encounter Summary ---
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 documented in this encounter Plan of Treatment Not on file documented as of this encounter Visit Diagnoses Not on filedocumented in this encounter Care Teams Gang Saw Operator Relationship Specialty Start Date End Date Sania Watt MD [address] [place] [address] PCP - General Family Medicine 02/22/18 06/30/23 documented as of this encounter
== END 2024-12-17 14:54 | disposition home or self-care (01) ==
LOC: HO.HSMS 13:53
PROVIDERS: PCP Internal Medicine; Visit Provider Physician Assistant Medical
DX: G47.19 Other hypersomnia (principal); R53.82 Chronic fatigue, unspecified
CPT/HCPCS: 99204

== ENCOUNTER → 2024-12-17 13:52 | Outpatient (BNVA) | payer OTHER, SELFPAY | PROVIDERS: PCP Internal Medicine; Visit Provider Physician Assistant Medical | DX: G47.19 Other hypersomnia (principal); R06.83 Snoring; R53.82 Chronic fatigue, unspecified | CPT/HCPCS: 99202 ==

== ENCOUNTER → 2025-01-31 20:30 | Outpatient (REF) | payer OTHER, SELFPAY | LOC: HO.SL 20:30 | PROVIDERS: PCP Internal Medicine; Visit Provider Physician Assistant Medical | DX: Z13.89 Encounter for screening for other disorder (principal) ==

== ENCOUNTER → 2025-01-31 21:37 | Outpatient (BNV) | payer OTHER, SELFPAY | PROVIDERS: PCP Internal Medicine; Visit Provider Psychiatry & Neurology Neurology | DX: G47.33 Obstructive sleep apnea (adult) (pediatric) (principal) | CPT/HCPCS: 95810 ==

== ENCOUNTER 2025-02-26 14:22 | Emergency (ER) | payer OTHER, SELFPAY ==
[2025-02-26 14:30] VITALS: BP 134/75; PULSE 87; RESP 20; TEMP 36.8; O2SAT 96; BMI 55.7
--- NOTE | 2025-02-26 14:30 | ED.GENADULT ---
HPI - General Adult General Chief complaint: General Medical Stated complaint: Headache, dizziness, fever Time Seen by Provider: 02/26/25 17:41 Source: patient, family, RN notes reviewed and old records reviewed Mode of arrival: ambulatory Limitations: no limitations History of Present Illness ED Provider: José HPI narrative: 39-year-old female with a past medical history significant for asthma, obesity, bipolar disorder, prediabetes, presents for evaluation of multiple complaints pain She complains of general body aches, sore throat, cough, fevers and chills She has been using her albuterol without any improvement. She complains of dizziness for the last week when her symptoms started. Her daughter has similar symptoms at home. No chest pain abdominal pain. No recent travel No other complaints or concerns at this time Related Data Home Medications ?Medication ?Instructions ?Recorded ?Confirmed citalopram 10 mg tablet 10 mg PO QAM 10/14/21 11/27/24 doxepin 150 mg capsule 300 mg PO BEDTIME 10/14/21 11/27/24 lithium carbonate 300 mg capsule 300 mg PO BID 10/14/21 11/27/24 zolpidem 10 mg tablet 10 mg PO BEDTIME PRN 02/01/24 11/27/24 Previous Rx's ?Medication ?Instructions ?Recorded azelastine 0.05 % eye drops 1 drp ophthalmic (eye) BID PRN 10/01/22 allergic symptoms #6 mL miscellaneous medical supply 1 ea miscellaneous DAILY #1 ea 10/01/22 albuterol sulfate 2.5 mg/3 mL 2.5 mg (3 mL) inhalation Q6H PRN 08/16/24 (0.083 %) solution for nebulization respiratory symptoms 30 days #75 mL kimydhyrni-xkbusqvbrjlqe-awuayhsm 1 tab PO Q6H PRN pain 30 days #20 08/23/24 50 mg-325 mg-40 mg tablet tabs albuterol sulfate 90 mcg/actuation 2 puff PO Q8H PRN for wheezing 30 10/17/24 aerosol inhaler days #8.5 grams amitriptyline 10 mg tablet 10 mg PO DAILY #90 tabs 10/25/24 lidocaine 5 % topical patch 1 patch topical DAILY #15 ea 11/02/24 (Lidoderm) prednisone 20 mg tablet See Rx Instructions .Route 11/05/24 .COMPLEX #15 tabs diclofenac sodium 75 mg 75 mg PO BID PRN pain 3 days #6 11/27/24 tablet,delayed release tabs Step stool #1 ea 01/07/25 Walker #1 ea 01/07/25 shower chair #1 ea 01/07/25 tizanidine 4 mg tablet 4 mg PO TID PRN muscle spasticity 01/09/25 #90 tabs azithromycin 250 mg tablet See Rx Instructions PO .COMPLEX #6 02/26/25 tabs Allergies Allergy/AdvReac Type Severity Reaction Status Date / Time aspirin (Aspirin) Allergy Severe DIFFICULTY Verified 02/26/25 14:31 BREATHING, tracheal swelling Penicillins Allergy Severe DIFFICULTY Verified 02/26/25 14:31 BREATHING Review of Systems Constitutional: Constitutional: Reports body ache(s), Reports chills, Reports fever(s), Denies headache(s) and Reports malaise ENT: Denies headache(s) and Reports sore throat Cardiovascular: Cardiovascular: Denies chest pain, Reports dyspnea and Reports dyspnea on exertion Respiratory: Respiratory: Reports cough, Reports dyspnea, Reports dyspnea on exertion and Reports wheezing Gastrointestinal: Gastrointestinal: Denies abdominal pain, Denies nausea and Denies vomiting Musculoskeletal: Musculoskeletal: Reports back pain Integumentary/Breasts: Skin/Breast: Denies rash Neurologic: Denies headache(s) Allergic/Immunologic: Allergic/Immunologic: Reports wheezing [facility] Past Medical History Medical History Shortness of breath Snoring Fibromyalgia Prediabetes BMI 40.0-44.9, adult Hyperlipidemia Sclerosing mesenteritis Fatigue History of bacterial pneumonia Morbid obesity due to excess calories Lymphadenopathy, inguinal Chronic diarrhea Hemorrhoids Class 2 obesity with body mass index (BMI) of 39.0 to 39.9 in adult Moderate asthma Anxiety Pain of right heel Hx of allergic rhinitis Hx of bipolar disorder Asthma Surgical History History of carpal tunnel release History of endometrial ablation History of open reduction and internal fixation (ORIF) procedure History of bilateral tubal ligation History of tonsillectomy and adenoidectomy Hx of shoulder surgery Tubal ligation status Family History Family History Mother Hypertension Father No problems noted. Social History Social History Housing: Apartment Alcohol intake: never Patient Tobacco Use Status: Never used Tobacco e-Cigarette/Vaping Use: Never Used Second Hand Smoke Exposure: No Substance Use Type: Marijuana Advance Directives: No Advance Directives Information Provided: No service: No Current occupational status: unemployed Sexual orientation: Straight/Heterosexual Gender identity: Female Cognitive needs: No Hearing needs: No Vision needs: Yes Physical Exam ED Vital Signs: Vital Signs - 24 hr 02/26/25 14:30 02/26/25 17:39 Temperature 98.2 F 97.8 F Pulse Rate 87 72 Respiratory Rate 20 20 Blood Pressure 134/75 128/84 Pulse Oximetry 96 99 Oxygen Delivery Method Room Air Room Air BMI result Body Mass Index 55.7 Const General: healthy appearing, comfortable, no acute distress, alert and awake Nutritional Appearance: well nourished Orientation/consciousness: patient oriented x3 HENMT Head: Yes normocephalic and Yes atraumatic Face and sinus: No sinuses nontender and Yes Facial tenderness on exam of face and sinuses (Bilateral frontal sinus tenderness) Throat: Yes posterior oropharynx normal Eyes Eyelids: Yes eyelids normal Conjunctivae: conjunctivae normal Sclerae: sclerae normal Corneas: corneas normal Pupils: Equal, round and reactive pupils present EOM: EOMs intact bilaterally Neck Neck: Yes full ROM Resp Effort & Inspection: normal respiratory effort, able to speak in complete sentences, no audible wheezes and not labored Auscultation: clear to auscultation bilaterally Cardio Rate: regular rate Rhythm: regular rhythm GI Inspection: No distended Palpation (GI): Soft to palpation, not firm, nontender, no guarding and not rigid Skin General skin exam: elasticity normal Neuro General: patient oriented x3 Cranial nerves: Yes Equal, round and reactive pupils present and Yes Bilaterally intact EOM present Cognition (Neuro): normal cognition Extrem Other: Moving all extremities well without any obvious deformities Course Course Course Narrative: This is an RME: Additional HPI, ROS, PE not included below will be deferred to primary provider. RME assessment and note performed by: Mojgan Flores PA-C This is a 48-[id number]-female, morbid obesity, fatty liver disease, fibromyalgia, hyperlipidemia, polyarthralgia, asthma, bipolar disorder, who presents to the ER with a complaint of body aches, fevers, dizziness, sore throat x 6 days. Oropharynx is erythematous, no tonsillar hypertrophy or exudates. Speaking full sentences under no acute distress. Plan: Labs, viral swabs, strep swab, further ER evaluation needed. Medical Decision Making Medical Decision Making [facility] Narrative: 39-year-old female with a past medical history as above presents for evaluation of multiple complaints. Her symptoms are consistent with an upper respiratory infection but have present for over a week. She complains of fevers, chills, sore throat, facial pain, body aches, coughing. Daughter has similar symptoms. Her workup was largely unremarkable when compared to her baseline. There was no significant anemia. There was no left shift, no leukocytosis. Chemistries did not have any concerning abnormalities warranting intervention. She does have a chronic transaminitis in her AST and ALT are slightly elevated consistent with a baseline. She is not . Renal function is baseline. She had a strep test, COVID-19 and influenza testing that was negative. Her physical exam is reassuring, she does have some sinus tenderness. Lungs are clear to auscultation. I discussed the possible chest x-ray the patient but she declines. We will treat her for acute sinusitis given your symptoms has been present for a week. She has a penicillin allergy and we will treat with azithromycin Differential Diagnosis Differential Diagnoses: The differential diagnosis associated with the presentation includes Acute sinusitis Upper respiratory infection Bronchitis Pneumonia Lab Data MDM Lab Attestation statement: I reviewed the patient's lab results. As above 02/26/25 14:46 02/26/25 14:46 Labs: Lab Results 02/26/25 Range/Units 14:46 WBC 10.2 (4.8-10.8) X10*3/uL RBC 4.47 (4.20-5.50) X10*6/uL Hgb 11.9 L (12.0-16.0) g/dl Hct 34.5 L (37.0-47.0) % MCV 77.2 L (80.0-98.0) fL MCH 26.6 L (27.0-33.0) pg MCHC 34.5 (31.0-35.0) g/dl RDW 13.7 (11.0-16.0) % Plt Count 303 (160-400) X10*3/uL MPV 10.5 (9.4-12.3) fL Immature Gran % (Auto) 0.3 (0.0-0.4) % Neut % (Auto) 63.6 (45-73) % Lymph % (Auto) 24.2 (20-40) % Gates % (Auto) 7.6 (2-11) % Eos % (Auto) 4.0 (0-4) % Baso % (Auto) 0.3 (0-2) % Lymph # (Auto) 2.5 (1.2-4.9) X10*3/uL Gates # (Auto) 0.8 (0.1-1.2) X10*3/uL Eos # (Auto) 0.4 (0.0-0.4) X10*3/uL Baso # (Auto) 0.0 (0.0-0.2) X10*3/uL Abs Immat Gran (auto) 0.03 (0.00-0.03) X10*3/uL Absolute Neuts (auto) 6.5 (2.0-8.3) x10*3/uL Absolute Nucleated RBC 0.000 (0.0-0.012) X10*3/uL Nucleated RBC % (auto) 0.0 (0.0-0.2) /100WBC Sodium 140 (135-145) mmol/L Potassium 3.6 (3.3-5.1) mmol/L Chloride 109 H (96-108) mmol/L Carbon Dioxide 26 (22-29) mmol/L Anion Gap 9 L (12-20) BUN 7 L (9-16) mg/dL Creatinine 0.72 (0.5-1.4) mg/dL Estim Creat Clear Calc 130.9 Estimated GFR > 60 Random Glucose 101 (60-115) mg/dL Calcium 8.4 (8.4-10.2) mg/dL Magnesium 1.8 (1.6-2.6) mg/dL Total Bilirubin 0.2 (0.0-1.0) mg/dL Direct Bilirubin < 0.2 (0.0-0.5) mg/dL AST 40 H (5-31) U/L ALT 62 H (0-31) U/L Alkaline Phosphatase 65 (39-117) U/L Total Protein 6.4 L (6.5-8.0) g/dL Albumin 3.7 (3.5-5.0) g/dL Beta HCG, Quant < 2 mIU/mL Urine Color Yellow Urine Appearance Clear Urine pH 6.0 (5.0-9.0) Ur Specific [place] 1.015 (1.005-1.025) Urine Protein Negative (Neg-Trace) mg/dL Urine Glucose (UA) Negative (Negative) mg/dL Urine Ketones Negative (Negative) mg/dL Urine Blood Negative (Negative) Urine Nitrite Negative (Negative) Ur Leukocyte Esterase Negative (Negative) COVID-19 (RAFAEL) Negative (Negative) COVID-19 Clin Com See Note Influenza Type A (LILIBETH) Negative (Negative) Influenza Type B (LILIBETH) Negative (Negative) Influenza A & B Note See Note S. pyogenes GrpA LILIBETH Negative (Negative) Tests considered The following testing was considered but not selected: Consider chest x-ray but patient declines. She has no white count, no fever, she is not hypoxic and lungs are clear to auscultation so I feel it is appropriate to defer this at this time. Prescription Management I considered prescription management with: Antibiotic Chronic Conditions Patient?s care impacted by: Diabetes and Hypertension Discharge Plan Discharge Clinical Impression: Acute sinusitis Patient Disposition: Home, Self-Care Instructions: Sinusitis (ED) Additional Instructions: Your workup in the ER today was reassuring. Your symptoms are consistent with a sinus infection. You may also benefit from an xzvn-mcf-okgnwqa allergy medication. Use your albuterol inhaler as needed. Take azithromycin as prescribed. Return for new or worsening symptoms, especially if you develop worsening shortness of breath you may benefit from a chest x-ray Prescriptions: New azithromycin 250 mg tablet See Rx Instructions .ROUTE .COMPLEX Qty: 6 0RF Rx Instructions: For 250 mg dose pack: take 500 mg today (day 1), then 250 mg for 4 days (days 2-5) No Action albuterol sulfate 2.5 mg /3 mL (0.083 %) solution for nebulization 2.5 mg inhalation Q6H PRN (Reason: respiratory symptoms) 30 Days Qty: 75 1RF albuterol sulfate 90 mcg/actuation HFA aerosol inhaler 2 puff PO Q8H PRN (Reason: for wheezing) 30 Days Qty: 8.5 0RF (DME) Step stool See Rx Instructions .Route .MEDSUPPLY Qty: 1 0RF Rx Instructions: As directed (DME) Walker See Rx Instructions .Route .MEDSUPPLY Qty: 1 0RF Rx Instructions: As directed (DME) shower chair See Rx Instructions .Route .MEDSUPPLY Qty: 1 0RF Rx Instructions: As directed tizanidine 4 mg tablet 4 mg PO TID PRN (Reason: muscle spasticity) Qty: 90 0RF Rx Instructions: Do not take with Fioricet. No driving while taking this medication. May cause drowsiness. Do not take with alcohol or other STATISTICAL ASSISTANT Depressants. lidocaine [Lidoderm] 5 % adhesive patch,medicated 1 patch topical DAILY Qty: 15 0RF Rx Instructions: leave on most painful area for up to 12 hrs prednisone 20 mg tablet See Rx Instructions .ROUTE .COMPLEX Qty: 15 0RF Rx Instructions: 60 mg (3 tabs) x2 days, then 40 mg (2 tabs) x3 days, then 20 mg (1 tab) x3 days doxepin 150 mg capsule 300 mg PO BEDTIME lithium carbonate 300 mg capsule 300 mg PO BID citalopram 10 mg tablet 10 mg PO QAM azelastine 0.05 % drops 1 drp ophthalmic (eye) BID PRN (Reason: allergic symptoms) Qty: 6 0RF miscellaneous medical supply Misc 1 ea miscellaneous DAILY Qty: 1 0RF Rx Instructions: face mask for nebulizer machine zolpidem 10 mg tablet 10 mg PO BEDTIME PRN diclofenac sodium 75 mg tablet,delayed release (DR/EC) 75 mg PO BID PRN (Reason: pain) 3 Days Qty: 6 0RF laqhwbhwrh-xgljqkirmkaji-xnnh 50-325-40 mg tablet 1 tab PO Q6H PRN (Reason: pain) 30 Days Qty: 20 0RF amitriptyline 10 mg tablet 10 mg PO DAILY Qty: 90 1RF Print Language: Kiswahili
--- NOTE | 2025-02-26 14:33 | ECG_ITS ---
Test Reason : dizziness Blood Pressure : */* mmHG Vent. Rate : 80 BPM Atrial Rate : 80 BPM P-R Int : 158 ms QRS Dur : 94 ms QT Int : 372 ms P-R-T Axes : 37 5 10 degrees QTcB Int : 429 ms Normal sinus rhythm Moderate voltage criteria for LVH, may be normal variant ( R in aVL , [place] product ) Borderline ECG When compared with ECG of 25-Aug-2024 17:09, No significant change was found Referred By: Mojgan Flores Electronically Signed By: FAITH HERNANDEZ
[2025-02-26 14:59] LABS: MANUAL DIFF FLAG NO
[2025-02-26 15:01] LABS: Hematocrit 34.5 % (37.0-47.0); Hemoglobin 11.9 g/dl (12.0-16.0); Imm Gran Abs Auto 0.03 X10*3/uL (0.00-0.03); Imm Gran Pct Auto 0.3 % (0.0-0.4); Lymphocytes Absolute Auto 2.5 X10*3/uL (1.2-4.9); Mean Corpuscular HGB Conc 34.5 g/dl (31.0-35.0); Mean Corpuscular Hemoglobin 26.6 pg (27.0-33.0); Mean Corpuscular Volume 77.2 fL (80.0-98.0); NRBC Abs Auto 0.000 X10*3/uL (0.0-0.012); NRBC Pct Auto 0.0 /100WBC (0.0-0.2); Platelet Count 303 X10*3/uL (160-400); Red Blood Count 4.47 X10*6/uL (4.20-5.50); White Blood Count 10.2 X10*3/uL (4.8-10.8)
[2025-02-26 15:03] LABS: Appearance Urine Clear; Glucose Urine UA Negative (Negative); PH 6.0 (5.0-9.0); Specific Gravity - Urine 1.015 (1.005-1.025)
[2025-02-26 15:22] LABS: Alanine Aminotransferase 62 U/L (0-31); Albumin Level 3.7 g/dL (3.5-5.0); Alkaline Phosphatase 65 U/L (39-117); Anion Gap 9 (12-20); Aspartate Amino Transferase 40 U/L (5-31); Blood Urea Nitrogen 7 mg/dL (9-16); Calcium 8.4 mg/dL (8.4-10.2); Carbon Dioxide 26 mmol/L (22-29); Chloride 109 mmol/L (96-108); Creatinine Clr Calc Pharmacy 130.9; Estimated Glomerular Filt Rate > 60; IDNOW Serial# 55D5AD1C; Influenza B2 Negative (Negative); Magnesium 1.8 mg/dL (1.6-2.6); Potassium 3.6 mmol/L (3.3-5.1); Sodium 140 mmol/L (135-145); Total Protein 6.4 g/dL (6.5-8.0)
[2025-02-26 15:23] LABS: COVID-19 Test Negative (Negative); IDNOW Serial# 08D9AD1C; IDNOW Serial# 58CA691E; Strep A Nucleic Acid Negative (Negative)
[2025-02-26 17:39] VITALS: BP 128/84; PULSE 72; RESP 20; TEMP 36.6; O2SAT 99
[2025-02-26 18:21] VITALS: BP 128/84; PULSE 72; RESP 20; TEMP 36.6; O2SAT 99
== END 2025-02-26 18:22 | disposition home or self-care (01) ==
PROVIDERS: Physician Assistant Medical; Emergency Provider Student in an Organized Health Care Education/Training Program; PCP Internal Medicine
DX: J01.90 Acute sinusitis, unspecified (principal); R42 Dizziness and giddiness; J02.9 Acute pharyngitis, unspecified; R05.9 Cough, unspecified; R50.9 Fever, unspecified; Z03.818 Encounter for observation for suspected exposure to other biological agents ruled out
CPT/HCPCS: 80048; 80076; 81003; 83735; 84702; 85025; 87502; 87635; 87651; 93005; 99283; 99284

== ENCOUNTER → 2025-02-26 14:33 | Outpatient (BNV) | payer OTHER, SELFPAY | PROVIDERS: Emergency Provider Student in an Organized Health Care Education/Training Program; PCP Internal Medicine; Visit Provider Internal Medicine | DX: R42 Dizziness and giddiness (principal) | CPT/HCPCS: 93010 ==

== ENCOUNTER 2025-02-28 16:52 | Outpatient (AMB) | payer OTHER, SELFPAY ==
[2025-02-28 16:57] VITALS: BP 120/72; PULSE 89; RESP 18; TEMP 36.3; O2SAT 97; BMI 55.7
--- NOTE | 2025-02-28 16:57 | A.OFFPC_ITS ---
Vital Signs 02/28/25 16:57 Height 5 ft Weight 129.274 kg BMI 55.7 BP 120/72 Blood Pressure Location Lt brachial Position Sitting Respiration 18 Pulse 89 Pulse Source Pulse Oximeter Temp 97.3 F Temp Source Temporal Artery Scan Pulse Oximetry (%) 97 Oxygen Delivery Method Room Air Intake Visit Reasons: PHYSICAL Occupational Therapy Co Director Required: No Accompanied by: Self / Same As Patient Allergies aspirin (Aspirin) Allergy (Severe, Verified 02/28/25 17:20) DIFFICULTY BREATHING, tracheal swelling Penicillins Allergy (Severe, Verified 02/28/25 17:20) DIFFICULTY BREATHING Medication List - Last Reconciled 02/28/25 by Janis Henson MD albuterol sulfate 2.5 mg (3 mL) inhalation Q6H PRN 30 days albuterol sulfate 90 mcg/actuation 2 puffs PO Q8H PRN 30 days amitriptyline 10 mg PO DAILY azithromycin For 250 mg dose pack: take 500 mg today (day 1), then 250 mg for 4 days (days 2-5) nkjhzbsnct-oitjucfcsqgdc-oswq 50-325-40 mg 1 tab PO Q6H PRN 30 days citalopram 10 mg PO QAM doxepin 300 mg PO BEDTIME lithium carbonate 300 mg PO BID miscellaneous medical supply 1 ea miscellaneous DAILY prednisone 60 mg (3 tabs) x2 days, then 40 mg (2 tabs) x3 days, then 20 mg (1 tab) x3 days [shower chair As directed] [Step stool As directed] tizanidine 4 mg PO TID PRN [Walker As directed] zolpidem 10 mg PO BEDTIME PRN Tobacco use date assessed: 02/28/25 Dental Screening Dental Screen Date: 02/28/25 Did you have a dental visit in the last 12 months?: No Did you have a dental problem in the last 6 months where you did not have access to dental care?: No Was dental information given to patient?: No [facility] Medical History Shortness of breath Snoring Fibromyalgia Prediabetes BMI 40.0-44.9, adult Hyperlipidemia Sclerosing mesenteritis Fatigue History of bacterial pneumonia Morbid obesity due to excess calories Lymphadenopathy, inguinal Chronic diarrhea Hemorrhoids Class 2 obesity with body mass index (BMI) of 39.0 to 39.9 in adult Moderate asthma Anxiety Pain of right heel Hx of allergic rhinitis Hx of bipolar disorder Asthma Surgical History History of carpal tunnel release History of endometrial ablation History of open reduction and internal fixation (ORIF) procedure History of bilateral tubal ligation History of tonsillectomy and adenoidectomy Hx of shoulder surgery Tubal ligation status Family History (Updated 02/28/25 @ 17:25 by Janis Henson MD) Mother Hypertension Diabetes mellitus Father No problems noted. Social History Housing: Apartment Alcohol intake: never Patient Tobacco Use Status: Never used Tobacco e-Cigarette/Vaping Use: Never Used Second Hand Smoke Exposure: No Substance Use Type: Marijuana service: No Current occupational status: unemployed Sexual orientation: Straight/Heterosexual Gender identity: Female Cognitive needs: No Hearing needs: No Vision needs: Yes Female Reproductive History Menstrual Age of Menarche: 10 Questionnaire Thrive Questionnaire Date Thrive assessed: 10/25/24 I am a: Patient What is your living situation today?: I have a steady place to live Within the past 12 months, did the food you bought not last and you didn't have the money to get more?: Never true Within the past 12 months, did you worry whether your food would run out before you got money to buy more?: Never true Do you have trouble paying for medicines?: No Do you have trouble getting transportation to medical appointments?: No Do you have trouble paying your heating and electricity bill?: No Do you have trouble taking care of your child, family member or friend?: No Do you have trouble with day-to-day activities such as bathing, preparing meals, shopping, managing finances, etc.?: No Are you currently unemployed and looking for a job?: No Are you interested in more education?: No Please select the resources that you would like help with: None Currently or been in a relationship where the following occur: No concerns reported THRIVE Score: 0 AJ-7 AMB Questionnaire AJ-7 Date AJ - 7 assessed: 10/25/24 Source: Developed by Drs. Davy Ardon, Sulma B.W. Nestor Fletcher and colleagues, with an educational john from [employer]. Review of Systems Const All systems reviewed & are unremarkable except as noted in HPI and below Card Denies chest pain at rest, Denies chest pain with activity, Denies edema, Denies irregular heart rhythm, Denies claudication, Denies dyspnea, Denies dyspnea on exertion, Denies orthopnea, Denies paroxysmal nocturnal dyspnea and Denies slow heart rate Resp Denies cough, Denies dyspnea and Denies dyspnea on exertion GI Denies abdominal pain, Denies change in bowel habits, Denies excessive flatus, Denies nausea and Denies vomiting Denies urinary incontinence, Denies urinary hesitancy and Denies urinary urgency Musc Denies atrophy, Denies deformity and Denies limited range of motion Physical exam (Primary Care) Vital Signs: Last Vital Signs Temp 97.3 F 02/28/25 16:57 Pulse 89 02/28/25 16:57 Resp 18 02/28/25 16:57 BP 120/72 02/28/25 16:57 Pulse Ox 97 02/28/25 16:57 Oxygen Delivery Method Room Air 02/28/25 16:57 BMI result Body Mass Index 55.7 Tobacco/Smoking Status: Tobacco use Status Tobacco use date assessed 02/28/25 02/28/25 17:00 Patient Tobacco Use Status Never used Tobacco 02/28/25 17:00 e-Cigarette/Vaping Use Never Used 02/28/25 17:00 Thrive Assessment: Date of Thrive Assessment Date Thrive assessed 10/25/24 02/28/25 17:00 Currently or been in a relationship where the following occur: No concerns reported [facility] Head: Yes normal to inspection, Yes normocephalic and Yes atraumatic Ears: external ears normal Eyes General: appearance normal, both eyes and all related structures Eyelids: Yes eyelids normal Conjunctivae: conjunctivae normal Neck Neck: Yes normal visual inspection and Yes supple Resp Effort & Inspection: normal respiratory effort Auscultation: clear to auscultation bilaterally Cardio Jugular venous distension: no JVD Rate: regular rate Rhythm: regular rhythm Heart sounds: S1 normal heart sound present and S2 normal heart sound present GI Inspection: Yes normal to inspection Palpation (GI): Soft to palpation and nontender Auscultation: normal bowel sounds Skin General skin exam: no rashes or lesions noted Neuro General: no focal motor deficits Extrem General: Yes full ROM Psych Appearance: grossly normal Immunizations Boostrix Tdap 2.5 Lf unit-8 mcg-5 Lf/0.5 mL intramuscular syringe Performing Provider: Janis Henson MD [facility] Administered by: Letty Plaza CMA on 02/28/25 17:38 Dose Route Admin Location Dispensed Lot Number Expiration Date [place] Occupational Therapy Co Director 0.5 mL IM Left Deltoid 0.5 mL [id number] 05/02/27 [id number] [place] Total Dispensed Waste 0.5 mL 0 % VIS Given Date VIS Provided VIS Publication Date 02/28/25 Single Vaccine 21 Eligibility Eligibility Date Funding Source Not [facility] Eligible 02/28/25 Private Coding Assessment & Plan Assessment & Plan Orders: Orders Lipid Panel Today E78.5 - Hyperlipidemia, unspecified Complete Blood Count Auto Diff Today D64.9 - Anemia, unspecified Vitamin B12 and Folate Today E53.8 - Deficiency of other specified B group vitamins TDaP Immunization Today Z23 - Encounter for immunization Microalbumin, Random (w Creat) Today R80.9 - Proteinuria, unspecified Vitamin D 25-OH Total Today E55.9 - Vitamin D deficiency, unspecified Comprehensive [place]. Panel Fast Today E78.5 - Hyperlipidemia, unspecified Thyroid Stimulating Hormone Today E66.01 - Morbid (severe) obesity due to excess calories Medications: New tirzepatide (weight loss) (Zepbound) for 4 weeks 2.5 mg (0.5 mL) subcut QWEEK 2 mL 0RF 4 weeks E66.01 - Morbid ( severe) obesity due to excess calories
--- OUTSIDE RECORDS SUMMARY | 2025-02-28 17:26 | XMS_ITS | Clinical Summary ---
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 Name Role Phone Unavailable Primary Care Provider [...] Date Last Done Comments Depression Screening 1985 Disability Screening 1985 Alcohol/Substance Use Screening 1997 Tobacco Screening 1997 Family Planning (PISQ) 2000 HPV Vaccines (1 - 3-dose series) 2000 Pap Smear 2006 Hepatitis B Vaccines (2 of 3 - 19+ 3-dose series) 11/22/2008 10/25/2008, 10/09/2008 DTaP/Tdap/Td Vaccines (1 - Tdap) 06/23/2012 06/22/2012, 06/13/2007 Cervical Cancer Screening 03/22/2022 HPV/Cotest 03/22/2022 03/22/2017 COVID-19 Vaccine (3 - 2024-2 6 season) 2025 12/25/2020, 11/20/2020 Influenza Vaccine (#1) 2025 5, 04/19/2014, 04/13/2011 Zoster Vaccines (1 of 2) 09/02/2035 RSV Patients and Patients Aged 60 years or older (1 - 1-dose 75+ series) 2060 Hepatitis A Vaccines Aged Out 10/09/2008 No long er eligible based on patient's age to complete this topic Pneumococcal Vaccine: Pediatrics (0 to 5 Years) and At-Risk Patients (6 to 49) Years Aged Out 10/21/2014 No longer eligible b ased on patient's age to complete this topic HIB Vaccines Aged Out No longer eligi ble based on patient's age to complete this topic IPV Vaccines Aged Out No longer eligi ble based on patient's age to complete this topic Meningococcal B Vaccine Aged Out No l onger eligible based on patient's age to complete [...] HPV mRNA E6/E7 Not Detected NOT DETECTED [facility] Comment: This test was performed using the APTIMA(R) HPV Assay ([employer] This assay detects E6/E7 viral messenger RNA (mRNA) from 14 high-risk HPV types (16,18,31,33,35,39,45,51, 52,56,58,59,66,68). For additional information please refer to: http://education.Kapost.Cognitive Code/faq/DXC579i1 (This link is being provided for informational/ educational purposes only.) Test Performed by [employer], [employer] [facility], [address] [place] [id number] Billy Robertson M.D., Ph.D., Director of Laboratories , [place] [id number] Please note: Effective 02/23/2016, HPV testing will be performed using [employer]'s APTIMA test which targets mRNA. Detecting mRNA instead of DNA, as in older methods, offers significant improvements in specificity. 03/22/2017 3:29 PM EDT us Historical Provider HISTORICAL/NON ORDERABLE LABS Final Result [facility] Anywhere [address] from Last 3 Months or Most Recently Relevant to Health Maintenance
--- OUTSIDE RECORDS SUMMARY | 2025-02-28 17:26 | XMS_ITS | Encounter Summary ---
Author Organization [facility] Address [address] [place] [address] [address] [address] Care Team Providers Care Bacon De Rinder Name Role Phone Sania Watt MD Primary Care Provide r Reason for Visit * Reason Onset Date Comments New Patient Appt 11/10/2022 Encounter Details Date Type Department Care Team ([facility] st Contact Info) Description 11/10/2022 Telephone [facility] [address] [place], [place] [phone] Sania Watt MD [address] [place] [address] New Patient Appt Social History Tobacco Use [...] 11/10/2022 2:38 PM EDT New Patients Par Tea Rios called to schedule New patient appt, pt did not answer left voicemail to give a call at [phone]. documented in this encounter Plan of Treatment Not on file documented as of this encounter Visit Diagnoses Not on filedocumented in this encounter Care Teams Bacon De Rinder Relationship Specialty Start Date End Date Sania Watt MD [address] [place] [address] PCP - General Family Medicine 02/22/18 06/30/23 documented as of this encounter
== END 2025-02-28 17:48 | disposition home or self-care (01) ==
LOC: HO.HMCH 16:52
PROVIDERS: PCP Internal Medicine; Visit Provider Internal Medicine
DX: Z23 Encounter for immunization (principal)

== ENCOUNTER → 2025-02-28 16:52 | Outpatient (BNVA) | payer OTHER, SELFPAY | PROVIDERS: PCP Internal Medicine; Visit Provider Internal Medicine | DX: Z00.00 Encounter for general adult medical examination without abnormal findings (principal); D64.9 Anemia, unspecified; F31.9 Bipolar disorder, unspecified; E66.01 Morbid (severe) obesity due to excess calories; D57.1 Sickle-cell disease without crisis; R74.01 Elevation of levels of liver transaminase levels; L60.1 Onycholysis; R74.8 Abnormal levels of other serum enzymes; Z23 Encounter for immunization; Z68.43 Body mass index [BMI] 50.0-59.9, adult | CPT/HCPCS: 90471; 90715; 99212; 99395 ==

== ENCOUNTER 2025-03-01 08:52 | Emergency (ER) | payer OTHER, SELFPAY ==
--- NOTE | 2025-03-01 09:06 | ED_ITS ---
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 Patient states she experiences 1 episode a month of muscle strain in the lower back. Patient states yesterday while standing in the kitchen she felt a spasm in the right lumbar back causing significant pain. Patient reports lumbar back pain is radiating down the front of the thigh to the knee. Patient states this episode feels same as prior episodes, without change in quality or intensity. Patient denies saddle anesthesia, bowel/bladder incontinence. MD complaint: Lumbar back pain Related Data Home Medications ?Medication ?Instructions ?Recorded ?Confirmed citalopram 10 mg tablet 10 mg PO QAM 10/14/21 doxepin 150 mg capsule 300 mg PO BEDTIME 10/14/21 0 02/28/25 lithium carbonate 300 mg capsule 300 mg PO BID 2 02/28/25 zolpidem 10 mg tablet 10 mg PO BEDTIME PRN 4 02/28/25 Previous Rx's ?Medication ?Instructions ?Recorded miscellaneous medical supply 1 ea miscellaneous DAILY #1 ea 10/01/22 albuterol sulfate 2.5 mg/3 mL 2.5 mg (3 mL) inhalation Q6H PRN 08/16/24 (0.083 %) solution for nebulization respiratory sympto ms 30 days #75 mL skdtbgluwr-grtqaejwcobrr-bkvpgxzj 1 tab PO Q6H PRN torres n 30 days #20 08/23/24 50 mg-325 mg-40 mg tablet tabs albuterol sulfate 90 mcg/actuation 2 puff PO Q8H PRN f or wheezing 30 10/17/24 aerosol inhaler days #8.5 grams amitriptyline 10 mg tablet 10 mg PO DAILY #90 tabs prednisone 20 mg tablet See Rx Instructions .Route 0 11/05/24 .COMPLEX #15 tabs Step stool #1 ea 01/07/25 Walker #1 ea 01/07/25 shower chair #1 ea 01/07/25 tizanidine 4 mg tablet 4 mg PO TID PRN muscle spast icity 01/09/25 #90 tabs azithromycin 250 mg tablet See Rx Instructions PO .COM PLEX #6 02/26/25 tabs tirzepatide (weight loss) 2.5 2.5 mg (0.5 mL) subcut Q WEEK 4 02/28/25 mg/0.5 mL subcutaneous pen weeks #2 mL injector (Zepbound) diazepam 5 mg tablet (Valium) 5 mg PO TID PRN muscle s pasm #9 03/01/25 tabs prednisone 20 mg tablet 20 mg PO BID 5 days #10 tabs 03/01/25 Allergies Allergy/AdvReac Type Severity Reaction Status Date / Time aspirin (Aspirin) Allergy Severe DIFFICULTY Verified 03/01/25 09:11 BREATHING, tracheal swelling Penicillins Allergy Severe DIFFICULTY Verified 03/01/25 09:11 BREATHING PMFSH Past Medical History Attestation statement: The following information was validated with the patient. Source: old records reviewed, obtained from family (Aunt at bedside) and nursing notes reviewed Medical History Shortness of breath Snoring Fibromyalgia Prediabetes BMI 40.0-44.9, adult Hyperlipidemia Sclerosing mesenteritis Fatigue History of bacterial pneumonia Morbid obesity due to excess calories Lymphadenopathy, inguinal Chronic diarrhea Hemorrhoids Class 2 obesity with body mass index (BMI) of 39.0 to 39.9 in adult Moderate asthma Anxiety Pain of right heel Hx of allergic rhinitis Hx of bipolar disorder Asthma Surgical History History of carpal tunnel release History of endometrial ablation History of open reduction and internal fixation (ORIF) procedure History of bilateral tubal ligation History of tonsillectomy and adenoidectomy Hx of shoulder surgery Tubal ligation status Family History Family History (Updated 02/28/25 @ 17:25 by Janis Henson MD) Mother Hypertension Diabetes mellitus Father No problems noted. Social History Social History Housing: Apartment Alcohol intake: never Patient Tobacco Use Status: Never used Tobacco e-Cigarette/Vaping Use: Never Used Second Hand Smoke Exposure: No Substance Use Type: Marijuana Advance Directives: No Advance Directives Information Provided: No service: No Current occupational status: unemployed Sexual orientation: Straight/Heterosexual Gender identity: Female Cognitive needs: No Hearing needs: No Vision needs: Yes Physical Exam ED Vital Signs: Vital Signs - 24 hr 03/01/25 09:08 Temperature 96.8 F Pulse Rate 79 Respiratory Rate 18 Blood Pressure 133/89 Pulse Oximetry 97 Oxygen Delivery Method Room Air BMI result Body Mass Index 42.1 GENERAL APPEARANCE: ?AxOx4 no acute distress. HEENT: ?NC, AT. MMM. EOMI, clear conjunctiva, oropharynx clear. NECK: ?Supple without lymphadenopathy.? No stiffness or restricted ROM. HEART:? Normal rate and regular rhythm, normal S1/S2, no m/r/g LUNGS:? CTAB, moving air well. No crackles or wheezes are heard. BACK: No CVAT, no obvious deformity. TTP of right-sided lumbar paraspinal muscles and SI joint, no midline spinal tenderness, no bony step-offs or abnormalities palpated or observed, no overlying skin changes. ROM intact however does experience pain with extension of the spine, and lateral bending of the right side. EXTREMITIES: ?Without cyanosis, clubbing or edema. NEUROLOGICAL: ?Grossly nonfocal. Alert and oriented, moving all 4 extremities. Observed to ambulate with slow steady gait due to pain. Skin: ?Warm and dry without any rash. Medications Administered Discontinued Medications Generic Name Dose Route Start Last Admin Trade Name Phillipq PRN Reason Stop Dose Admin Acetaminophen 975 mg 03/01/25 09:28 03/01/25 09:48 Acetaminophen 325 Mg Tablet PO 03/01/25 09:29 975 mg ONCE ONE Administration Diazepam 5 mg 03/01/25 09:28 03/01/25 09:49 Diazepam 10 Mg/2 Ml Cartridge IM 03/01/25 09:29 5 mg STAT STA Administration Morphine Sulfate 4 mg 03/01/25 09:31 03/01/25 09:49 Morphine Sulfate 4 Mg/Ml Cartridge IM 03/01/25 09:32 4 mg ONCE ONE Administration Protocol Prednisone 40 mg 03/01/25 09:28 03/01/25 09:48 Prednisone 20 Mg Tablet PO 03/01/25 09:29 40 mg ONCE ONE Administration Medical Decision Making Medical Decision Making [facility] Narrative: 39 yo Slovak-speaking female with medical history of morbid obesity, fatty liver disease, fibromyalgia, hyperlipidemia, polyarthralgia, asthma, bipolar disorder, disc protrusion of lumbar spine, presents to the ED for acute on chronic lumbar back pain that began yesterday while she was standing in the kitchen. Reports at least 1 episode of this occurring a month. Patient states she has followed up with pain management/spine Center and is awaiting physical therapy. Patient states this episode is exactly like prior episodes without change in quality or intensity of back pain, Patient without red flag symptoms, no history of cancer, no saddle anesthesias, no bowel/bladder incontinence, no injury or trauma, afebrile, no history of IVDU, no altered mental status. VS on initial observation-BP 133/89, pulse rate of 79, respiratory rate of 18, afebrile with oral temp of 96.8?, O2 saturation 97% on room air. Patient is nontoxic appearing. On physical exam patient with significant tenderness of the right-sided lumbar paraspinal muscles, without midline spinal tenderness. ROM is intact but patient does have pain in flexion and with right lateral bending, no overlying skin changes or rashes noted, patient able to ambulate with slow and steady gait due to pain. Patient has been seen in the department for this pain in the past. Most recent imaging including lumbar x-ray/CT lumbar spine done in October of 2024 reveals degenerative disease of L4-L5 and L5-S1, with disc protrusion along the lumbar spine, with most significant neural foramina of the left L5-S1. Back pain has not changed in quality or intensity since her last images, with no injury or trauma, I do not believe advanced imaging is needed at this time since it has already been obtained with degenerative disease and disc bulging found. On chart review, patient has followed up with pain management, this note stated patient was supposed to start physical therapy before further intervention of spinal injections. Patient states she has not been called by Physical therapy. Patient was supposed to follow up with spinal specialist Dr. Dodson, patient states she has been in contact with their office and was supposed to have referral for physical therapy but states nobody has called her to begin therapy. Patient to be medicated in the department with 975 mg of p.o. Tylenol, 4 mg IM morphine, 5 mg IM Valium, 40 mg prednisone for management. I counseled patient to call pain management office for referral to physical therapy. I also counseled patient that she should call Dr. Dodson office to make sure she is established with their office. Patient comfortable to go home for self care and follow up with pain management, spine center, and primary care doctor. Patient is in agreement with the plan Differential Diagnosis Differential Diagnoses: The differential diagnosis associated with the presentation includes Spinal epidural abscess Cauda equina lumbago Admission/Observation Consideration of admission/observation: Escalation of care including admission/observation considered Independent Historian Clinical information obtained from an independent historian. History obtained from or confirmed by: Other (Aunt at bedside corroborating history) External Record Review External record reviewed: Inpatient record, Office record and Outpatient record Chronic Conditions Patient?s care impacted by: Other (morbid obesity, fatty liver disease, fibromyalgia, hyperlipidemia, polyarthralgia, asthma, bipolar disorder, lumbar disc protrusion) Discharge Plan Discharge Clinical Impression: Lumbago Patient Disposition: Home, Self-Care Additional Instructions: You were evaluated in the ED today due to lumbar back pain. Your physical exam revealed significant tenderness to the right side paraspinal muscles. You had lumbar x ray and lumbar CT scan in the department 4 months ago which revealed protrusion of the discs in your lower back. You need to complete physical therapy in order to move on to next steps like steroid injections by pain management. Please call pain management to ask about physical therapy referral. I reviewed the chart and they stated they placed a referral for you. Additionally, I placed another referral to spine Center Dr. Palm, call their office to make sure you were established patient with them. You will be prescribed 5 day course of prednisone for inflammation, and 3 days of Valium that you can use for extreme pain. Please manage pain at home with 400 mg of Tylenol, 400 mg of ibuprofen every 6 hours. Heating packs are helpful for lumbar back pain. Please return to the emergency department if you experience fevers over 100.4 that are not managed by Tylenol/Motrin, worsening back pain, loss of sensation in your inner thighs or genital area, bowel or bladder incontinence, worsening lumbar back pain, or any new/worsening/concerning symptoms. Prescriptions: New prednisone 20 mg tablet 20 mg PO BID 5 Days Qty: 10 0RF diazepam [Valium] 5 mg tablet 5 mg PO TID PRN (Reason: muscle spasm) Qty: 9 0RF No Action albuterol sulfate 2.5 mg /3 mL (0.083 %) solution for nebulization 2.5 mg inhalation Q6H PRN (Reason: respiratory symptoms) 30 Days Qty: 75 1RF albuterol sulfate 90 mcg/actuation HFA aerosol inhaler 2 puff PO Q8H PRN (Reason: for wheezing) 30 Days Qty: 8.5 0RF (DME) Step stool See Rx Instructions .Route .MEDSUPPLY Qty: 1 0RF Rx Instructions: As directed (DME) Walker See Rx Instructions .Route .MEDSUPPLY Qty: 1 0RF Rx Instructions: As directed (DME) shower chair See Rx Instructions .Route .MEDSUPPLY Qty: 1 0RF Rx Instructions: As directed tizanidine 4 mg tablet 4 mg PO TID PRN (Reason: muscle spasticity) Qty: 90 0RF Rx Instructions: Do not take with Fioricet. No driving while taking this medication. May cause drowsiness. 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 azithromycin 250 mg tablet See Rx Instructions .ROUTE .COMPLEX Qty: 6 0RF Rx Instructions: For 250 mg dose pack: take 500 mg today (day 1), then 250 mg for 4 days (days 2-5) prednisone 20 mg tablet See Rx Instructions .ROUTE .COMPLEX Qty: 15 0RF Rx Instructions: 60 mg (3 tabs) x2 days, then 40 mg (2 tabs) x3 days, then 20 mg (1 tab) x3 days doxepin 150 mg capsule 300 mg PO BEDTIME lithium carbonate 300 mg capsule 300 mg PO BID citalopram 10 mg tablet 10 mg PO QAM miscellaneous medical supply Misc 1 ea miscellaneous DAILY Qty: 1 0RF Rx Instructions: face mask for nebulizer machine zolpidem 10 mg tablet 10 mg PO BEDTIME PRN Zepbound 2.5 mg/0.5 mL pen injector 2.5 mg subcut QWEEK 28 Days Qty: 2 0RF Rx Instructions: for 4 weeks lcouyexowr-btzkumudgzofa-lvyw 50-325-40 mg tablet 1 tab PO Q6H PRN (Reason: pain) 30 Days Qty: 20 0RF amitriptyline 10 mg tablet 10 mg PO DAILY Qty: 90 1RF Referrals: nAtonio Dodson MD, PhD [Physician, Neuro Spine] Print Language: Slovak
[2025-03-01 09:08] VITALS: BP 133/89; PULSE 79; RESP 18; TEMP 36; O2SAT 97; BMI 42.1
[2025-03-01] MEDS: diazePAM 10 MG/2 ML CARTRIDGE 5 MG IM (09:49)
--- OUTSIDE RECORDS SUMMARY | 2025-03-01 09:58 | XMS_ITS | Encounter Summary ---
Author Organization [employer] Address [address] [place] [address] [address] [address] Care Team Providers Care Seo Expert Name Role Phone Sania Watt MD Primary Care Provide r Reason for Visit * Reason Onset Date Comments New Patient Appt 11/10/2022 Encounter Details Date Type Department Care Team ([facility] st Contact Info) Description 11/10/2022 Telephone [facility] [address] [place], [place] [phone] Sania Watt MD [address] [place] [address] New Patient Appt Social History Tobacco Use [...] left voicemail to give a call at [phone]. documented in this encounter Plan of Treatment Not on file documented as of this encounter Visit Diagnoses Not on filedocumented in this encounter Care Teams Seo Expert Relationship Specialty Start Date End Date Sania Watt MD [address] [place] [address] PCP - General Family Medicine 02/22/18 06/30/23 documented as of this encounter
--- OUTSIDE RECORDS SUMMARY | 2025-03-01 09:58 | XMS_ITS | Clinical Summary ---
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 This assay detects E6/E7 viral messenger RNA (mRNA) from 14 high-risk HPV types (16,18,31,33,35,39,45,51, 52,56,58,59,66,68). For additional information please refer to: http://education.SoccerFreakz.Launchpilots/faq/IZW859s6 (This link is being provided for informational/ educational purposes only.) Test Performed by [employer], [facility], [address] [place] [id number] Billy Robertson M.D., Ph.D., Director of Laboratories , [place] [id number] Please note: Effective 02/23/2016, HPV testing will be performed using [employer]'s APTIMA test which targets mRNA. Detecting mRNA instead of DNA, as in older methods, offers significant improvements in specificity. 03/22/2017 3:29 PM EDT us Historical Provider HISTORICAL/NON ORDERABLE LABS Final Result [facility] [address] from Last 3 Months or Most Recently Relevant to Health Maintenance
[2025-03-01 10:39] VITALS: BP 133/89; PULSE 79; RESP 18; TEMP 36; O2SAT 97
== END 2025-03-01 10:39 | disposition home or self-care (01) ==
PROVIDERS: Emergency Provider Emergency Medicine; PCP Internal Medicine
DX: M54.50 Low back pain, unspecified (principal); Z79.899 Other long term (current) drug therapy
CPT/HCPCS: 96372; 99283; 99284; J2270; J3360

== ENCOUNTER 2025-03-02 06:55 | Emergency (ER) | payer OTHER, SELFPAY ==
[2025-03-02 06:59] VITALS: BP 146/85; PULSE 99; RESP 18; TEMP 36.2; O2SAT 97; BMI 42.0
--- NOTE | 2025-03-02 07:57 | ED.BACK ---
HPI - Back Pain/Injury General Chief Complaint: Back Pain/Injury Stated Complaint: back pain Time Seen by Provider: 03/02/25 07:24 Source: patient and language interpreter Mode of arrival: ambulatory Limitations: no limitations History of Present Illness ED Provider: DR. Narvaez HPI Narrative: 39-year-old Singaporean speaking female with medical history of morbid obesity, fatty liver disease, fibromyalgia, hyperlipidemia, polyarthralgia, asthma, bipolar disease lumbar spine disc protrusions presented with acute on chronic low back pain patient feels mostly spasm pain times 2-3 days no injury to the back, patient was seen yesterday for same symptoms patient returned for persistent of low back pain without improvement patient was given IM morphine and IM Valium with prednisone yesterday returned today for no improvement. Patient also was given information of Dr. Mosquera office to follow-up as an outpatient. I patient had CT lumbar spine and x-ray for workup in the past. No dysuria, no frequency urination no fever, no chills, UA unremarkable on 02/26. No fever, no urinary incontinence, no stool incontinence, no weakness, no numbness pain Related Data Home Medications ?Medication ?Instructions ?Recorded ?Confirmed citalopram 10 mg tablet 10 mg PO QAM 10/14/21 02/28/25 doxepin 150 mg capsule 300 mg PO BEDTIME 10/14/21 02/28/25 lithium carbonate 300 mg capsule 300 mg PO BID 10/14/21 02/28/25 zolpidem 10 mg tablet 10 mg PO BEDTIME PRN 02/01/24 02/28/25 Previous Rx's ?Medication ?Instructions ?Recorded miscellaneous medical supply 1 ea miscellaneous DAILY #1 ea 10/01/22 albuterol sulfate 2.5 mg/3 mL 2.5 mg (3 mL) inhalation Q6H PRN 08/16/24 (0.083 %) solution for nebulization respiratory symptoms 30 days #75 mL ixlnzyaajs-inephexijrwaf-fqhooeer 1 tab PO Q6H PRN pain 30 days #20 08/23/24 50 mg-325 mg-40 mg tablet tabs albuterol sulfate 90 mcg/actuation 2 puff PO Q8H PRN for wheezing 30 10/17/24 aerosol inhaler days #8.5 grams amitriptyline 10 mg tablet 10 mg PO DAILY #90 tabs 10/25/24 prednisone 20 mg tablet See Rx Instructions .Route 11/05/24 .COMPLEX #15 tabs Step stool #1 ea 01/07/25 Walker #1 ea 01/07/25 shower chair #1 ea 01/07/25 tizanidine 4 mg tablet 4 mg PO TID PRN muscle spasticity 01/09/25 #90 tabs azithromycin 250 mg tablet See Rx Instructions PO .COMPLEX #6 02/26/25 tabs tirzepatide (weight loss) 2.5 2.5 mg (0.5 mL) subcut QWEEK 4 02/28/25 mg/0.5 mL subcutaneous pen weeks #2 mL injector (Zepbound) diazepam 5 mg tablet (Valium) 5 mg PO TID PRN muscle spasm #9 03/01/25 tabs prednisone 20 mg tablet 20 mg PO BID 5 days #10 tabs 03/01/25 oxycodone 5 mg tablet 5 mg PO Q8H PRN pain #5 tabs 03/02/25 Allergies Allergy/AdvReac Type Severity Reaction Status Date / Time aspirin (Aspirin) Allergy Severe DIFFICULTY Verified 03/02/25 07:01 BREATHING, tracheal swelling Penicillins Allergy Severe DIFFICULTY Verified 03/02/25 07:01 BREATHING Review of Systems Review of Systems: All other systems are reviewed and are negative Constitutional: Reports as per HPI and Reports no additional constitutional complaints Eyes: Reports as per HPI and Reports no additional eye complaints Reports system reviewed and no additional complaints, except as documented Cardiovascular: Reports as per HPI and Reports no additional cardiovascular complaints Respiratory: Reports as per HPI and Reports no additional respiratory complaints Gastrointestinal: Reports as per HPI and Reports no additional gastrointestinal complaints Genitourinary: Reports no additional female genitourinary complaints Musculoskeletal: Reports no additional musculoskeletal complaints Skin/Breast: Reports system reviewed and no additional complaints, except as docu Psychiatric: Reports no additional psychiatric complaints Endocrine: Reports no additional endocrine complaints Hematologic/Lymphatic: Reports no additional hematologic/lymphatic complaints Allergic/Immunologic: Reports no additional allergic/immunologic complaints Reports system reviewed and no additional complaints, except as documented and Reports Abnormal speech present [facility] Past Medical History Medical History Shortness of breath Snoring Fibromyalgia Prediabetes BMI 40.0-44.9, adult Hyperlipidemia Sclerosing mesenteritis Fatigue History of bacterial pneumonia Morbid obesity due to excess calories Lymphadenopathy, inguinal Chronic diarrhea Hemorrhoids Class 2 obesity with body mass index (BMI) of 39.0 to 39.9 in adult Moderate asthma Anxiety Pain of right heel Hx of allergic rhinitis Hx of bipolar disorder Asthma Surgical History History of carpal tunnel release History of endometrial ablation History of open reduction and internal fixation (ORIF) procedure History of bilateral tubal ligation History of tonsillectomy and adenoidectomy Hx of shoulder surgery Tubal ligation status Family History Family History Mother Hypertension Diabetes mellitus Father No problems noted. Social History Social History Housing: Apartment Alcohol intake: never Patient Tobacco Use Status: Never used Tobacco e-Cigarette/Vaping Use: Never Used Second Hand Smoke Exposure: No Substance Use Type: Marijuana Advance Directives: No Advance Directives Information Provided: Yes Do you have a plan to hurt others: No Plan service: No Current occupational status: unemployed Sexual orientation: Straight/Heterosexual Gender identity: Female Cognitive needs: No Hearing needs: No Vision needs: Yes Physical Exam Vital Signs: Vital Signs: Last Vital Signs Temp 97.1 F 03/02/25 06:59 Pulse 99 03/02/25 06:59 Resp 18 03/02/25 06:59 BP 146/85 H 03/02/25 06:59 Pulse Ox 97 03/02/25 06:59 O2 Del Method Room Air 03/02/25 06:59 BMI result Body Mass Index 42.0 Vital signs have been reviewed and appear to be correct. Blood pressure elevated. Heart rate normal. Respiratory rate normal. Temperature normal. Oxygen saturation normal. Appearance: Alert. Oriented X3. No acute distress. Head: Normal external exam. Normocephalic. Atraumatic. No Herbert signs noted. No raccoon eyes noted Eyes: PERRLA. EOMI. Conjunctiva and sclera normal. Eyelids normal. ENT: TM's Normal. Pharynx normal. Uvula midline. Moist mucous membranes. No trismus noted. No drooling noted. No muffled voice noted. Neck: Normal inspection. Neck supple. FROM. No adenopathy. Thyroid Normal. No meningeal signs. No neck mass noted. CVS: Normal heart rate and rhythm. Heart sound normal. No murmurs noted. Pulses normal throughout. Respiratory: No respiratory distress. Painless inspiration. Breath sounds normal. No wheezes/rales/rhonchi noted. Chest nontender. No accessory muscle usage noted or decreased air movement noted. Abdomen: Soft and nontender. Bowel sounds normal in all 4 quadrants. No distention noted. No organomegaly noted. No visible injury noted. Back: No CVA tenderness. Full range of motion noted. Skin: Skin warm and dry. Normal skin color. Normal skin turgor. No rashes/lesions/lacerations noted. Extremities: No lower extremity edema. Extremities exhibit normal range of motion. Extremities nontender. Neuro: Oriented X 3. Cranial nerve exam: II-XII are grossly intact No motor deficit. No sensory deficit. Reflexes normal. Course Reevaluation(s) Reevaluation #1: Acute on chronic low back pain was discharged yesterday on Valium and prednisone was out relief. Patient received Dilaudid IM in the ED feels better. Will discharge follow-up with PCP. Time: 08:03 Medical Decision Making Differential Diagnosis Differential Diagnoses: The differential diagnosis associated with the presentation includes (Acute on chronic back pain, cauda equina, lumbar radiculopathy, muscular pain.) Admission/Observation Consideration of admission/observation: Escalation of care including admission/observation considered Discharge Plan Discharge Clinical Impression: Low back pain with right-sided sciatica Patient Disposition: Home, Self-Care Instructions: Back Pain (ED) Prescriptions: New oxycodone 5 mg tablet 5 mg PO Q8H PRN (Reason: pain) Qty: 5 0RF Rx Instructions: Partial Fill upon patient request. No Action albuterol sulfate 2.5 mg /3 mL (0.083 %) solution for nebulization 2.5 mg inhalation Q6H PRN (Reason: respiratory symptoms) 30 Days Qty: 75 1RF albuterol sulfate 90 mcg/actuation HFA aerosol inhaler 2 puff PO Q8H PRN (Reason: for wheezing) 30 Days Qty: 8.5 0RF (DME) Step stool See Rx Instructions .Route .MEDSUPPLY Qty: 1 0RF Rx Instructions: As directed (DME) Walker See Rx Instructions .Route .MEDSUPPLY Qty: 1 0RF Rx Instructions: As directed (DME) shower chair See Rx Instructions .Route .MEDSUPPLY Qty: 1 0RF Rx Instructions: As directed tizanidine 4 mg tablet 4 mg PO TID PRN (Reason: muscle spasticity) Qty: 90 0RF Rx Instructions: Do not take with Fioricet. No driving while taking this medication. May cause drowsiness. Do not take with alcohol or other INSPECTOR GLASS OR MIRROR Depressants. azithromycin 250 mg tablet See Rx Instructions .ROUTE .COMPLEX Qty: 6 0RF Rx Instructions: For 250 mg dose pack: take 500 mg today (day 1), then 250 mg for 4 days (days 2-5) prednisone 20 mg tablet 20 mg PO BID 5 Days Qty: 10 0RF diazepam [Valium] 5 mg tablet 5 mg PO TID PRN (Reason: muscle spasm) Qty: 9 0RF prednisone 20 mg tablet See Rx Instructions .ROUTE .COMPLEX Qty: 15 0RF Rx Instructions: 60 mg (3 tabs) x2 days, then 40 mg (2 tabs) x3 days, then 20 mg (1 tab) x3 days doxepin 150 mg capsule 300 mg PO BEDTIME lithium carbonate 300 mg capsule 300 mg PO BID citalopram 10 mg tablet 10 mg PO QAM miscellaneous medical supply Misc 1 ea miscellaneous DAILY Qty: 1 0RF Rx Instructions: face mask for nebulizer machine zolpidem 10 mg tablet 10 mg PO BEDTIME PRN Zepbound 2.5 mg/0.5 mL pen injector 2.5 mg subcut QWEEK 28 Days Qty: 2 0RF Rx Instructions: for 4 weeks xbpofewreb-irbzgabxdjjor-tfwa 50-325-40 mg tablet 1 tab PO Q6H PRN (Reason: pain) 30 Days Qty: 20 0RF amitriptyline 10 mg tablet 10 mg PO DAILY Qty: 90 1RF Referrals: Janis Marcelino MD [Primary Care Provider, Internal Medicine] Antonio Dodson MD, PhD [Physician, Neuro Spine] Print Language: Singaporean
--- OUTSIDE RECORDS SUMMARY | 2025-03-02 08:01 | XMS_ITS | Clinical Summary ---
Author Organization [employer] Address [address] [place] [address] [address] [place] [address] Care Team Providers Care Senior Php Software Developer Name Role Phone Unavailable Primary Care Provider [...] was performed using the APTIMA(R) HPV Assay ([employer] This assay detects E6/E7 viral messenger RNA (mRNA) from 14 high-risk HPV types (16,18,31,33,35,39,45,51, 52,56,58,59,66,68). For additional information please refer to: http://education.[employer].Mirriad/faq/BVA553t9 (This link is being provided for informational/ educational purposes only.) Test Performed by [facility], [facility], [address] [place] [id number] Billy Robertson M.D., Ph.D., Director of Laboratories , [place] [id number] Please note: Effective 02/23/2016, HPV testing will be performed using [employer]'s APTIMA test which targets mRNA. Detecting mRNA instead of DNA, as in older methods, offers significant improvements in specificity. 03/22/2017 3:29 PM EDT us Historical Provider HISTORICAL/NON ORDERABLE LABS Final Result [facility] Anywhere [address] from Last 3 Months or Most Recently Relevant to Health Maintenance
--- OUTSIDE RECORDS SUMMARY | 2025-03-02 08:01 | XMS_ITS | Encounter Summary ---
Author Organization [employer] Address [address] [place] [address] [address] [address] Care Team Providers Care Academy Education Director Name Role Phone Sania Watt MD Primary Care Provide r Reason for Visit * Reason Onset Date Comments New Patient Appt 11/10/2022 Encounter Details Date Type Department Care Team ([facility] st Contact Info) Description 11/10/2022 Telephone [facility] MEDICINE [address] [place], [place] [phone] Sania Watt MD [address] [place] [address] New Patient Appt Social History Tobacco Use [...] left voicemail to give a call at [phone]. documented in this encounter Plan of Treatment Not on file documented as of this encounter Visit Diagnoses Not on filedocumented in this encounter Care Teams Academy Education Director Relationship Specialty Start Date End Date Sania Watt MD [address] [place] [address] PCP - General Family Medicine 02/22/18 06/30/23 documented as of this encounter
[2025-03-02 08:09] VITALS: RESP 22
[2025-03-02 08:33] LABS: COVID-19 Test Negative (Negative); IDNOW Serial# 55D5AD1C; IDNOW Serial# 58CA691E
[2025-03-02 08:34] LABS: Influenza B2 Negative (Negative)
[2025-03-02 09:03] VITALS: BP 136/78; PULSE 80; RESP 16; TEMP 36.6; O2SAT 99
== END 2025-03-02 09:04 | disposition home or self-care (01) ==
PROVIDERS: Emergency Provider Emergency Medicine; PCP Internal Medicine
DX: M54.41 Lumbago with sciatica, right side (principal); Z03.818 Encounter for observation for suspected exposure to other biological agents ruled out; Z79.899 Other long term (current) drug therapy
CPT/HCPCS: 87502; 87635; 96372; 99284; J1171

== ENCOUNTER 2025-03-18 08:59 | Outpatient (AMB) | payer OTHER, SELFPAY ==
[2025-03-18 09:06] VITALS: BP 118/74; PULSE 100; O2SAT 95; BMI 42.5
--- NOTE | 2025-03-18 09:06 | A.OFFVIS_ITS ---
Vital Signs 03/18/25 09:06 Height 5 ft 9 in Weight 288 lb 2 oz BMI 42.5 BP 118/74 Blood Pressure Location Lt brachial Position Sitting Pulse 100 Pulse Source Pulse Oximeter Pulse Oximetry (%) 95 Oxygen Delivery Method Room Air Intake Visit Reasons: 3 mo follow up Intake Note: Patient presents follow up ROSANA. PSG in chart(AHI-19, REM AHI-30, GENA-74%. APAP 5-20cm) Non Licensed Nuclear Plant Operator Required: Yes Non Licensed Nuclear Plant Operator Services: Non Licensed Nuclear Plant Operator Offered & Declined Non Licensed Nuclear Plant Operator Name: daughter Information Interpreted: non-clinical & clinical Accompanied by: Daughter Allergies aspirin (Aspirin) Allergy (Severe, Verified 03/18/25 09:12) DIFFICULTY BREATHING, tracheal swelling Penicillins Allergy (Severe, Verified 03/18/25 09:12) DIFFICULTY BREATHING HPI Comments Details: 39 year old Beninese speaking female with h/o sickle cell anemia referred to us for evaluation of ROSANA, by her PCP Rita Breaux. Lillian her daughter, helps with history. PSG c/w Moderate ROSANA AHI is 19/hr and REM AHI 30hr. with O2 desaturation to 74%. Will start her on CPAP therapy. She has asthma and uses her inhaler twice daily for SOB, and wheezing for over a year now. She was diagnosed with SC anemia in August 2024. She snores loudly and gasps for air at night, and feels exhausted through the day. She sleeps on her r. side but tosses and turns all night. She goes to bed at 8pm and has di fficulty falling asleep. She falls asleep at midnight and sleeps for 20min, wakes up and goes to the bathroom 3-4x a night as she can't stay asleep. She has daily morning headaches, radiating bilaterally from her temporal area to the parietal area and takes 2 tylenols which usually decreases the pain. If the headache evolves into a migraine she will take a Fiorect and puts on her migraine cap and sleeps in a dark room for 1 hour. She has a prodrome of bright light flashing, spots prior to the migraines. She has photo/phonophobia with dizziness, she denies n/v vertigo and balance difficulties. She has anxiety and mood disorder, she takes lithium 300mg po bid, amitritpyline 10mg, and citalopram 10mg po daily. She sees her therapist once a week and pscyhiatrist 1x a month. She has chronic lower back pain and takes tizanidine 2mg po BID for fibromyagia as this provides quick pain relief. She also has RLS symptoms which keep her up at night with paresthesias, cramps, and an uncomfortable sensation which improves when she stretches her feet, l>r. She stays well hydrated due to the SC anemia. COUNTS INCLUDE 234 BEDS AT THE [facility] Medical History Shortness of breath Snoring Fibromyalgia Prediabetes BMI 40.0-44.9, adult Hyperlipidemia Sclerosing mesenteritis Fatigue History of bacterial pneumonia Morbid obesity due to excess calories Lymphadenopathy, inguinal Chronic diarrhea Hemorrhoids Class 2 obesity with body mass index (BMI) of 39.0 to 39.9 in adult Moderate asthma Anxiety Pain of right heel Hx of allergic rhinitis Hx of bipolar disorder Asthma Surgical History History of carpal tunnel release History of endometrial ablation History of open reduction and internal fixation (ORIF) procedure History of bilateral tubal ligation History of tonsillectomy and adenoidectomy Hx of shoulder surgery Tubal ligation status Family History Mother Hypertension Diabetes mellitus Father No problems noted. Social History (Updated 03/18/25 @ 12:06 by Leigha Menendez) Household Members: Children Housing: Apartment Alcohol intake: never Patient Tobacco Use Status: Never used Tobacco Tobacco use type: Cigarette e-Cigarette/Vaping Use: Never Used Second Hand Smoke Exposure: No Substance Use Type: Marijuana Do you feel safe in your current relationship?: No Do you have thoughts of harming others: None Do you have a plan to hurt others: No Plan Do you have the means to hurt others: No service: No Current occupational status: unemployed Sexual orientation: Straight/Heterosexual Gender identity: Female Cognitive needs: No Hearing needs: No Vision needs: Yes Female Reproductive History Menstrual Age of Menarche: 10 Physical Exam Vital Signs: Last Vital Signs Pulse 100 03/18/25 09:06 BP 118/74 03/18/25 09:06 Pulse Ox 95 03/18/25 09:06 Oxygen Delivery Method Room Air 03/18/25 09:06 BMI result Body Mass Index 42.5 Const General: cooperative, no acute distress and tired appearing Orientation/consciousness: patient oriented x3 HEENT Face and sinus: Yes face symmetric Teeth and gingiva: other (M[place]ampti score 3) Eyes Pupils: Equal, round and reactive pupils present Neck Neck: Yes full ROM Resp Effort & Inspection: able to speak in complete sentences Neuro General: patient oriented x3 and moves all extremities Cranial nerves: Yes Facial sensation intact/muscles of mastication intact, Yes Equal, round and reactive pupils present, Yes Normal accommodation reflex present, Yes Normal facial strength present, Yes Midline tongue present, Yes Ability to bilaterally rotate head present and Yes Ability to bilaterally elevate shoulders present Cognition (Neuro): normal cognition Gait exam (Neuro): Normal gait present Motor exam (neuro): 5/5 motor strength present throughout and Normal motor muscle tone present throughout Psych Appearance: grossly normal Affect: Anxious affect present Attitude: cooperative Thought process: Normal thought process present Thought content: Normal thought content present Results Reviewed Results Reviewed: IMPRESSION: 1. No acute findings. Degenerative changes of the lumbar spine as above level by level. Eczygbuz-uj-njvdgn neural foramina stenoses of the left L5-S1. PSG c/w Moderate ROSANA AHI is 19/hr and REM AHI 30hr. with O2 desaturation to 74%. Assessment & Plan Assessment & Plan (1) ROSANA on CPAP: Code(s): G47.33 - Obstructive sleep apnea (adult) (pediatric) Category: Medical (2) Excessive daytime sleepiness: Code(s): G47.19 - Other hypersomnia Category: Medical (3) Chronic fatigue: Code(s): R53.82 - Chronic fatigue, unspecified Category: Medical (4) Sciatica associated with disorder of lumbar spine: Code(s): M53.86 - Other specified dorsopathies, lumbar region Category: Medical Plan PSG reviewed with pt will start her on cpap therapy and monitor for compliance as she has moderate ROSANA, reviewed compliance requirement and >4 hours daily. CPAP rx is sent to [facility] Excessive day time fatigue Labs to r/o nutritional deficiencies PT for sciatica F/U in 3 months. Orders: Orders Ferritin Today R53.82 - Chronic fatigue, unspecified IRON PROFILE Today G47.9 - Sleep disorder, unspecified, R53.82 - Chronic fatigue, unspecified, R53.83 - Other fatigue Vitamin D 25-OH Total Today R53.82 - Chronic fatigue, unspecified TSH reflex Free T4 Today R53.82 - Chronic fatigue, unspecified PT Evaluation and Treatment Today M53.86 - Other specified dorsopathies, lumbar region, M54.32 - Sciatica, left side Methylmalonic Acid Today G47.9 - Sleep disorder, unspecified, R53.82 - Chronic fatigue, unspecified, R53.83 - Other fatigue Homocysteine Today G47.9 - Sleep disorder, unspecified, R53.82 - Chronic fatigue, unspecified, R53.83 - Other fatigue Vitamin B12 and Folate Today R53.82 - Chronic fatigue, unspecified Patient Instructions: Sleep Hygiene provided: set a scheduled bedtime and wake time to help regulate the circadian rhythm and balance the release of pituitary hormones. Sleep in a dark room, temperatures below 68 degrees, and no devices n bed. Limit caffeinated products 6 hours prior to bed, and limit fluids 2-4 hours prior to bed. Gentle night yoga, diffusing essential oils, and playing soft music can be relaxing. Coding Level of Care Code Est Pt Level 4 (11527) Diagnoses ROSANA on CPAP G47.33 Excessive daytime sleepiness G47.19 Chronic fatigue R53.82 Sciatica associated with disorder of lumbar spine M53.86
--- OUTSIDE RECORDS SUMMARY | 2025-03-18 09:58 | XMS_ITS | Encounter Summary ---
Author Organization [employer] Address [address] [place] [address] [place] [address] Care Team Providers Care Air Traffic Systems Technician Name Role Phone Sania Watt MD Primary Care Provide r Reason for Visit * Reason Onset Date Comments New Patient Appt 11/10/2022 Encounter Details Date Type Department Care Team ([facility] st Contact Info) Description 11/10/2022 Telephone [facility] MEDICINE [address] [place], [place] [phone] Sania Watt MD [address] [place] [address] New Patient Appt Social History Tobacco Use [...] left voicemail to give a call at [phone]. documented in this encounter Plan of Treatment Not on file documented as of this encounter Visit Diagnoses Not on filedocumented in this encounter Care Teams Air Traffic Systems Technician Relationship Specialty Start Date End Date Sania Watt MD [address] [place] [address] PCP - General Family Medicine 02/22/18 06/30/23 documented as of this encounter
--- OUTSIDE RECORDS SUMMARY | 2025-03-18 09:58 | XMS_ITS | Clinical Summary ---
Author Organization [employer] Address [address] [place] [address] [address] [place] [address] Care Team Providers Care Sales Director Name Role Phone Unavailable Primary Care Provider [...] was performed using the APTIMA(R) HPV Assay ([employer] This assay detects E6/E7 viral messenger RNA (mRNA) from 14 high-risk HPV types (16,18,31,33,35,39,45,51, 52,56,58,59,66,68). For additional information please refer to: http://education.[employer].Flexuspine/faq/VRJ349f5 (This link is being provided for informational/ educational purposes only.) Test Performed by [facility], [facility], [address] [place] [id number] Billy Robertson M.D., Ph.D., Director of Laboratories , [place] [id number] Please note: Effective 02/23/2016, HPV testing will be performed using [employer]'s APTIMA test which targets mRNA. Detecting mRNA instead of DNA, as in older methods, offers significant improvements in specificity. 03/22/2017 3:29 PM EDT us Historical Provider HISTORICAL/NON ORDERABLE LABS Final Result [facility] Anywhere [address] from Last 3 Months or Most Recently Relevant to Health Maintenance
== END 2025-03-18 09:58 | disposition home or self-care (01) ==
LOC: HO.HSMS 09:00
PROVIDERS: PCP Internal Medicine; Visit Provider Physician Assistant Medical
DX: G47.33 Obstructive sleep apnea (adult) (pediatric) (principal); G47.19 Other hypersomnia; R53.82 Chronic fatigue, unspecified; M53.86 Other specified dorsopathies, lumbar region
CPT/HCPCS: 99214

== ENCOUNTER → 2025-03-18 08:59 | Outpatient (BNVA) | payer OTHER, SELFPAY | PROVIDERS: PCP Internal Medicine; Visit Provider Physician Assistant Medical | DX: G47.33 Obstructive sleep apnea (adult) (pediatric) (principal); G47.19 Other hypersomnia; R53.82 Chronic fatigue, unspecified; M53.86 Other specified dorsopathies, lumbar region | CPT/HCPCS: 99212 ==

== ENCOUNTER → 2025-03-18 11:51 | Outpatient (BNV) | payer OTHER, SELFPAY | PROVIDERS: PCP Internal Medicine; Referring Provider Internal Medicine; Visit Provider Internal Medicine | DX: D57.40 Sickle-cell thalassemia without crisis (principal) | CPT/HCPCS: 99204 ==